=== PATIENT | female | born 1955 | race Caucasian/White ===

== ENCOUNTER → 2016-12-10 | Outpatient (CLI) | payer OTHER ==
[2016-12-10 11:31] LABS: Basophils # (A) 0.1 k/uL (0-0.2); Basophils % (A) 1 %; CH 29.2; CHCM 32.3; Eosinophils # (A) 0.3 k/uL (0-0.7); Eosinophils % (A) 4 %; HCT 39.4 % (34.0-46.0); HDW 2.39; HGB 12.4 gm/dL (11.4-16.0); Luc # (Auto) 0.22; Luc % (Auto) 3; Lymphocytes # (A) 2.5 k/uL (1.0-4.8); Lymphocytes % (A) 34 %; MCH 28.4 pg (25.0-35.0); MCHC 31.3 g/dL (31.0-37.0); MCV 90.6 fL (80.0-100.0); Mean Platelet Volume 6.9; Monocytes # (A) 0.4 k/uL (0-1.0); Monocytes % (A) 6 %; Neutrophils # (A) 3.9 k/uL (1.3-7.7); Neutrophils % (A) 53 %; RBC 4.35 m/uL (3.80-5.40); RDW 12.7 % (11.5-15.5); WBC 7.3 k/uL (3.8-10.6); WBC (Perox) 7.91
[2016-12-10 11:49] LABS: ALT 36 U/L (9-52); AST 22 U/L (14-36); Alkaline Phosphatase 74 U/L (38-126); Anion Gap 10 mmol/L; Blood Urea Nitrogen 24 mg/dL (7-17); Calcium 9.9 mg/dL (8.4-10.2); Carbon Dioxide 28 mmol/L (22-30); Chloride 104 mmol/L (98-107); Glucose 93 mg/dL (74-99); Iron 124 ug/dL (37-170); Non-African American GFR(MDRD) 50 (>60 ml/min/1.73 sqM); Potassium 3.9 mmol/L (3.5-5.1); Sodium 142 mmol/L (137-145); Total Bilirubin 0.3 mg/dL (0.2-1.3); Total Protein 6.7 g/dL (6.3-8.2); Uric Acid 4.1 mg/dL (3.7-7.4)
[2016-12-10 11:58] LABS: % Iron Saturation 42.3 % (20-50); Total Iron Binding Capacity 293 ug/dL (265-497)
== END | disposition home or self-care (01) ==
LOC: LABWHC1 10:08
PROVIDERS: ATTEND Internal Medicine
DX: I10 Essential (primary) hypertension (principal); D50.9 Iron deficiency anemia, unspecified; E55.9 Vitamin D deficiency, unspecified
CPT/HCPCS: 36415; 80053; 82306; 82728; 83540; 83550; 84443; 84550; 85025

== ENCOUNTER → 2017-04-19 | Outpatient (CLI) | payer OTHER ==
--- NOTE | 2017-04-19 09:07 | XR ---
EXAMINATION TYPE: XR cervical spine comp DATE OF EXAM: 04/19/2017 TECHNIQUE: Frontal, lateral, oblique, and open mouth view of the cervical spine are obtained. HISTORY: M47.892 spondylosis chronic neck pain per patient. COMPARISON: None FINDINGS: The cervical spine is visualized in its entirety from C1 thru the top of T1 level, it is s atisfactory in alignment without evidence of acute fracture or dislocation. The pre-vertebral soft t issue appears within normal limits. The C1-C2 articulation is within normal limits on the open mouth view. Vertebral body heights are maintained. There is mild to moderate disc space narrowing and spur ring at C5-C6 level and mild disc space narrowing at C6-C7 level. Uncovertebral facet degenerative ch anges and marginal spurring causes suspected right-sided neural foraminal narrowing at upper to mid c ervical levels seen best on oblique image. Overlying soft tissue is unremarkable. IMPRESSION: Multilevel degenerative changes as detailed above.
--- NOTE | 2017-04-19 11:44 | MM ---
Reason for exam: screening (asymptomatic). Last mammogram was performed 1 year ago. History: Patient is postmenopausal. Family history of breast cancer in 2 aunts and breast cancer in mother at age 60. Took estrogen for 10 years 9 months beginning at age 42. Physical Findings: A clinical breast exam by your physician is recommended on an annual basis and results should be correlated with mammographic findings. MG Screening Mammo w CAD Bilateral CC and MLO view(s) were taken. Prior study comparison: April 06, 2016, bilateral MG screening mammo w CAD. February 11, 2015, bilateral MG screening mammo w CAD. October 10, 2012, bilateral digital screening mammo w/CAD. There are scattered fibroglandular densities. Finding: There are typically benign round calcifications in the left breast. There is no discrete abnormality. ASSESSMENT: Benign, BI-RAD 2 RECOMMENDATION: Routine screening mammogram of both breasts in 1 year.
== END | disposition home or self-care (01) ==
LOC: RADMAMWWP 08:20
PROVIDERS: ATTEND Obstetrics & Gynecology
DX: Z12.31 Encounter for screening mammogram for malignant neoplasm of breast (principal); M47.812 Spondylosis without myelopathy or radiculopathy, cervical region; Z80.3 Family history of malignant neoplasm of breast
CPT/HCPCS: 72050; G0202

== ENCOUNTER → 2017-04-27 | Outpatient (CLI) | payer OTHER ==
[2017-04-27 11:07] LABS: ALT 41 U/L (9-52); AST 27 U/L (14-36); Alkaline Phosphatase 73 U/L (38-126); Anion Gap 7 mmol/L; Blood Urea Nitrogen 13 mg/dL (7-17); Calcium 9.6 mg/dL (8.4-10.2); Carbon Dioxide 31 mmol/L (22-30); Chloride 104 mmol/L (98-107); Cholesterol 207 mg/dL (<200); Creatine Kinase 59 U/L (30-135); Glucose 93 mg/dL (74-99); HDL Cholesterol 60 mg/dL (40-60); Iron 65 ug/dL (37-170); Non-African American GFR(MDRD) >60 (>60 ml/min/1.73 sqM); Potassium 4.1 mmol/L (3.5-5.1); Sodium 142 mmol/L (137-145); Total Bilirubin 0.1 mg/dL (0.2-1.3); Total Protein 5.8 g/dL (6.3-8.2); Triglycerides 156 mg/dL (<150)
[2017-04-27 11:17] LABS: Total Iron Binding Capacity 271 ug/dL (265-497)
[2017-04-27 11:39] LABS: Basophils # (A) 0.1 k/uL (0-0.2); Basophils % (A) 1 %; CH 30.2; Eosinophils # (A) 0.3 k/uL (0-0.7); Eosinophils % (A) 4 %; HCT 39.4 % (34.0-46.0); HDW 2.47; HGB 12.2 gm/dL (11.4-16.0); Luc # (Auto) 0.18; Luc % (Auto) 3; Lymphocytes # (A) 2.3 k/uL (1.0-4.8); Lymphocytes % (A) 32 %; MCH 29.3 pg (25.0-35.0); MCHC 30.9 g/dL (31.0-37.0); MCV 94.8 fL (80.0-100.0); Mean Platelet Volume 6.5; Monocytes # (A) 0.4 k/uL (0-1.0); Monocytes % (A) 5 %; Neutrophils # (A) 4.1 k/uL (1.3-7.7); Neutrophils % (A) 55 %; RBC 4.16 m/uL (3.80-5.40); RDW 13.3 % (11.5-15.5); WBC 7.4 k/uL (3.8-10.6); WBC (Perox) 7.09
[2017-04-27 11:49] LABS: Appearance,Urine Clear (Clear); Bilirubin,Urine Negative (Negative); Glucose,Urine (UA) Negative (Negative); Ketones,Urine Negative (Negative); Leukocyte Esterase,Urine Negative (Negative); Nitrite,Urine Negative (Negative); PH, Urine 6.5 (5.0-8.0); Protein,Urine Trace (Negative); Specific Gravity,Urine 1.017 (1.001-1.035); UA Billing (MACRO vs. MICRO) CHEM; Urobilinogen,Urine <2.0 mg/dL (<2.0)
[2017-04-27 13:04] LABS: Hemoglobin A1C 6.2 % (4.2-6.1)
== END | disposition home or self-care (01) ==
LOC: LABWHC1 09:51
PROVIDERS: ATTEND Internal Medicine
DX: Z00.00 Encounter for general adult medical examination without abnormal findings (principal); I10 Essential (primary) hypertension; E55.9 Vitamin D deficiency, unspecified; D50.9 Iron deficiency anemia, unspecified; G43.909 Migraine, unspecified, not intractable, without status migrainosus; E16.2 Hypoglycemia, unspecified; R00.1 Bradycardia, unspecified
CPT/HCPCS: 36415; 80053; 80061; 81003; 82306; 82550; 82728; 82941; 83036; 83540; 83550; 84439; 84443; 84550; 84681; 85025

== ENCOUNTER → 2017-05-16 | Outpatient (CLI) | payer OTHER ==
--- NOTE | 2017-05-16 15:17 | CT ---
EXAMINATION TYPE: CT brain wo con DATE OF EXAM: 05/16/2017 HISTORY: POWELL and dizziness after fall with head injury x3 days ago. CT DLP: 1070 mGycm. Automated Exposure Control for Dose Reduction was Utilized. TECHNIQUE: CT scan of the head is performed without contrast. COMPARISON: None. FINDINGS: There is no acute intracranial hemorrhage or midline shift identified. Ventricles and sul ci are within normal limits in size. Rodrigues-white matter differentiation is maintained. The globes are intact and the visualized sinuses are clear. The calvarium is intact. IMPRESSION: No acute intracranial hemorrhage or midline shift. Results communicated to ordering physician office as requested at time of dictation.
== END | disposition home or self-care (01) ==
LOC: RADCTMAIN 14:54
PROVIDERS: ATTEND Internal Medicine Geriatric Medicine
DX: S06.0X0A Concussion without loss of consciousness, initial encounter (principal)
CPT/HCPCS: 70450

== ENCOUNTER → 2017-07-03 | Outpatient (CLI) | payer OTHER ==
--- NOTE | 2017-07-03 11:03 | US ---
"EXAMINATION TYPE: US abdomen complete DATE OF EXAM: 07/03/2017 COMPARISON: NONE CLINICAL HISTORY: K83.9 disease os biliary tract. EXAM MEASUREMENTS: Liver Length: 15.6 cm Gallbladder Wall: 0.3 cm CBD: 0.6 cm Spleen: 9.3 cm Right Kidney: 9.1 x 3.6 x 4.7 cm Left Kidney: 8.7 x 3.8 x 4.1 cm Extensive midline bowel gas. Pancreas: Obscured by bowel gas Liver: left lobe obscured by bowel gas, in right lobe is an echogenic somewhat irregular shaped non- vascular area measuring 1.7 x 1.3 x 2.0cm Gallbladder: probable dependant sludge, better visualized in LLD Evidence for sonographic Reagan's sign: no CBD: wnl Spleen: wnl Right Kidney: lower pole obscured by overlying bowel gas Left Kidney: not well visualized due to overlying bowel Upper IVC: wnl Abd Aorta: wnl IMPRESSION: 1. Hyperechoic 2.0 cm irregular mass within the partially visualized liver due to overlying bowel gas . This could represent hemangioma, however is incompletely characterized and further evaluation with dynamic contrast-enhanced CT or MR abdomen are recommended. 2. Only partial visualization of the right kidney and nonvisualization of the left kidney due to over lying bowel gas. 3. Small amount of biliary sludge with no sonographic evidence of acute cholecystitis. A Yellow message has been communicated to Valeriano Khan MD via the [employer] | Critical Result sy stem on 07/03/2017 11:00 AM, Message ID [id number]."
--- NOTE | 2017-07-03 11:49 | P.STRESS ---
- Stress Test Note Stress Test Results/Findings: Exam Performed: stress echo exercise Exam Date: 07/03/17 Reason for Exam: SEPTAL [place] Height: 5 ft 2 in Weight: 61.235 kg Protocol: [place] Stage: 2 Duration of Exercise: 5:00 Resting Heart Rate: 83 Resting Blood Pressure: 134/65 Maximum Achieved Heart Rate: 146 Maximum Achieved Blood Pressure: 189/79 85% PMHR: 133 100% PMHR: 157 METS: 7.1 Technologist Comment: Stress Test Results/Findings: This is a 62-year-old female with history of hypertension and family history of ischemic heart disease being evaluated for cardiac status, because of abnormal EKG and this is a stress echocardiogram. Baseline EKG showed sinus rhythm with normal AR interval and QRS duration and mild nonspecific ST-T abnormalities. Patient walked on the [place] protocol for about 5 minutes, achieving a max moderate of 146 with a blood pressure 189/79. EKGs taken during and after exercise showed [address] depression in inferolateral leads. Patient did not experience any chest pain. Echo data: Baseline echo images showed normal wall motion and thickening except the basal septum and inferior wall appear to be hypokinetic. Exercise echo images showed lack of augmentation in the inferobasal and septal area and ischemia in those segments cannot be excluded. Final impression: #1. Positive stress test. Based on EKG changes #2. Ischemia cannot be excluded in the inferobasal and septal area. Rest of the segments showed augmentation and thickening
--- NOTE | 2017-07-04 11:34 | EST ---
Stress Test Results/Findings: Exam Performed: stress echo exercise Exam Date: 07/03/17 Reason for Exam: SEPTAL [place] Height: 5 ft 2 in Weight: 61.235 kg Protocol: [place] Stage: 2 Duration of Exercise: 5:00 Resting Heart Rate: 83 Resting Blood Pressure: 134/65 Maximum Achieved Heart Rate: 146 Maximum Achieved Blood Pressure: 189/79 85% PMHR: 133 100% PMHR: 157 METS: 7.1 Technologist Comment: Stress Test Results/Findings: This is a 62-year-old female with history of hypertension and family history of ischemic heart disease being evaluated for cardiac status, because of abnormal EKG and this is a stress echocardiogram. Baseline EKG showed sinus rhythm with normal AR interval and QRS duration and mild nonspecific ST-T abnormalities. Patient walked on the [place] protocol for about 5 minutes, achieving a max moderate of 146 with a blood pressure 189/79. EKGs taken during and after exercise showed [address] depression in inferolateral leads. Patient did not experience any chest pain. Echo data: Baseline echo images showed normal wall motion and thickening except the basal septum and inferior wall appear to be hypokinetic. Exercise echo images showed lack of augmentation in the inferobasal and septal area and ischemia in those segments cannot be excluded. Final impression: #1. Positive stress test, based on EKG changes #2. Ischemia cannot be excluded in the inferobasal and septal area. Rest of the segments showed augmentation and thickening MTDD
== END | disposition home or self-care (01) ==
LOC: RADUSMAIN 09:00
PROVIDERS: ATTEND Internal Medicine
DX: R16.0 Hepatomegaly, not elsewhere classified (principal); K83.9 Disease of biliary tract, unspecified; R94.39 Abnormal result of other cardiovascular function study; I21.29 ST elevation (STEMI) myocardial infarction involving other sites
CPT/HCPCS: 76700; 93017; 93350

== ENCOUNTER → 2017-07-17 | Outpatient (CLI) | payer OTHER ==
[2017-07-17 14:04] LABS: Non-African American GFR(MDRD) >60 (>60 ml/min/1.73 sqM)
--- NOTE | 2017-07-17 23:13 | MR ---
EXAMINATION TYPE: MR abdomen wo/w con DATE OF EXAM: 07/17/2017 COMPARISON: NONE HISTORY: Abn US, intermittent abd pain/nausea when eating CONTRAST: Standard multiplanar, multisequence MRI departmental protocol utilizing 6.5 mL intravenous Gadavist g adolinium contrast. FINDINGS: There is a lobulated 3 cm area of progressive enhancement near the gilmar hepatis in the rig ht lobe of the liver. There is nodular peripheral enhancement on the early images and later more unif orm contrast enhancement. Bile ducts are not dilated. The remainder of the liver shows no abnormality. There is no evidence of pancreatic mass. Pancreatic duct appears normal. Spleen appears normal. There are bilateral multiple small renal cortical cysts that measure less than 1 cm. There is no hydr onephrosis. There is no retroperitoneal adenopathy. There is no ascites. IMPRESSION: There is a 3 cm mass in the right lobe of the liver without change in size compared to ultrasound exa m of 07/03/2017. There is enhancement pattern diagnostic of hemangioma. Multiple small renal cortical cysts.
== END | disposition home or self-care (01) ==
LOC: RADMRIMAIN 13:10
PROVIDERS: ATTEND Internal Medicine
DX: D18.09 Hemangioma of other sites (principal); R16.0 Hepatomegaly, not elsewhere classified; Z01.812 Encounter for preprocedural laboratory examination
CPT/HCPCS: 82565; 74183; 36415; A9581

== ENCOUNTER → 2017-07-20 | Outpatient (CLI) | payer OTHER ==
[2017-07-20 14:27] LABS: CH 30.3; CHCM 33.2; HCT 37.8 % (34.0-46.0); HGB 12.3 gm/dL (11.4-16.0); MCH 29.8 pg (25.0-35.0); MCHC 32.4 g/dL (31.0-37.0); MCV 91.9 fL (80.0-100.0); Mean Platelet Volume 7.1; RBC 4.11 m/uL (3.80-5.40); RDW 13.4 % (11.5-15.5); WBC 7.3 k/uL (3.8-10.6)
[2017-07-20 14:32] LABS: Potassium 3.9 mmol/L (3.5-5.1)
== END | disposition home or self-care (01) ==
LOC: LABPAT 13:25
PROVIDERS: ATTEND Internal Medicine Cardiovascular Disease
DX: Z01.812 Encounter for preprocedural laboratory examination (principal); R07.9 Chest pain, unspecified
CPT/HCPCS: 80051; 84520; 85027

== ENCOUNTER 2017-07-27 06:17 | Day surgery (SDC) | payer OTHER ==
[2017-07-24 14:10] VITALS: BMI 23.0
[2017-07-27] MEDS ORDERED: SODIUM CHLORIDE 0.9% 1,000 ML in EMPTY BAG 1 BAG IV ONE (06:35)
[2017-07-27] MEDS ORDERED: ATORVASTATIN 80 MG TAB PO STA (06:35)
[2017-07-27] MEDS ORDERED: NITROGLYCERIN SL TABS 0.4 MG TAB SUBLINGUAL PRN ×2 (06:35→08:55)
[2017-07-27] MEDS ORDERED: ASPIRIN 325 MG TAB PO STA (06:35)
[2017-07-27] MEDS ORDERED: ALPRAZolam 0.5 MG TAB PO PRN (06:35)
[2017-07-27] MEDS ORDERED: ALPRAZolam 0.25 MG TAB PO PRN (06:35)
[2017-07-27] MEDS ORDERED: MIDAZOLAM 2 MG/2 ML VIAL ONE (07:28)
[2017-07-27] MEDS ORDERED: diphenhydrAMINE 50 MG/ML 1 ML VIAL ONE (07:28)
[2017-07-27] MEDS ORDERED: diphenhydrAMINE 50 MG/ML 1 ML VIAL IVP ONE (07:35)
[2017-07-27] MEDS: MIDAZOLAM 2 MG/2 ML VIAL IV ONE ×2 (07:37→08:05)
[2017-07-27] MEDS ORDERED: LIDOCAINE 2% INJ 20 MG/ML SQ ONE (07:41)
[2017-07-27] MEDS ORDERED: CLOPIDOGREL 75 MG TAB ONE (08:13)
[2017-07-27] MEDS ORDERED: CLOPIDOGREL 75 MG TAB PO ONE (08:19)
[2017-07-27] MEDS ORDERED: BIVALIRUDIN BOLUS 250 MG/50 ML IV ONE (08:21)
[2017-07-27] MEDS ORDERED: BIVALIRUDIN 250 MG in SODIUM CHLORIDE 0.9% 40 ML IV ONE (08:24)
[2017-07-27] MEDS ORDERED: fentaNYL (PF) 50 MCG/ML 2 ML AMP ONE (08:25)
[2017-07-27] MEDS ORDERED: fentaNYL (PF) 50 MCG/ML 2 ML AMP IV ONE (08:27)
[2017-07-27] MEDS: NITROGLYCERIN 1000MCG/10ML SYRINGE INTRACORON ONE ×2 (08:32→08:41)
[2017-07-27] MEDS ORDERED: IOHEXOL 350 MG/ML 125ML BOTTLE INJ ONE (08:43)
[2017-07-27] MEDS ORDERED: MAG HYDROX/AL HYDROX/SIMETH 30 ML CUP PO PRN (08:55)
[2017-07-27] MEDS ORDERED: ATROPINE SULFATE 0.1 MG/ML 10ML SYRINGE IV PRN (08:55)
[2017-07-27] MEDS ORDERED: RX INFO: IV CONTRAST WAS GIVEN 1 EACH MISC MISCELLANE PRN (08:55)
[2017-07-27] MEDS ORDERED: ZOLPIDEM 5 MG TAB PO PRN (08:55)
[2017-07-27] MEDS ORDERED: SODIUM CHLORIDE 0.9% 1,000 ML IV SCH (09:00)
[2017-07-27] MEDS ORDERED: BUTALB/APAP/CAFF 50-325-40MG TAB PO STA (09:39)
[2017-07-27] MEDS ORDERED: CAFF PO SCH (09:45)
[2017-07-27] MEDS ORDERED: BUTALB PO SCH (09:45)
[2017-07-27] MEDS ORDERED: ASPRIN PO SCH (09:45)
--- NOTE | 2017-07-27 09:51 | CC ---
CARDIAC CATHETERIZATION REPORT INDICATION: Abnormal stress echo in a patient with multiple coronary risk factors and an abnormal stress echo. Patient has new onset symptoms in the form of exertional angina. PROCEDURE NOTE: After obtaining informed consent, left heart catheterization and coronary angiogram are performed via the right femoral artery using standard Aida catheters. The patient tolerated the procedure well without any obvious immediate complications. The patient received moderate conscious sedation. Total sedation time was 12 minutes. FINDINGS: 1. HEMODYNAMICS: Left ventricular end-diastolic pressure is 8 to 12 mm. There is no significant gradient across the aortic valve. 2. LEFT VENTRICULOGRAM: Left ventriculogram is not performed. 3. ANGIOGRAPHIC DATA:. Left Main Coronary Artery, left main coronary artery is a normal-sized vessel and is free of stenosis. Divides into left anterior descending coronary artery and circumflex coronary artery. Circumflex coronary artery is a codominant vessel that shows a focal area of 80% stenosis. LAD appears calcified. There is a 30% to 40% stenosis in its mid portion. Right coronary artery is a large dominant vessel and shows mild atherosclerotic plaque. CONCLUSIONS: An 80% stenosis involving [place] circumflex coronary artery. PLAN: Patient will undergo angioplasty of the same. MMODL / IJN: [id number] /
--- NOTE | 2017-07-27 09:57 | LTR ---
Date: July 27, 2017 Valeriano Khan MD Re: Cat Marroquin. Dear Valeriano: I performed cardiac catheterization on Cat Marroquin. The detailed catheterization note is enclosed for your records. This pleasant 62-year-old lady with multiple coronary risk factors presented to us with symptoms of exertional chest pain and shortness of breath and had an abnormal stress echo showing ischemia in the inferior wall. Due to this she underwent cardiac catheterization that revealed a hemodynamically significant lesion in the [place] circumflex coronary artery. The patient will undergo angioplasty of the same and I anticipate her being discharged home tomorrow. Thank you for giving us the privilege to participate in the care of this pleasant lady. Sincerely, MD RICHMOND Bryant / BRIDGET: [id number] /
--- NOTE | 2017-07-27 10:06 | PTCA ---
PERCUTANEOUSTRANS CORORONARY ANGIOGRAPHY Mrs. Marroquin is a 62-year-old female who has a well known history of hypertension, hyperlipidemia, who had some chest discomfort, underwent a stress echocardiogram that revealed evidence of inferior and inferoseptal wall inducible ischemia. In view of that, the patient underwent cardiac catheterization, was found to have critical stenosis involving the proximal left circumflex and recommendation made regarding angioplasty and stenting. The procedures, risks and complication were discussed with the patient who is in full understanding and agreement. PROCEDURE: Using a 6-Japanese FR4 guiding catheter, the left main was cannulated, subsequently 0.14 advanced medium weight J-wire was advanced across the lesion and positioned distally. Then a 2.5 x 12 mm Xience Alpine stent was advanced, deployed and post dilated to 16 atmospheres. After the last inflation, after appropriate wait, the balloon and the guidewire were withdrawn back in the guiding catheter. Images were obtained and repeated. Those images reveal stable successful stenting. At that point, the guiding catheter, the balloon and the guidewire were removed. The sheath was sutured in place. The patient was returned to her room in stable condition. Of note, the patient had chest discomfort and EKG changes with the inflations. She received Angiomax per protocol as was oral loading dose of clopidogrel. RESULTS: Successful stenting of the proximal left circumflex with reduction of stenosis from 80% to 0%. RECOMMENDATION: Patient will be continued on aspirin, Plavix, angiotensin receptor velia, and statin. The importance of dual antiplatelet treatment was discussed with the patient and her family who are in full understanding and agreement. Duration of procedure is 20 minutes. RICHMOND / TRICIAN: [id number] /
--- NOTE | 2017-07-27 10:27 | LTR ---
Date: DATE OF SERVICE: 07/27/2017 RE: Cat Marroquin Dear Dr. Khan; I had the pleasure to perform coronary angioplasty and stenting on Mrs. Marroquin at [facility] on July 27, 2017. A full copy of the procedure note will be forwarded to you. In brief, she underwent successful stenting of her proximal left circumflex using a drug-eluting stent. I am hopeful that this procedure will stabilize her status and thank you again for allowing me to participate in this patient's care. Please feel free to call for any questions. Sincerely yours, MD DA GonzalesL / TRICIAN: [id number] /
[2017-07-27] MEDS: CHOLECALCIFEROL 1,000 UNIT TAB PO SCH (19:41)
[2017-07-27] MEDS: PANTOPRAZOLE 40 MG TABLET PO SCH (19:42)
[2017-07-27] MEDS: VERAPAMIL SR 240 MG TABLET.ER PO SCH ×2 (19:42→20:46)
[2017-07-27] MEDS: FERROUS SULFATE 325 MG TAB PO SCH (19:42)
[2017-07-27] MEDS ORDERED: cloNIDine HCL 0.1 MG TAB PO SCH (21:00)
[2017-07-27] MEDS ORDERED: ACETAMINOPHEN TAB 325 MG TAB PO PRN (21:57)
[2017-07-28 06:40] LABS: Anion Gap 4 mmol/L; Blood Urea Nitrogen 12 mg/dL (7-17); Calcium 9.1 mg/dL (8.4-10.2); Carbon Dioxide 30 mmol/L (22-30); Chloride 102 mmol/L (98-107); Glucose 89 mg/dL (74-99); Non-African American GFR(MDRD) >60 (>60 ml/min/1.73 sqM); Potassium 3.5 mmol/L (3.5-5.1); Sodium 136 mmol/L (137-145)
[2017-07-28] MEDS: PANTOPRAZOLE 40 MG TABLET PO SCH (06:55)
--- NOTE | 2017-07-28 07:58 | PN ---
PROGRESS NOTE Mrs. Marroquin is a 62-year-old female who has a history of hypertension, presented with abnormal stress echocardiogram and symptoms of chest pain, underwent cardiac catheterization by Dr. Hernandez, was found to have significant obstructive disease involving the proximal left circumflex, underwent stenting of that vessel using a drug- eluting stent. She is doing well this morning. She is denying any chest pain. Her breathing has been stable. No dizziness. No palpitation. Continued to be aspirin once a day, Plavix 75 mg daily, Lipitor 40 mg daily, clonidine 0.1 mg daily, hydrochlorothiazide 12.5 mg daily, losartan 100 mg daily, Protonix 40 mg daily, verapamil SR 240 mg twice a day. PHYSICAL EXAMINATION: Blood pressure 118/60 with a heart rate 70. LUNGS: Clear. HEART: Regular rate and rhythm. S1, S2. No S3. No rub. ABDOMEN: Soft, nontender. Right groin hematoma. EKG revealed no acute changes. LAB DATA: Lab data revealed BUN and creatinine 12 and 0.7. IMPRESSION: 1. Status post stenting of the left circumflex. 2. Hypertension. 3. Hyperlipidemia. RECOMMENDATION: Patient will be discharged home today and followed as an outpatient by Dr. Hernandez. MMLAUREANOL / TRICIAN: [id number] /
[2017-07-28] MEDS: VERAPAMIL SR 240 MG TABLET.ER PO SCH (08:04)
[2017-07-28] MEDS: FERROUS SULFATE 325 MG TAB PO SCH (08:04)
[2017-07-28] MEDS: CHOLECALCIFEROL 1,000 UNIT TAB PO SCH (08:06)
[2017-07-28] MEDS ORDERED: LOSARTAN 50 MG TAB PO SCH (09:00)
[2017-07-28] MEDS ORDERED: ASPIRIN 81 MG PO SCH (09:00)
[2017-07-28] MEDS ORDERED: HYDROCHLOROTHIAZIDE 12.5 MG CAP PO SCH (09:00)
[2017-07-28] MEDS ORDERED: CLOPIDOGREL 75 MG TAB PO SCH (09:00)
[2017-07-28] MEDS ORDERED: ATORVASTATIN 40 MG TAB PO SCH (09:00)
[2017-07-28 09:20] VITALS: BP 99/53; PULSE 71; RESP 18; TEMP 97.9
== END 2017-07-28 09:44 | disposition home or self-care (01) ==
LOC: CATHCVL 06:17 → 6SEL 12:27 → CATHCVL 07-28 09:44
PROVIDERS: ATTEND Internal Medicine Cardiovascular Disease
DX: I25.118 Atherosclerotic heart disease of native coronary artery with other forms of angina pectoris (principal); I10 Essential (primary) hypertension; E78.5 Hyperlipidemia, unspecified; Z82.49 Family history of ischemic heart disease and other diseases of the circulatory system; Z79.82 Long term (current) use of aspirin; Z79.899 Other long term (current) drug therapy; Z88.5 Allergy status to narcotic agent
CPT/HCPCS: 94760; 93458; 80048; C9600; C1769 ×2; C1887; C1894; C1874; J2001; J2250; J1200; J3010; J0583; Q9967

== ENCOUNTER → 2018-01-29 | Outpatient (CLI) | payer OTHER ==
--- NOTE | 2018-01-29 13:37 | US ---
EXAMINATION TYPE: US abdomen complete DATE OF EXAM: 01/29/2018 COMPARISON: US July 03, 2017. MRI abdomen July 17, 2017. CLINICAL HISTORY: Hemangioma D18.00; prior bowel resection EXAM MEASUREMENTS: Liver Length: 13.5 cm Gallbladder Wall: 0.2 cm CBD: 0.5 cm Spleen: 8.8 cm Right Kidney: 8.4 x 4.4 x 3.3 cm Left Kidney: 8.1 x 4.8 x 4.2 cm Pancreas: hyperechoic; tail obscured by overlying bowel gas Liver: follow up to prior area of hemangioma: complex hyperechoic oval area is noted at gilmar hepati s = 1.8 x 2.7 x 2.8cm Gallbladder: wnl Evidence for sonographic Reagan's sign: No CBD: wnl Spleen: wnl Right Kidney: No hydronephrosis or masses seen Left Kidney: No hydronephrosis or masses seen Upper IVC: wnl Abd Aorta: size is wnl, mild intimal thickening is noted mid and distal aorta Visualized pancreas is not well seen on images saved due to shadowing from overlying bowel gas. Pancr eatic duct is visualized but not suspiciously dilated. Visualized portion of liver redemonstrates sophie e vague hyperechoic area centrally right hepatic lobe likely reflecting hemangioma, this is better se en on prior ultrasound images saved. No new lesions are seen on images saved. IMPRESSION: There is redemonstration of central right hepatic lobe liver lesion consistent with heman gioma on dynamic postcontrast MRI, lesion measures closer to 3.0 cm long axis on MRI which correlates with this ultrasound.
== END | disposition home or self-care (01) ==
LOC: RADUSWWP 12:07
PROVIDERS: ATTEND Internal Medicine
DX: K76.9 Liver disease, unspecified (principal)
CPT/HCPCS: 76700

== ENCOUNTER → 2018-02-06 | Outpatient (CLI) | payer OTHER ==
[2018-02-06 15:50] LABS: Calcium 9.2 mg/dL (8.4-10.2); Magnesium 1.9 mg/dL (1.6-2.3); Potassium 3.3 mmol/L (3.5-5.1)
== END | disposition home or self-care (01) ==
LOC: LABWHC1 14:54
PROVIDERS: ATTEND Internal Medicine
DX: E87.6 Hypokalemia (principal)
CPT/HCPCS: 36415; 80048; 83735

== ENCOUNTER → 2018-04-25 | Outpatient (CLI) | payer OTHER ==
--- NOTE | 2018-04-27 08:32 | MM ---
Reason for exam: screening (asymptomatic). Last mammogram was performed 1 year ago. History: Patient is postmenopausal. Family history of breast cancer in 2 aunts and breast cancer in mother at age 60. Took estrogen for 10 years 9 months beginning at age 42. Physical Findings: A clinical breast exam by your physician is recommended on an annual basis and results should be correlated with mammographic findings. MG Screening Mammo w CAD Bilateral CC and MLO view(s) were taken. Prior study comparison: April 19, 2017, bilateral MG screening mammo w CAD. April 06, 2016, bilateral MG screening mammo w CAD. There are scattered fibroglandular densities. No suspicious abnormality. ASSESSMENT: Negative, BI-RAD 1 RECOMMENDATION: Routine screening mammogram of both breasts in 1 year.
== END | disposition home or self-care (01) ==
LOC: RADMAMWWP 08:33
PROVIDERS: ATTEND Obstetrics & Gynecology
DX: Z12.31 Encounter for screening mammogram for malignant neoplasm of breast (principal); Z80.3 Family history of malignant neoplasm of breast
CPT/HCPCS: 77067

== ENCOUNTER 2018-08-08 00:07 | Inpatient (IN) | payer OTHER ==
[2018-08-08] MEDS ORDERED: SODIUM CHLORIDE 0.9% 1,000 ML IV STA (00:52)
[2018-08-08] MEDS ORDERED: ONDANSETRON 4 MG/2 ML VIAL IVP STA ×2 (00:52→02:14)
[2018-08-08] MEDS ORDERED: HYDROmorphone 1 MG/ML 1 ML SYRINGE IVP STA (00:52)
[2018-08-08 01:23] LABS: Basophils # (A) 0.1 k/uL (0-0.2); Basophils % (A) 1 %; Eosinophils # (A) 0.4 k/uL (0-0.7); Eosinophils % (A) 4 %; HCT 40.8 % (34.0-46.0); HGB 12.3 gm/dL (11.4-16.0); Lymphocytes % (A) 27 %; MCH 28.4 pg (25.0-35.0); MCHC 30.2 g/dL (31.0-37.0); MCV 93.8 fL (80.0-100.0); Mean Platelet Volume 6.2; Monocytes # (A) 0.5 k/uL (0-1.0); Monocytes % (A) 5 %; Neutrophils # (A) 6.7 k/uL (1.3-7.7); Neutrophils % (A) 61 %; Platelet Count 290 k/uL (150-450); RBC 4.35 m/uL (3.80-5.40); WBC 10.9 k/uL (3.8-10.6)
[2018-08-08 01:26] LABS: Albumin 3.9 g/dL (3.5-5.0); Calcium 9.7 mg/dL (8.4-10.2); Potassium 3.4 mmol/L (3.5-5.1); Total Bilirubin 0.2 mg/dL (0.2-1.3); Total Protein 6.7 g/dL (6.3-8.2)
[2018-08-08 01:42] LABS: Creatine Kinase 99 U/L (30-135)
[2018-08-08 01:55] LABS: Creatine Kinase MB 2.3 ng/mL (0.0-2.4); Troponin I <0.012 ng/mL (0.000-0.034)
[2018-08-08] MEDS ORDERED: DILTIAZEM DRIP BOLUS FROM BAG 1 MG SOLN IV ONE ×3 (02:09→05:52)
--- NOTE | 2018-08-08 02:11 | CT ---
EXAMINATION TYPE: CT abdomen pelvis w con DATE OF EXAM: 08/08/2018 COMPARISON: None HISTORY: No prior, right sided abd pain with nausea and vomiting for 1 day, history of bowel resectio n and hysterectomy CT DLP: 435.10 mGycm Automated exposure control for dose reduction was used. TECHNIQUE: Helical acquisition of images was performed from the lung bases through the pelvis. CONTRAST: Performed without Oral Contrast and with IV Contrast, patient injected with 100 mL of Isovue 300. FINDINGS: Lung bases are clear of consolidation. There is no pleural effusion. There is mild subsegmental atele ctasis at the right lung base. There is no pericardial effusion. Liver shows no focal defect. Gallbladder is dilated and measures 5.3 cm in diameter. Spleen appears n ormal. There is a hiatal hernia. There is surgery at the stomach. There is gastrojejunostomy noted. T here is no evidence of pancreatic mass. Common bile duct and intrahepatic bile ducts are mildly ectat ic. The common bile duct measures 12 mm. I see no mass at the distal common bile duct. There is no adrenal mass. Kidneys show satisfactory contrast opacification. There is no hydronephrosi s. There is no retroperitoneal adenopathy. There is no mesenteric adenopathy or edema. There are scat tered sigmoid diverticula. There is no sign of diverticulitis. I see no evidence of a bowel obstructi on. Bladder distends smoothly. There is no free fluid in the abdomen. Hysterectomy is noted. Lumbar s pine appears intact. I see no bony destructive process. There is no inguinal hernia or adenopathy. Th e abdominal soft tissues are unremarkable. IMPRESSION: THERE IS DILATED GALLBLADDER AND ALSO DILATED BILIARY TREE. I DO NOT SEE A PANCREATIC MASS. THIS COUL D RELATE TO STRICTURE OR OBSTRUCTING STONE IN THE DISTAL COMMON BILE DUCT. MRCP EXAM WOULD BE HELPFUL FOR FURTHER EVALUATION IF CLINICALLY INDICATED. ULTRASOUND MIGHT BE ABLE TO EVALUATE THE DISTAL COMM ON BILE DUCT FOR STONE.
--- NOTE | 2018-08-08 02:20 | ED ---
Abdominal Pain HPI <BrivladislavDillan - Last Filed: 08/08/18 06:00> - General Source: patient Mode of arrival: ambulatory Limitations: no limitations <Elisabeth Reyes - Last Filed: 08/10/18 02:50> - General Chief Complaint: Abdominal Pain Stated Complaint: Abdominal Pain Time Seen by Provider: 08/08/18 00:27 - History of Present Illness Initial Comments: 63-year-old female patient with past medical history significant for myocardial infarction with stenting in 2017 and bowel obstruction status post gastrojejunostomy presents to the emergency department today for complaints of midepigastric and right upper quadrant abdominal pain. Patient states the pain does radiate through to her back. States she has been nauseated throughout the day and has vomited. Patient denies any constipation or diarrhea. She denies hematochezia or melena. She did have a normal bowel movement this morning. Denies any fevers or chills. She denies any chest pain, shortness of breath, dizziness, or weakness. She denies any hematuria, dysuria, urinary frequency, urinary urgency. Denies any history of similar symptoms. Patient denies any recent rash, back pain, numbness, tingling, dizziness, weakness, headache, visual changes, or any other complaints. (Elisabeth Reyes) - Related Data Home Medications Medication Instructions Recorded Confirmed Butalb/Asprin/Caff 50-325-40Mg 1 tab PO DAILY PRN 04/26/16 08/08/18 [Fiorinal 50-325-40 MG] Losartan/Hydrochlorothiazide 1 tab PO HS 04/26/16 08/08/18 [Losartan-Hctz 100-12.5 mg Tab] Omeprazole 40 mg PO BID 04/26/16 08/08/18 Verapamil HCl [Verapamil ER] 240 mg PO DAILY 04/26/16 08/08/18 Ascorbic Acid [Vitamin C] 500 mg PO DAILY 07/24/17 08/08/18 Cholecalciferol [Vitamin D3] 1,000 unit PO DAILY 07/24/17 08/08/18 Ferrous Sulfate [Iron (65 MG 325 mg PO DAILY 07/24/17 08/08/18 Elemental)] Feverfew 1 tab PO DAILY 07/24/17 08/08/18 LPrabhakaracidoph,Parackarimei, B.lactis 1 cap PO DAILY 07/24/17 08/08/18 [Probiotic] Multivitamins, Thera [Multivitamin 1 tab PO DAILY 07/24/17 08/08/18 (formulary)] Aspirin EC [Ecotrin Low Dose] 81 mg PO HS 08/08/18 08/08/18 Aspirin/Acetaminophen/Caffeine 1 tab PO BID PRN 08/08/18 08/08/18 [Excedrin Migraine Caplet] Britni Back & Body 1,000 mg PO Q6H PRN 08/08/18 08/08/18 Cyanocobalamin (Vitamin B-12) 2,500 mcg PO DAILY 08/08/18 08/08/18 [Vitamin B12] Ibuprofen [Motrin Ib] 200 mg PO Q4H PRN 08/08/18 08/08/18 Imitrex (Unknown Dose) 1 dose IM DAILY PRN 08/08/18 08/08/18 Potassium Chloride [Klor-Con 20] 20 meq PO HS 08/08/18 08/08/18 Previous Rx's Medication Instructions Recorded Atorvastatin [Lipitor] 40 mg PO DAILY #90 tab 07/28/17 Nitroglycerin Sl Tabs [Nitrostat] 0.4 mg SUBLINGUAL Q5M PRN #25 tab 07/28/17 Allergies Allergy/AdvReac Type Severity Reaction Status Date / Time morphine Allergy hives Verified 08/08/18 09:20 Review of Systems ROS Other: All systems not noted in ROS Statement are negative. <Dillan Pisano - Last Filed: 08/08/18 06:00> ROS Other: All systems not noted in ROS Statement are negative. <Elisabeth Reyes - Last Filed: 08/10/18 02:50> ROS Statement: Those systems with pertinent positive or pertinent negative responses have been documented in the HPI. Past Medical History Past Medical History: Cancer, Hypertension Additional Past Medical History / Comment(s): gastric ulcers History of Any Multi-Drug Resistant Organisms: None Reported Past Surgical History: Bowel Resection, Heart Catheterization, Hysterectomy Additional Past Surgical History / Comment(s): mole removed from neck Past Psychological History: No Psychological Hx Reported Smoking Status: Never smoker Past Alcohol Use History: None Reported Past Drug Use History: None Reported - Past Family History Mother Family Medical History: Cancer (Lung cancer at the age of 70) Additional Family Medical History / Comment(s): Mother had lung cancer. Father Family Medical History: Coronary Artery Disease (CAD), Diabetes Mellitus Additional Family Medical History / Comment(s): Father at 75 yrs post CABG sepsis. Daughter(s) Family Medical History: Cancer Additional Family Medical History / Comment(s): Daughter had melanoma stage III Brother(s) Family Medical History: Coronary Artery Disease (CAD) ( of myocardial infarction at age 59 has 5 living siblings with no medical problems, has 3 kids with one son has lupus) <Elisabeth Reyes - Last Filed: 08/10/18 02:50> General Exam Limitations: no limitations General appearance: alert, in no apparent distress, other (This is a well- developed, well-nourished adult female patient in no acute distress. Vital signs upon presentation are temperature 98.5F, pulse 80, respirations 19, blood pressure 182/76, pulse ox 98% on room air.) Eye exam: Present: normal appearance, PERRL, EOMI. Absent: scleral icterus, conjunctival injection, periorbital swelling ENT exam: Present: normal exam, normal oropharynx, mucous membranes moist Respiratory exam: Present: normal lung sounds bilaterally. Absent: respiratory distress, wheezes, rales, rhonchi, stridor Cardiovascular Exam: Present: regular rate, normal rhythm, normal heart sounds. Absent: systolic murmur, diastolic murmur, rubs, gallop, clicks GI/Abdominal exam: Present: soft, tenderness (Midepigastric tenderness), normal bowel sounds. Absent: distended, guarding, rebound, rigid Back exam: Present: normal inspection. Absent: CVA tenderness (R), CVA tenderness (L) Neurological exam: Present: alert, oriented X3, CN II-XII intact Psychiatric exam: Present: normal affect, normal mood Skin exam: Present: warm, dry, intact, normal color. Absent: rash <Elisabeth Reyes - Last Filed: 08/10/18 02:50> Course <Dillan Pisano - Last Filed: 08/08/18 06:00> <Elisabeth Reyes - Last Filed: 08/10/18 02:50> Vital Signs 08/08/18 08/08/18 08/08/18 00:17 02:31 03:19 Temperature 98.5 F Pulse Rate 80 140 H 137 H Respiratory 19 16 16 Rate Blood Pressure 182/76 160/113 182/75 O2 Sat by Pulse 98 96 95 Oximetry 08/08/18 08/08/18 08/08/18 04:27 05:16 06:25 Temperature Pulse Rate 157 H 131 H 90 Respiratory 16 18 16 Rate Blood Pressure 178/79 133/67 145/67 O2 Sat by Pulse 97 97 97 Oximetry - Reevaluation(s) Reevaluation #1: 08/08/18 02:21 On the heart monitor patient had elevated heart rate in the 140s and 150s. Monitor strip appeared to be atrial fibrillation with rapid ventricular response. We did obtain a repeat EKG which did show A. fib with RVR. Patient has no history of atrial fibrillation. Has had history of [place] with stenting in 2017. We will start Cardizem. Patient currently reporting increased nausea and pounding heart. We will give additional nausea medication. (Elisabeth Reyes) Medical Decision Making - Lab Data Result diagrams: 08/08/18 00:48 08/08/18 00:48 <Dillan Pisano - Last Filed: 08/08/18 06:00> - Lab Data Result diagrams: 08/09/18 07:48 08/09/18 07:48 - EKG Data -: EKG Interpreted by Me - Radiology Data Radiology results: report reviewed, image reviewed <Elisabeth Reyes - Last Filed: 08/10/18 02:50> - Medical Decision Making I saw this patient in conjunction with the physician dental assistant. I performed independent history and physical exam. Agree with case management. (Dillan Pisano) - Lab Data Lab Results 08/08/18 08/08/18 08/08/18 Range/Units 00:48 00:48 00:48 WBC 10.9 H (3.8-10.6) k/uL RBC 4.35 (3.80-5.40) m/uL Hgb 12.3 (11.4-16.0) gm/dL Hct 40.8 (34.0-46.0) % MCV 93.8 (80.0-100.0) fL MCH 28.4 (25.0-35.0) pg MCHC 30.2 L (31.0-37.0) g/dL RDW 13.0 (11.5-15.5) % Plt Count 290 (150-450) k/uL Neutrophils % 61 % Lymphocytes % 27 % Monocytes % 5 % Eosinophils % 4 % Basophils % 1 % Neutrophils # 6.7 (1.3-7.7) k/uL Lymphocytes # 3.0 (1.0-4.8) k/uL Monocytes # 0.5 (0-1.0) k/uL Eosinophils # 0.4 (0-0.7) k/uL Basophils # 0.1 (0-0.2) k/uL Sodium 141 (137-145) mmol/L Potassium 3.4 L (3.5-5.1) mmol/L Chloride 106 (98-107) mmol/L Carbon Dioxide 25 (22-30) mmol/L Anion Gap 10 mmol/L BUN 16 (7-17) mg/dL Creatinine 0.88 (0.52-1.04) mg/dL Est GFR (CKD-EPI)AfAm 81 (>60 ml/min/1.73 sqM) Est GFR (CKD-EPI)NonAf 70 (>60 ml/min/1.73 sqM) Glucose 98 (74-99) mg/dL Plasma Lactic Acid Dariel (0.7-2.0) mmol/L Calcium 9.7 (8.4-10.2) mg/dL Magnesium (1.6-2.3) mg/dL Total Bilirubin 0.2 (0.2-1.3) mg/dL AST 25 (14-36) U/L ALT 29 (9-52) U/L Alkaline Phosphatase 100 (38-126) U/L Total Creatine Kinase 99 (30-135) U/L CK-MB (CK-2) 2.3 (0.0-2.4) ng/mL CK-MB (CK-2) Rel Index 2.3 Troponin I <0.012 (0.000-0.034) ng/mL Total Protein 6.7 (6.3-8.2) g/dL Albumin 3.9 (3.5-5.0) g/dL Amylase 83 (30-110) U/L Lipase 121 (23-300) U/L TSH (0.465-4.680) mIU/L Urine Color Urine Appearance (Clear) Urine pH (5.0-8.0) Ur Specific [place] (1.001-1.035) Urine Protein (Negative) Urine Glucose (UA) (Negative) Urine Ketones (Negative) Urine Blood (Negative) Urine Nitrite (Negative) Urine Bilirubin (Negative) Urine Urobilinogen (<2.0) mg/dL Ur Leukocyte Esterase (Negative) Urine RBC (0-5) /hpf Urine WBC (0-5) /hpf Ur Squamous Epith Cells (0-4) /hpf Urine Bacteria (None) /hpf Hyaline Casts (0-2) /lpf Urine Mucus (None) /hpf 08/08/18 08/08/18 08/08/18 Range/Units 00:48 00:48 02:58 WBC (3.8-10.6) k/uL RBC (3.80-5.40) m/uL Hgb (11.4-16.0) gm/dL Hct (34.0-46.0) % MCV (80.0-100.0) fL MCH (25.0-35.0) pg MCHC (31.0-37.0) g/dL RDW (11.5-15.5) % Plt Count (150-450) k/uL Neutrophils % % Lymphocytes % % Monocytes % % Eosinophils % % Basophils % % Neutrophils # (1.3-7.7) k/uL Lymphocytes # (1.0-4.8) k/uL Monocytes # (0-1.0) k/uL Eosinophils # (0-0.7) k/uL Basophils # (0-0.2) k/uL Sodium (137-145) mmol/L Potassium (3.5-5.1) mmol/L Chloride (98-107) mmol/L Carbon Dioxide (22-30) mmol/L Anion Gap mmol/L BUN (7-17) mg/dL Creatinine (0.52-1.04) mg/dL Est GFR (CKD-EPI)AfAm (>60 ml/min/1.73 sqM) Est GFR (CKD-EPI)NonAf (>60 ml/min/1.73 sqM) Glucose (74-99) mg/dL Plasma Lactic Acid Dariel 0.8 (0.7-2.0) mmol/L Calcium (8.4-10.2) mg/dL Magnesium 2.1 (1.6-2.3) mg/dL Total Bilirubin (0.2-1.3) mg/dL AST (14-36) U/L ALT (9-52) U/L Alkaline Phosphatase (38-126) U/L Total Creatine Kinase (30-135) U/L CK-MB (CK-2) (0.0-2.4) ng/mL CK-MB (CK-2) Rel Index Troponin I (0.000-0.034) ng/mL Total Protein (6.3-8.2) g/dL Albumin (3.5-5.0) g/dL Amylase (30-110) U/L Lipase (23-300) U/L TSH 1.570 (0.465-4.680) mIU/L Urine Color Colorless Urine Appearance Clear (Clear) Urine pH 6.5 (5.0-8.0) Ur Specific [place] 1.018 (1.001-1.035) Urine Protein Negative (Negative) Urine Glucose (UA) Negative (Negative) Urine Ketones 1+ H (Negative) Urine Blood Negative (Negative) Urine Nitrite Negative (Negative) Urine Bilirubin Negative (Negative) Urine Urobilinogen <2.0 (<2.0) mg/dL Ur Leukocyte Esterase Moderate H (Negative) Urine RBC 1 (0-5) /hpf Urine WBC 6 H (0-5) /hpf Ur Squamous Epith Cells <1 (0-4) /hpf Urine Bacteria Rare H (None) /hpf Hyaline Casts 1 (0-2) /lpf Urine Mucus Rare H (None) /hpf - EKG Data EKG Comments: EKG obtained at 0056 shows normal sinus rhythm with a ventricular rate of 87, VA interval 188, QRS duration 82, QT 02/06/1947, QTc 416. No evidence of ST elevation or depression. EKG obtained at 0201 shows atrial fibrillation with rapid ventricular response with premature ventricular aberrantly conducted complexes. Ventricular rate is 142, QRS duration 80, QT 282, QTc 433. (Elisabeth Reyes) - Radiology Data CT abdomen and pelvis is obtained. Report was reviewed in its entirety. There is dilated gallbladder and also dilated biliary tree. He did not see a pancreatic mass. Skin related to structural obstructing stone in the distal common bile duct. MRCP exam would be helpful for further evaluation if clinically indicated. Ultrasound might able to evaluate the distal common bile duct for stone. (Elisabeth Reyes) Disposition <Dillan Pisano - Last Filed: 08/08/18 06:00> <Elisabeth Reyes - Last Filed: 08/10/18 02:50> Clinical Impression: Abdominal pain, Atrial fibrillation with RVR Disposition: ADMITTED IP TO THIS HOSP Condition: Fair
[2018-08-08 02:25] LABS: Magnesium 2.1 mg/dL (1.6-2.3)
[2018-08-08] MEDS: DILTIAZEM 50 MG in SODIUM CHLORIDE 0.9% 40 ML IV SCH ×2 (02:27→06:14)
[2018-08-08] MEDS ORDERED: METOCLOPRAMIDE 5 MG/ML 2 ML VIAL IVP STA (02:54)
[2018-08-08] MEDS ORDERED: diphenhydrAMINE 50 MG/ML 1 ML VIAL IVP STA (02:55)
[2018-08-08 03:35] LABS: Appearance,Urine Clear (Clear); Bacteria,Urine Rare /hpf; Bilirubin,Urine Negative (Negative); Blood,Urine Negative (Negative); Color,Urine Colorless; Glucose,Urine (UA) Negative (Negative); Hyaline Casts,Urine 1 /lpf (0-2); Ketones,Urine 1+ (Negative); Leukocyte Esterase,Urine Moderate (Negative); Mucus,Urine Rare /hpf; Nitrite,Urine Negative (Negative); PH, Urine 6.5 (5.0-8.0); Protein,Urine Negative (Negative); RBC,Urine 1 /hpf (0-5); Specific Gravity,Urine 1.018 (1.001-1.035); Squamous Epithelial Cell,Urine <1 /hpf (0-4); Urobilinogen,Urine <2.0 mg/dL (<2.0); WBC,Urine 6 /hpf (0-5)
[2018-08-08] MEDS ORDERED: NITROGLYCERIN SL TABS 0.4 MG TAB SUBLINGUAL PRN ×2 (05:53→05:56)
[2018-08-08] MEDS: SODIUM CHLORIDE 0.9% 1,000 ML IV SCH ×2 (06:15→14:21)
[2018-08-08 08:14] LABS: Creatine Kinase MB 2.2 ng/mL (0.0-2.4); Troponin I 0.03 ng/mL (0.000-0.034)
[2018-08-08] MEDS ORDERED: LOSARTAN 50 MG TAB PO SCH (09:00)
[2018-08-08] MEDS ORDERED: LIPASE 5,000/PROTEASE 17,000/AMYLASE 24,000 PO SCH (09:00)
[2018-08-08] MEDS ORDERED: CLOPIDOGREL 75 MG TAB PO SCH (09:00)
--- NOTE | 2018-08-08 10:09 | CONS ---
CONSULTATION CHIEF COMPLAINT: Atrial fibrillation with rapid ventricular rate. Cat Marroquin is a 63-year-old lady with history of coronary artery disease, status post prior angioplasty, hypertension, and dyslipidemia who presented to hospital complaining of epigastric pain, nausea, vomiting since yesterday. Her symptomatology was consistent with possible gallstone and just as she was getting ready to be discharged from the ER, went into atrial fibrillation for which she is admitted to hospital. She was treated with intravenous Cardizem following which she converted to sinus rhythm and has remained in sinus rhythm. At the time of my evaluation, she does not have any cardiac symptoms. She is in normal sinus rhythm. Does not have any chest pain or difficulty in breathing. There is no history of palpitations or focal neurological deficits. She continues to have nausea, vomiting and vague abdominal discomfort. She has known coronary artery disease and had angioplasty of circumflex coronary artery in July of 2017. PAST MEDICAL HISTORY: Past medical history is significant for coronary artery disease, status post angioplasty, hypertension and dyslipidemia. CURRENT MEDICATIONS: Current medications include aspirin, Lipitor, losartan, K-Dur, and verapamil ER. ALLERGIES: She is allergic to MORPHINE. FAMILY HISTORY: Family history is negative for premature coronary artery disease. SOCIAL HISTORY: Negative for current smoking, EtOH abuse, or drug abuse. REVIEW OF SYSTEMS: HEENT is unremarkable. CARDIAC: As described above. RESPIRATORY: Negative. GI: As described above. GENITOURINARY: Negative. ALLERGY/IMMUNOLOGICAL: Negative. SKIN: Negative. MUSCULOSKELETAL: Significant for arthritis. PSYCHOSOCIAL: Negative. ENDOCRINE: Negative. HEMATOLOGICAL: Negative. DERM: Negative. CONSTITUTIONAL: Negative. ONCOLOGICAL: Negative. Rest of the systems review is not relevant. PHYSICAL EXAMINATION: On exam, heart rate is 90 beats per minute. Blood pressure 145/67, respiratory rate is 18, O2 sat is 97% on room air. There is no jugular venous distention. Carotid upstroke is normal. There is no bruit. Chest exam reveals good air entry bilaterally. Heart exam reveals first and second heart sounds. No gallop. No murmur. Abdomen is soft. Examination of the extremities did not reveal any edema. Peripheral pulses are felt. Admission EKG shows atrial fibrillation. Subsequent EKG showed sinus rhythm. She has had 2 sets of cardiac enzymes that are negative. TSH is normal at 1.5. Creatinine is normal at 0.8. White cell count is slightly elevated at 10.9. ASSESSMENT: 1. Paroxysmal atrial fibrillation. 2. Coronary artery disease, status post angioplasty. 3. Hypertension. 4. Nausea, vomiting, abdominal pain, possible gallstones. PLAN: From cardiac standpoint, she will continue with the oral beta blockers and calcium channel blockers that she had been on. Given the transient episode of atrial fibrillation, I am not going to start her on anticoagulant at this time. However, if she has further episodes of atrial fibrillation, she will be a candidate for long-term oral anticoagulation. I will obtain a 2D echo on her to evaluate LV function. MMODL / IJN: [id number] /
[2018-08-08] MEDS: METOCLOPRAMIDE 5 MG/ML 2 ML VIAL IVP SCH ×2 (10:48→16:21)
[2018-08-08] MEDS ORDERED: KETOROLAC 30 MG/ML 1 ML VIAL IVP STA (11:53)
[2018-08-08] MEDS ORDERED: ACETAMINOPHEN TAB 325 MG TAB PO PRN (11:54)
[2018-08-08 12:19] LABS: Troponin I 0.031 ng/mL (0.000-0.034)
--- NOTE | 2018-08-08 13:26 | P.GSCN ---
History of Present Illness Consult date: 08/08/18 Reason for Consult: Abdominal pain History of present illness: Patient presents to the ER yesterday with complaints of upper abdominal pain and pain in the right upper quadrant. This is associated with episodes of nausea and vomiting. Pain radiating to the mid back. Patient is a history of previous pyloric stenosis requiring gastrojejunostomy in the past. CAT scan was obtained which shows a distended gallbladder and also what appears to represent a distended bile duct. No definite stones are seen. Patient's liver enzymes are actually normal. She is sleeping at this time. Family present at the bedside. Patient was tachycardic and seen by cardiology. History of recent stent 1 year ago. Review of Systems The patient denies any acute changes in vision or hearing, no dysphagia or odynophagia, no chest pain or shortness of breath, no dysuria or hematuria, no headache, no runny nose, no rectal bleeding or melena, no unexplained weight loss Past Medical History Past Medical History: Cancer, GERD/Reflux, GI Bleed, Hypertension Additional Past Medical History / Comment(s): PUD, upper GI bleed, anemia, pyloric strictures with surgeries, melanoma stage I-mole on L neck with removal , hemorrhoids, 2017 had stress echo which suggestive of prior [place]-had PCI with stent, chronic migraines, small cyst on liver, occasional bilateral tinnitis, recent L thigh muscle bruise-started on baclofen. History of Any Multi-Drug Resistant Organisms: None Reported Past Surgical History: Bowel Resection, Heart Catheterization With Stent, Hysterectomy, Tonsillectomy Additional Past Surgical History / Comment(s): Pyloric stricture with gastrojejunostomy/truncal vagotomy, Cynthia-en-y/gastrojejunostomy with lysis of adhesions d/t gastric outlet obstruction, EGDs, colonoscopies, melanoma removed from skin L neck. Past Anesthesia/Blood Transfusion Reactions: Postoperative Nausea & Vomiting ( PONV) Additional Past Anesthesia/Blood Transfusion Reaction / Comm: Pt has received blood in past twice without reaction. Date of Last Stent Placement:: 07/27/17 Smoking Status: Never smoker - Past Family History Mother Family Medical History: Cancer Additional Family Medical History / Comment(s): Mother had lung cancer. Father Family Medical History: Coronary Artery Disease (CAD), Diabetes Mellitus Additional Family Medical History / Comment(s): Father at 75 yrs post CABG sepsis. Daughter(s) Family Medical History: Cancer Additional Family Medical History / Comment(s): Daughter had melanoma stage III Medications and Allergies Home Medications Medication Instructions Recorded Confirmed Type Butalb/Asprin/Caff 50-325-40Mg 1 tab PO DAILY PRN 04/26/16 08/08/18 History [Fiorinal 50-325-40 MG] Losartan/Hydrochlorothiazide 1 tab PO HS 04/26/16 08/08/18 History [Losartan-Hctz 100-12.5 mg Tab] Omeprazole 40 mg PO BID 04/26/16 08/08/18 History Verapamil HCl [Verapamil ER] 240 mg PO DAILY 04/26/16 08/08/18 History Ascorbic Acid [Vitamin C] 500 mg PO DAILY 07/24/17 08/08/18 History Cholecalciferol [Vitamin D3] 1,000 unit PO DAILY 07/24/17 08/08/18 History Ferrous Sulfate [Iron (65 MG 325 mg PO DAILY 07/24/17 08/08/18 History Elemental)] Feverfew 1 tab PO DAILY 07/24/17 08/08/18 History L.acidoph,Paracasei, B.lactis 1 cap PO DAILY 07/24/17 08/08/18 History [Probiotic] Multivitamins, Thera [Multivitamin 1 tab PO DAILY 07/24/17 08/08/18 History (formulary)] Atorvastatin [Lipitor] 40 mg PO DAILY #90 tab 07/28/17 08/08/18 Rx Nitroglycerin Sl Tabs [Nitrostat] 0.4 mg SUBLINGUAL Q5M PRN #25 tab 07/28/1701/21 Rx Aspirin EC [Ecotrin Low Dose] 81 mg PO HS 08/08/18 08/08/18 History Aspirin/Acetaminophen/Caffeine 1 tab PO BID PRN 08/08/18 08/08/18 History [Excedrin Migraine Caplet] Britni Back & Body 1,000 mg PO Q6H PRN 08/08/18 08/08/18 History Cyanocobalamin (Vitamin B-12) 2,500 mcg PO DAILY 08/08/18 08/08/18 History [Vitamin B12] Ibuprofen [Motrin Ib] 200 mg PO Q4H PRN 08/08/18 08/08/18 History Imitrex (Unknown Dose) 1 dose IM DAILY PRN 08/08/18 08/08/18 History Potassium Chloride [Klor-Con 20] 20 meq PO HS 08/08/18 08/08/18 History Allergies Allergy/AdvReac Type Severity Reaction Status Date / Time morphine Allergy hives Verified 08/08/18 09:20 Surgical - Exam Vital Signs Temp Pulse Resp BP Pulse Ox 98.5 F 80 19 182/76 98 08/08/18 00:17 08/08/18 00:17 08/08/18 00:17 08/08/18 00:17 08/08/18 00:17 Physical exam: General: Well-developed, well-nourished HEENT: Normocephalic, sclerae nonicteric Abdomen: Nontender, nondistended Extremities: No edema Neuro: Alert and oriented Results - Labs 08/08/18 00:48 08/08/18 00:48 Abnormal Lab Results - Last 24 Hours (Table) 08/08/18 08/08/18 08/08/18 Range/Units 00:48 00:48 02:58 WBC 10.9 H (3.8-10.6) k/uL MCHC 30.2 L (31.0-37.0) g/dL Potassium 3.4 L (3.5-5.1) mmol/L Urine Ketones 1+ H (Negative) Ur Leukocyte Esterase Moderate H (Negative) Urine WBC 6 H (0-5) /hpf Urine Bacteria Rare H (None) /hpf Urine Mucus Rare H (None) /hpf Diabetes panel 08/08/18 Range/Units 00:48 Sodium 141 (137-145) mmol/L Potassium 3.4 L (3.5-5.1) mmol/L Chloride 106 (98-107) mmol/L Carbon Dioxide 25 (22-30) mmol/L BUN 16 (7-17) mg/dL Creatinine 0.88 (0.52-1.04) mg/dL Glucose 98 (74-99) mg/dL Calcium 9.7 (8.4-10.2) mg/dL AST 25 (14-36) U/L ALT 29 (9-52) U/L Alkaline Phosphatase 100 (38-126) U/L Total Protein 6.7 (6.3-8.2) g/dL Albumin 3.9 (3.5-5.0) g/dL Thyroid panel 08/08/18 Range/Units 00:48 TSH 1.570 (0.465-4.680) mIU/L Calcium panel 08/08/18 Range/Units 00:48 Calcium 9.7 (8.4-10.2) mg/dL Albumin 3.9 (3.5-5.0) g/dL Pituitary panel 08/08/18 08/08/18 Range/Units 00:48 00:48 Sodium 141 (137-145) mmol/L Potassium 3.4 L (3.5-5.1) mmol/L Chloride 106 (98-107) mmol/L Carbon Dioxide 25 (22-30) mmol/L BUN 16 (7-17) mg/dL Creatinine 0.88 (0.52-1.04) mg/dL Glucose 98 (74-99) mg/dL Calcium 9.7 (8.4-10.2) mg/dL TSH 1.570 (0.465-4.680) mIU/L Adrenal panel 08/08/18 Range/Units 00:48 Sodium 141 (137-145) mmol/L Potassium 3.4 L (3.5-5.1) mmol/L Chloride 106 (98-107) mmol/L Carbon Dioxide 25 (22-30) mmol/L BUN 16 (7-17) mg/dL Creatinine 0.88 (0.52-1.04) mg/dL Glucose 98 (74-99) mg/dL Calcium 9.7 (8.4-10.2) mg/dL Total Bilirubin 0.2 (0.2-1.3) mg/dL AST 25 (14-36) U/L ALT 29 (9-52) U/L Alkaline Phosphatase 100 (38-126) U/L Total Protein 6.7 (6.3-8.2) g/dL Albumin 3.9 (3.5-5.0) g/dL Assessment and Plan (1) Abdominal pain Narrative/Plan: Presentation may be related to acute cholecystitis. Will check abdominal ultrasound. Further recommendations will follow. Current Visit: Yes Status: Acute Code(s): R10.9 - UNSPECIFIED ABDOMINAL PAIN SNOMED Code(s): 61313939 (2) Abdominal pain Current Visit: Yes Status: Acute Code(s): R10.9 - UNSPECIFIED ABDOMINAL PAIN SNOMED Code(s): 16480036
[2018-08-08] MEDS: ONDANSETRON 4 MG/2 ML VIAL IVP PRN ×2 (14:20→22:33)
[2018-08-08] MEDS: MULTIVITAMINS, THERA 1 EACH TAB PO SCH (15:00)
--- NOTE | 2018-08-08 15:17 | P.HPIM ---
History of Present Illness H&P Date: 08/08/18 63 years old female patient of Dr. Khan with past medical history of coronary artery disease status post stenting in 2016, melanoma resected in January 2018, hypertension, history of gastric ulcers and previous pyloric stenosis that was fixed with gastrojejunostomy by Dr. Sánchez in 2009 presents with acute abdominal pain that started yesterday while patient was lying pain was associated with nausea. Patient was brought to the ER via she had multiple episodes of vomiting. Patient denies any history of diarrhea, constipation, blood in her stool, melena. She denies any history of gallstones. Patient does have history of 8 pound weight loss in the past year. Also endorses decreased appetite for the past year. Evaluation in the ED listed temp of 98.5 , heart rate went up to 140 with the resident being Lee blanchard with RVR patient was placed briefly on Cardizem drip which was discontinued this morning as patient converted back to sinus rhythm. Saturating well on room air. Labs obtained suggested leukocytosis of 10.9, potassium 3.4 normal LFTs. Troponin 3 negative with UA being negative for any kind of infection. CT abdomen was done that showed a dilated gallbladder, gastro-jejunostomy noted, no pancreatic mass common bile duct and intrahepatic bile ducts dilated Bile duct measured 12 mm Cardiology was consulted for A. fib with RVR. Gastroenterology consulted for possible MRCP Review of Systems Constitutional: Denies chills, Denies fever, Denies lethargy, Denies malaise, endorses poor appetite, Denies weakness, Denies weight loss Eyes: denies decreased vision, denies diplopia, denies discharge, denies pain Ears: deny: decreased hearing Ears, nose, mouth and throat: Denies dental pain, Denies headache, Denies nasal discharge, Denies nose pain Cardiovascular: Denies chest pain, Denies decreased exercise tolerance, Denies edema, Denies high blood pressure, Denies irregular heart beat, Denies palpitations, Denies paroxysmal nocturnal dyspnea, Denies rapid heart beat, Denies shortness of breath Respiratory: Denies congestion, Denies cough, Denies cough with sputum, Denies dyspnea, Denies home oxygen, Denies wheezing Gastrointestinal: Endorses abdominal pain, Denies change in bowel habits, Denies coffee ground emesis, endorses early satiety, Denies excessive gas, endorses heartburn, Denies hematemesis, Denies hematochezia, endorses loss of appetite, endorses nausea, endorses vomiting Genitourinary: Denies dysuria, Denies flank pain, Denies kidney stones, Denies menorrhagia, Denies urgency, Denies urinary frequency Musculoskeletal: Denies gait dysfunction, Denies limitation of motion, Denies morning stiffness, Denies muscle cramps Integumentary: Denies rash, Denies wounds, Denies brittle nails, Denies change in hair/nails, Denies darkening of skin Neurological: Denies balance difficulties, Denies change in speech, Denies double vision, Denies gait dysfunction, Denies loss of vision, Denies motor disturbance, Denies numbness, Denies paralysis, Denies paresthesias, Denies seizures Psychiatric: Denies anxiety, Denies depression Endocrine: Denies excessive sweating, Denies excessive thirst, Denies high blood sugars, Denies palpitations Hematologic/Lymphatic: Denies easy bruising, Denies lymphadenopathy Past Medical History Past Medical History: Cancer, GERD/Reflux, GI Bleed, Hypertension Additional Past Medical History / Comment(s): PUD, upper GI bleed, anemia, pyloric strictures with surgeries, melanoma stage I-mole on L neck with removal , hemorrhoids, 2017 had stress echo which suggestive of prior PR-had PCI with stent, chronic migraines, small cyst on liver, occasional bilateral tinnitis, recent L thigh muscle bruise-started on baclofen. History of Any Multi-Drug Resistant Organisms: None Reported Past Surgical History: Bowel Resection, Heart Catheterization With Stent, Hysterectomy, Tonsillectomy Additional Past Surgical History / Comment(s): Pyloric stricture with gastrojejunostomy/truncal vagotomy, Cynthia-en-y/gastrojejunostomy with lysis of adhesions d/t gastric outlet obstruction, EGDs, colonoscopies, melanoma removed from skin L neck. Past Anesthesia/Blood Transfusion Reactions: Postoperative Nausea & Vomiting ( PONV) Additional Past Anesthesia/Blood Transfusion Reaction / Comment(s): Pt has received blood in past twice without reaction. Date of Last Stent Placement:: 07/27/17 Smoking Status: Never smoker - Past Family History Mother Family Medical History: Cancer (Lung cancer at the age of 70) Additional Family Medical History / Comment(s): Mother had lung cancer. Father Family Medical History: Coronary Artery Disease (CAD), Diabetes Mellitus Additional Family Medical History / Comment(s): Father at 75 yrs post CABG sepsis. Daughter(s) Family Medical History: Cancer Additional Family Medical History / Comment(s): Daughter had melanoma stage III Brother(s) Family Medical History: Coronary Artery Disease (CAD) ( of myocardial infarction at age 59 has 5 living siblings with no medical problems, has 3 kids with one son has lupus) Medications and Allergies Home Medications Medication Instructions Recorded Confirmed Type Butalb/Asprin/Caff 50-325-40Mg 1 tab PO DAILY PRN 04/26/16 08/08/18 History [Fiorinal 50-325-40 MG] Losartan/Hydrochlorothiazide 1 tab PO HS 04/26/16 08/08/18 History [Losartan-Hctz 100-12.5 mg Tab] Omeprazole 40 mg PO BID 04/26/16 08/08/18 History Verapamil HCl [Verapamil ER] 240 mg PO DAILY 04/26/16 08/08/18 History Ascorbic Acid [Vitamin C] 500 mg PO DAILY 07/24/17 08/08/18 History Cholecalciferol [Vitamin D3] 1,000 unit PO DAILY 07/24/17 08/08/18 History Ferrous Sulfate [Iron (65 MG 325 mg PO DAILY 07/24/17 08/08/18 History Elemental)] Feverfew 1 tab PO DAILY 07/24/17 08/08/18 History L.acidoph,Paracasei, B.lactis 1 cap PO DAILY 07/24/17 08/08/18 History [Probiotic] Multivitamins, Thera [Multivitamin 1 tab PO DAILY 07/24/17 08/08/18 History (formulary)] Atorvastatin [Lipitor] 40 mg PO DAILY #90 tab 07/28/17 08/08/18 Rx Nitroglycerin Sl Tabs [Nitrostat] 0.4 mg SUBLINGUAL Q5M PRN #25 tab 07/28/1701/21 Rx Aspirin EC [Ecotrin Low Dose] 81 mg PO HS 08/08/18 08/08/18 History Aspirin/Acetaminophen/Caffeine 1 tab PO BID PRN 08/08/18 08/08/18 History [Excedrin Migraine Caplet] Britni Back & Body 1,000 mg PO Q6H PRN 08/08/18 08/08/18 History Cyanocobalamin (Vitamin B-12) 2,500 mcg PO DAILY 08/08/18 08/08/18 History [Vitamin B12] Ibuprofen [Motrin Ib] 200 mg PO Q4H PRN 08/08/18 08/08/18 History Imitrex (Unknown Dose) 1 dose IM DAILY PRN 08/08/18 08/08/18 History Potassium Chloride [Klor-Con 20] 20 meq PO HS 08/08/18 08/08/18 History Allergies Allergy/AdvReac Type Severity Reaction Status Date / Time morphine Allergy hives Verified 08/08/18 09:20 Physical Exam Vitals: Vital Signs Temp Pulse Pulse Resp BP BP Pulse Ox 08/08/18 11:55 98 F 86 18 146/78 97 08/08/18 09:48 97 F L 86 20 150/77 97 08/08/18 06:25 90 16 145/67 97 08/08/18 05:16 131 H 18 133/67 97 08/08/18 04:27 157 H 16 178/79 97 08/08/18 03:19 137 H 16 182/75 95 08/08/18 02:31 140 H 16 160/113 96 08/08/18 00:17 98.5 F 80 19 182/76 98 Intake and Output 08/07/18 08/08/18 08/08/18 22:59 06:59 14:59 Intake Total 18.917 800 Balance 18.917 800 Intake: Intake, IV Titration 18.917 800 Amount Diltiazem 50 mg In Sodium 18.917 Chloride 0.9% 40 ml @ 5 MG/HR 5 mls/hr IV .Q10H ASH Rx#:[id number] Sodium Chloride 0.9% 1, 800 000 ml @ 100 mls/hr IV . Q10H ASH Rx#:[id number] Other: # Voids 1 Weight 58.06 kg - Constitutional General appearance: cooperative, no acute distress, thin-appearing - EENT Eyes: anicteric sclerae, PERRLA, normal appearance ENT: hearing grossly normal - Neck Neck: no lymphadenopathy, normal ROM, no other, no rigidity, no stridor, no thyromegaly - Respiratory Respiratory: bilateral: CTA, negative: diminished, dullness, rales, rhonchi - Cardiovascular Rhythm: regular Heart sounds: normal: S1, S2 Abnormal Heart Sounds: no systolic murmur, no diastolic murmur, no rub, no S3 Gallop, no S4 Gallop - Gastrointestinal General gastrointestinal: normal bowel sounds, soft, nontender on examination - Integumentary Integumentary: no rash - Neurologic Neurologic: CNII-XII intact - Musculoskeletal Musculoskeletal: gait normal, strength equal bilaterally - Psychiatric Psychiatric: A&O x's 3, appropriate affect Results CBC & Chem 7: 08/08/18 00:48 08/08/18 00:48 Labs: Abnormal Lab Results - Last 24 Hours (Table) 08/08/18 08/08/18 08/08/18 Range/Units 00:48 00:48 02:58 WBC 10.9 H (3.8-10.6) k/uL MCHC 30.2 L (31.0-37.0) g/dL Potassium 3.4 L (3.5-5.1) mmol/L Urine Ketones 1+ H (Negative) Ur Leukocyte Esterase Moderate H (Negative) Urine WBC 6 H (0-5) /hpf Urine Bacteria Rare H (None) /hpf Urine Mucus Rare H (None) /hpf Thrombosis Risk Factor Assmnt - DVT/VTE Prophylaxis DVT/VTE Prophylaxis: Pharmacologic Prophylaxis ordered - Choose All That Apply Any of the Below Risk Factors Present?: Yes Other Risk Factors: Yes Each Risk Factor Represents 2 Points: Age 61-74 years, Malignancy Other congenital or acquired thrombophilia - If yes, enter type in comment: No Thrombosis Risk Factor Assessment Total Risk Factor Score: 4 Thrombosis Risk Factor Assessment Level: Moderate Risk Assessment and Plan Plan: #1 acute abdominal pain likely secondary to cholecystitis, other differential include choledocholithiasis, biliary tree constriction or stenosis as dilated bile ducts and gallbladder seen on computed tomography scan. Patient did have some weight loss that could be secondary to a pancreatic mass or biliary tree tumor. Abdominal ultrasound pending to evaluate the biliary tree. Patient may benefit from MRCP. Gastroenterology consult placed. We will empirically treat the patient with the use Zosyn. Dr. Sawyer following the patient is concerned about cholecystitis. #2. Paroxysmal atrial fibrillation with RVR. Resolved hold Cardizem drip continue patient's home verapamil 240 twice a day daily. Patient is not on any beta velia if goes back in atrial fibrillation with initiate patient on Coreg #3 hyperlipidemia continue Lipitor 40 mg by mouth daily #4 hypertension continue patient on clonidine 0.1 mg daily at bedtime, verapamil , Hyzaar. #5 previous pyloric stenosis status post gastrojejunostomy stable. #6 GERD continue omeprazole 40 mg twice a day #7 History of migraines keep the Imitrex when necessary ibuprofen 200 mg every 4 when necessary #8 GI prophylaxis with heparin every 12 CODE STATUS full code
[2018-08-08] MEDS: BUTALB/APAP/CAFF 50-325-40MG TAB PO SCH (15:47)
[2018-08-08] MEDS: ASPIRIN 81 MG PO SCH (15:47)
[2018-08-08] MEDS: ATORVASTATIN 40 MG TAB PO SCH (15:47)
[2018-08-08] MEDS: CHOLECALCIFEROL 1,000 UNIT TAB PO SCH (15:48)
[2018-08-08] MEDS: FERROUS SULFATE 325 MG TAB PO SCH (15:48)
[2018-08-08] MEDS: LOSARTAN-HCTZ 50-12.5 MG 1 EACH TAB PO SCH (15:48)
[2018-08-08] MEDS: PANTOPRAZOLE 40 MG TABLET PO SCH (15:48)
[2018-08-08] MEDS: VERAPAMIL SR 240 MG TABLET.ER PO SCH ×2 (15:48→22:19)
[2018-08-08] MEDS: PIPERACILLIN-TAZOBACTAM 3.375 GM in DEXTROSE/WATER 1 50ML.BAG IVPB SCH (16:21)
--- NOTE | 2018-08-08 16:21 | US ---
EXAMINATION TYPE: US abdomen limited DATE OF EXAM: 08/08/2018 COMPARISON: Ct 08/08/2018 and ultrasound 01/29/2018 CLINICAL HISTORY: 63-year-old female Evaluate gallbladder. NPO since yesterday; nausea, vomiting, mid line to right abd pain radiating downward TECHNIQUE: Multiple sonographic images of the right upper quadrant are obtained. FINDINGS: EXAM MEASUREMENTS: Liver Length: 11.6 cm Gallbladder Wall: 0.1 cm CBD: 0.4 cm Right Kidney: 9.1 x 3.9 x 4.0 cm Pancreas: Tail obscured by overlying bowel gas Liver: wnl as scanned intercostally. Intercostal window does cause limitation in assessment. Known r ight hepatic lobe hemangioma is not visualized currently. Gallbladder: Borderline hydropic but without any abnormal wall thickening, pericholecystic fluid, or shadowing calculi. Evidence for sonographic Reagan's sign: tender here CBD: wnl Right Kidney: wnl IMPRESSION: Borderline hydropic gallbladder but without ancillary findings of acute cholecystitis. Patient is als o noted to be tender in this area during scanning. If concern for early acute cholecystitis, follow-u p ultrasound or HIDA scan.
[2018-08-08 16:25] LABS: Cancer Antigen 19-9 23.1 U/mL (0.0-34.9)
--- NOTE | 2018-08-08 16:46 | ECHOF ---
Referral Reason:afib MEASUREMENTS -------- HEIGHT: 157.5 cm WEIGHT: 58.1 kg BP: IVSd: 1.4 cm (0.6 - 1.1) LVIDd: 3.0 cm (3.9 - 5.3) LVPWd: 1.4 cm (0.6 - 1.1) IVSs: 1.5 cm LVIDs: 1.4 cm LVPWs: 1.9 cm LAESV Index (A-L): 15.47 ml/m Ao Diam: 3.0 cm (2.0 - 3.7) AV Cusp: 2.2 cm (1.5 - 2.6) LA Diam: 2.7 cm (2.7 - 3.8) MV EXCURSION: 11.540 mm (> 18.000) MV EF SLOPE: 66 mm/s (70 - 150) EPSS: 0.5 cm MV E Jamie: 0.91 m/s MV DecT: 257 ms MV A Jamie: 1.22 m/s MV E/A Ratio: 0.74 RAP: 5.00 mmHg RVSP: 8.66 mmHg FINDINGS -------- Sinus rhythm. This was a technically good study. The left ventricular size is normal. There is moderate concentric left ventricular hypertrophy. O verall left ventricular systolic function is normal with, an EF between 55 - 60 %. The right ventricle is normal in size and function. The left atrium is normal in size. The right atrium is normal in size. There is mild aortic valve sclerosis. Mild mitral annular calcification present. Mild mitral regurgitation is present. Trace tricuspid regurgitation present. There is no evidence of pulmonary hypertension. The right ventricular systolic pressure, as measured by Doppler, is 8.66mmHg. There is no pulmonic regurgitation present. The aortic root size is normal. Normal inferior vena cava with normal inspiratory collapse consistent with estimated right atrial pre ssure of 5 mmHg. There is no pericardial effusion. CONCLUSIONS -------- 1. Sinus rhythm. 2. This was a technically good study. 3. The left ventricular size is normal. 4. There is moderate concentric left ventricular hypertrophy. 5. Overall left ventricular systolic function is normal with, an EF between 55 - 60 %. 6. The left atrium is normal in size. 7. There is mild aortic valve sclerosis. 8. Mild mitral regurgitation is present. 9. Trace tricuspid regurgitation present. 10. There is no evidence of pulmonary hypertension. 11. There is no pulmonic regurgitation present. 12. The aortic root size is normal. 13. Normal inferior vena cava with normal inspiratory collapse consistent with estimated right atrial pressure of 5 mmHg. 14. There is no pericardial effusion. PRODUCTION COST ESTIMATOR: Silvana Carreno RDCS
[2018-08-08] MEDS: cloNIDine HCL 0.1 MG TAB PO SCH (22:19)
[2018-08-09] MEDS: METOCLOPRAMIDE 5 MG/ML 2 ML VIAL IVP SCH ×5 (00:15→23:36)
[2018-08-09] MEDS: PIPERACILLIN-TAZOBACTAM 3.375 GM in DEXTROSE/WATER 1 50ML.BAG IVPB SCH ×4 (00:16→23:35)
[2018-08-09] MEDS: ONDANSETRON 4 MG/2 ML VIAL IVP PRN ×4 (03:33→22:11)
[2018-08-09] MEDS: SODIUM CHLORIDE 0.9% 1,000 ML IV SCH ×2 (05:28→11:12)
[2018-08-09 08:14] LABS: Albumin 3.4 g/dL (3.5-5.0); Anion Gap 9 mmol/L; Blood Urea Nitrogen 14 mg/dL (7-17); Carbon Dioxide 25 mmol/L (22-30); Chloride 106 mmol/L (98-107); Cholesterol 162 mg/dL (<200); Glucose 90 mg/dL (74-99); HDL Cholesterol 73 mg/dL (40-60); LDL Cholesterol,Calculated 69 mg/dL (0-99); Sodium 140 mmol/L (137-145); Total Bilirubin 0.6 mg/dL (0.2-1.3); Triglycerides 98 mg/dL (<150)
[2018-08-09 08:15] LABS: ALT 17 U/L (9-52); AST 30 U/L (14-36); Alkaline Phosphatase 71 U/L (38-126); Potassium 3.3 mmol/L (3.5-5.1)
[2018-08-09] MEDS: BUTALB/APAP/CAFF 50-325-40MG TAB PO SCH (08:16)
[2018-08-09] MEDS: FERROUS SULFATE 325 MG TAB PO SCH (08:16)
[2018-08-09] MEDS: ATORVASTATIN 40 MG TAB PO SCH (08:16)
[2018-08-09] MEDS: ASPIRIN 81 MG PO SCH (08:16)
[2018-08-09] MEDS: CHOLECALCIFEROL 1,000 UNIT TAB PO SCH (08:16)
[2018-08-09] MEDS: PANTOPRAZOLE 40 MG TABLET PO SCH (08:17)
[2018-08-09] MEDS: VERAPAMIL SR 240 MG TABLET.ER PO SCH ×2 (08:17→21:07)
[2018-08-09] MEDS: LOSARTAN-HCTZ 50-12.5 MG 1 EACH TAB PO SCH (08:17)
[2018-08-09 08:34] LABS: Basophils # (A) 0.1 k/uL (0-0.2); Basophils % (A) 1 %; Eosinophils # (A) 0.1 k/uL (0-0.7); Eosinophils % (A) 1 %; HCT 37.7 % (34.0-46.0); HGB 12.1 gm/dL (11.4-16.0); Lymphocytes # (A) 1.1 k/uL (1.0-4.8); Lymphocytes % (A) 12 %; MCH 29.9 pg (25.0-35.0); MCV 93.4 fL (80.0-100.0); Mean Platelet Volume 6.2; Monocytes # (A) 0.5 k/uL (0-1.0); Monocytes % (A) 6 %; Neutrophils # (A) 7.5 k/uL (1.3-7.7); Neutrophils % (A) 80 %; Platelet Count 240 k/uL (150-450); RBC 4.04 m/uL (3.80-5.40); RDW 13.1 % (11.5-15.5); WBC 9.4 k/uL (3.8-10.6)
[2018-08-09] MEDS: KETOROLAC 30 MG/ML 1 ML VIAL IVP PRN ×3 (08:36→22:10)
[2018-08-09] MEDS: MULTIVITAMINS, THERA 1 EACH TAB PO SCH (11:12)
--- NOTE | 2018-08-09 11:41 | P.CONS ---
History of Present Illness - Reason for Consult Consult date: 08/09/18 choledocholithiasis evaluation Requesting physician: Adelfo Bee - Chief Complaint abdominal pain - History of Present Illness 63 y/o female PMH gastrojejunostomy 2009 secondary to symptomatic pyloric stenosis, CAD recent PCI/stent July 2018 maintained on plavix/ASA, migraines. Presents with 1 month history of intermittent nausea right upper quadrant abdominal pain and decreased appetite without hematemesis hematochezia melena fever or chills. She had an episode of paroxysmal atrial fibrillation upon admission since resolved. Consult requested for choledocholithiasis evaluation. CT A/P: no bowel obstruction. Dilated biliary tree and gallbladder. No pancreatic mass. Possible CBD stricture possible CBD stone. US abdomen borderline hydropic gallbladder no stones CBD 0.4cm. HIDA completed results pending. MRI abdomen July 2017; 3 cm right lobe hemangiomas near gilmar hepatitis. Previous US abdomen reported no abnormal biliary tree dilation. WBC 9.4-10.9. HGB 12.1-12.3. LFTs WNL. BUN 16. Creatinine 0.8. CA 19-9 23. EGD/colonoscopy 2016 evaluation of EMANUEL: patent GJ. A/E loops normal. No PUD. Internal hemorrhoids no evidence of colorectal neoplasia. Home medications over the last month include the addition of ASA/Plavix as well as 1-2 tabs of Excedrin daily, Motrin 800 mg daily for left leg discomfort x 1 week and PPI BID. Review of Systems Constitutional: Denies fever, chills, sweats, weight gain, or loss. HEENT: History of chronic migraines, denies blurred vision or loss, earaches, drainage, tinnitus, oral mucosal lesions, dysphagia, or odynophagia. CARDIAC: Negative for chest pain, admitted with episode of PAF. RESPIRATORY: Negative for shortness of breath, hemoptysis, cough, or sputum production. GI: See HPI for pertinent findings. : Negative for hematuria, urgency, frequency, polyuria, or dysuria. GYNc: Negative vaginal discharge. MUSCULOSKELETAL: Negative for muscle aches, swelling, arthritis, and arthralgias. NEUROLOGIC: Negative for stroke or TIA. ENDOCRINE: Negative for thyroid problems. SKIN: Negative for rash or itching. PSYCHIATRIC: Negative history for depression and anxiety Past Medical History Past Medical History: Cancer, GERD/Reflux, GI Bleed, Hypertension Additional Past Medical History / Comment(s): PUD, upper GI bleed, anemia, pyloric strictures with surgeries, melanoma stage I-mole on L neck with removal , hemorrhoids, 2017 had stress echo which suggestive of prior VT-had PCI with stent, chronic migraines, small cyst on liver, occasional bilateral tinnitis, recent L thigh muscle bruise-started on baclofen. History of Any Multi-Drug Resistant Organisms: None Reported Past Surgical History: Bowel Resection, Heart Catheterization With Stent, Hysterectomy, Tonsillectomy Additional Past Surgical History / Comment(s): Pyloric stricture with gastrojejunostomy/truncal vagotomy, Cynthia-en-y/gastrojejunostomy with lysis of adhesions d/t gastric outlet obstruction, EGDs, colonoscopies, melanoma removed from skin L neck. Past Anesthesia/Blood Transfusion Reactions: Postoperative Nausea & Vomiting ( PONV) Additional Past Anesthesia/Blood Transfusion Reaction / Comm: Pt has received blood in past twice without reaction. Date of Last Stent Placement:: 07/27/17 Smoking Status: Never smoker - Past Family History Mother Family Medical History: Cancer (Lung cancer at the age of 70) Additional Family Medical History / Comment(s): Mother had lung cancer. Father Family Medical History: Coronary Artery Disease (CAD), Diabetes Mellitus Additional Family Medical History / Comment(s): Father at 75 yrs post CABG sepsis. Daughter(s) Family Medical History: Cancer Additional Family Medical History / Comment(s): Daughter had melanoma stage III Brother(s) Family Medical History: Coronary Artery Disease (CAD) ( of myocardial infarction at age 59 has 5 living siblings with no medical problems, has 3 kids with one son has lupus) Medications and Allergies Home Medications Medication Instructions Recorded Confirmed Type Butalb/Asprin/Caff 50-325-40Mg 1 tab PO DAILY PRN 04/26/16 08/08/18 History [Fiorinal 50-325-40 MG] Losartan/Hydrochlorothiazide 1 tab PO HS 04/26/16 08/08/18 History [Losartan-Hctz 100-12.5 mg Tab] Omeprazole 40 mg PO BID 04/26/16 08/08/18 History Verapamil HCl [Verapamil ER] 240 mg PO DAILY 04/26/16 08/08/18 History Ascorbic Acid [Vitamin C] 500 mg PO DAILY 07/24/17 08/08/18 History Cholecalciferol [Vitamin D3] 1,000 unit PO DAILY 07/24/17 08/08/18 History Ferrous Sulfate [Iron (65 MG 325 mg PO DAILY 07/24/17 08/08/18 History Elemental)] Feverfew 1 tab PO DAILY 07/24/17 08/08/18 History L.acidoph,Paracasei, B.lactis 1 cap PO DAILY 07/24/17 08/08/18 History [Probiotic] Multivitamins, Thera [Multivitamin 1 tab PO DAILY 07/24/17 08/08/18 History (formulary)] Atorvastatin [Lipitor] 40 mg PO DAILY #90 tab 07/28/17 08/08/18 Rx Nitroglycerin Sl Tabs [Nitrostat] 0.4 mg SUBLINGUAL Q5M PRN #25 tab 07/28/1701/21 Rx Aspirin EC [Ecotrin Low Dose] 81 mg PO HS 08/08/18 08/08/18 History Aspirin/Acetaminophen/Caffeine 1 tab PO BID PRN 08/08/18 08/08/18 History [Excedrin Migraine Caplet] Britni Back & Body 1,000 mg PO Q6H PRN 08/08/18 08/08/18 History Cyanocobalamin (Vitamin B-12) 2,500 mcg PO DAILY 08/08/18 08/08/18 History [Vitamin B12] Ibuprofen [Motrin Ib] 200 mg PO Q4H PRN 08/08/18 08/08/18 History Imitrex (Unknown Dose) 1 dose IM DAILY PRN 08/08/18 08/08/18 History Potassium Chloride [Klor-Con 20] 20 meq PO HS 08/08/18 08/08/18 History Allergies Allergy/AdvReac Type Severity Reaction Status Date / Time morphine Allergy hives Verified 08/08/18 09:20 Physical Exam Vitals: Vital Signs Temp Pulse Pulse Resp BP Pulse Ox 08/09/18 08:00 16 08/09/18 05:00 98.6 F 90 16 142/63 95 08/09/18 00:00 86 98 16 08/08/18 21:00 97.4 F L 98 16 157/84 97 08/08/18 11:55 98 F 86 18 146/78 97 Intake and Output 08/08/18 08/09/18 08/09/18 22:59 06:59 14:59 Intake Total 50 50 Balance 50 50 Intake: Intake, IV Titration 50 50 Amount Piperacillin-Tazobactam 3 50 50 .375 gm In Dextrose/Water 1 50ml.bag @ 12.5 mls/hr IVPB Q8HR ASH Rx#: [id number] Oral 0 Other: Voiding Method Toilet Toilet # Voids 1 1 2 Weight 58.06 kg - Constitutional General appearance: no acute distress - EENT Eyes: normal appearance ENT: normal oropharynx Ears: bilateral: normal - Neck Neck: normal ROM - Respiratory Respiratory: bilateral: CTA - Cardiovascular Rhythm: regular Heart sounds: normal: S1, S2 - Gastrointestinal General gastrointestinal: soft Localized gastrointestinal: tender: RUQ (no R/G) - Integumentary Integumentary: normal turgor - Neurologic Neurologic: CNII-XII intact - Musculoskeletal Musculoskeletal: gait normal - Psychiatric Psychiatric: A&O x's 3 Results CBC & Chem 7: 08/09/18 07:48 08/09/18 07:48 Labs: Abnormal Lab Results - Last 24 Hours (Table) 08/09/18 Range/Units 07:48 Potassium 3.3 L (3.5-5.1) mmol/L Total Protein 6.0 L (6.3-8.2) g/dL Albumin 3.4 L (3.5-5.0) g/dL HDL Cholesterol 73 H (40-60) mg/dL CT scan - abdomen: report reviewed (Dr. Plata) US - abdomen: report reviewed (Dr. Plata) Assessment and Plan (1) Abnormal CT of the abdomen Narrative/Plan: 63 y/o admitted with acute RUQ abdominal pain nausea and decreased appetite x 1 month with normal liver enzymes and history of gastrojejunostomy for symptomatic pyloric stenosis CT abdominal imaging reported dilated gallbladder and biliary tree possible CBD stricture possible CBD stone. US abdomen reported CBD 0.4.cm without stones. Current Visit: Yes Status: Acute Code(s): R93.5 - ABN FINDINGS ON DX IMAGING OF ABD REGIONS, INC RETROPERITON SNOMED Code(s): 04439325480096649 (2) Abdominal pain Current Visit: Yes Status: Acute Code(s): R10.9 - UNSPECIFIED ABDOMINAL PAIN SNOMED Code(s): 63778783 (3) H/O bypass gastrojejunostomy Current Visit: Yes Status: Acute Code(s): Z98.0 - INTESTINAL BYPASS AND ANASTOMOSIS STATUS SNOMED Code(s): 428512201 (4) Atrial fibrillation with RVR Current Visit: Yes Status: Acute Code(s): I48.91 - UNSPECIFIED ATRIAL FIBRILLATION SNOMED Code(s): 952426172798840 Plan: 1. GS following HIDA completed results pending. Consideration for EGJ if HIDA scan is negative. 2. Recommend MRCP for further evaluation of CT findings this can be performed as an outpatient. 3. Diet per GS. 4. PPI BID. 5. Will follow with you. Thank you for this kind referral and the opportunity to participate in the care of your patient. This consultation was discussed with Dr. Plata. The impression and plan of care have been directed as dictated.
--- NOTE | 2018-08-09 11:44 | NM ---
EXAMINATION TYPE: NM hepatobiliary w CCK DATE OF EXAM: 08/09/2018 COMPARISON: NONE INDICATION: Epigastric pain TECHNIQUE: After the intravenous administration of 5.27 mCi Tc 99m Mebrofenin hepatobiliary scintigra phy is performed. Images were obtained immediately post injection. FINDINGS: There is prompt uptake and excretion of radiotracer by the liver. Extrahepatic ducts are identified at 12 minutes. The gallbladder is visualized within 20 minutes. Small bowel activity is noted within 60 minutes. At one hour CCK was administered, patient was injected with 1.2 mcg of Kinevac, and gallbladder eject ion fraction is calculated at 79 %, which is in the normal range.. (Normal >35% and <80%.). IMPRESSION: 1. Normal hepatobiliary scan.
[2018-08-09 11:54] VITALS: BMI 23.3
--- NOTE | 2018-08-09 13:20 | P.PN ---
Subjective Progress Note Date: 08/09/18 63-year-old female seen at bedside. Family at bedside. Patient reports continues to have persistent right upper quadrant abdominal pain tenderness with waves of nausea with dry heaves. Patient states the pain is intermittent the HIDA scan report reviewed normal hepatobiliary scan ultrasound abdomen report reviewed in summary borderline hydropic gallbladder without any ancillary findings of acute cholecystitis Liver enzymes are not elevated potassium 3.3 hemoglobin 12 white count 9.4 Objective - Vital Signs Vital signs: Vital Signs Temp 97.4 F L 08/09/18 11:57 Pulse 82 08/09/18 11:57 Resp 16 08/09/18 11:57 BP 159/84 08/09/18 11:57 Pulse Ox 94 L 08/09/18 11:57 Intake & Output 08/08/18 08/09/18 08/09/18 18:59 06:59 18:59 Intake Total 800 50 50 Balance 800 50 50 Weight 58.06 kg 58.06 kg Intake: Intake, IV Titration 800 50 50 Amount Piperacillin-Tazobactam 3 50 50 .375 gm In Dextrose/Water 1 50ml.bag @ 12.5 mls/hr IVPB Q8HR ASH Rx#: [id number] Sodium Chloride 0.9% 1, 800 000 ml @ 100 mls/hr IV . Q10H ASH Rx#:[id number] Oral 0 Other: Voiding Method Toilet Toilet # Voids 1 1 2 - Exam Physical exam 63-year-old female sitting up in bed appears in no acute distress family at the bedside Lungs adequate air movement bilaterally on room air Heart S1-S2 audible regular Abdomen nondistended mild tenderness right upper quadrant patient reports was of nausea with dry heaves no stool no difficulty in urinating active bowel tones noted Extremity no edema noted - Labs CBC & Chem 7: 08/09/18 07:48 08/09/18 07:48 Labs: Abnormal Lab Results - Last 24 Hours (Table) 08/09/18 Range/Units 07:48 Potassium 3.3 L (3.5-5.1) mmol/L Total Protein 6.0 L (6.3-8.2) g/dL Albumin 3.4 L (3.5-5.0) g/dL HDL Cholesterol 73 H (40-60) mg/dL Assessment and Plan Assessment: Impression Present on admission persistent right upper quadrant abdominal pain with waves of nausea and vomiting may represent acute cholecystitis Abdominal pain suspect secondary to cholecystitis Electrolyte imbalance hypokalemia History of gastric ulcers and previous pyloric stenosis with gastrojejunostomy by Dr. santiago 2009 CT abdomen was done that showed a dilated gallbladder, gastro-jejunostomy noted , no pancreatic mass common bile duct and intrahepatic bile ducts dilated Bile duct measured 12 mm Paroxysmal atrial fibrillation with RVR Esophageal reflux disease Plan Await cardiology input Await GI eval pending DVT and GI prophylaxis further surgical recommendations pending Potassium to be corrected and replaced repeat labs in the morning Will follow with you Dr. Santiago will update patient and family on treatment plan The above impression and plan of care have been discussed and directed by signing physician. Phyllis Miller nurse practitioner acting as scribe for signing physician.
--- NOTE | 2018-08-09 13:49 | P.PN ---
Subjective Mrs. Marroquin is seen and examined sitting up in bed with family at the bedside. Past medical history significant for coronary artery disease status post stenting July 2017, hypertension and dyslipidemia. She had a brief episode of atrial fibrillation yesterday that has spontaneously resolved. She is maintaining sinus mechanism on telemetry. She denies symptoms of chest pain, shortness of breath, dizziness or palpitations. She continues to feel discomfort in her abdomen and mildly nauseated. No vomiting. HIDA scan is normal. Blood pressure 159/84 heart rate 82. Laboratory data reviewed, hemoglobin 12.1, platelet is 240, sodium 140, potassium 3.3, creatinine 0.73, TSH 1.57, LDL 69 and HDL 73.. Objective - Vital Signs Vital signs: Vital Signs Temp 97.4 F L 08/09/18 11:57 Pulse 82 08/09/18 11:57 Resp 16 08/09/18 11:57 BP 159/84 08/09/18 11:57 Pulse Ox 94 L 08/09/18 11:57 Intake & Output 08/08/18 08/09/18 08/09/18 18:59 06:59 18:59 Intake Total 800 50 50 Balance 800 50 50 Weight 58.06 kg 58.06 kg Intake: Intake, IV Titration 800 50 50 Amount Piperacillin-Tazobactam 3 50 50 .375 gm In Dextrose/Water 1 50ml.bag @ 12.5 mls/hr IVPB Q8HR ASH Rx#: [id number] Sodium Chloride 0.9% 1, 800 000 ml @ 100 mls/hr IV . Q10H ASH Rx#:[id number] Oral 0 Other: Voiding Method Toilet Toilet # Voids 1 1 2 - Exam GENERAL: Well-appearing, well-nourished and in no acute distress. NECK: Supple without JVD or thyromegaly. LUNGS: Breath sounds clear to auscultation bilaterally. Respiration equal and unlabored. No wheezes, rales or rhonchi. HEART: Regular rate and rhythm without murmurs, rubs or gallops. S1 and S2 heard. EXTREMITIES: Normal range of motion, no edema. No clubbing or cyanosis. Peripheral pulses intact. - Labs CBC & Chem 7: 08/09/18 07:48 08/09/18 07:48 Labs: Abnormal Lab Results - Last 24 Hours (Table) 08/09/18 Range/Units 07:48 Potassium 3.3 L (3.5-5.1) mmol/L Total Protein 6.0 L (6.3-8.2) g/dL Albumin 3.4 L (3.5-5.0) g/dL HDL Cholesterol 73 H (40-60) mg/dL Assessment and Plan Assessment: ASSESSMENT Paroxysmal atrial fibrillation, currently maintaining sinus mechanism. History of coronary artery disease status post stenting July 2017 Hypertension Nausea, vomiting and abdominal pain. Awaiting surgical recommendation. PLAN Stable from a cardiac perspective. Continue current medical regimen. Follow-up with Dr. Hernandez in 2-3 weeks. We will continue to follow as needed, please feel free to call with questions or concerns. Nurse Practitioner note has been reviewed, I agree with a documented findings and plan of care. Patient was seen and examined.
--- NOTE | 2018-08-09 14:11 | P.PN ---
Subjective Progress Note Date: 08/09/18 63 years old female patient of Dr. Khan with past medical history of coronary artery disease status post stenting in 2017, melanoma resected in January 2018, hypertension, history of gastric ulcers and previous pyloric stenosis that was fixed with gastrojejunostomy by Dr. Sánchez in 2009 presents with acute abdominal pain that started yesterday while patient was lying pain was associated with nausea. Patient was brought to the ER via she had multiple episodes of vomiting. Patient denies any history of diarrhea, constipation, blood in her stool, melena. She denies any history of gallstones. Patient does have history of 8 pound weight loss in the past year. Also endorses decreased appetite for the past year. Evaluation in the ED listed temp of 98.5 , heart rate went up to 140 with the resident being Lee blanchard with RVR patient was placed briefly on Cardizem drip which was discontinued this morning as patient converted back to sinus rhythm. Saturating well on room air. Labs obtained suggested leukocytosis of 10.9, potassium 3.4 normal LFTs. Troponin 3 negative with UA being negative for any kind of infection. CT abdomen was done that showed a dilated gallbladder, gastro-jejunostomy noted, no pancreatic mass common bile duct and intrahepatic bile ducts dilated Bile duct measured 12 mm Cardiology was consulted for A. fib with RVR. Gastroenterology consulted for possible MRCP 08/09: Patient continues to have nausea along with pain but now the pain is dull at the right upper quadrant. She apparently was up most of the night. She is continued on Reglan and Zofran which the combination seems to help. She has been transferred to the [facility] floor. No repeat episodes of atrial fibrillation and telemetry will be discontinued. Abdominal ultrasound shows borderline hypertropic gallbladder but without ancillary findings of acute cholecystitis. Recommend HIDA scan. HIDA scan was done today which came back normal. Patient is followed by multiple consultants including cardiology with plan for follow-up with Dr. Burns in 2-3 weeks. GI and general surgery, Dr. Sawyer. Objective - Vital Signs Vital signs: Vital Signs Temp 98.6 F 08/09/18 05:00 Pulse 90 08/09/18 05:00 Resp 16 08/09/18 08:00 BP 142/63 08/09/18 05:00 Pulse Ox 95 08/09/18 05:00 Intake & Output 08/08/18 08/09/18 08/09/18 18:59 06:59 18:59 Intake Total 800 50 Balance 800 50 Weight 58.06 kg Intake: Intake, IV Titration 800 50 Amount Piperacillin-Tazobactam 3 50 .375 gm In Dextrose/Water 1 50ml.bag @ 12.5 mls/hr IVPB Q8HR ASH Rx#: [id number] Sodium Chloride 0.9% 1, 800 000 ml @ 100 mls/hr IV . Q10H ASH Rx#:[id number] Other: Voiding Method Toilet Toilet # Voids 1 1 2 - Exam General appearance: cooperative, no acute distress, thin-appearing - EENT Eyes: anicteric sclerae, PERRLA, normal appearance ENT: hearing grossly normal - Neck Neck: no lymphadenopathy, normal ROM, no other, no rigidity, no stridor, no thyromegaly - Respiratory Respiratory: bilateral: CTA, negative: diminished, dullness, rales, rhonchi - Cardiovascular Rhythm: regular Heart sounds: normal: S1, S2 Abnormal Heart Sounds: no systolic murmur, no diastolic murmur, no rub, no S3 Gallop, no S4 Gallop - Gastrointestinal General gastrointestinal: normal bowel sounds, soft, tender RUQ on examination - Integumentary Integumentary: no rash - Neurologic Neurologic: CNII-XII intact - Musculoskeletal Musculoskeletal: gait normal, strength equal bilaterally - Psychiatric Psychiatric: A&O x's 3, appropriate affect - Labs CBC & Chem 7: 08/09/18 07:48 08/09/18 07:48 Labs: Abnormal Lab Results - Last 24 Hours (Table) 08/09/18 Range/Units 07:48 Potassium 3.3 L (3.5-5.1) mmol/L Total Protein 6.0 L (6.3-8.2) g/dL Albumin 3.4 L (3.5-5.0) g/dL HDL Cholesterol 73 H (40-60) mg/dL Assessment and Plan Plan: #1 acute abdominal pain likely secondary to cholecystitis, other differential include choledocholithiasis, biliary tree constriction or stenosis as dilated bile ducts and gallbladder seen on computed tomography scan. Patient did have some weight loss that could be secondary to a pancreatic mass or biliary tree tumor. Abdominal ultrasound and HIDA scan as above. GI does not have planned for ERCP. Gastroenterology consult appreciated. We will empirically treat the patient with the use Zosyn. Dr. Sawyer following the patient is concerned about cholecystitis. #2. Paroxysmal atrial fibrillation with RVR. Resolved hold Cardizem drip continue patient's home verapamil 240 twice a day daily. Patient is not on any beta velia if goes back in atrial fibrillation with initiate patient on Coreg. Cardiology consult is appreciated. #3 hyperlipidemia continue Lipitor 40 mg by mouth daily #4 hypertension continue patient on clonidine 0.1 mg daily at bedtime, verapamil , Hyzaar. #5 previous pyloric stenosis status post gastrojejunostomy stable. #6 GERD continue omeprazole 40 mg twice a day #7 History of migraines keep the Imitrex when necessary ibuprofen 200 mg every 4 when necessary #8 GI prophylaxis with heparin every 12 CODE STATUS full code Discharge plan: Return home Impression and plan of care have been directed as dictated by the signing physician. Kari Arroyo nurse practitioner acting as scribe for signing physician.
--- NOTE | 2018-08-09 15:29 | P.PN ---
Subjective Progress Note Date: 08/09/18 Principal diagnosis: Abdominal pain Patient seen again today. Pain is improved. No vomiting overnight. Nausea absent currently. Patient's ultrasound showed no definite gallstones or gallbladder inflammation. HIDA scan done today shows a normal ejection fraction. Patient's appetite does seem improved. She does describe an episode similar to this back in 2004. Objective - Vital Signs Vital signs: Vital Signs Temp 97.4 F L 08/09/18 11:57 Pulse 82 08/09/18 11:57 Resp 16 08/09/18 11:57 BP 159/84 08/09/18 11:57 Pulse Ox 94 L 08/09/18 11:57 Intake & Output 08/08/18 08/09/18 08/09/18 18:59 06:59 18:59 Intake Total 800 50 50 Balance 800 50 50 Weight 58.06 kg 58.06 kg Intake: Intake, IV Titration 800 50 50 Amount Piperacillin-Tazobactam 3 50 50 .375 gm In Dextrose/Water 1 50ml.bag @ 12.5 mls/hr IVPB Q8HR ASH Rx#: [id number] Sodium Chloride 0.9% 1, 800 000 ml @ 100 mls/hr IV . Q10H ASH Rx#:[id number] Oral 0 Other: Voiding Method Toilet Toilet # Voids 1 1 2 - Exam Abdomen: Soft, nontender, nondistended - Labs CBC & Chem 7: 08/09/18 07:48 08/09/18 07:48 Labs: Abnormal Lab Results - Last 24 Hours (Table) 08/09/18 Range/Units 07:48 Potassium 3.3 L (3.5-5.1) mmol/L Total Protein 6.0 L (6.3-8.2) g/dL Albumin 3.4 L (3.5-5.0) g/dL HDL Cholesterol 73 H (40-60) mg/dL Assessment and Plan (1) Abdominal pain Narrative/Plan: Beginning liquid diet. We'll plan upper endoscopy tomorrow. If symptoms persist would consider MRCP Current Visit: Yes Status: Acute Code(s): R10.9 - UNSPECIFIED ABDOMINAL PAIN SNOMED Code(s): 38938047 (2) Abdominal pain Current Visit: Yes Status: Acute Code(s): R10.9 - UNSPECIFIED ABDOMINAL PAIN SNOMED Code(s): 71741223
[2018-08-09] MEDS: POTASSIUM CHLORIDE 20 MEQ in WATER FOR INJECTION 1 100ML.BAG IVPB SCH ×2 (16:34→23:10)
[2018-08-09] MEDS ORDERED: PANTOPRAZOLE 40 MG TABLET PO SCH (19:30)
[2018-08-09] MEDS: cloNIDine HCL 0.1 MG TAB PO SCH (21:07)
[2018-08-09] MEDS ORDERED: POTASSIUM CHLORIDE 20 MEQ in WATER FOR INJECTION 1 100ML.BAG IVPB SCH (23:00)
[2018-08-10] MEDS: SODIUM CHLORIDE 0.9% 1,000 ML IV SCH ×2 (01:45→04:35)
[2018-08-10] MEDS: METOCLOPRAMIDE 5 MG/ML 2 ML VIAL IVP SCH (04:35)
[2018-08-10] MEDS: KETOROLAC 30 MG/ML 1 ML VIAL IVP PRN (04:35)
[2018-08-10 05:07] VITALS: BP 167/76; PULSE 75; RESP 15; TEMP 98
[2018-08-10 07:45] LABS: Basophils # (A) 0.1 k/uL (0-0.2); Basophils % (A) 1 %; Eosinophils # (A) 0.4 k/uL (0-0.7); Eosinophils % (A) 6 %; HCT 34.9 % (34.0-46.0); Lymphocytes # (A) 1.7 k/uL (1.0-4.8); Lymphocytes % (A) 25 %; MCH 29.6 pg (25.0-35.0); MCHC 31.5 g/dL (31.0-37.0); MCV 93.9 fL (80.0-100.0); Mean Platelet Volume 6.2; Monocytes # (A) 0.4 k/uL (0-1.0); Monocytes % (A) 6 %; Neutrophils # (A) 3.9 k/uL (1.3-7.7); Neutrophils % (A) 59 %; Platelet Count 216 k/uL (150-450); RBC 3.72 m/uL (3.80-5.40); RDW 12.8 % (11.5-15.5); WBC 6.6 k/uL (3.8-10.6)
--- NOTE | 2018-08-10 07:48 | P.PN ---
Subjective Progress Note Date: 08/10/18 Principal diagnosis: abdominal pain Feeling better. Abdominal pain improved. Tolerating clears yesterday evening. NPO for EGJ today with Dr. Sawyer. Afebrile. Objective - Vital Signs Vital signs: Vital Signs Temp 98.0 F 08/10/18 05:00 Pulse 75 08/10/18 05:00 Resp 15 08/10/18 05:00 BP 167/76 08/10/18 05:00 Pulse Ox 96 08/10/18 05:00 Intake & Output 08/09/18 08/10/18 08/10/18 18:59 06:59 18:59 Intake Total 50 2049 Balance 50 2049 Weight 58.06 kg 58.06 kg Intake: Intake, IV Titration 50 1050 Amount Piperacillin-Tazobactam 3 50 50 .375 gm In Dextrose/Water 1 50ml.bag @ 12.5 mls/hr IVPB Q8HR ASH Rx#: [id number] Potassium Chloride 20 meq 100 In Water For Injection 1 100ml.bag @ 50 mls/hr IVPB Q2HR ASH Rx#: [id number] Potassium Chloride 20 meq 100 In Water For Injection 1 100ml.bag @ 50 mls/hr IVPB Q2HR ASH Rx#: [id number] Sodium Chloride 0.9% 1, 800 000 ml @ 100 mls/hr IV . Q10H ASH Rx#:[id number] Oral 0 1000 Other: Voiding Method Toilet Toilet # Voids 2 2 - Exam General appearance: The patient is alert, oriented, in no acute distress. HET: Head is normocephalic and atraumatic. Pupils are equal and reactive. Oropharynx is clear without lesions. Neck: Supple without lymphadenopathy. Trachea midline. Heart: S1 S2. Regular rate and rhythm. Lungs: No crackles or wheezes are heard. Abdomen: Soft, mild tenderness right upper quadrant epigastrium, nondistended with bowel sounds. No peritoneal signs. No palpable organomegaly or masses. Extremities: Normal skin color and turgor. No cyanosis, rash, ulceration, clubbing, or edema. Radial and pedal pulses are 2/4 bilaterally. Neurological: No focal deficits. Strength and sensation are grossly intact. - Labs CBC & Chem 7: 08/09/18 07:48 08/09/18 07:48 Labs: Abnormal Lab Results - Last 24 Hours (Table) 08/09/18 Range/Units 07:48 Potassium 3.3 L (3.5-5.1) mmol/L Total Protein 6.0 L (6.3-8.2) g/dL Albumin 3.4 L (3.5-5.0) g/dL HDL Cholesterol 73 H (40-60) mg/dL Assessment and Plan (1) Abnormal CT of the abdomen Narrative/Plan: 63 y/o admitted with acute RUQ abdominal pain nausea and decreased appetite x 1 month with normal liver enzymes and history of gastrojejunostomy for symptomatic pyloric stenosis CT abdominal imaging reported dilated gallbladder and biliary tree possible CBD stricture possible CBD stone. US abdomen reported CBD 0.4.cm without stones. Current Visit: Yes Status: Acute Code(s): R93.5 - ABN FINDINGS ON DX IMAGING OF ABD REGIONS, INC RETROPERITON SNOMED Code(s): 58756524905519891 (2) Abdominal pain Current Visit: Yes Status: Acute Code(s): R10.9 - UNSPECIFIED ABDOMINAL PAIN SNOMED Code(s): 85183922 (3) H/O bypass gastrojejunostomy Current Visit: Yes Status: Acute Code(s): Z98.0 - INTESTINAL BYPASS AND ANASTOMOSIS STATUS SNOMED Code(s): 819754670 (4) Atrial fibrillation with RVR Current Visit: Yes Status: Acute Code(s): I48.91 - UNSPECIFIED ATRIAL FIBRILLATION SNOMED Code(s): 495591251730789 Plan: 1. GS following EGJ scheduled today. 2. Recommend MRCP for further evaluation of CT findings this can be performed as an outpatient. 3. PPI BID. 4. Will follow with you. Assessment and plan a care discussed with Dr. Plata
[2018-08-10 07:53] LABS: Calcium 8.7 mg/dL (8.4-10.2); Potassium 3.7 mmol/L (3.5-5.1); Total Bilirubin 0.4 mg/dL (0.2-1.3); Total Protein 5.3 g/dL (6.3-8.2)
[2018-08-10] MEDS: VERAPAMIL SR 240 MG TABLET.ER PO SCH (07:58)
[2018-08-10] MEDS: LOSARTAN-HCTZ 50-12.5 MG 1 EACH TAB PO SCH (07:58)
[2018-08-10] MEDS: PIPERACILLIN-TAZOBACTAM 3.375 GM in DEXTROSE/WATER 1 50ML.BAG IVPB SCH (07:58)
[2018-08-10] MEDS ORDERED: PROPOFOL 10 MG/ML 20 ML VIAL IV ONE (08:26)
[2018-08-10] MEDS ORDERED: LIDOCAINE 1% INJ 10MG/ML (20 ML MDV) ONE (08:26)
[2018-08-10] MEDS ORDERED: IV FLUID CONTINUATION 900 ML IV ONE (08:44)
--- NOTE | 2018-08-10 09:24 | P.PCN ---
Date of Procedure: 08/10/18 Procedure(s) Performed: Preoperative Dx: Abdominal pain, vomiting Postoperative Dx: Gastritis Procedure: EGD with Bx Anesthesia: Sedation Endoscopist: Dr. Sawyer Specimens: Antrum Endoscopic Procedure: The patient was on the endoscopy table in the left decubitus position. The Olympus gastroscope was inserted into the oropharynx and passed under direct visualization to the region of the distal stomach. The gastrojejunostomy was identified and widely patent. There was no evidence of marginal ulceration. The jejunum appeared normal. The distal stomach was inspected. There did appear to be scarring and some inflammatory changes. Biopsies were taken. No neoplastic changes were seen. I was able to view the proximal duodenum through the pylorus although the scope could not be advanced through the pylorus. Retroflexion revealed a small hiatal hernia. The esophagus was otherwise normal. The patient was then taken to the recovery room in stable condition per anesthesia guidelines. Recommendations: Continue antiacid therapy. Resume full liquid diet. Anticipate discharge today. Follow-up as outpatient.
--- NOTE | 2018-08-14 14:47 | P.DS ---
Providers Date of admission: 08/08/18 05:53 Expected date of discharge: 08/10/18 Attending physician: Adelfo Bee MD Consults: 08/08/18 05:53 Consult Physician Routine Consulting Provider: Elian Reveles Consult Reason/Comments: New-onset atrial fibrillation Do you want consulting provider notified?: Yes 08/08/18 09:09 Consult Physician Routine Consulting Provider: Naomie Hernandez Consult Reason/Comments: r/o choledocho Do you want consulting provider notified?: Yes 08/08/18 09:49 Consult Physician Routine Consulting Provider: Asael Sawyer Consult Reason/Comments: biliary obstruction Do you want consulting provider notified?: Yes Primary care physician: Valeriano Khan Hospital Course: 63 years old female patient of Dr. Khan with past medical history of coronary artery disease status post stenting in 2016, melanoma resected in January 2018, hypertension, history of gastric ulcers and previous pyloric stenosis that was fixed with gastrojejunostomy by Dr. Sánchez in 2009 presents with acute abdominal pain that started yesterday while patient was lying pain was associated with nausea. Patient was brought to the ER via she had multiple episodes of vomiting. Patient denies any history of diarrhea, constipation, blood in her stool, melena. She denies any history of gallstones. Patient does have history of 8 pound weight loss in the past year. Also endorses decreased appetite for the past year. Evaluation in the ED listed temp of 98.5 , heart rate went up to 140 with the resident being A. fib with RVR patient was placed briefly on Cardizem drip which was discontinued this morning as patient converted back to sinus rhythm. Saturating well on room air. Labs obtained suggested leukocytosis of 10.9, potassium 3.4 normal LFTs. Troponin 3 negative with UA being negative for any kind of infection. CT abdomen was done that showed a dilated gallbladder, gastro-jejunostomy noted, no pancreatic mass common bile duct and intrahepatic bile ducts dilated Bile duct measured 12 mm Cardiology was consulted for A. fib with RVR. Gastroenterology consulted for possible MRCP 08/09: Patient continues to have nausea along with pain but now the pain is dull at the right upper quadrant. She apparently was up most of the night. She is continued on Reglan and Zofran which the combination seems to help. She has been transferred to the [facility] floor. No repeat episodes of atrial fibrillation and telemetry will be discontinued. Abdominal ultrasound shows borderline hypertropic gallbladder but without ancillary findings of acute cholecystitis. Recommend HIDA scan. HIDA scan was done today which came back normal. Patient is followed by multiple consultants including cardiology with plan for follow-up with Dr. Burns in 2-3 weeks. GI and general surgery, Dr. Sawyer. 08/10: Patient underwent EGD with biopsy with Dr. Sawyer finding gastritis. Patient is to continue antiacid therapy, resume full liquid diet and was cleared for discharge home. Patient will be discharged on Protonix 40 mg twice daily for 2 months. Patient denies having abdominal pain and no tenderness. She denies any nausea. Patient also instructed to avoid caffeine and chocolate. GI has recommended MRCP as an outpatient. Patient will be discharged home today in stable condition. Discharge diagnoses: #1 acute abdominal pain likely secondary to cholecystitis, other differential include choledocholithiasis, biliary tree constriction or stenosis as dilated bile ducts and gallbladder seen on computed tomography scan. #2. Paroxysmal atrial fibrillation with RVR. #3 hyperlipidemia #4 hypertension #5 previous pyloric stenosis status post gastrojejunostomy stable. #6 GERD #7 History of migraines Discharge plan: Return home Impression and plan of care have been directed as dictated by the signing physician. Kari Arroyo nurse practitioner acting as scribe for signing physician. Patient Condition at Discharge: Good Plan - Discharge Summary Discharge Rx Participant: No New Discharge Prescriptions: New Pantoprazole [Protonix] 40 mg PO AC-BID #60 tablet. Continue Verapamil HCl [Verapamil ER] 240 mg PO DAILY Losartan/Hydrochlorothiazide [Losartan-Hctz 100-12.5 mg Tab] 1 tab PO HS Butalb/Asprin/Caff 50-325-40Mg [Fiorinal 50-325-40 MG] 1 tab PO DAILY PRN PRN Reason: Headache Cholecalciferol [Vitamin D3] 1,000 unit PO DAILY Ascorbic Acid [Vitamin C] 500 mg PO DAILY Multivitamins, Thera [Multivitamin (formulary)] 1 tab PO DAILY Ferrous Sulfate [Iron (65 MG Elemental)] 325 mg PO DAILY L.acidoph,Paracasei, B.lactis [Probiotic] 1 cap PO DAILY Feverfew 1 tab PO DAILY Atorvastatin [Lipitor] 40 mg PO DAILY #90 tab Nitroglycerin Sl Tabs [Nitrostat] 0.4 mg SUBLINGUAL Q5M PRN #25 tab PRN Reason: Chest Pain Ibuprofen [Motrin Ib] 200 mg PO Q4H PRN PRN Reason: Pain Britni Back & Body 1,000 mg PO Q6H PRN PRN Reason: Pain Aspirin/Acetaminophen/Caffeine [Excedrin Migraine Caplet] 1 tab PO BID PRN PRN Reason: Migraine Headache Cyanocobalamin (Vitamin B-12) [Vitamin B12] 2,500 mcg PO DAILY Potassium Chloride [Klor-Con 20] 20 meq PO HS Aspirin EC [Ecotrin Low Dose] 81 mg PO HS Imitrex (Unknown Dose) 1 dose IM DAILY PRN PRN Reason: Migraine Headache Discontinued Omeprazole 40 mg PO BID Discharge Medication List Butalb/Asprin/Caff 50-325-40Mg [Fiorinal 50-325-40 MG] 1 tab PO DAILY PRN [History] Losartan/Hydrochlorothiazide [Losartan-Hctz 100-12.5 mg Tab] 1 tab PO HS [History] Verapamil HCl [Verapamil ER] 240 mg PO DAILY 04/26/16 [History] Ascorbic Acid [Vitamin C] 500 mg PO DAILY 07/24/17 [History] Cholecalciferol [Vitamin D3] 1,000 unit PO DAILY 07/24/17 [History] Ferrous Sulfate [Iron (65 MG Elemental)] 325 mg PO DAILY 07/24/17 [History] Feverfew 1 tab PO DAILY 07/24/17 [History] L.acidoph,Paracasei, B.lactis [Probiotic] 1 cap PO DAILY 07/24/17 [History] Multivitamins, Thera [Multivitamin (formulary)] 1 tab PO DAILY 07/24/17 [History ] Atorvastatin [Lipitor] 40 mg PO DAILY #90 tab 07/28/17 [Rx] Nitroglycerin Sl Tabs [Nitrostat] 0.4 mg SUBLINGUAL Q5M PRN #25 tab 07/28/17 [Rx ] Aspirin EC [Ecotrin Low Dose] 81 mg PO HS 08/08/18 [History] Aspirin/Acetaminophen/Caffeine [Excedrin Migraine Caplet] 1 tab PO BID PRN 08/08 [History] Britni Back & Body 1,000 mg PO Q6H PRN 10/03/18 [History] Cyanocobalamin (Vitamin B-12) [Vitamin B12] 2,500 mcg PO DAILY 08/08/18 [History ] Ibuprofen [Motrin Ib] 200 mg PO Q4H PRN 08/08/18 [History] Imitrex (Unknown Dose) 1 dose IM DAILY PRN 08/08/18 [History] Potassium Chloride [Klor-Con 20] 20 meq PO HS 08/08/18 [History] Pantoprazole [Protonix] 40 mg PO AC-BID #60 tablet. 08/10/18 [Rx] Follow up Appointment(s)/Referral(s): Asael Sawyer MD [Medical Doctor] - 08/29/18 1:30 pm Valeriano Khan MD [Primary Care Provider] - 08/15/18 4:00 pm (Monday ) Ag Hernandez MD [STAFF PHYSICIAN] - 08/28/18 2:15 pm Zeke Plata MD [STAFF PHYSICIAN] - 09/07/18 3:00 pm Patient Instructions/Handouts: Pantoprazole (By mouth), A-fib (Atrial Fibrillation) (DC), Acute Abdominal Pain (DC) Discharge Disposition: HOME SELF-CARE
== END 2018-08-10 11:45 | disposition home or self-care (01) | DRG 392 ==
LOC: EC 00:07 → 6SEL 05:53 → 5MS5E 12:28
PROVIDERS: ADMIT Internal Medicine; ATTEND Internal Medicine
PROC: 0DB78ZX Excision of Stomach, Pylorus, Via Natural or Artificial Opening Endoscopic, Diagnostic (ICD-10-PCS; principal; 2018-08-10 08:25)
DX: K29.70 Gastritis, unspecified, without bleeding (principal); K82.1 Hydrops of gallbladder; E78.5 Hyperlipidemia, unspecified; E87.6 Hypokalemia; I10 Essential (primary) hypertension; I25.10 Atherosclerotic heart disease of native coronary artery without angina pectoris; I25.2 Old myocardial infarction; I48.0 Paroxysmal atrial fibrillation; K21.9 Gastro-esophageal reflux disease without esophagitis; K64.8 Other hemorrhoids; Z80.1 Family history of malignant neoplasm of trachea, bronchus and lung; Z82.49 Family history of ischemic heart disease and other diseases of the circulatory system; Z83.3 Family history of diabetes mellitus; Z85.820 Personal history of malignant melanoma of skin; Z87.11 Personal history of peptic ulcer disease; Z90.710 Acquired absence of both cervix and uterus; Z95.5 Presence of coronary angioplasty implant and graft; Z79.82 Long term (current) use of aspirin; Z79.899 Other long term (current) drug therapy; Z88.5 Allergy status to narcotic agent; G43.909 Migraine, unspecified, not intractable, without status migrainosus
CPT/HCPCS: 36415; 43239; 74177; 76705; 78227; 80053; 80061; 81001; 82150; 82378; 82550; 82553; 83605; 83690; 83735; 84443; 84484; 85025; 86301; 88305; 93005; 93306; 94760; 96361; 96374; 96375; 96376; 99285

== ENCOUNTER → 2018-08-28 | Outpatient (CLI) | payer OTHER ==
--- NOTE | 2018-08-28 11:29 | XR ---
EXAMINATION TYPE: XR knee complete LT DATE OF EXAM: 08/28/2018 CLINICAL HISTORY: Left knee numbness and pain. TECHNIQUE: Three views of the left knee are obtained. COMPARISON: None. FINDINGS: There is no acute fracture/dislocation evident in left knee. The tri-compartment joint sp aces demonstrate joint space narrowing with small marginal osteophytes. Very small fabellae are incid entally seen. No suspicious osseous lesion. The overlying soft tissue appears unremarkable. IMPRESSION: There is no acute fracture or dislocation in the left knee. Moderate tricompartmental ar thropathy.
--- NOTE | 2018-08-28 11:58 | XR ---
EXAMINATION TYPE: XR femur LT DATE OF EXAM: 08/28/2018 CLINICAL HISTORY: Left leg pain and numbness. TECHNIQUE: Two views of the left femur are obtained. COMPARISON: None FINDINGS: There is no acute fracture or dislocation seen in the left femur. The left hip and knee j oints demonstrate marginal osteophytes and joint space narrowing. The overlying soft tissue appears unremarkable. IMPRESSION: There is no acute fracture or dislocation in the left femur. Tricompartmental arthropath y within the left knee is moderate. There is also moderate left femoral acetabular arthropathy. No ramirez spicious osseous lesion.
== END | disposition home or self-care (01) ==
LOC: RADXRMAIN 09:44
PROVIDERS: ATTEND Internal Medicine
DX: M17.12 Unilateral primary osteoarthritis, left knee (principal); M16.12 Unilateral primary osteoarthritis, left hip

== ENCOUNTER → 2019-05-28 | Outpatient (CLI) | payer OTHER ==
--- NOTE | 2019-05-29 09:24 | MM ---
Reason for exam: screening (asymptomatic). Last mammogram was performed 1 year and 1 month ago. History: Patient is postmenopausal. Family history of breast cancer in 2 aunts and breast cancer in mother at age 60. Took estrogen for 10 years 9 months beginning at age 42. Physical Findings: A clinical breast exam by your physician is recommended on an annual basis and results should be correlated with mammographic findings. MG Screening Mammo w CAD Bilateral CC and MLO view(s) were taken. Prior study comparison: April 25, 2018, bilateral MG screening mammo w CAD. April 19, 2017, bilateral MG screening mammo w CAD. There are scattered fibroglandular densities. No significant changes when compared with prior studies. ASSESSMENT: Negative, BI-RAD 1 RECOMMENDATION: Routine screening mammogram of both breasts in 1 year.
== END | disposition home or self-care (01) ==
LOC: RADMAMWWP 07:20
PROVIDERS: ATTEND Obstetrics & Gynecology
DX: Z12.31 Encounter for screening mammogram for malignant neoplasm of breast (principal); Z80.3 Family history of malignant neoplasm of breast
CPT/HCPCS: 77067

== ENCOUNTER → 2019-06-03 | Outpatient (CLI) | payer OTHER ==
--- NOTE | 2019-06-03 14:04 | BD ---
EXAMINATION TYPE: Axial Bone Density DATE OF EXAM: 06/03/2019 COMPARISON: NONE here CLINICAL HISTORY: Disorder of bone density and structure, M 85.9 Height: 61.75 Weight: 128 FRAX RISK QUESTIONS: Alcohol (3 or more units per day): no Family History (Parent hip fracture): no Glucocorticoids (More than 3mos): no (Ex: prednisone, prednisolone, methylprednisolone, dexamethasone, and hydrocortisone). History of Fracture in Adulthood: no Secondary Osteoporosis: 1. Type 1 Diabetes: no 2. Hyperthyroidism: no 3. Menopause before 45: yes 4. Malnutrition: no 5. Chronic liver disease: no Rheumatoid Arthritis: no Current Tobacco Use: no RISK FACTORS HISTORY OF: Family History of Osteoporosis: no Active: yes Diet low in dairy products/other sources of calcium: no Postmenopausal woman: yes Take estrogen and/or progesterone medications: not now How lon-53 Lost more than 2 inches in height since high school: no Frequent falls: no Poor Health: no Hyperparathyroidism: no Adrenal Insufficiency: no MEDICATIONS: Prednisone or other steroids: no Thyroid Medications: no Osteoporosis Medications: no Additional Medications: cholesterol med, blood pressure meds, Vitamin D & multivitamin Additional History: none to note EXAM MEASUREMENTS: Bone mineral densitometry was performed using the [employer] System. Bone mineral density as measured about the Lumbar spine is: ----- L1-L4(G/cm2): 0.976 T Score Values are as follows: ----- L2: -1.7 ----- L3: -1.5 ----- L4: -2.0 ----- L1-L4: -1.7 Bone mineral density not previously done at this facility; done elsewhere Bone mineral density about the R hip (g/cm2): 0.771 Bone mineral density about the L hip (g/cm2): 0.765 T Score values are as follows: -----R Neck: -1.9 -----L Neck: -2.0 -----R Total: -2.3 -----L Total: -2.1 Bone mineral density not previously done at this facility; done elsewhere IMPRESSION: Osteopenia (T Score between -2.5 and -1). There is slightly increased risk of fracture and the patient may be considered for treatment. Re-Screen 2-5 years. NOTE: T-SCORE=SD OF THE YOUNG ADULT MEAN.
== END | disposition home or self-care (01) ==
LOC: RADBDWWP 07:53
PROVIDERS: ATTEND Internal Medicine
DX: M85.80 Other specified disorders of bone density and structure, unspecified site (principal)
CPT/HCPCS: 77080

== ENCOUNTER → 2019-09-24 | Outpatient (CLI) | payer OTHER ==
[2019-09-24 11:04] LABS: Basophils # (A) 0.2 k/uL (0-0.2); Basophils % (A) 3 %; Eosinophils # (A) 0.4 k/uL (0-0.7); Eosinophils % (A) 7 %; HCT 39.1 % (34.0-46.0); HGB 12.5 gm/dL (11.4-16.0); Lymphocytes # (A) 1.9 k/uL (1.0-4.8); Lymphocytes % (A) 29 %; MCH 29.5 pg (25.0-35.0); MCHC 32.1 g/dL (31.0-37.0); Mean Platelet Volume 6.3; Monocytes # (A) 0.3 k/uL (0-1.0); Monocytes % (A) 5 %; Neutrophils # (A) 3.5 k/uL (1.3-7.7); Neutrophils % (A) 55 %; Platelet Count 277 k/uL (150-450); RBC 4.25 m/uL (3.80-5.40); RDW 12.5 % (11.5-15.5); WBC 6.5 k/uL (3.8-10.6)
[2019-09-24 16:28] LABS: African American GFR (CKD) 77.8 (60.0-200.0); Albumin 4.2 g/dL (3.80-4.90); Albumin/Globulin Ratio 2.21 (1.60-3.17); Anion Gap 9.7 mmol/L (4.00-12.00); BUN/Creat Ratio 16.67 Ratio (12.00-20.00); Calcium 9.7 mg/dL (8.7-10.3); Carbon Dioxide 27.3 mmol/L (21.6-31.8); Chol/HDL Ratio 2.23; Globulin 1.9 g/dL (1.6-3.3); LDL Cholesterol,Calculated 87.2 mg/dL (0.0-131.0); Magnesium 2.3 mg/dL (1.5-2.4); Total Bilirubin 0.3 mg/dL (0.3-1.2); Total Protein 6.1 g/dL (6.2-8.2); VLDL Calculation 13.8 mg/dL (5.00-40.00)
== END | disposition home or self-care (01) ==
LOC: LABWHC1 09:45
PROVIDERS: ATTEND Internal Medicine
DX: I10 Essential (primary) hypertension (principal); E78.2 Mixed hyperlipidemia
CPT/HCPCS: 36415; 80053; 80061; 82550; 83735; 84443; 85025

== ENCOUNTER → 2020-06-17 | Outpatient (CLI) | payer OTHER ==
--- NOTE | 2020-06-18 12:16 | MM ---
Reason for exam: screening (asymptomatic). Last mammogram was performed 1 year and 1 month ago. History: Patient is postmenopausal and history of other cancer. Family history of breast cancer in 2 aunts and breast cancer in mother at age 60. Took estrogen for 10 years 9 months beginning at age 42. Physical Findings: A clinical breast exam by your physician is recommended on an annual basis and results should be correlated with mammographic findings. MG Screening Mammo w CAD Bilateral CC and MLO view(s) were taken. Prior study comparison: May 28, 2019, bilateral MG screening mammo w CAD. April 25, 2018, bilateral MG screening mammo w CAD. There are scattered fibroglandular densities. Benign appearing bilateral calcifications. There is chronic nodularity in the left breast, stable. No significant changes when compared with prior studies. ASSESSMENT: Benign, BI-RAD 2 RECOMMENDATION: Routine screening mammogram of both breasts in 1 year.
== END | disposition home or self-care (01) ==
LOC: RADMAMWWP 09:18
PROVIDERS: ATTEND Internal Medicine
DX: Z12.31 Encounter for screening mammogram for malignant neoplasm of breast (principal)
CPT/HCPCS: 77067

== ENCOUNTER 2020-07-21 11:44 | Emergency (ER) | payer OTHER ==
[2020-07-21 11:50] VITALS: TEMP 98.1
[2020-07-21] MEDS ORDERED: SODIUM CHLORIDE 0.9% 500 ML 500 ML IV STA (12:40)
[2020-07-21 13:02] LABS: Basophils % (A) 0 %; Eosinophils # (A) 0.3 k/uL (0-0.7); Eosinophils % (A) 3 %; HCT 37.2 % (34.0-46.0); Lymphocytes % (A) 18 %; MCH 29.3 pg (25.0-35.0); MCHC 32.1 g/dL (31.0-37.0); MCV 91.2 fL (80.0-100.0); Mean Platelet Volume 6.7; Monocytes # (A) 0.6 k/uL (0-1.0); Monocytes % (A) 5 %; Neutrophils % (A) 72 %; Platelet Count 403 k/uL (150-450); RBC 4.08 m/uL (3.80-5.40); RDW 12.4 % (11.5-15.5)
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
[2020-07-21 13:13] LABS: INR 0.9 (<1.2); Partial Thromboplastin Time 23.1 sec (22.0-30.0); Prothrombin Time 9.6 sec (9.0-12.0)
[2020-07-21 13:19] LABS: ALT 17 U/L (4-34); AST 25 U/L (14-36); African American GFR (CKD) >90 (>60 ml/min/1.73 sqM); Albumin 3.9 g/dL (3.5-5.0); Alkaline Phosphatase 125 U/L (38-126); Anion Gap 7 mmol/L; Blood Urea Nitrogen 12 mg/dL (7-17); Calcium 9.7 mg/dL (8.4-10.2); Carbon Dioxide 28 mmol/L (22-30); Chloride 106 mmol/L (98-107); Glucose 103 mg/dL (74-99); Non-African American GFR(CKD) 88 (>60 ml/min/1.73 sqM); Potassium 3.4 mmol/L (3.5-5.1); Sodium 141 mmol/L (137-145); Total Bilirubin 0.4 mg/dL (0.2-1.3); Total Protein 6.7 g/dL (6.3-8.2)
[2020-07-21] MEDS ORDERED: HYDROmorphone 0.5 MG/0.5 ML SYRINGE IVP STA (13:38)
[2020-07-21] MEDS ORDERED: ONDANSETRON 4 MG/2 ML VIAL IVP STA (13:38)
--- NOTE | 2020-07-21 14:20 | XR ---
EXAMINATION TYPE: XR chest 2V DATE OF EXAM: 07/21/2020 COMPARISON: 04/11/2016 HISTORY: 65-year-old female confusion, altered mental status, headache TECHNIQUE: AP and lateral views FINDINGS: The cardiomediastinal silhouette, aorta, and pulmonary vasculature are within normal limits. Lungs an d pleural spaces are clear. IMPRESSION: No acute cardiopulmonary process.
[2020-07-21] MEDS ORDERED: DEXAMETHASONE SOD PHOSPHATE 10 MG/ML 1 ML VIAL IV STA (14:38)
--- NOTE | 2020-07-21 14:38 | CT ---
EXAMINATION TYPE: CT brain wo/w con DATE OF EXAM: 07/21/2020 COMPARISON: 05/16/2017 CT brain HISTORY: Migraine POWELL CT DLP: 2107.8 mGycm Automated exposure control for dose reduction was used. CONTRAST: CT scan of the head is performed without and with IV Contrast, patient injected with 100 mL of Isovue 370. FINDINGS: Within the right frontoparietal lobe there is an intra-axial 4.1 x 2.9 x 3.5 cm (AP, transverse, and craniocaudal) hypodense mass with internal enhancing foci and well-defined enhancing rim (301:39, 303 :25). There is mass effect on the adjacent brain and right lateral ventricle, and up to 3 mm of leftw tomy midline shift. There is significant associated vasogenic edema around the mass involving the righ t frontal, parietal, and occipital lobes. No acute intraparenchymal hemorrhage. The globes are grossly symmetric. Mastoid air cells and visualized paranasal sinuses are clear. No ev idence of depressed calvarial fracture or aggressive osseous destructive lesion. IMPRESSION: Right frontoparietal intra-axial 4.1 x 2.9 x 3.5 cm rim-enhancing mass. There is significant vasogeni c edema. There is also mass effect on the sulci and right lateral ventricle, and up to [address] rd midline shift. Primary differential considerations include metastasis or glioblastoma, however MRI brain with contrast is recommended for further characterization. Dr. Yadira Nava discussed findings with Dr. Milton Ferro via the phone on today at 2:31 PM, and results were acknowledged. A Red level critical message alert has been initiated for Milton Ferro MD via the [employer] Critical Results System on 07/21/2020 2:29 PM. This message alert has been sent to Milton Ferro MD v ia the preferences provided by the clinician for the receipt of Radiology Critical Findings. Message ID [id number].
[2020-07-21 15:34] VITALS: PULSE 92
[2020-07-21 15:41] VITALS: BP 145/91; RESP 18
== END 2020-07-21 16:08 | disposition other institution (70) ==
LOC: EC 11:44
DX: D49.6 Neoplasm of unspecified behavior of brain (principal); G43.919 Migraine, unspecified, intractable, without status migrainosus; I10 Essential (primary) hypertension; K21.9 Gastro-esophageal reflux disease without esophagitis; D64.9 Anemia, unspecified; Z79.82 Long term (current) use of aspirin; Z79.899 Other long term (current) drug therapy; Z88.5 Allergy status to narcotic agent; Z85.820 Personal history of malignant melanoma of skin; Z87.11 Personal history of peptic ulcer disease
CPT/HCPCS: 36415; 93005; 80053; 84484; 85025; 85610; 85730; 71046; 70470; 99285; 96374; 96375 ×2; 96361; J1100; J2405; J1170; Q9967

== ENCOUNTER → 2020-11-16 | Outpatient (CLI) | payer OTHER, MEDICARE ==
[2020-11-16 15:36] LABS: African American GFR (CKD) 104.6 (60.0-200.0); Albumin 3.9 g/dL (3.80-4.90); Albumin/Globulin Ratio 2.6 (1.60-3.17); Anion Gap 7.4 mmol/L (4.00-12.00); Calcium 9.3 mg/dL (8.7-10.3); Carbon Dioxide 27.6 mmol/L (21.6-31.8); Globulin 1.5 g/dL (1.6-3.3); Non-African American GFR(CKD) 90.3 (60.0-200.0); Potassium 3.7 mmol/L (3.5-5.5); Total Bilirubin 0.2 mg/dL (0.3-1.2); Total Protein 5.4 g/dL (6.2-8.2)
== END | disposition home or self-care (01) ==
LOC: LABWHC1 09:56
DX: G93.89 Other specified disorders of brain (principal); R11.0 Nausea; C71.9 Malignant neoplasm of brain, unspecified
CPT/HCPCS: 36415; 80053

== ENCOUNTER → 2020-12-16 | Outpatient (CLI) | payer OTHER, MEDICARE ==
[2020-12-16 19:56] LABS: Basophils # (A) 0.03 X 10*3/uL (0.00-0.10); Basophils % (A) 0.4 %; Eosinophils % (A) 5.1 %; HGB 12.3 g/dL (12.0-15.0); Lymphocytes # (A) 1.25 X 10*3/uL (0.90-5.00); Lymphocytes % (A) 15.8 %; MCH 30.2 pg (27.0-32.0); MCHC 32.4 g/dL (32.0-37.0); MCV 93.4 fL (80.0-97.0); Mean Platelet Volume 10.8 fL (9.5-12.2); Monocytes # (A) 0.61 X 10*3/uL (0.20-1.00); Monocytes % (A) 7.7 %; Neutrophils # (A) 5.61 X 10*3/uL (1.80-7.70); Neutrophils % (A) 70.7 %; Platelet Count 100 X 10*3/uL (140-440); RBC 4.07 X 10*6/uL (4.10-5.20); RDW 12.7 % (11.5-14.5); WBC 7.92 X 10*3/uL (4.50-10.00)
[2020-12-16 20:02] LABS: Anion Gap 7.2 mmol/L (4.00-12.00); BUN/Creat Ratio 21.25 Ratio (12.00-20.00); Calcium 9.6 mg/dL (8.7-10.3); Carbon Dioxide 22.8 mmol/L (21.6-31.8); Non-African American GFR(CKD) 76.8 (60.0-200.0); Potassium 3.8 mmol/L (3.5-5.5)
[2020-12-16 20:03] LABS: Albumin 4.1 g/dL (3.80-4.90); Albumin/Globulin Ratio 2.73 (1.60-3.17); Globulin 1.5 g/dL (1.6-3.3); Total Bilirubin 0.2 mg/dL (0.2-1.2); Total Protein 5.6 g/dL (6.2-8.2)
== END | disposition home or self-care (01) ==
LOC: LABWHC1 11:45
DX: G93.89 Other specified disorders of brain (principal); C71.9 Malignant neoplasm of brain, unspecified
CPT/HCPCS: 36415; 80053; 85025

== ENCOUNTER → 2021-03-08 | Outpatient (CLI) | payer OTHER, MEDICARE ==
--- NOTE | 2021-03-08 12:10 | XR ---
EXAM TYPE: LUMBAR SPINE X RAY SERIES COMPARISON: 01/27/2012 HISTORY: Pain TECHNIQUE: 3 views are submitted. FINDINGS: Alignment is anatomic. The pedicles are intact. The transverse processes are intact. There is diff use osteopenia with multilevel degenerative disc disease. Severe changes L5-S1 with multilevel facet arthropathy. There is a minimal anterolisthesis of L5 relative to S1. Suspect foraminal encroachment L5-S1. Minimal loss of vertebral body height involving the lower thoracic spine appears chronic and s imilar to the prior exam. IMPRESSION: 1. Multilevel degenerative disc disease with severe changes at L5-S1 which is mildly progressed from prior exam. Vacuum disc now noted. 2. Multilevel facet arthropathy with foraminal encroachment suspected at L4-5 and L5-S1.
== END | disposition home or self-care (01) ==
LOC: RADXRMAIN 10:35
PROVIDERS: ATTEND Internal Medicine
DX: M51.37 Other intervertebral disc degeneration, lumbosacral region (principal); M47.817 Spondylosis without myelopathy or radiculopathy, lumbosacral region
CPT/HCPCS: 72100

== ENCOUNTER → 2021-08-27 | Outpatient (CLI) | payer MEDICARE ==
--- NOTE | 2021-08-30 12:01 | MM ---
Reason for exam: screening (asymptomatic). Last mammogram was performed 1 year and 2 months ago. History: Patient is postmenopausal and history of other cancer. Family history of breast cancer in 2 aunts and breast cancer in mother at age 60. Took hormonal contraceptives for 10 years. Took estrogen for 10 years 9 months beginning at age 42. Physical Findings: A clinical breast exam by your physician is recommended on an annual basis and results should be correlated with mammographic findings. MG 3D Screening Mammo W/Cad Bilateral CC and MLO view(s) were taken. Prior study comparison: June 17, 2020, bilateral MG screening mammo w CAD. May 28, 2019, bilateral MG screening mammo w CAD. There are scattered fibroglandular densities. There is no discrete abnormality. No significant changes when compared with prior studies. ASSESSMENT: Negative, BI-RAD 1 RECOMMENDATION: Routine screening mammogram of both breasts in 1 year.
== END | disposition home or self-care (01) ==
LOC: RADMAMWWP 11:22
PROVIDERS: ATTEND Internal Medicine
DX: Z12.31 Encounter for screening mammogram for malignant neoplasm of breast (principal)
CPT/HCPCS: 77063; 77067

== ENCOUNTER → 2021-10-26 | Outpatient (CLI) | payer MEDICARE ==
--- NOTE | 2021-10-26 10:56 | BD ---
EXAMINATION TYPE: Axial Bone Density DATE OF EXAM: 10/26/2021 COMPARISON: NONE CLINICAL HISTORY: M[age] AGE RELATED OSTEOPOROSIS Height: 5 FT 2 IN Weight: FRAX RISK QUESTIONS: Alcohol (3 or more units per day): NO Family History (Parent hip fracture): NO Glucocorticoids (More than 3mos): NO (Ex: prednisone, prednisolone, methylprednisolone, dexamethasone, and hydrocortisone). History of Fracture in Adulthood: YES Secondary Osteoporosis: 1. Type 1 Diabetes: NO 2. Hyperthyroidism: NO 3. Menopause before 45: YES 4. Malnutrition: NO 5. Chronic liver disease: NO Rheumatoid Arthritis: NO Current Tobacco Use: NO RISK FACTORS HISTORY OF: History of Wrist Fracture: LEFT When: 2020 Surgery to Spine/Hip(right/left)/Wrist (right/left): NO Family History of Osteoporosis: YES Active: SOMEWHAT Diet low in dairy products/other sources of calcium: NO Postmenopausal woman: YES Take estrogen and/or progesterone medications: TOOK THE PATCH NO LONGER Lost more than 2 inches in height since high school: NO Frequent falls: UNSTEADY Poor Health: YES Hyperparathyroidism: NO Adrenal Insufficiency: NO MEDICATIONS: Additional Medications: TESHA ELSA, LIPITOR, VERAPAMIL, MULTI Additional History: BRAIN CANCER 2019 CURRENT CHEMO AND RADIATION EXAM MEASUREMENTS: Bone mineral densitometry was performed using the [employer] System. Bone mineral density as measured about the Lumbar spine is: ----- L1-L4(G/cm2): 0.842 T Score Values are as follows: ----- L2: -2.9 ----- L3: -2.7 ----- L4: -3.1 ----- L1-L4: -2.8 Bone mineral density has: DECREASED -14.0 % since study of: 2018 Bone mineral density about the R hip (g/cm2): 0.621 Bone mineral density about the L hip (g/cm2): 0.626 T Score values are as follows: -----R Neck: -3.0 -----L Neck: -3.0 -----R Total: -3.3 -----L Total: -3.0 Bone mineral density has: DECREASED -16.1 % since study of: 2018 IMPRESSION: Osteoporosis (T Score less than -2.5). There is increased fracture risk and therapy is usually indicated based on age. Re-Screen 1-2 years. NOTE: T-SCORE=SD OF THE YOUNG ADULT MEAN.
== END | disposition home or self-care (01) ==
LOC: RADBDWWP 08:34
PROVIDERS: ATTEND Internal Medicine
DX: M81.0 Age-related osteoporosis without current pathological fracture (principal)
CPT/HCPCS: 77080

== ENCOUNTER 2022-02-19 20:48 | Inpatient (IN) | payer MEDICARE ==
[2022-02-19] MEDS ORDERED: SODIUM CHLORIDE 0.9% 1,000 ML IV STA (22:26)
[2022-02-19] MEDS ORDERED: ONDANSETRON 4 MG/2 ML VIAL IVP STA (22:26)
[2022-02-19] MEDS ORDERED: HYDROmorphone 0.5 MG/0.5 ML SYRINGE IVP STA (22:26)
--- NOTE | 2022-02-19 22:39 | ED ---
General Adult HPI - General Chief complaint: Abdominal Pain Stated complaint: Vomiting, Abdominal Pain Time Seen by Provider: 02/19/22 22:19 Source: patient, RN notes reviewed, old records reviewed Mode of arrival: ambulatory - History of Present Illness Initial comments: 67-year-old female presenting with vomiting which began this afternoon. She's had multiple episodes of vomiting since the onset. Approximately 8 hours of total vomiting. She does have some abdominal pain associated with the vomiting. No fever. She has not had a bowel movement in 10 days. She is currently being treated for GBM. She began chemotherapy yesterday. - Related Data Home Medications Medication Instructions Recorded Confirmed Butalb/Asprin/Caff 50-325-40Mg 1 tab PO DAILY PRN 04/26/16 07/21/20 [Fiorinal 50-325-40 MG] Losartan/Hydrochlorothiazide 1 tab PO HS 04/26/16 07/21/20 [Losartan-Hctz 100-12.5 mg Tab] Verapamil HCl [Verapamil ER] 240 mg PO DAILY 04/26/16 07/21/20 Ascorbic Acid [Vitamin C] 500 mg PO W/SUPPER 07/24/17 07/21/20 Cholecalciferol [Vitamin D3 (25 1,000 unit PO DAILY 07/24/17 07/21/20 Mcg = 1000 Iu)] Ferrous Sulfate [Iron (65 MG 325 mg PO W/SUPPER 07/24/17 07/21/20 Elemental)] Feverfew 1 tab PO W/SUPPER 07/24/17 07/21/20 L.acidoph,Paracasei, B.lactis 1 cap PO W/SUPPER 07/24/17 07/21/20 [Probiotic] Aspirin EC [Ecotrin Low Dose] 81 mg PO HS 08/08/18 07/21/20 Britni Back & Body 1,000 mg PO Q6H PRN 08/08/18 07/21/20 Ibuprofen [Motrin Ib] 800 mg PO Q4H PRN 08/08/18 07/21/20 Imitrex (Unknown Dose) 1 dose IM DAILY PRN 08/08/18 07/21/20 Potassium Chloride [Klor-Con 20] 20 meq PO HS 08/08/18 07/21/20 Cyanocobalamin (Vitamin B-12) 1,000 mcg PO W/SUPPER 07/21/20 07/21/20 [Vitamin B-12] Magnesium Oxide [Mag-Ox] 400 mg PO DAILY 07/21/20 07/21/20 Omeprazole [PriLOSEC] 40 mg PO BID 07/21/20 07/21/20 Previous Rx's Medication Instructions Recorded Atorvastatin [Lipitor] 40 mg PO DAILY #90 tab 07/28/17 Nitroglycerin Sl Tabs [Nitrostat] 0.4 mg SUBLINGUAL Q5M PRN #25 tab 07/28/17 Allergies Allergy/AdvReac Type Severity Reaction Status Date / Time morphine Allergy hives Verified 02/19/22 21:30 Review of Systems ROS Statement: Those systems with pertinent positive or pertinent negative responses have been documented in the HPI. ROS Other: All systems not noted in ROS Statement are negative. Past Medical History Past Medical History: Cancer, GERD/Reflux, GI Bleed, Hypertension Additional Past Medical History / Comment(s): PUD, upper GI bleed, anemia, pyloric strictures with surgeries, melanoma stage I-mole on L neck with removal, hemorrhoids, 2017 had stress echo which suggestive of prior MS-had PCI with stent, chronic migraines, small cyst on liver, occasional bilateral tinnitis, recent L thigh muscle bruise-started on baclofen. History of Any Multi-Drug Resistant Organisms: None Reported Past Surgical History: Bowel Resection, Heart Catheterization With Stent, Hysterectomy, Tonsillectomy Additional Past Surgical History / Comment(s): Pyloric stricture with gastrojejunostomy/truncal vagotomy, Cynthia-en-y/gastrojejunostomy with lysis of adhesions d/t gastric outlet obstruction, EGDs, colonoscopies, melanoma removed from skin L neck. Past Anesthesia/Blood Transfusion Reactions: Postoperative Nausea & Vomiting (PONV) Additional Past Anesthesia/Blood Transfusion Reaction / Comment(s): Pt has received blood in past twice without reaction. Date of Last Stent Placement:: 07/27/17 Past Psychological History: No Psychological Hx Reported Smoking Status: Never smoker Past Alcohol Use History: None Reported Past Drug Use History: None Reported - Past Family History Mother Family Medical History: Cancer Additional Family Medical History / Comment(s): lung Daughter(s) Family Medical History: Cancer Additional Family Medical History / Comment(s): melanoma Father Family Medical History: Coronary Artery Disease (CAD), Diabetes Mellitus Additional Family Medical History / Comment(s): Father at 75 yrs post CABG sepsis. Brother(s) Family Medical History: Coronary Artery Disease (CAD) ( of myocardial infarction at age 59 has 5 living siblings with no medical problems, has 3 kids with one son has lupus) General Exam General appearance: alert, in no apparent distress Head exam: Present: atraumatic, normocephalic Eye exam: Present: normal appearance, PERRL ENT exam: Present: mucous membranes dry Neck exam: Present: normal inspection. Absent: meningismus Respiratory exam: Present: normal lung sounds bilaterally. Absent: respiratory distress Cardiovascular Exam: Present: regular rate, normal rhythm GI/Abdominal exam: Present: soft, tenderness. Absent: distended, guarding, rebound Extremities exam: Present: normal inspection, normal capillary refill. Absent: pedal edema Neurological exam: Present: alert, oriented X3, CN II-XII intact. Absent: motor sensory deficit Psychiatric exam: Present: normal affect, normal mood Skin exam: Present: warm, dry, intact. Absent: cyanosis, diaphoretic Course Vital Signs 02/19/22 02/19/22 02/20/22 21:23 23:35 01:04 Temperature 97.9 F Pulse Rate 92 96 86 Respiratory 18 18 18 Rate Blood Pressure 168/94 202/105 O2 Sat by Pulse 98 99 95 Oximetry - Reevaluation(s) Reevaluation #1: 02/20/22 01:16 Patient is hypertensive and did not take her oral medications today. Given a dose of IV hydralazine. Medical Decision Making - Medical Decision Making 59-year-old female with significant vomiting prior to arrival. She does have generalized abdominal pain as well. She has not had a bowel movement in about 10 days. Patient received workup including CBC, CMP, x-ray and CT of the abdomen. X-ray is negative for obstruction or intraperitoneal free air. She has a normal CBC, CMP shows a mild hypokalemia 3.2. CT of the abdomen shows constipation without any acute findings. She remains symptomatic while in the emergency department. She will be admitted for symptom control and IV hydration. - Lab Data Result diagrams: 02/19/22 23:27 02/19/22 23:27 Lab Results 02/19/22 02/19/22 02/19/22 Range/Units 22:05 23:27 23:27 WBC 6.4 (3.8-10.6) k/uL RBC 4.33 (3.80-5.40) m/uL Hgb 13.9 (11.4-16.0) gm/dL Hct 42.8 (34.0-46.0) % MCV 99.0 (80.0-100.0) fL MCH 32.1 (25.0-35.0) pg MCHC 32.5 (31.0-37.0) g/dL RDW 12.8 (11.5-15.5) % Plt Count 139 L (150-450) k/uL MPV 7.4 Neutrophils % 88 % Lymphocytes % 8 % Monocytes % 3 % Eosinophils % 0 % Basophils % 0 % Neutrophils # 5.7 (1.3-7.7) k/uL Lymphocytes # 0.5 L (1.0-4.8) k/uL Monocytes # 0.2 (0-1.0) k/uL Eosinophils # 0.0 (0-0.7) k/uL Basophils # 0.0 (0-0.2) k/uL PT 10.3 (9.0-12.0) sec INR 0.9 (<1.2) APTT 22.4 (22.0-30.0) sec Sodium (137-145) mmol/L Potassium (3.5-5.1) mmol/L Chloride (98-107) mmol/L Carbon Dioxide (22-30) mmol/L Anion Gap mmol/L BUN (7-17) mg/dL Creatinine (0.52-1.04) mg/dL Est GFR (CKD-EPI)AfAm (>60 ml/min/1.73 sqM) Est GFR (CKD-EPI)NonAf (>60 ml/min/1.73 sqM) Glucose (74-99) mg/dL Plasma Lactic Acid Dariel (0.7-2.0) mmol/L Calcium (8.4-10.2) mg/dL Total Bilirubin (0.2-1.3) mg/dL AST (14-36) U/L ALT (4-34) U/L Alkaline Phosphatase (38-126) U/L Total Protein (6.3-8.2) g/dL Albumin (3.5-5.0) g/dL Amylase (30-110) U/L Lipase (23-300) U/L Urine Color Light Yellow Urine Appearance Clear (Clear) Urine pH 6.5 (5.0-8.0) Ur Specific [place] 1.014 (1.001-1.035) Urine Protein 1+ H (Negative) Urine Glucose (UA) Negative (Negative) Urine Ketones 2+ H (Negative) Urine Blood Trace H (Negative) Urine Nitrite Negative (Negative) Urine Bilirubin Negative (Negative) Urine Urobilinogen <2.0 (<2.0) mg/dL Ur Leukocyte Esterase Negative (Negative) Urine RBC 6 H (0-5) /hpf Urine WBC <1 (0-5) /hpf Urine Mucus Rare H (None) /hpf 02/19/22 02/19/22 Range/Units 23:27 23:27 WBC (3.8-10.6) k/uL RBC (3.80-5.40) m/uL Hgb (11.4-16.0) gm/dL Hct (34.0-46.0) % MCV (80.0-100.0) fL MCH (25.0-35.0) pg MCHC (31.0-37.0) g/dL RDW (11.5-15.5) % Plt Count (150-450) k/uL MPV Neutrophils % % Lymphocytes % % Monocytes % % Eosinophils % % Basophils % % Neutrophils # (1.3-7.7) k/uL Lymphocytes # (1.0-4.8) k/uL Monocytes # (0-1.0) k/uL Eosinophils # (0-0.7) k/uL Basophils # (0-0.2) k/uL PT (9.0-12.0) sec INR (<1.2) APTT (22.0-30.0) sec Sodium 138 (137-145) mmol/L Potassium 3.2 L (3.5-5.1) mmol/L Chloride 103 (98-107) mmol/L Carbon Dioxide 24 (22-30) mmol/L Anion Gap 11 mmol/L BUN 14 (7-17) mg/dL Creatinine 0.57 (0.52-1.04) mg/dL Est GFR (CKD-EPI)AfAm >90 (>60 ml/min/1.73 sqM) Est GFR (CKD-EPI)NonAf >90 (>60 ml/min/1.73 sqM) Glucose 127 H (74-99) mg/dL Plasma Lactic Acid Dariel 0.8 (0.7-2.0) mmol/L Calcium 9.2 (8.4-10.2) mg/dL Total Bilirubin 0.4 (0.2-1.3) mg/dL AST 27 (14-36) U/L ALT 16 (4-34) U/L Alkaline Phosphatase 130 H (38-126) U/L Total Protein 6.7 (6.3-8.2) g/dL Albumin 3.9 (3.5-5.0) g/dL Amylase 94 (30-110) U/L Lipase 81 (23-300) U/L Urine Color Urine Appearance (Clear) Urine pH (5.0-8.0) Ur Specific [place] (1.001-1.035) Urine Protein (Negative) Urine Glucose (UA) (Negative) Urine Ketones (Negative) Urine Blood (Negative) Urine Nitrite (Negative) Urine Bilirubin (Negative) Urine Urobilinogen (<2.0) mg/dL Ur Leukocyte Esterase (Negative) Urine RBC (0-5) /hpf Urine WBC (0-5) /hpf Urine Mucus (None) /hpf Disposition Clinical Impression: Abdominal pain, Intractable nausea and vomiting Disposition: ADMITTED IP TO THIS HOSP Condition: Stable Is patient prescribed a controlled substance at d/c from ED?: No Referrals: Valeriano Khan MD [Primary Care Provider] - 1-2 days Time of Disposition: 01:17
[2022-02-19 22:49] LABS: Appearance,Urine Clear (Clear); Bilirubin,Urine Negative (Negative); Blood,Urine Trace (Negative); Color,Urine Light Yellow; Glucose,Urine (UA) Negative (Negative); Ketones,Urine 2+ (Negative); Leukocyte Esterase,Urine Negative (Negative); Mucus,Urine Rare /hpf; Nitrite,Urine Negative (Negative); PH, Urine 6.5 (5.0-8.0); Protein,Urine 1+ (Negative); RBC,Urine 6 /hpf (0-5); Specific Gravity,Urine 1.014 (1.001-1.035); Urobilinogen,Urine <2.0 mg/dL (<2.0); WBC,Urine <1 /hpf (0-5)
--- NOTE | 2022-02-19 23:28 | XR ---
EXAMINATION TYPE: XR KUB DATE OF EXAM: 02/19/2022 COMPARISON: NONE HISTORY: Vomiting TECHNIQUE: Single view FINDINGS: There is no sign of intestinal obstruction or pneumoperitoneum. Fecal pattern is normal. Hilary ng bases are clear. There are no pathologic calcifications. IMPRESSION: Nonacute abdomen
[2022-02-19 23:42] LABS: Basophils % (A) 0 %; Eosinophils % (A) 0 %; HCT 42.8 % (34.0-46.0); HGB 13.9 gm/dL (11.4-16.0); Lymphocytes # (A) 0.5 k/uL (1.0-4.8); Lymphocytes % (A) 8 %; MCH 32.1 pg (25.0-35.0); MCHC 32.5 g/dL (31.0-37.0); Mean Platelet Volume 7.4; Monocytes # (A) 0.2 k/uL (0-1.0); Monocytes % (A) 3 %; Neutrophils # (A) 5.7 k/uL (1.3-7.7); Neutrophils % (A) 88 %; Platelet Count 139 k/uL (150-450); RBC 4.33 m/uL (3.80-5.40); RDW 12.8 % (11.5-15.5); WBC 6.4 k/uL (3.8-10.6)
[2022-02-19 23:52] LABS: INR 0.9 (<1.2); Partial Thromboplastin Time 22.4 sec (22.0-30.0); Prothrombin Time 10.3 sec (9.0-12.0)
[2022-02-19 23:53] LABS: ALT 16 U/L (4-34); AST 27 U/L (14-36); African American GFR (CKD) >90 (>60 ml/min/1.73 sqM); Albumin 3.9 g/dL (3.5-5.0); Alkaline Phosphatase 130 U/L (38-126); Amylase 94 U/L (30-110); Anion Gap 11 mmol/L; Blood Urea Nitrogen 14 mg/dL (7-17); Calcium 9.2 mg/dL (8.4-10.2); Carbon Dioxide 24 mmol/L (22-30); Chloride 103 mmol/L (98-107); Glucose 127 mg/dL (74-99); Lipase 81 U/L (23-300); Non-African American GFR(CKD) >90 (>60 ml/min/1.73 sqM); Potassium 3.2 mmol/L (3.5-5.1); Sodium 138 mmol/L (137-145); Total Bilirubin 0.4 mg/dL (0.2-1.3); Total Protein 6.7 g/dL (6.3-8.2)
--- NOTE | 2022-02-20 00:14 | CT ---
EXAMINATION TYPE: CT abdomen pelvis wo con DATE OF EXAM: 02/19/2022 COMPARISON: 08/08/2018 HISTORY: Vomiting CT DLP: 361.6 mGycm Automated exposure control for dose reduction was used. Images obtained from the diaphragm to the floor the pelvis without contrast. Lung bases are clear. There is no pleural effusion. Heart size is normal. There is no pericardial eff usion. There are multiple surgical clips at the stomach. There is small hiatal hernia. Liver and sple en are intact. Gallbladder is intact. There is no pancreatic mass. There is no adrenal mass. Kidneys show normal size and contour. There is no hydronephrosis. Bladder d istends smoothly. There is no inguinal hernia. There is no free fluid in the pelvis. There are multip le sigmoid diverticula. No diverticulitis. There are surgical clips in the region of the proximal jej unum. There are clips at the mid jejunum. Appendix not seen. No sign of thickened appendix. There is no mesenteric edema. There is no ascites or free air. No bowel obstruction. The lumbar vertebrae have normal alignment. Po sterior elements are intact. Bony pelvis is intact. Hip joints are intact. There is some retained fec al material in the large bowel. No evidence of bowel obstruction. IMPRESSION: There is evidence of some colonic diverticulosis without diverticulitis. Previous small bowel surgery . Constipation. Gallbladder is less dilated than old exam.
[2022-02-20] MEDS ORDERED: METOCLOPRAMIDE 5 MG/ML 2 ML VIAL IVP STA (00:22)
[2022-02-20] MEDS: HYDROmorphone 0.5 MG/0.5 ML SYRINGE IVP STA ×2 (00:57→04:00)
[2022-02-20] MEDS: SODIUM CHLORIDE 0.9% 1,000 ML IV SCH ×2 (00:59→14:59)
[2022-02-20] MEDS ORDERED: hydrALAZINE HCL 20 MG/ML 1 ML VIAL IVP STA (01:14)
[2022-02-20] MEDS ORDERED: NALOXONE 0.4 MG/ML 1 ML VIAL IV PRN (01:15)
[2022-02-20] MEDS ORDERED: METOCLOPRAMIDE 5 MG/ML 2 ML VIAL IVP SCH (09:00)
[2022-02-20] MEDS: ONDANSETRON 4 MG/2 ML VIAL IVP PRN ×2 (11:27→19:55)
[2022-02-20] MEDS: HYDROmorphone 0.5 MG/0.5 ML SYRINGE IVP PRN ×3 (11:28→23:19)
[2022-02-20] MEDS: METOCLOPRAMIDE 5 MG/ML 2 ML VIAL IVP PRN ×2 (16:48→23:20)
[2022-02-20] MEDS ORDERED: VERAPAMIL SR 240 MG TABLET.ER PO STA (19:21)
[2022-02-20] MEDS ORDERED: LOSARTAN 50 MG TAB PO STA (19:22)
[2022-02-20] MEDS: LACTULOSE 20 GM/30 ML CUP PO SCH (19:53)
[2022-02-20] MEDS: DOCUSATE 100 MG CAP PO SCH (19:55)
[2022-02-20] MEDS: PANTOPRAZOLE 40 MG TABLET PO SCH (19:55)
--- NOTE | 2022-02-20 23:09 | P.HPIM ---
History of Present Illness H&P Date: 02/20/22 Chief Complaint: Nausea and vomiting Patient is a 67-year-old female with a known history of coronary arteries with history of stent placement, pyloric stricture with gastrojejunostomy, history of gastric outlet obstruction, melanoma, peptic ulcer disease and recently being treated for GBM on chemotherapy yesterday presents to ER with complaints of intractable nausea and vomiting started yesterday afternoon. Patient rehab multiple episodes of bilious vomiting. Does have some abdominal discomfort. No fever no chills. No cough or sputum production. No complaints of chest pain. Patient had CT head done in 2019 showed right frontoparietal intra-axial rim- enhancing mass. KUB x-ray showed nonacute abdomen. Had CT of the abdomen pelvis showed there is evidence of colonic diverticulosis without diverticulitis. Previous small bowel surgery. Constipation. Gallbladd er is less dilated than wall exam. Laboratory data showed WBC 6.4 hemoglobin 13.9 and platelets 139 Sodium 138 potassium 3.2 chloride 103 bicarb is 24 BUN 14 and creatinine 0.57 and blood sugar is 127 liver enzymes are not elevated Urinalysis showed 1+ protein 2+ ketones and trace to RBC. Review of Systems Constitutional: Patient denies any fever or chills . No generalized weakness or weight loss. Abdomen: Patient has been vomiting. Abdominal discomfort. Cardiovascular: Patient denies any chest pain or short of breath no palpitations. Respiratory: patient denied any cough or sputum production. No shortness of breath Neurologic: Patient denied any numbness or tingling headache. Musculoskeletal: Patient denies any complaints of joint swelling or deformity. Skin: Negative Psychiatric: Negative Endocrine: No heat or cold intolerance. No recent weight gain. Genitourinary: No dysuria or hematuria. All other 14 point ROS negative except the above Past Medical History Past Medical History: Cancer, GERD/Reflux, GI Bleed, Hypertension Additional Past Medical History / Comment(s): PUD, upper GI bleed, anemia, pyloric strictures with surgeries, melanoma stage I-mole on L neck with removal, hemorrhoids, 2017 had stress echo which suggestive of prior VT-had PCI with stent, chronic migraines, small cyst on liver, occasional bilateral tinnitis, recent L thigh muscle bruise-started on baclofen. History of Any Multi-Drug Resistant Organisms: None Reported Past Surgical History: Bowel Resection, Heart Catheterization With Stent, Hysterectomy, Tonsillectomy Additional Past Surgical History / Comment(s): Pyloric stricture with gastrojejunostomy/truncal vagotomy, Cynthia-en-y/gastrojejunostomy with lysis of adhesions d/t gastric outlet obstruction, EGDs, colonoscopies, melanoma removed from skin L neck. Past Anesthesia/Blood Transfusion Reactions: Postoperative Nausea & Vomiting (PONV) Additional Past Anesthesia/Blood Transfusion Reaction / Comment(s): Pt has recei mervat blood in past twice without reaction. Date of Last Stent Placement:: 07/27/17 Past Psychological History: No Psychological Hx Reported Additional Psychological History / Comment(s): Pt resides with her spouse. She works at [employer]. She is independent. Smoking Status: Never smoker Past Alcohol Use History: None Reported Past Drug Use History: None Reported - Past Family History Mother Family Medical History: Cancer Additional Family Medical History / Comment(s): lung Daughter(s) Family Medical History: Cancer Additional Family Medical History / Comment(s): melanoma Father Family Medical History: Coronary Artery Disease (CAD), Diabetes Mellitus Additional Family Medical History / Comment(s): Father at 75 yrs post CABG sepsis. Brother(s) Family Medical History: Coronary Artery Disease (CAD) Medications and Allergies Home Medications Medication Instructions Recorded Confirmed Type Butalb/Asprin/Caff 50-325-40Mg 1 tab PO DAILY PRN 04/26/16 02/20/22 History [Fiorinal 50-325-40 MG] Verapamil HCl [Verapamil ER] 240 mg PO DAILY 04/26/16 02/20/22 History Ascorbic Acid [Vitamin C] 500 mg PO W/SUPPER 07/24/17 02/20/22 History Cholecalciferol [Vitamin D3 (25 1,000 unit PO DAILY 07/24/17 02/20/22 History Mcg = 1000 Iu)] Ferrous Sulfate [Iron (65 MG 325 mg PO W/SUPPER 07/24/17 02/20/22 History Elemental)] L.acidoph,Paracasei, B.lactis 1 cap PO W/SUPPER 07/24/17 02/20/22 History [Probiotic] Atorvastatin [Lipitor] 40 mg PO DAILY #90 tab 07/28/17 02/20/22 Rx Nitroglycerin Sl Tabs [Nitrostat] 0.4 mg SUBLINGUAL Q5M PRN #25 tab 07/28/17 02/20/22 Rx Aspirin EC [Ecotrin Low Dose] 81 mg PO HS 08/08/18 02/20/22 History Britni Back & Body 1,000 mg PO Q6H PRN 08/08/18 02/20/22 History Cyanocobalamin (Vitamin B-12) 1,000 mcg PO W/SUPPER 07/21/20 02/20/22 History [Vitamin B-12] Magnesium Oxide [Mag-Ox] 400 mg PO DAILY 07/21/20 02/20/22 History Omeprazole [PriLOSEC] 40 mg PO BID 07/21/20 02/20/22 History Baclofen [Lioresal] 10 mg PO BID 02/20/22 02/20/22 History Cyclobenzaprine [Flexeril] 5 mg PO DAILY 02/20/22 02/20/22 History Docusate [Colace] 100 mg PO BID 02/20/22 02/20/22 History Losartan [Cozaar] 50 mg PO DAILY 02/20/22 02/20/22 History Metoclopramide [Reglan] 10 mg PO TID 02/20/22 02/20/22 History Multivitamins, Thera [Multivitamin 1 tab PO DAILY 02/20/22 02/20/22 History (formulary)] Mupirocin 2% Oint [Bactroban 2% 1 applic TOPICAL DAILY 02/20/22 02/20/22 History Oint] Potassium Chloride ER [K-Dur 10] 10 meq PO BID 02/20/22 02/20/22 History Zinc 50 mg PO DAILY 02/20/22 02/20/22 History levETIRAcetam [Keppra] 750 mg PO Q12HR 02/20/22 02/20/22 History ondansetron HCL [Zofran] 8 mg PO Q8H PRN 02/20/22 02/20/22 History Allergies Allergy/AdvReac Type Severity Reaction Status Date / Time morphine Allergy hives Verified 02/20/22 11:25 Physical Exam Vitals: Vital Signs Temp Pulse Pulse Resp BP BP Pulse Ox 02/20/22 03:03 100 18 179/95 97 02/20/22 02:00 97.4 F L 106 H 16 197/96 97 02/20/22 01:04 86 18 202/105 95 02/19/22 23:35 96 18 99 02/19/22 21:23 97.9 F 92 18 168/94 98 Intake and Output 02/19/22 02/20/22 02/20/22 22:59 06:59 14:59 Other: # Voids 0 # Bowel Movements 0 Weight 53.524 kg 53.524 kg PHYSICAL EXAMINATION: Patient is lying in the bed comfortably, no acute distress, awake alert and oriented.. HEENT: Normocephalic. Neck is supple. Pupils reactive. Nostrils clear. Oral cavity is moist. Neck reveals no JVD, carotid bruits, or thyromegaly. CHEST EXAMINATION: Trachea is central. Symmetrical expansion. Lung parmar clear to auscultation and percussion. CARDIAC: Normal S1, S2 with no gallops. No murmurs ABDOMEN: Soft. Bowel sounds normal. No organomegaly. No abdominal bruits. Extremities: reveal no edema. No clubbing or cyanosis Neurologically awake, alert, oriented x3 with well-coordinated movements. No focal deficits noted Skin: No rash or skin lesions. Psychiatric: Cooperative. Nonsuicidal Musculoskeletal: No joint swelling or deformity. Normal range of motion. Results CBC & Chem 7: 02/19/22 23:27 02/19/22 23:27 Labs: Abnormal Lab Results - Last 24 Hours (Table) 02/19/22 02/19/22 02/19/22 Range/Units 22:05 23:27 23:27 Plt Count 139 L (150-450) k/uL Lymphocytes # 0.5 L (1.0-4.8) k/uL Potassium 3.2 L (3.5-5.1) mmol/L Glucose 127 H (74-99) mg/dL Alkaline Phosphatase 130 H (38-126) U/L Urine Protein 1+ H (Negative) Urine Ketones 2+ H (Negative) Urine Blood Trace H (Negative) Urine RBC 6 H (0-5) /hpf Urine Mucus Rare H (None) /hpf Thrombosis Risk Factor Assmnt - DVT/VTE Prophylaxis DVT/VTE Prophylaxis: Pharmacologic Prophylaxis ordered - Choose All That Apply Any of the Below Risk Factors Present?: No Other Risk Factors: Yes Each Risk Factor Represents 2 Points: Age 61-74 years, Malignancy Each Risk Factor Represents 3 Points: History of DVT/PE Other congenital or acquired thrombophilia - If yes, enter type in comment: No Thrombosis Risk Factor Assessment Total Risk Factor Score: 7 Thrombosis Risk Factor Assessment Level: High Risk Assessment and Plan Assessment: Intractable nausea vomiting and abdominal discomfort. Glioblastoma multiforme and currently on chemotherapy. Last dose on 02/18/2022 Uncontrolled hypertension likely due to nausea GERD History of GI bleed and peptic ulcer disease History of pyloric strictures with surgeries Coronary arteries history of stent placement DVT prophylaxis with heparin subcu Plan: Patient will be current IV hydration replace electrolytes. Continue symptomatic management with Zofran and Reglan pain management with Dilaudid. Patient will be current blood pressure medication including verapamil and losartan and titrate doses.. Oncology will be consulted. Prognosis is guarded. Time with Patient: Greater than 30
[2022-02-21] MEDS: SODIUM CHLORIDE 0.9% 1,000 ML IV SCH ×2 (04:33→14:44)
[2022-02-21] MEDS: HYDROmorphone 0.5 MG/0.5 ML SYRINGE IVP PRN ×4 (04:33→20:55)
[2022-02-21] MEDS: ONDANSETRON 4 MG/2 ML VIAL IVP PRN ×2 (04:33→12:37)
[2022-02-21 05:56] LABS: Basophils % (A) 0 %; Eosinophils % (A) 0 %; HCT 40.1 % (34.0-46.0); HGB 13.6 gm/dL (11.4-16.0); Lymphocytes # (A) 0.9 k/uL (1.0-4.8); Lymphocytes % (A) 13 %; MCH 33.4 pg (25.0-35.0); MCHC 33.9 g/dL (31.0-37.0); MCV 98.5 fL (80.0-100.0); Mean Platelet Volume 6.9; Monocytes # (A) 0.5 k/uL (0-1.0); Monocytes % (A) 7 %; Neutrophils # (A) 5.3 k/uL (1.3-7.7); Neutrophils % (A) 77 %; Platelet Count 143 k/uL (150-450); RBC 4.07 m/uL (3.80-5.40); RDW 13.4 % (11.5-15.5); WBC 6.9 k/uL (3.8-10.6)
[2022-02-21 06:10] LABS: ALT 16 U/L (4-34); AST 28 U/L (14-36); African American GFR (CKD) >90 (>60 ml/min/1.73 sqM); Albumin 3.5 g/dL (3.5-5.0); Albumin/Globulin Ratio 1.3; Alkaline Phosphatase 106 U/L (38-126); Anion Gap 9 mmol/L; Blood Urea Nitrogen 13 mg/dL (7-17); Calcium 8.9 mg/dL (8.4-10.2); Carbon Dioxide 24 mmol/L (22-30); Chloride 100 mmol/L (98-107); Globulin 2.6 g/dL; Glucose 113 mg/dL (74-99); Non-African American GFR(CKD) >90 (>60 ml/min/1.73 sqM); Sodium 133 mmol/L (137-145); Total Bilirubin 0.6 mg/dL (0.2-1.3); Total Protein 6.1 g/dL (6.3-8.2)
[2022-02-21 06:15] LABS: Potassium 2.6 mmol/L (3.5-5.1)
[2022-02-21] MEDS ORDERED: Potassium Replacement Protocol 1 EACH MISC MISCELLANE PRN (06:49)
[2022-02-21] MEDS: METOCLOPRAMIDE 5 MG/ML 2 ML VIAL IVP PRN ×2 (07:50→14:43)
[2022-02-21] MEDS: PANTOPRAZOLE 40 MG TABLET PO SCH ×2 (08:25→20:06)
[2022-02-21] MEDS: HEPARIN SODIUM,PORCINE/PF 5,000 UNIT/0.5 ML SYRINGE SQ SCH ×2 (08:25→20:06)
[2022-02-21] MEDS: POTASSIUM CHLORIDE ER 20 MEQ TAB.ER PO SCH ×4 (08:25→17:23)
[2022-02-21] MEDS: DOCUSATE 100 MG CAP PO SCH (08:25)
[2022-02-21] MEDS: LACTULOSE 20 GM/30 ML CUP PO SCH ×2 (08:25→20:06)
[2022-02-21] MEDS: VERAPAMIL SR 240 MG TABLET.ER PO SCH (08:26)
[2022-02-21] MEDS ORDERED: LOSARTAN 25 MG TAB PO SCH (09:00)
[2022-02-21] MEDS ORDERED: LOSARTAN 50 MG TAB PO SCH (09:00)
[2022-02-21] MEDS ORDERED: LOSARTAN 25 MG TAB PO STA (12:37)
[2022-02-21] MEDS ORDERED: SCOPOLAMINE 1 MG/72 HR PATCH TRANSDERM SCH (13:00)
[2022-02-21] MEDS: polyethylene glycoL 3350 17 GM POWD.PACK PO SCH (13:08)
--- NOTE | 2022-02-21 13:31 | P.PN ---
Subjective Progress Note Date: 02/21/22 HISTORY OF PRESENT ILLNESS Patient is a 67-year-old female with a known history of coronary arteries with history of stent placement, pyloric stricture with gastrojejunostomy, history of gastric outlet obstruction, melanoma, peptic ulcer disease and recently being treated for GBM on chemotherapy yesterday presents to ER with complaints of intractable nausea and vomiting started yesterday afternoon. Patient rehab multiple episodes of bilious vomiting. Does have some abdominal discomfort. No fever no chills. No cough or sputum production. No complaints of chest pain. Patient had CT head done in 2019 showed right frontoparietal intra-axial rim- enhancing mass. KUB x-ray showed nonacute abdomen. Had CT of the abdomen pelvis showed there is evidence of colonic diverticulosis without diverticulitis. Previous small bowel surgery. Constipation. Gallbladder is less dilated than wall exam. Laboratory data showed WBC 6.4 hemoglobin 13.9 and platelets 139 Sodium 138 potassium 3.2 chloride 103 bicarb is 24 BUN 14 and creatinine 0.57 and blood sugar is 127 liver enzymes are not elevated Urinalysis showed 1+ protein 2+ ketones and trace to RBC. 02/21: Repeat potassium this morning was 2.6 and patient is being replaced with repeat potassium at 3 PM. Blood pressure has been high through the night and losartan increased. Patient has been resumed on losartan and verapamil. She required additional dose of IV hydralazine last evening in the emergency center. Patient continues to have nausea and dry heaves despite use of Zofran and Reglan. Will add and scopolamine patch. She is also complaining of headache in the frontal area. She's recently had 3 precancerous spots removed one from her right forehead at hairline and 2 from her right forearm. Patient is complaining of ongoing problems with constipation. She is on Colace, lactulose both scheduled and MiraLAX will be added. REVIEW OF SYSTEMS Constitutional: No fever, no chills, no night sweats. No weight change. No weakness, fatigue or lethargy. No daytime sleepiness. EENT: No headache. No blurred vision or double vision, no loss of vision. No loss of Hearing, no ringing in the ears, no dizziness. No nasal drainage or congestion. No epistaxis. No sore throat. Lungs: No shortness of breath, cough, no sputum production. No wheezing. Cardiovascular: No chest pain, no lower extremity edema. No palpitations. No paroxysmal nocturnal dyspnea. No orthopnea. No lightheadedness or dizziness. No syncopal episodes. Abdominal: Reports right-sided abdominal pain. Reports nausea, reports vomiting. No diarrhea. Reports constipation. No bloody or tarry stools. No loss of appetite. Genitourinary: No dysuria, increased frequency, urgency. No urinary retention. Musculoskeletal: No myalgias. No muscle weakness, no gait dysfunction, no frequent falls. No back pain. No neck pain. Integumentary: No wounds, no lesions. No rash or pruritus. No unusual bruising . No change in hair or nails. Neurologic: No aphasia. No facial droop. No change in mentation. No head injury. No headache. No paralysis. No paresthesia. Psychiatric: No depression. No anxiety. No mood swings. Endocrine: No abnormal blood sugars. No weight change. No excessive sweating or thirst. No cold intolerance. PHYSICAL EXAMINATION Gen: This is a 67-year-old female. Patient is resting in bed appears to be in somewhat distress due to dry heaving. Family member at bedside. HEENT: Head is atraumatic, normocephalic. Pupils equal, round. Sclerae is anicteric. NECK: Supple. No JVD. No lymphadenopathy. No thyromegaly. LUNGS: Clear to auscultation. No wheezes or rhonchi. No intercostal retractions. HEART: Regular rate and rhythm. No murmur. ABDOMEN: Soft. Bowel sounds are present. No masses. No tenderness. EXTREMITIES: No pedal edema. No calf tenderness. NEUROLOGICAL: Patient is awake, alert and oriented x3. Cranial nerves 2 through 12 are grossly intact. ASSESSMENT AND PLAN 1. Intractable nausea and vomiting and abdominal pain. Continue Zofran as needed, Reglan 10 mg IV push every 6 hours as needed, Dilaudid 0.5 mg IV push every 3 hours for pain. Scopolamine patch will be added 2. Hypertensive emergency. Increase losartan to 100 mg daily, continue verapamil 240 mg daily. 3. Severe hypokalemia. Patient is undergoing replacement, recheck potassium at 3 PM. 4. Glioblastoma multiforme and currently on chemotherapy. Last dose on 02/18/2022 5. GERD. Continue Protonix 40 mg twice daily 6. History of GI bleed and peptic ulcer disease. Continue Protonix 7. History of pyloric strictures with surgeries. 8. Coronary arteries history of stent placement. 9. Constipation. Continue Colace 100 mg twice daily scheduled, lactulose 30 g twice daily scheduled, add MiraLAX 17 g daily scheduled. 10. DVT prophylaxis with heparin subcu DISCHARGE PLAN Home without home care. Impression and plan of care have been directed as dictated by the signing physician. Kari Arroyo nurse practitioner acting as scribe for signing physician. Objective - Vital Signs Vital signs: Vital Signs Temp 98.3 F 02/21/22 04:10 Pulse 99 02/21/22 04:10 Resp 20 02/21/22 04:10 BP 166/77 02/21/22 04:58 Pulse Ox 92 L 02/21/22 04:10 Intake & Output 02/20/22 02/21/22 02/21/22 18:59 06:59 18:59 Intake Total 300 250 Output Total 1200 Balance -900 250 Intake: Oral 300 250 Output: Urine 1200 Other: Voiding Method Bedside Commode # Voids 0 2 # Bowel Movements 0 - Labs CBC & Chem 7: 02/21/22 04:55 02/21/22 04:55 Labs: Abnormal Lab Results - Last 24 Hours (Table) 02/21/22 02/21/22 Range/Units 04:55 04:55 Plt Count 143 L (150-450) k/uL Lymphocytes # 0.9 L (1.0-4.8) k/uL Sodium 133 L (137-145) mmol/L Potassium 2.6 L* (3.5-5.1) mmol/L Creatinine 0.49 L (0.52-1.04) mg/dL Glucose 113 H (74-99) mg/dL Total Protein 6.1 L (6.3-8.2) g/dL
--- NOTE | 2022-02-21 17:26 | P.CONS ---
History of Present Illness - Reason for Consult Consult date: 02/21/22 In treatment for Glioblastoma at outside practice? - Chief Complaint Nausea and vomiting - History of Present Illness In 2018 Mrs. Marroquin was seen by Dr. Wills in our office This is a very nice lady who was diagnosed with melanoma of left neck in ,she initially had excisional biopsy which revealed superficial spreading melanoma,Bres thickness of 0.5mm,Angel's level of III,no ulceration,1 mitosis/mm2,she had complete re excision which was negative for residual disease. In regard to her melanoma,she had an early stage disease,no need for additional therapy,she will continue complete skin exam with Dr Rojas on a regular basis. In regard to her personal and family history of multiple malignancies,we discussed genetic testing,the implication of positive or negative results on her and her family,she was interested in pursuing it. The results showed three variants of unknown significance. But no actionable mutation. She has now been admitted for persistent Nausea and vomiting, per medical record, no BM in over a week. Abdominal imaging without obstruction, confirmation if constipation and stool in colon with out acute findings. She is on day 3 of [address] Flores is primary oncologist. She states she had increased headaches recently, states she "pulled her back out" and has been going to physical therapy as her leg has been weak from pulling back oput. WHen ased if any imaging was performed or if she has informed Dr. Flores of this she stated not yet. She also seen neurology last week which gave her 70mg of amovid for migraine? Concern when all these newish and worsening symptoms are added to gether is increased intracrainal pressure versus progression. Case was discussed with primary team Review of Systems All systems: negative Constitutional: Reports as per HPI Past Medical History Past Medical History: Cancer, GERD/Reflux, GI Bleed, Hypertension Additional Past Medical History / Comment(s): PUD, upper GI bleed, anemia, pyloric strictures with surgeries, melanoma stage I-mole on L neck with removal, hemorrhoids, 2017 had stress echo which suggestive of prior MS-had PCI with stent, chronic migraines, small cyst on liver, occasional bilateral tinnitis, recent L thigh muscle bruise-started on baclofen. History of Any Multi-Drug Resistant Organisms: None Reported Past Surgical History: Bowel Resection, Heart Catheterization With Stent, Hysterectomy, Tonsillectomy Additional Past Surgical History / Comment(s): Pyloric stricture with gastrojejunostomy/truncal vagotomy, Cynthia-en-y/gastrojejunostomy with lysis of adhesions d/t gastric outlet obstruction, EGDs, colonoscopies, melanoma removed from skin L neck. Past Anesthesia/Blood Transfusion Reactions: Postoperative Nausea & Vomiting (PONV) Additional Past Anesthesia/Blood Transfusion Reaction / Comm: Pt has received blood in past twice without reaction. Date of Last Stent Placement:: 07/27/17 Past Psychological History: No Psychological Hx Reported Additional Psychological History / Comment(s): Pt resides with her spouse. 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 She is independent. Smoking Status: Never smoker Past Alcohol Use History: None Reported Past Drug Use History: None Reported - Past Family History Mother Family Medical History: Cancer Additional Family Medical History / Comment(s): lung Daughter(s) Family Medical History: Cancer Additional Family Medical History / Comment(s): melanoma Father Family Medical History: Coronary Artery Disease (CAD), Diabetes Mellitus Additional Family Medical History / Comment(s): Father at 75 yrs post CABG sepsis. Brother(s) Family Medical History: Coronary Artery Disease (CAD) Medications and Allergies Home Medications Medication Instructions Recorded Confirmed Type Butalb/Asprin/Caff 50-325-40Mg 1 tab PO DAILY PRN 04/26/16 02/20/22 History [Fiorinal 50-325-40 MG] Verapamil HCl [Verapamil ER] 240 mg PO DAILY 04/26/16 02/20/22 History Ascorbic Acid [Vitamin C] 500 mg PO W/SUPPER 07/24/17 02/20/22 History Cholecalciferol [Vitamin D3 (25 1,000 unit PO DAILY 07/24/17 02/20/22 History Mcg = 1000 Iu)] Ferrous Sulfate [Iron (65 MG 325 mg PO W/SUPPER 07/24/17 02/20/22 History Elemental)] L.acidoph,Paracasei, B.lactis 1 cap PO W/SUPPER 07/24/17 02/20/22 History [Probiotic] Atorvastatin [Lipitor] 40 mg PO DAILY #90 tab 07/28/17 02/20/22 Rx Nitroglycerin Sl Tabs [Nitrostat] 0.4 mg SUBLINGUAL Q5M PRN #25 tab 07/28/17 02/20/22 Rx Aspirin EC [Ecotrin Low Dose] 81 mg PO HS 08/08/18 02/20/22 History Britni Back & Body 1,000 mg PO Q6H PRN 08/08/18 02/20/22 History Cyanocobalamin (Vitamin B-12) 1,000 mcg PO W/SUPPER 07/21/20 02/20/22 History [Vitamin B-12] Magnesium Oxide [Mag-Ox] 400 mg PO DAILY 07/21/20 02/20/22 History Omeprazole [PriLOSEC] 40 mg PO BID 07/21/20 02/20/22 History Baclofen [Lioresal] 10 mg PO BID 02/20/22 02/20/22 History Cyclobenzaprine [Flexeril] 5 mg PO DAILY 02/20/22 02/20/22 History Docusate [Colace] 100 mg PO BID 02/20/22 02/20/22 History Losartan [Cozaar] 50 mg PO DAILY 02/20/22 02/20/22 History Metoclopramide [Reglan] 10 mg PO TID 02/20/22 02/20/22 History Multivitamins, Thera [Multivitamin 1 tab PO DAILY 02/20/22 02/20/22 History (formulary)] Mupirocin 2% Oint [Bactroban 2% 1 applic TOPICAL DAILY 02/20/22 02/20/22 History Oint] Potassium Chloride ER [K-Dur 10] 10 meq PO BID 02/20/22 02/20/22 History Zinc 50 mg PO DAILY 02/20/22 02/20/22 History levETIRAcetam [Keppra] 750 mg PO Q12HR 02/20/22 02/20/22 History ondansetron HCL [Zofran] 8 mg PO Q8H PRN 02/20/22 02/20/22 History Allergies Allergy/AdvReac Type Severity Reaction Status Date / Time morphine Allergy hives Verified 02/20/22 11:25 Physical Exam Vitals: Vital Signs Temp Pulse Resp BP BP Pulse Ox 02/21/22 04:58 166/77 02/21/22 04:10 98.3 F 99 20 190/83 178/82 92 L 02/20/22 23:24 154/72 02/20/22 23:19 183/89 02/20/22 22:05 177/94 02/20/22 20:00 98.3 F 101 H 20 212/101 95 02/20/22 16:49 80 152/74 02/20/22 13:39 98.0 F 92 18 170/83 96 Intake and Output 02/20/22 02/21/22 02/21/22 22:59 06:59 14:59 Intake Total 60 250 Output Total 400 Balance -340 250 Intake: Oral 60 250 Output: Urine 400 Other: Voiding Method Bedside Commode # Voids 2 Results CBC & Chem 7: 02/21/22 04:55 02/21/22 15:05 Labs: Abnormal Lab Results - Last 24 Hours (Table) 02/21/22 02/21/22 Range/Units 04:55 04:55 Plt Count 143 L (150-450) k/uL Lymphocytes # 0.9 L (1.0-4.8) k/uL Sodium 133 L (137-145) mmol/L Potassium 2.6 L* (3.5-5.1) mmol/L Creatinine 0.49 L (0.52-1.04) mg/dL Glucose 113 H (74-99) mg/dL Total Protein 6.1 L (6.3-8.2) g/dL CT scan - abdomen: report reviewed Assessment and Plan (1) Glioblastoma Narrative/Plan: Temodar on hold, she is on day 3 of 5 of her 28 day maintenance cycle - Repeat MRI of brain given increased headaches, neurological symptoms, nausea and vomiting (had BM today with out improvement was actively dry heaving while at bedside) - Advised family to obtain disc of MRI and bring to [facility] to compare to prior MRI after discharge - I have left message with her primary oncologist Current Visit: Yes Status: Acute Code(s): C71.9 - MALIGNANT NEOPLASM OF BRAIN, UNSPECIFIED SNOMED Code(s): 457501286 (2) Headache Narrative/Plan: Recent seen neurologist who has given amovig 140mg on the 08 of February Current Visit: Yes Status: Acute Code(s): R51.9 - HEADACHE, UNSPECIFIED SNOMED Code(s): 01007905 (3) Weakness Narrative/Plan: She states recntly worse because she "pulled her back out" however with her known diagnosis nad given the increased unilateral weakness surfer evaluation warranted. Current Visit: Yes Status: Acute Code(s): R53.1 - WEAKNESS SNOMED Code(s): 35016009 (4) Intractable nausea and vomiting Narrative/Plan: Increased zofran q4prn Add low dose PO lorazepam (compazine not compatable with reglan) Discussed with primary, they have added scope patch watch for anticholinergic effects Repeat MRI No relief in nausea after BM today Increase bowel regumen to Senna S 2 tabs BID Current Visit: Yes Status: Acute Code(s): R11.2 - NAUSEA WITH VOMITING, UNSPECIFIED SNOMED Code(s): 620740463 Plan: Start dexamethsone 4 q8 until MRI is resulted Physician Attest: I have completed the full history and physical and developed the above impression and plan, agree with dictation, dictated as a scribe. Time with Patient: Greater than 30
[2022-02-21] MEDS ORDERED: LORazepam 0.5 MG TAB PO PRN (17:28)
[2022-02-21] MEDS ORDERED: ONDANSETRON 4 MG/2 ML VIAL IVP PRN (17:28)
[2022-02-21] MEDS: SENNOSIDES-DOCUSATE SODIUM 1 EACH TAB PO SCH (20:06)
[2022-02-21] MEDS ORDERED: predniSONE 20 MG TAB PO SCH (20:15)
[2022-02-21] MEDS: hydrALAZINE HCL 25 MG TAB PO SCH (23:25)
[2022-02-21] MEDS: DEXAMETHASONE SOD PHOSPHATE 4 MG/ML 1 ML VIAL IVP SCH (23:25)
[2022-02-21] MEDS: ACETAMINOPHEN TAB 325 MG TAB PO PRN (23:25)
[2022-02-22] MEDS: SODIUM CHLORIDE 0.9% 1,000 ML IV SCH (04:08)
[2022-02-22] MEDS ORDERED: Potassium Replacement Protocol 1 EACH MISC MISCELLANE PRN (09:58)
[2022-02-22] MEDS: DEXAMETHASONE SOD PHOSPHATE 4 MG/ML 1 ML VIAL IVP SCH ×2 (10:39→16:50)
[2022-02-22] MEDS: HEPARIN SODIUM,PORCINE/PF 5,000 UNIT/0.5 ML SYRINGE SQ SCH (10:40)
[2022-02-22] MEDS: LOSARTAN 50 MG TAB PO SCH (10:40)
[2022-02-22] MEDS: hydrALAZINE HCL 25 MG TAB PO SCH ×2 (10:41→16:50)
[2022-02-22] MEDS: LACTULOSE 20 GM/30 ML CUP PO SCH (10:41)
[2022-02-22] MEDS: PANTOPRAZOLE 40 MG TABLET PO SCH (10:41)
[2022-02-22] MEDS: VERAPAMIL SR 240 MG TABLET.ER PO SCH (10:41)
[2022-02-22] MEDS: SENNOSIDES-DOCUSATE SODIUM 1 EACH TAB PO SCH (10:42)
[2022-02-22] MEDS: POTASSIUM CHLORIDE ER 20 MEQ TAB.ER PO SCH ×2 (10:52→12:26)
[2022-02-22] MEDS: polyethylene glycoL 3350 17 GM POWD.PACK PO SCH (10:57)
--- NOTE | 2022-02-22 11:51 | P.PN ---
Subjective Progress Note Date: 02/22/22 Principal diagnosis: Glioblastoma, on temodar. Admit with intractable N,V In f/u today pt is confused at moments but then is clearly lucid. She c/o persistent POWELL today, no V. Pt tolerating steroids so far Objective - Vital Signs Vital signs: Vital Signs Temp 99.3 F 02/22/22 11:23 Pulse 102 H 02/22/22 11:23 Resp 18 02/22/22 11:23 BP 177/103 02/22/22 11:23 Pulse Ox 96 02/22/22 11:23 Intake & Output 02/21/22 02/22/22 02/22/22 18:59 06:59 18:59 Intake Total 100 Balance 100 Intake: Oral 100 Other: Voiding Method Bedside Commode Bedside Commode # Voids 1 5 1 # Bowel Movements 1 1 - Constitutional General appearance: Present: cooperative, no acute distress, thin - EENT Eyes: Present: anicteric sclerae ENT: Present: hearing grossly normal - Respiratory Details: resp even and unlabored at rest - Integumentary Integumentary: Present: normal - Musculoskeletal Musculoskeletal: Present: generalized weakness, strength equal bilaterally - Psychiatric Psychiatric: Present: A&O x's 3, appropriate affect, intact judgment & insight - Labs CBC & Chem 7: 02/21/22 04:55 02/22/22 06:19 Labs: Abnormal Lab Results - Last 24 Hours (Table) 02/21/22 02/22/22 Range/Units 15:05 06:19 Potassium 3.2 L 3.0 L (3.5-5.1) mmol/L Assessment and Plan (1) Intractable nausea and vomiting Current Visit: Yes Status: Acute Priority: High Code(s): R11.2 - NAUSEA WITH VOMITING, UNSPECIFIED SNOMED Code(s): 285026209 (2) Headache Current Visit: Yes Status: Acute Priority: High Code(s): R51.9 - HEADACHE, UNSPECIFIED SNOMED Code(s): 53159628 (3) Glioblastoma Current Visit: Yes Status: Chronic Priority: Medium Code(s): C71.9 - MALIGNANT NEOPLASM OF BRAIN, UNSPECIFIED SNOMED Code(s): 390888003 Plan: Concerns for progression of disease since pt having new symptoms. N, V better after start of steroids, POWELL persists. Increase frequency of steroid to Q 6 because of persistent symptoms. Will see if POWELL improves by tomorrow. MRI was cancelled because of unknown type of cardiac stent. Pt had the stents placed here with Cardiology. Have requested review of those records so can hopefully proceed with MRI. Cont supportive meds and hydration for now Pt will f/u with her Primary Onc on [place] for plan of care. If MRI gets done, recommend disc be provided to pt to take with her. Gracia montanez. Doctor attests: I performed a history and physical examination of this patient, developed impression and plan of care, discussed with dictator. I agree with dictators note, documented as a scribe.
[2022-02-22] MEDS ORDERED: POTASSIUM CHLORIDE ER 20 MEQ TAB.ER PO STA (12:43)
--- NOTE | 2022-02-22 13:08 | P.PN ---
Subjective Progress Note Date: 02/22/22 HISTORY OF PRESENT ILLNESS Patient is a 67-year-old female with a known history of coronary arteries with history of stent placement, pyloric stricture with gastrojejunostomy, history of gastric outlet obstruction, melanoma, peptic ulcer disease and recently being treated for GBM on chemotherapy yesterday presents to ER with complaints of intractable nausea and vomiting started yesterday afternoon. Patient rehab multiple episodes of bilious vomiting. Does have some abdominal discomfort. No fever no chills. No cough or sputum production. No complaints of chest pain. Patient had CT head done in 2019 showed right frontoparietal intra-axial rim- enhancing mass. K[facility] x-ray showed nonacute abdomen. Had CT of the abdomen pelvis showed there is evidence of colonic diverticulosis without diverticulitis. Previous small bowel surgery. Constipation. Gallbladder is less dilated than wall exam. Laboratory data showed WBC 6.4 hemoglobin 13.9 and platelets 139 Sodium 138 potassium 3.2 chloride 103 bicarb is 24 BUN 14 and creatinine 0.57 and blood sugar is 127 liver enzymes are not elevated Urinalysis showed 1+ protein 2+ ketones and trace to RBC. 02/21: Repeat potassium this morning was 2.6 and patient is being replaced with repeat potassium at 3 PM. Blood pressure has been high through the night and losartan increased. Patient has been resumed on losartan and verapamil. She required additional dose of IV hydralazine last evening in the emergency center. Patient continues to have nausea and dry heaves despite use of Zofran and Reglan. Will add and scopolamine patch. She is also complaining of headache in the frontal area. She's recently had 3 precancerous spots removed one from her right forehead at hairline and 2 from her right forearm. Patient is complaining of ongoing problems with constipation. She is on Colace, lactulose both scheduled and MiraLAX will be added. 02/22: Patient is doing significantly better after scopolamine patch was started yesterday. She states she is able to eat, currently clear liquids. Her abdomen remains a little tender. Blood pressure remains elevated and verapamil will be increased to frequency of twice daily. Patient has been started on IV steroids possibly contributing to her hypertension. Potassium again is low at 3.0 and she has been replaced with 40 mEq of potassium, we'll add in another 40 mEq and change IV fluids to 0.9 with 20 of KCl. Oncology has ordered MRI of the brain with and without contrast for today. Repeat blood work ordered for tomorrow. REVIEW OF SYSTEMS Constitutional: No fever, no chills, no night sweats. No weight change. No weakness, fatigue or lethargy. No daytime sleepiness. EENT: No headache. No blurred vision or double vision, no loss of vision. No loss of Hearing, no ringing in the ears, no dizziness. No nasal drainage or congestion. No epistaxis. No sore throat. Lungs: No shortness of breath, cough, no sputum production. No wheezing. Cardiovascular: No chest pain, no lower extremity edema. No palpitations. No paroxysmal nocturnal dyspnea. No orthopnea. No lightheadedness or dizziness. No syncopal episodes. Abdominal: Reports right-sided abdominal pain. Denies nausea, denies vomiting. No diarrhea. Reports constipation. No bloody or tarry stools. Reports loss of appetite. Genitourinary: No dysuria, increased frequency, urgency. No urinary retention. Musculoskeletal: No myalgias. No muscle weakness, no gait dysfunction, no frequent falls. No back pain. No neck pain. Integumentary: No wounds, no lesions. No rash or pruritus. No unusual bruising. No change in hair or nails. Neurologic: No aphasia. No facial droop. No change in mentation. No head injury. No headache. No paralysis. No paresthesia. Psychiatric: No depression. No anxiety. No mood swings. Endocrine: No abnormal blood sugars. No weight change. No excessive sweating or thirst. No cold intolerance. PHYSICAL EXAMINATION Gen: This is a 67-year-old female. Patient is resting in bed appears to be in somewhat distress due to dry heaving. Family member at bedside. HEENT: Head is atraumatic, normocephalic. Pupils equal, round. Sclerae is anicteric. NECK: Supple. No JVD. No lymphadenopathy. No thyromegaly. LUNGS: Clear to auscultation. No wheezes or rhonchi. No intercostal retractions. HEART: Regular rate and rhythm. No murmur. ABDOMEN: Soft. Bowel sounds are present. No masses. No tenderness. EXTREMITIES: No pedal edema. No calf tenderness. NEUROLOGICAL: Patient is awake, alert and oriented x3. Cranial nerves 2 through 12 are grossly intact. ASSESSMENT AND PLAN 1. Intractable nausea and vomiting and abdominal pain. Continue Zofran as needed, Reglan 10 mg IV push every 6 hours as needed, Dilaudid 0.5 mg IV push every 3 hours for pain. Scopolamine patch will be added 2. Hypertensive emergency. Increase losartan to 100 mg daily, continue verapam il 240 mg increased frequency to twice daily, hydralazine 25 mg 3 times daily. 3. Severe hypokalemia. Patient is undergoing replacement, recheck potassium tomorrow. Change IV fluids to 0.9 normal saline with 20 mEq of KCl. 4. Glioblastoma multiforme and currently on chemotherapy. Last dose on 02/18/2022. MRI of the brain ordered by oncology, dexamethasone 4 mg IV push every 6 hours 5. GERD. Continue Protonix 40 mg twice daily 6. History of GI bleed and peptic ulcer disease. Continue Protonix 7. History of pyloric strictures with surgeries. 8. Coronary arteries history of stent placement. 9. Constipation. Continue Colace 100 mg twice daily scheduled, lactulose 30 g twice daily scheduled, add MiraLAX 17 g daily scheduled. 10. DVT prophylaxis with heparin subcu DISCHARGE PLAN Home without home care. Impression and plan of care have been directed as dictated by the signing physician. Kair Arroyo nurse practitioner acting as scribe for signing physician. Objective - Vital Signs Vital signs: Vital Signs Temp 99.3 F 02/22/22 11:23 Pulse 102 H 02/22/22 11:23 Resp 18 02/22/22 11:23 BP 177/103 02/22/22 11:23 Pulse Ox 96 02/22/22 11:23 Intake & Output 02/21/22 02/22/22 02/22/22 18:59 06:59 18:59 Intake Total 100 Balance 100 Intake: Oral 100 Other: Voiding Method Bedside Commode Bedside Commode # Voids 1 5 1 # Bowel Movements 1 1 - Labs CBC & Chem 7: 02/21/22 04:55 02/22/22 06:19 Labs: Abnormal Lab Results - Last 24 Hours (Table) 02/21/22 02/22/22 Range/Units 15:05 06:19 Potassium 3.2 L 3.0 L (3.5-5.1) mmol/L
[2022-02-22] MEDS: ACETAMINOPHEN TAB 325 MG TAB PO PRN (15:17)
[2022-02-22] MEDS: 0.9% NACL WITH KCL 20 MEQ/L 1,000 ML IV SCH (16:48)
[2022-02-23] MEDS: HEPARIN SODIUM,PORCINE/PF 5,000 UNIT/0.5 ML SYRINGE SQ SCH ×3 (03:46→21:28)
[2022-02-23] MEDS: LACTULOSE 20 GM/30 ML CUP PO SCH ×3 (03:46→21:28)
[2022-02-23] MEDS: SENNOSIDES-DOCUSATE SODIUM 1 EACH TAB PO SCH ×3 (03:47→21:28)
[2022-02-23] MEDS: DEXAMETHASONE SOD PHOSPHATE 4 MG/ML 1 ML VIAL IVP SCH ×3 (03:47→11:24)
[2022-02-23] MEDS: VERAPAMIL SR 240 MG TABLET.ER PO SCH ×3 (03:47→21:28)
[2022-02-23] MEDS: PANTOPRAZOLE 40 MG TABLET PO SCH ×3 (03:47→21:28)
[2022-02-23] MEDS: hydrALAZINE HCL 25 MG TAB PO SCH ×4 (03:47→21:28)
[2022-02-23] MEDS: 0.9% NACL WITH KCL 20 MEQ/L 1,000 ML IV SCH (04:35)
[2022-02-23] MEDS: LOSARTAN 50 MG TAB PO SCH (04:46)
[2022-02-23] MEDS: polyethylene glycoL 3350 17 GM POWD.PACK PO SCH (09:01)
[2022-02-23 10:06] LABS: African American GFR (CKD) 108.5 (60.0-200.0); Anion Gap 10.5 mmol/L (10.00-18.00); BUN/Creat Ratio 14.33 Ratio (12.00-20.00); Blood Urea Nitrogen 8.6 mg/dL (9.0-27.0); Calcium 9.3 mg/dL (8.7-10.3); Carbon Dioxide 22.5 mmol/L (20.0-27.5); Non-African American GFR(CKD) 93.7 (60.0-200.0); Potassium 3.8 mmol/L (3.5-5.5)
[2022-02-23 11:03] LABS: Basophils % (A) 0 %; Eosinophils % (A) 0 %; HCT 40.8 % (34.0-46.0); HGB 13.2 gm/dL (11.4-16.0); Lymphocytes # (A) 1.2 k/uL (1.0-4.8); Lymphocytes % (A) 16 %; MCH 32.5 pg (25.0-35.0); MCHC 32.5 g/dL (31.0-37.0); Mean Platelet Volume 8.1; Monocytes # (A) 0.8 k/uL (0-1.0); Monocytes % (A) 10 %; Neutrophils # (A) 5.3 k/uL (1.3-7.7); Neutrophils % (A) 69 %; Platelet Count 131 k/uL (150-450); RBC 4.08 m/uL (3.80-5.40); RDW 12.7 % (11.5-15.5); WBC 7.7 k/uL (3.8-10.6)
[2022-02-23] MEDS: ACETAMINOPHEN TAB 325 MG TAB PO PRN (11:26)
--- NOTE | 2022-02-23 12:22 | P.PN ---
Subjective Progress Note Date: 02/23/22 Principal diagnosis: Worsening weakness and mental status She is alert and oriented although questions and answers are not always appropriately, unknown baseline cognition post craniotomy. We are waiting on MRI once stent type is identified. Objective - Vital Signs Vital signs: Vital Signs Temp 97.9 F 02/23/22 07:33 Pulse 86 02/23/22 07:33 Resp 16 02/23/22 07:33 BP 166/87 02/23/22 07:33 Pulse Ox 95 02/23/22 07:33 Intake & Output 02/22/22 02/23/22 02/23/22 18:59 06:59 18:59 Intake Total 900 900 Balance 900 900 Intake: Intake, IV Titration 900 900 Amount 0.9% NaCl with KCl 20 Meq 900 /l 1,000 ml @ 75 mls/hr IV .[id number] [facility] Rx#: [id number] Sodium Chloride 0.9% 1, 900 000 ml @ 75 mls/hr IV . [id number] [facility] Rx#:[id number] Other: Voiding Method Bedside Commode # Voids 1 4 # Bowel Movements 1 - Exam - Constitutional General appearance: Present: cooperative, no acute distress, thin - EENT Eyes: Present: anicteric sclerae ENT: Present: hearing grossly normal - Respiratory Details: resp even and unlabored at rest - Integumentary Integumentary: Present: normal - Musculoskeletal Musculoskeletal: Present: generalized weakness, strength equal bilaterally - Psychiatric - Labs CBC & Chem 7: 02/23/22 11:00 02/23/22 05:52 Assessment and Plan (1) Glioblastoma Narrative/Plan: Temodar on hold, she is on day 3 of 5 of her 28 day maintenance cycle - Repeat MRI of brain given increased headaches, neurological symptoms, nausea and vomiting (had BM today with out improvement was actively dry heaving while at bedside) - Advised family to obtain disc of MRI and bring to [facility] to compare to prior MRI after discharge - I have left message with her primary oncologist Current Visit: Yes Status: Chronic Priority: Medium Code(s): C71.9 - MALIGNANT NEOPLASM OF BRAIN, UNSPECIFIED SNOMED Code(s): 087637646 (2) Headache Narrative/Plan: Recent seen neurologist who has given amovig 140mg on the 08 of February Current Visit: Yes Status: Acute Priority: High Code(s): R51.9 - HEADACHE, UNSPECIFIED SNOMED Code(s): 94678209 (3) Weakness Narrative/Plan: She states recntly worse because she "pulled her back out" however with her known diagnosis nad given the increased unilateral weakness surfer evaluation warranted. Current Visit: Yes Status: Acute Code(s): R53.1 - WEAKNESS SNOMED Code(s): 33878524 (4) Intractable nausea and vomiting Narrative/Plan: zofran q4prn Add low dose PO lorazepam (compazine not compatable with reglan)Discussed with primary, they have added scope patch watch for anticholinergic effects Repeat MRI No relief in nausea after BM Increase bowel regimen to Senna S 2 tabs BID Improved after steroids Current Visit: Yes Status: Acute Priority: High Code(s): R11.2 - NAUSEA WITH VOMITING, UNSPECIFIED SNOMED Code(s): 962159866 Plan: Start dexamethsone 4 q8 until MRI is resulted Physician Attest: I have completed the full history and physical and developed the above impression and plan, agree with dictation, dictated as a scribe.
[2022-02-23 12:34] VITALS: RESP 18
--- NOTE | 2022-02-23 13:50 | MR ---
EXAMINATION TYPE: MR brain wo/w con DATE OF EXAM: 02/23/2022 COMPARISON: CT 07/21/2020 HISTORY: Hx glioblastoma, intractable N,V, headache TECHNIQUE: Multiplanar, multisequence images of the brain and brainstem is performed without and with IV contras t, utilizing 6 mL intravenous Gadavist . FINDINGS: Diffusion weighted images demonstrate no evidence of a recent infarct or other diffusion ab normality. There is no extra-axial fluid collection. Subcortical, pericallosal and periventricular hyperintensity and inversion recovery T2-weighted sequences noted greater on the right, there is like ly scoliosis, patient is post craniotomy. The ventricular system and cisternal spaces are normal in s ize and appearance. The brain volume is age appropriate. The calvarium shows some signal changes whi ch may be related to surgery, the right frontal region, sagittal image #19 precontrast, sagittal imag e 100 and postcontrast shows some heterogeneity in the right frontal region which is indeterminate Midline structures demonstrate normal morphology. The craniocervical junction appears within normal limits. Post contrast images show enhancement along the dura, there is a focus of enhancement on axi al image 21 in the right parietal region, coronal image #29 difficult to exclude residual or recurren t tumor. Bandlike area of enhancement extends the level of the cortical surface seen on coronal image #29. The dural venous sinuses appear patent. The visualized sinuses are clear and the globes are int act. IMPRESSION: Findings may represent recurrence or residual tumor. Comparison with prior brain MRI may be of benefit. Abnormal calvarial signal.
--- NOTE | 2022-02-23 14:29 | P.PN ---
Subjective Progress Note Date: 02/23/22 HISTORY OF PRESENT ILLNESS Patient is a 67-year-old female with a known history of coronary arteries with history of stent placement, pyloric stricture with gastrojejunostomy, history of gastric outlet obstruction, melanoma, peptic ulcer disease and recently being treated for GBM on chemotherapy yesterday presents to ER with complaints of intractable nausea and vomiting started yesterday afternoon. Patient rehab multiple episodes of bilious vomiting. Does have some abdominal discomfort. No fever no chills. No cough or sputum production. No complaints of chest pain. Patient had CT head done in 2019 showed right frontoparietal intra-axial rim- enhancing mass. KUB x-ray showed nonacute abdomen. Had CT of the abdomen pelvis showed there is evidence of colonic diverticulosis without diverticulitis. Previous small bowel surgery. Constipation. Gallbladder is less dilated than wall exam. Laboratory data showed WBC 6.4 hemoglobin 13.9 and platelets 139 Sodium 138 potassium 3.2 chloride 103 bicarb is 24 BUN 14 and creatinine 0.57 and blood sugar is 127 liver enzymes are not elevated Urinalysis showed 1+ protein 2+ ketones and trace to RBC. 02/21: Repeat potassium this morning was 2.6 and patient is being replaced with repeat potassium at 3 PM. Blood pressure has been high through the night and losartan increased. Patient has been resumed on losartan and verapamil. She required additional dose of IV hydralazine last evening in the emergency center. Patient continues to have nausea and dry heaves despite use of Zofran and Reglan. Will add and scopolamine patch. She is also complaining of headache in the frontal area. She's recently had 3 precancerous spots removed one from her right forehead at hairline and 2 from her right forearm. Patient is complaining of ongoing problems with constipation. She is on Colace, lactulose both scheduled and MiraLAX will be added. 02/22: Patient is doing significantly better after scopolamine patch was started yesterday. She states she is able to eat, currently clear liquids. Her abdomen remains a little tender. Blood pressure remains elevated and verapamil will be increased to frequency of twice daily. Patient has been started on IV steroids possibly contributing to her hypertension. Potassium again is low at 3.0 and she has been replaced with 40 mEq of potassium, we'll add in another 40 mEq and change IV fluids to 0.9 with 20 of KCl. Oncology has ordered MRI of the brain with and without contrast for today. Repeat blood work ordered for tomorrow. 02/23: Patient has had no more nausea or vomiting, she is tolerating a clear liquid diet and will be advanced to full liquids. Patient developed confusion yesterday afternoon which is continued today. Yesterday, she called the office stating that she was at home and wanted to change her MRI appointment to [place]. She denies having any headache. She has had a bowel movement and feels that her appetite is better today. Patient received a dose of Ativan this morning and Ativan will be discontinued. She states she walked with physical therapy and denies any lightheadedness but felt like her balance was a little off. She reports sore throat but no thrush noted. Blood pressure is improved today as well. IV fluids discontinued. Repeat potassium 3.8. MRI of the brain reveals findings may represent recurrence or residual tumor. C omparison with prior brain MRI may be beneficial. Dexamethasone decreased frequency to 4 mg every 12 hours. Plan to monitor patient overnight and most likely discharge home tomorrow. REVIEW OF SYSTEMS Constitutional: No fever, no chills, no night sweats. No weight change. No weakness, fatigue or lethargy. No daytime sleepiness. EENT: No headache. No blurred vision or double vision, no loss of vision. No loss of Hearing, no ringing in the ears, no dizziness. No nasal drainage or congestion. No epistaxis. No sore throat. Lungs: No shortness of breath, cough, no sputum production. No wheezing. Cardiovascular: No chest pain, no lower extremity edema. No palpitations. No paroxysmal nocturnal dyspnea. No orthopnea. No lightheadedness or dizziness. No syncopal episodes. Abdominal: Reports right-sided abdominal pain. Denies nausea, denies vomiting. No diarrhea. Reports constipation. No bloody or tarry stools. Reports loss of appetite. Genitourinary: No dysuria, increased frequency, urgency. No urinary retention. Musculoskeletal: No myalgias. No muscle weakness, no gait dysfunction, no frequent falls. No back pain. No neck pain. Integumentary: No wounds, no lesions. No rash or pruritus. No unusual bruising. No change in hair or nails. Neurologic: No aphasia. No facial droop. Noted change in mentation. No head injury. No headache. No paralysis. No paresthesia. Psychiatric: No depression. No anxiety. No mood swings. Endocrine: No abnormal blood sugars. No weight change. No excessive sweating or thirst. No cold intolerance. PHYSICAL EXAMINATION Gen: This is a 67-year-old female. Patient is resting in bed appears to be comfortable. Family members at bedside. HEENT: Head is atraumatic, normocephalic. Pupils equal, round. Sclerae is anicteric. NECK: Supple. No JVD. No lymphadenopathy. No thyromegaly. LUNGS: Clear to auscultation. No wheezes or rhonchi. No intercostal retraction s. HEART: Regular rate and rhythm. No murmur. ABDOMEN: Soft. Bowel sounds are present. No masses. No tenderness. EXTREMITIES: No pedal edema. No calf tenderness. NEUROLOGICAL: Patient is awake, alert and oriented to person and intermittently oriented to place. Cranial nerves 2 through 12 are grossly intact. ASSESSMENT AND PLAN 1. Intractable nausea and vomiting and abdominal pain. Continue Zofran as needed, Reglan 10 mg IV push every 6 hours as needed. Scopolamine patch continued 2. Hypertensive emergency. Continue losartan at increased dose of 100 mg daily, continue verapamil at increased frequency of 240 mg twice daily, continue hydralazine 25 mg 3 times daily. 3. Severe hypokalemia. Patient is undergoing replacement, recheck potassium tomorrow. 4. Glioblastoma multiforme and currently on chemotherapy. Last dose on 02/18/2022. MRI of the brain as above, dexamethasone 4 mg IV push decreased frequency to every 12 hours 5. GERD. Continue Protonix 40 mg twice daily 6. History of GI bleed and peptic ulcer disease. Continue Protonix 7. History of pyloric strictures with surgeries. 8. Coronary arteries history of stent placement. 9. Constipation, resolved. Continue Colace 100 mg twice daily scheduled, lactulose 30 g twice daily scheduled, add MiraLAX 17 g daily scheduled. 10. Metabolic encephalopathy most likely secondary to medications. Dilaudid and prednisone discontinued, lorazepam discontinued. Dexamethasone decreased frequency. Continue to monitor closely. 11. DVT prophylaxis with heparin subcu DISCHARGE PLAN Home without home care on . Impression and plan of care have been directed as dictated by the signing physician. Kari Convery nurse practitioner acting as scribe for signing physician. Objective - Vital Signs Vital signs: Vital Signs Temp 98.1 F 02/23/22 12:20 Pulse 82 02/23/22 12:20 Resp 18 02/23/22 12:20 BP 145/84 02/23/22 12:20 Pulse Ox 97 02/23/22 12:20 Intake & Output 02/22/22 02/23/22 02/23/22 18:59 06:59 18:59 Intake Total 900 900 Balance 900 900 Intake: Intake, IV Titration 900 900 Amount 0.9% NaCl with KCl 20 Meq 900 /l 1,000 ml @ 75 mls/hr IV .[id number] [facility] Rx#: [id number] Sodium Chloride 0.9% 1, 900 000 ml @ 75 mls/hr IV . [id number] [facility] Rx#:[id number] Other: Voiding Method Bedside Commode # Voids 1 4 1 # Bowel Movements 1 - Labs CBC & Chem 7: 02/23/22 11:00 02/23/22 05:52 Labs: Abnormal Lab Results - Last 24 Hours (Table) 02/23/22 02/23/22 Range/Units 05:52 11:00 Plt Count 131 L (150-450) k/uL BUN 8.6 L (9.0-27.0) mg/dL
[2022-02-23 18:07] LABS: Albumin/Globulin Ratio 2.11 (1.60-3.17); Globulin 1.9 g/dL (1.6-3.3); Magnesium 2.1 mg/dL (1.5-2.4); Total Bilirubin 0.4 mg/dL (0.30-1.20); Total Protein 5.9 g/dL (6.2-8.2)
[2022-02-23] MEDS ORDERED: DEXAMETHASONE SOD PHOSPHATE 4 MG/ML 1 ML VIAL IVP SCH (21:00)
[2022-02-24] MEDS: ACETAMINOPHEN TAB 325 MG TAB PO PRN (03:40)
[2022-02-24 03:42] VITALS: PULSE 99; TEMP 97.7
[2022-02-24] MEDS: LOSARTAN 50 MG TAB PO SCH (04:29)
[2022-02-24 05:15] VITALS: BP 155/91
[2022-02-24 09:42] LABS: Basophils # (A) 0.01 X 10*3/uL (0.00-0.10); Basophils % (A) 0.1 %; Eosinophils # (A) 0 X 10*3/uL (0.04-0.35); Eosinophils % (A) 0 %; HCT 38.5 % (37.2-46.3); HGB 12.8 g/dL (12.0-15.0); Immature Grans, Automated 0.6 %; Lymphocytes # (A) 0.73 X 10*3/uL (0.90-5.00); Lymphocytes % (A) 10.9 %; MCH 31.8 pg (27.0-32.0); MCHC 33.2 g/dL (32.0-37.0); MCV 95.5 fL (80.0-97.0); Mean Platelet Volume 9.5 fL (9.5-12.2); Monocytes # (A) 0.38 X 10*3/uL (0.20-1.00); Monocytes % (A) 5.7 %; NRBC Per 100 WBC 0 /100 WBCS (0.0-0.0); Neutrophils # (A) 5.56 X 10*3/uL (1.80-7.70); Neutrophils % (A) 82.7 %; Platelet Count 130 X 10*3/uL (140-440); RBC 4.03 X 10*6/uL (4.10-5.20); RDW 12.6 % (11.5-14.5); WBC 6.72 X 10*3/uL (4.50-10.00)
[2022-02-24 09:53] LABS: African American GFR (CKD) 108.5 (60.0-200.0); Albumin/Globulin Ratio 2.35 (1.60-3.17); BUN/Creat Ratio 21.83 Ratio (12.00-20.00); Blood Urea Nitrogen 13.1 mg/dL (9.0-27.0); Calcium 9.3 mg/dL (8.7-10.3); Globulin 1.7 g/dL (1.6-3.3); Magnesium 2.4 mg/dL (1.5-2.4); Non-African American GFR(CKD) 93.7 (60.0-200.0); Potassium 3.6 mmol/L (3.5-5.5); Total Bilirubin 0.4 mg/dL (0.30-1.20); Total Protein 5.7 g/dL (6.2-8.2)
[2022-02-24] MEDS: PANTOPRAZOLE 40 MG TABLET PO SCH (10:11)
--- NOTE | 2022-02-24 17:38 | P.DS ---
Providers Date of admission: 02/22/22 09:28 Expected date of discharge: 02/24/22 Attending physician: Valeriano Khan Consults: 02/20/22 23:09 Consult Physician Routine Consulting Provider: Morgan Smith Consult Reason/Comments: Nausea vomiting. Being treated for GBM Do you want consulting provider notified?: Yes, Notify in am Primary care physician: Valeriano Khan Hospital Course: HISTORY OF PRESENT ILLNESS Patient is a 67-year-old female with a known history of coronary arteries with history of stent placement, pyloric stricture with gastrojejunostomy, history of gastric outlet obstruction, melanoma, peptic ulcer disease and recently being treated for GBM on chemotherapy yesterday presents to ER with complaints of intractable nausea and vomiting started yesterday afternoon. Patient rehab multiple episodes of bilious vomiting. Does have some abdominal discomfort. No fever no chills. No cough or sputum production. No complaints of chest pain. Patient had CT head done in 2019 showed right frontoparietal intra-axial rim- enhancing mass. KUB x-ray showed nonacute abdomen. Had CT of the abdomen pelvis showed there is evidence of colonic diverticulosis without diverticulitis. Previous small bowel surgery. Constipation. Gallbladder is less dilated than wall exam. Laboratory data showed WBC 6.4 hemoglobin 13.9 and platelets 139 Sodium 138 potassium 3.2 chloride 103 bicarb is 24 BUN 14 and creatinine 0.57 and blood sugar is 127 liver enzymes are not elevated Urinalysis showed 1+ protein 2+ ketones and trace to RBC. 02/21: Repeat potassium this morning was 2.6 and patient is being replaced with repeat potassium at 3 PM. Blood pressure has been high through the night and losartan increased. Patient has been resumed on losartan and verapamil. She required additional dose of IV hydralazine last evening in the emergency center. Patient continues to have nausea and dry heaves despite use of Zofran and Reglan. Will add and scopolamine patch. She is also complaining of headache in the frontal area. She's recently had 3 precancerous spots removed one from her right forehead at hairline and 2 from her right forearm. Patient is complaining of ongoing problems with constipation. She is on Colace, lactulose both scheduled and MiraLAX will be added. 02/22: Patient is doing significantly better after scopolamine patch was started yesterday. She states she is able to eat, currently clear liquids. Her abdomen remains a little tender. Blood pressure remains elevated and verapamil will be increased to frequency of twice daily. Patient has been started on IV steroids possibly contributing to her hypertension. Potassium again is low at 3.0 and she has been replaced with 40 mEq of potassium, we'll add in another 40 mEq and change IV fluids to 0.9 with 20 of KCl. Oncology has ordered MRI of the brain with and without contrast for today. Repeat blood work ordered for tomorrow. 02/23: Patient is laying down in bed she is feeling a bit better she continues to be somewhat confused, she is currently on Decadron 4 mg IV push every 12 hours, she will be taken off scopolamine patch, because the patient confusion, patient will be taken off IV fluid, advance her diet to full liquid diet, likely will discharge the patient home in the next 24 hours, MRI of the brain was reviewed with the patient and her daughter at the bedside, and she need to follow-up with her oncologist down at [facility] Dr. El . DISCHARGE DIAGNOSES 1. Intractable nausea and vomiting and abdominal pain. 2. Hypertensive emergency. 3. Severe hypokalemia. 4. Glioblastoma multiforme and currently on chemotherapy. 5. GERD. 6. History of GI bleed and peptic ulcer disease. 7. History of pyloric strictures with surgeries. 8. Coronary arteries history of stent placement. 9. Constipation, resolved. DISCHARGE PLAN Home without home care. Greater than 35 minutes was utilized and coordinating patient's discharge. Impression and plan of care have been directed as dictated by the signing physician. Kari Arroyo nurse practitioner acting as scribe for signing faby caban. Patient Condition at Discharge: Good Plan - Discharge Summary New Discharge Prescriptions: New Sennosides-Docusate Sodium [Senokot-S] 2 each PO BID tab hydrALAZINE HCL [Apresoline] 25 mg PO TID #90 tab Lactulose [Cephulac] 30 gm PO BID #1800 ml Losartan [Cozaar] 100 mg PO DAILY #30 tab Verapamil Sr [Isoptin Sr] 240 mg PO BID tablet Dexamethasone [Decadron] 4 mg PO BID #15 tablet Continue Butalb/Asprin/Caff 50-325-40Mg [Fiorinal 50-325-40 MG] 1 tab PO DAILY PRN PRN Reason: Headache Cholecalciferol [Vitamin D3 (25 Mcg = 1000 Iu)] 1,000 unit PO DAILY Ascorbic Acid [Vitamin C] 500 mg PO W/SUPPER Ferrous Sulfate [Iron (65 MG Elemental)] 325 mg PO W/SUPPER L.acidoph,Paracasei, B.lactis [Probiotic] 1 cap PO W/SUPPER Atorvastatin [Lipitor] 40 mg PO DAILY #90 tab Nitroglycerin Sl Tabs [Nitrostat] 0.4 mg SUBLINGUAL Q5M PRN #25 tab PRN Reason: Chest Pain Britni Back & Body 1,000 mg PO Q6H PRN PRN Reason: Pain Aspirin EC [Ecotrin Low Dose] 81 mg PO HS Cyanocobalamin (Vitamin B-12) [Vitamin B-12] 1,000 mcg PO W/SUPPER Magnesium Oxide [Mag-Ox] 400 mg PO DAILY Omeprazole [PriLOSEC] 40 mg PO BID Cyclobenzaprine [Flexeril] 5 mg PO DAILY Docusate [Colace] 100 mg PO BID Multivitamins, Thera [Multivitamin (formulary)] 1 tab PO DAILY Mupirocin 2% Oint [Bactroban 2% Oint] 1 applic TOPICAL DAILY ondansetron HCL [Zofran] 8 mg PO Q8H PRN PRN Reason: Nausea Zinc 50 mg PO DAILY Baclofen [Lioresal] 10 mg PO BID Metoclopramide [Reglan] 10 mg PO TID Potassium Chloride ER [K-Dur 10] 10 meq PO BID Discontinued Verapamil HCl [Verapamil ER] 240 mg PO DAILY levETIRAcetam [Keppra] 750 mg PO Q12HR Losartan [Cozaar] 50 mg PO DAILY Discharge Medication List Butalb/Asprin/Caff 50-325-40Mg [Fiorinal 50-325-40 MG] 1 tab PO DAILY PRN 04/26/16 [History] Ascorbic Acid [Vitamin C] 500 mg PO W/SUPPER 07/24/17 [History] Cholecalciferol [Vitamin D3 (25 Mcg = 1000 Iu)] 1,000 unit PO DAILY 07/24/17 [History] Ferrous Sulfate [Iron (65 MG Elemental)] 325 mg PO W/SUPPER 07/24/17 [History] L.acidoph,Paracasei, B.lactis [Probiotic] 1 cap PO W/SUPPER 07/24/17 [History] Atorvastatin [Lipitor] 40 mg PO DAILY #90 tab 07/28/17 [Rx] Nitroglycerin Sl Tabs [Nitrostat] 0.4 mg SUBLINGUAL Q5M PRN #25 tab 07/28/17 [Rx] Aspirin EC [Ecotrin Low Dose] 81 mg PO HS 08/08/18 [History] Britni Back & Body 1,000 mg PO Q6H PRN 08/08/18 [History] Cyanocobalamin (Vitamin B-12) [Vitamin B-12] 1,000 mcg PO W/SUPPER 07/21/20 [History] Magnesium Oxide [Mag-Ox] 400 mg PO DAILY 07/21/20 [History] Omeprazole [PriLOSEC] 40 mg PO BID 07/21/20 [History] Baclofen [Lioresal] 10 mg PO BID 02/20/22 [History] Cyclobenzaprine [Flexeril] 5 mg PO DAILY 02/20/22 [History] Docusate [Colace] 100 mg PO BID 02/20/22 [History] Metoclopramide [Reglan] 10 mg PO TID 02/20/22 [History] Multivitamins, Thera [Multivitamin (formulary)] 1 tab PO DAILY 02/20/22 [History] Mupirocin 2% Oint [Bactroban 2% Oint] 1 applic TOPICAL DAILY 02/20/22 [History] Potassium Chloride ER [K-Dur 10] 10 meq PO BID 02/20/22 [History] Zinc 50 mg PO DAILY 02/20/22 [History] ondansetron HCL [Zofran] 8 mg PO Q8H PRN 02/20/22 [History] Dexamethasone [Decadron] 4 mg PO BID #15 tablet 02/24/22 [Rx] Lactulose [Cephulac] 30 gm PO BID #1800 ml 02/24/22 [Rx] Losartan [Cozaar] 100 mg PO DAILY #30 tab 02/24/22 [Rx] Sennosides-Docusate Sodium [Senokot-S] 2 each PO BID tab 02/24/22 [Rx] Verapamil Sr [Isoptin Sr] 240 mg PO BID tablet 02/24/22 [Rx] hydrALAZINE HCL [Apresoline] 25 mg PO TID #90 tab 02/24/22 [Rx] Follow up Appointment(s)/Referral(s): Valeriano Khan MD [Primary Care Provider] - 02/28/22 2:30 pm Patient Instructions/Handouts: Abdominal Pain (ED), Brain Tumors (DC) Activity/Diet/Wound Care/Special Instructions: Follow up with oncologist in 1 week- Dr Keli Prieto Discharge Disposition: HOME WITH HOME HEALTH SERVICES
--- NOTE | 2022-02-24 18:40 | P.PN ---
Subjective Progress Note Date: 02/24/22 Principal diagnosis: Worsening weakness and mental status MRI of the brain concerning for progression however direct comparision is not available as prior imaging at [facility]. There is concern of calvarial involvement, she is being discharged today but will see Dr. Flores tomorrow per patient Objective - Vital Signs Vital signs: Vital Signs Temp 97.7 F 02/24/22 03:41 Pulse 99 02/24/22 03:41 Resp 18 02/24/22 03:41 BP 155/91 02/24/22 05:14 Pulse Ox 96 02/24/22 03:41 Intake & Output 02/23/22 02/24/22 02/24/22 18:59 06:59 18:59 Intake Total 600 540 Balance 600 540 Intake: Intake, IV Titration 600 Amount 0.9% NaCl with KCl 20 Meq 600 /l 1,000 ml @ 50 mls/hr IV .Q20H [facility] Rx#: [id number] Oral 540 Other: Voiding Method Bedside Commode # Voids 3 2 # Bowel Movements 1 1 - Exam - Constitutional General appearance: Present: cooperative, no acute distress, thin - EENT Eyes: Present: anicteric sclerae ENT: Present: hearing grossly normal - Respiratory Details: resp even and unlabored at rest - Integumentary Integumentary: Present: normal - Musculoskeletal Musculoskeletal: Present: generalized weakness, strength equal bilaterally - Psychiatric - Labs CBC & Chem 7: 02/24/22 05:08 02/24/22 05:08 Labs: Abnormal Lab Results - Last 24 Hours (Table) 02/24/22 02/24/22 Range/Units 05:08 05:08 RBC 4.03 L (4.10-5.20) X 10*6/uL Plt Count 130 L (140-440) X 10*3/uL Lymphocytes # 0.73 L (0.90-5.00) X 10*3/uL Eosinophils # 0 L (0.04-0.35) X 10*3/uL BUN/Creatinine Ratio 21.83 H (12.00-20.00) Ratio Glucose 135 H (70-110) mg/dL Total Protein 5.7 L (6.2-8.2) g/dL Assessment and Plan (1) Glioblastoma Narrative/Plan: Temodar on hold, she is on day 3 of 5 of her 28 day maintenance cycle - Repeat MRI of brain given increased headaches, neurological symptoms, nausea and vomiting (had BM today with out improvement was actively dry heaving while a t bedside) - Advised family to obtain disc of MRI and bring to [facility] to compare to prior MRI after discharge - I have left message with her primary oncologist Concern for progression, patient and RN reminded to obtain actual disc images to bring to Dr. Flores for comparision of prior MRI Calvarial involvement? unknown if new - continue dex and PPI until seeing Dr. Flores Status: Chronic Priority: Medium Code(s): C71.9 - MALIGNANT NEOPLASM OF BRAIN, UNSPECIFIED SNOMED Code(s): 751778318 (2) Headache Narrative/Plan: Recent seen neurologist who has given amovig 140mg on the 08 of February Status: Acute Priority: High Code(s): R51.9 - HEADACHE, UNSPECIFIED SNOMED Code(s): 28453291 (3) Weakness Narrative/Plan: She states recntly worse because she "pulled her back out" however with her known diagnosis nad given the increased unilateral weakness surfer evaluation warranted. Status: Acute Code(s): R53.1 - WEAKNESS SNOMED Code(s): 82776405 (4) Intractable nausea and vomiting Narrative/Plan: zofran q4prn Add low dose PO lorazepam (compazine not compatable with reglan)Discussed with primary, they have added scope patch watch for anticholinergic effects Repeat MRI No relief in nausea after BM Increase bowel regimen to Senna S 2 tabs BID Improved after steroids Status: Acute Priority: High Code(s): R11.2 - NAUSEA WITH VOMITING, UNSPECIFIED SNOMED Code(s): 101559517 Plan: Start dexamethsone 4 q8 until MRI is resulted Physician Attest: I have completed the full history and physical and developed the above impression and plan, agree with dictation, dictated as a scribe.
== END 2022-02-24 10:54 | disposition home health service (06) | DRG 391 ==
LOC: EC 20:48 → 5NMEDONC 02-20 01:15 → OBSVTOIN 02-22 09:28
PROVIDERS: ADMIT Internal Medicine; ATTEND Internal Medicine
DX: R11.2 Nausea with vomiting, unspecified (principal); G92.8 Other toxic encephalopathy; C71.9 Malignant neoplasm of brain, unspecified; I16.1 Hypertensive emergency; I10 Essential (primary) hypertension; K21.9 Gastro-esophageal reflux disease without esophagitis; K57.30 Diverticulosis of large intestine without perforation or abscess without bleeding; K59.00 Constipation, unspecified; R51.9 Headache, unspecified; E87.6 Hypokalemia; T40.2X5A Adverse effect of other opioids, initial encounter; T38.0X5A Adverse effect of glucocorticoids and synthetic analogues, initial encounter; T42.4X5A Adverse effect of benzodiazepines, initial encounter; I25.10 Atherosclerotic heart disease of native coronary artery without angina pectoris; R10.9 Unspecified abdominal pain; Z95.5 Presence of coronary angioplasty implant and graft; Z90.710 Acquired absence of both cervix and uterus; Z87.11 Personal history of peptic ulcer disease; Z85.820 Personal history of malignant melanoma of skin; Z90.89 Acquired absence of other organs; Z98.890 Other specified postprocedural states; Z86.718 Personal history of other venous thrombosis and embolism; Z90.49 Acquired absence of other specified parts of digestive tract; Z98.84 Bariatric surgery status; I25.2 Old myocardial infarction; Z87.19 Personal history of other diseases of the digestive system; Z79.899 Other long term (current) drug therapy; Z79.82 Long term (current) use of aspirin; Z88.6 Allergy status to analgesic agent; Z83.3 Family history of diabetes mellitus; Z80.1 Family history of malignant neoplasm of trachea, bronchus and lung; Z82.49 Family history of ischemic heart disease and other diseases of the circulatory system; Z80.8 Family history of malignant neoplasm of other organs or systems
CPT/HCPCS: 36415; 70553; 74018; 74176; 80053; 81001; 82150; 83605; 83690; 83735; 84132; 85025; 85610; 85730; 96361; 96374; 96375; 99285

== ENCOUNTER 2022-05-10 20:46 | Emergency (ER) | payer MEDICARE ==
[2022-05-10] MEDS ORDERED: SODIUM CHLORIDE 0.9% 500 ML 500 ML IV STA (20:52)
[2022-05-10] MEDS ORDERED: HYDROmorphone 0.5 MG/0.5 ML SYRINGE IVP STA (20:53)
[2022-05-10 21:07] LABS: Basophils % (A) 1 %; Eosinophils % (A) 0 %; HCT 36.3 % (34.0-46.0); HGB 12.2 gm/dL (11.4-16.0); Lymphocytes # (A) 0.8 k/uL (1.0-4.8); Lymphocytes % (A) 10 %; MCH 33.2 pg (25.0-35.0); MCHC 33.6 g/dL (31.0-37.0); MCV 98.9 fL (80.0-100.0); Monocytes # (A) 0.4 k/uL (0-1.0); Monocytes % (A) 6 %; Neutrophils # (A) 6.5 k/uL (1.3-7.7); Neutrophils % (A) 82 %; Platelet Count 149 k/uL (150-450); RBC 3.67 m/uL (3.80-5.40); RDW 12.7 % (11.5-15.5)
[2022-05-10 21:16] VITALS: TEMP 98.9
--- NOTE | 2022-05-10 21:17 | CT ---
EXAMINATION TYPE: CT brain wo con for TPA DATE OF EXAM: 05/10/2022 COMPARISON: 07/21/2020 HISTORY: stroke like symptoms CT DLP: 1470.3 mGycm Automated exposure control for dose reduction was used. There is some hypodensity in the right parietal lobe white matter in the area of previous craniotomy. There is no midline shift. No mass effect. No evidence of intracranial hemorrhage. The skull base is intact. IMPRESSION: Previous surgery with some white matter hypodensity right posterior parietal lobe which is consistent with postsurgical encephalomalacia. There is no evidence of intracranial hemorrhage. There is appare nt excision of the mass at the right posterior parietal convexity compared to the exam.
[2022-05-10 21:20] LABS: ALT 16 U/L (4-34); AST 25 U/L (14-36); African American GFR (CKD) >90 (>60 ml/min/1.73 sqM); Albumin 3.7 g/dL (3.5-5.0); Alkaline Phosphatase 125 U/L (38-126); Anion Gap 7 mmol/L; Blood Urea Nitrogen 12 mg/dL (7-17); Calcium 8.8 mg/dL (8.4-10.2); Carbon Dioxide 23 mmol/L (22-30); Chloride 103 mmol/L (98-107); Glucose 116 mg/dL (74-99); Non-African American GFR(CKD) >90 (>60 ml/min/1.73 sqM); Potassium 3.5 mmol/L (3.5-5.1); Sodium 133 mmol/L (137-145); Total Bilirubin 0.3 mg/dL (0.2-1.3); Total Protein 6.2 g/dL (6.3-8.2)
--- NOTE | 2022-05-10 21:23 | ED ---
General Adult HPI - General Chief complaint: Neuro Symptoms/Deficit Stated complaint: Stroke Time Seen by Provider: 05/10/22 20:52 Source: patient, RN notes reviewed, old records reviewed Mode of arrival: EMS Limitations: no limitations - History of Present Illness Initial comments: 67-year-old female history of glioblastoma multiforme a status post resection and currently on chemotherapy presents for evaluation of headache and left-sided weakness. Patient has had headache for approximately 24 hours. She developed weakness this morning when she woke she presents for evaluation at approximately 9 PM. Initial history from paramedics indicated that she had a onset of weakness of 30 minutes however on further questioning the patient states that t his morning when she woke she was unable to stand on her left leg because of weakness and had weakness in her left upper extremity as well this morning. More than 12 hours prior to arrival. She states that she has been told by her team at [facility] that she has some weakness and was going through physical therapy. She's had vomiting associated with her headache throughout the day. - Related Data Home Medications Medication Instructions Recorded Confirmed Butalb/Asprin/Caff 50-325-40Mg 1 tab PO DAILY PRN 04/26/16 02/20/22 [Fiorinal 50-325-40 MG] Ascorbic Acid [Vitamin C] 500 mg PO W/SUPPER 07/24/17 02/20/22 Cholecalciferol [Vitamin D3 (25 1,000 unit PO DAILY 07/24/17 02/20/22 Mcg = 1000 Iu)] Ferrous Sulfate [Iron (65 MG 325 mg PO W/SUPPER 07/24/17 02/20/22 Elemental)] L.acidoph,Paracasei, B.lactis 1 cap PO W/SUPPER 07/24/17 02/20/22 [Probiotic] Aspirin EC [Ecotrin Low Dose] 81 mg PO HS 08/08/18 02/20/22 Britni Back & Body 1,000 mg PO Q6H PRN 08/08/18 02/20/22 Cyanocobalamin (Vitamin B-12) 1,000 mcg PO W/SUPPER 07/21/20 02/20/22 [Vitamin B-12] Magnesium Oxide [Mag-Ox] 400 mg PO DAILY 07/21/20 02/20/22 Omeprazole [PriLOSEC] 40 mg PO BID 07/21/20 02/20/22 Baclofen [Lioresal] 10 mg PO BID 02/20/22 02/20/22 Cyclobenzaprine [Flexeril] 5 mg PO DAILY 02/20/22 02/20/22 Docusate [Colace] 100 mg PO BID 02/20/22 02/20/22 Metoclopramide [Reglan] 10 mg PO TID 02/20/22 02/20/22 Multivitamins, Thera [Multivitamin 1 tab PO DAILY 02/20/22 02/20/22 (formulary)] Mupirocin 2% Oint [Bactroban 2% 1 applic TOPICAL DAILY 02/20/22 02/20/22 Oint] Potassium Chloride ER [K-Dur 10] 10 meq PO BID 02/20/22 02/20/22 Zinc 50 mg PO DAILY 02/20/22 02/20/22 ondansetron HCL [Zofran] 8 mg PO Q8H PRN 02/20/22 02/20/22 Previous Rx's Medication Instructions Recorded Atorvastatin [Lipitor] 40 mg PO DAILY #90 tab 07/28/17 Nitroglycerin Sl Tabs [Nitrostat] 0.4 mg SUBLINGUAL Q5M PRN #25 tab 07/28/17 Lactulose [Cephulac] 30 gm PO BID #1800 ml 02/24/22 Losartan [Cozaar] 100 mg PO DAILY #30 tab 02/24/22 Sennosides-Docusate Sodium 2 each PO BID tab 02/24/22 [Senokot-S] Verapamil Sr [Isoptin Sr] 240 mg PO BID tablet 02/24/22 dexAMETHasone [Decadron] 4 mg PO BID #15 tablet 02/24/22 hydrALAZINE HCL [Apresoline] 25 mg PO TID #90 tab 02/24/22 Allergies Allergy/AdvReac Type Severity Reaction Status Date / Time morphine Allergy hives Verified 02/20/22 11:25 Review of Systems ROS Statement: Those systems with pertinent positive or pertinent negative responses have been documented in the HPI. ROS Other: All systems not noted in ROS Statement are negative. Past Medical History Past Medical History: Cancer, GERD/Reflux, GI Bleed, Hypertension Additional Past Medical History / Comment(s): PUD, upper GI bleed, anemia, pyloric strictures with surgeries, melanoma stage I-mole on L neck with removal, hemorrhoids, 2017 had stress echo which suggestive of prior MD-had PCI with stent, chronic migraines, small cyst on liver, occasional bilateral tinnitis, recent L thigh muscle bruise-started on baclofen. History of Any Multi-Drug Resistant Organisms: None Reported Past Surgical History: Bowel Resection, Heart Catheterization With Stent, Hysterectomy, Tonsillectomy Additional Past Surgical History / Comment(s): Pyloric stricture with gastrojejunostomy/truncal vagotomy, Cynthia-en-y/gastrojejunostomy with lysis of adhesions d/t gastric outlet obstruction, EGDs, colonoscopies, melanoma removed from skin L neck. Past Anesthesia/Blood Transfusion Reactions: Postoperative Nausea & Vomiting (PONV) Additional Past Anesthesia/Blood Transfusion Reaction / Comment(s): Pt has received blood in past twice without reaction. Date of Last Stent Placement:: 07/27/17 Past Psychological History: No Psychological Hx Reported Smoking Status: Never smoker Past Alcohol Use History: None Reported Past Drug Use History: None Reported - Past Family History Mother Family Medical History: Cancer Additional Family Medical History / Comment(s): lung Daughter(s) Family Medical History: Cancer Additional Family Medical History / Comment(s): melanoma Father Family Medical History: Coronary Artery Disease (CAD), Diabetes Mellitus Additional Family Medical History / Comment(s): Father at 75 yrs post CABG sepsis. Brother(s) Family Medical History: Coronary Artery Disease (CAD) General Exam Limitations: no limitations General appearance: alert, in no apparent distress Head exam: Present: atraumatic, normocephalic Eye exam: Present: normal appearance, PERRL ENT exam: Present: normal exam Neck exam: Present: normal inspection. Absent: tenderness, meningismus Respiratory exam: Present: normal lung sounds bilaterally. Absent: respiratory distress, wheezes Cardiovascular Exam: Present: regular rate, normal rhythm GI/Abdominal exam: Present: soft. Absent: distended, tenderness, guarding Extremities exam: Present: normal inspection, normal capillary refill Neurological exam: Present: alert, oriented X3, motor sensory deficit (Left facial droop, left arm drift, left leg drift, NIH 4.). Absent: CN II-XII intact Psychiatric exam: Present: normal affect, normal mood Skin exam: Present: warm, dry, intact. Absent: cyanosis, diaphoretic Course Vital Signs 05/10/22 21:10 Temperature 98.9 F Pulse Rate 102 H Respiratory 16 Rate Blood Pressure 157/71 O2 Sat by Pulse 98 Oximetry EKG Findings - EKG Comments: EKG Findings:: EKG: Sinus tachycardia, rate of 101, MS interval 160, QRS duration 78, QTC [address] segment changes. Medical Decision Making - Medical Decision Making 67 -year-old female history of GBM, currently on chemotherapy presenting with headache, vomiting, worsening left-sided weakness. A history does indicate that the weakness had abruptly worsened this morning when she woke. Patient did present to the emergency department as a code stroke. She receives CT and CT angiography in the emergency department. CT without contrast showing encephalomalacia without cranial hemorrhage. CT angiography negative for vessel occlusion or stenosis. I feel this is likely related to progression of her GBM. Laboratory studies are obtained and are stable, normal CBC, normal patrice ctrolytes. Patient receives Toradol and Reglan for headache as well as 10 mg of Decadron in the emergency department. Her care is probably through [facility]. I discussed case with Dr. Hernández who will accept patient for transfer. - Lab Data Result diagrams: 05/10/22 20:56 05/10/22 20:56 Lab Results 05/10/22 05/10/22 05/10/22 Range/Units 20:56 20:56 20:56 WBC 8.0 (3.8-10.6) k/uL RBC 3.67 L (3.80-5.40) m/uL Hgb 12.2 (11.4-16.0) gm/dL Hct 36.3 (34.0-46.0) % MCV 98.9 (80.0-100.0) fL MCH 33.2 (25.0-35.0) pg MCHC 33.6 (31.0-37.0) g/dL RDW 12.7 (11.5-15.5) % Plt Count 149 L (150-450) k/uL MPV 7.0 Neutrophils % 82 % Lymphocytes % 10 % Monocytes % 6 % Eosinophils % 0 % Basophils % 1 % Neutrophils # 6.5 (1.3-7.7) k/uL Lymphocytes # 0.8 L (1.0-4.8) k/uL Monocytes # 0.4 (0-1.0) k/uL Eosinophils # 0.0 (0-0.7) k/uL Basophils # 0.0 (0-0.2) k/uL PT 10.2 (9.0-12.0) sec INR 0.9 (<1.2) APTT 21.0 L (22.0-30.0) sec Sodium 133 L (137-145) mmol/L Potassium 3.5 (3.5-5.1) mmol/L Chloride 103 (98-107) mmol/L Carbon Dioxide 23 (22-30) mmol/L Anion Gap 7 mmol/L BUN 12 (7-17) mg/dL Creatinine 0.62 (0.52-1.04) mg/dL Est GFR (CKD-EPI)AfAm >90 (>60 ml/min/1.73 sqM) Est GFR (CKD-EPI)NonAf >90 (>60 ml/min/1.73 sqM) Glucose 116 H (74-99) mg/dL Calcium 8.8 (8.4-10.2) mg/dL Total Bilirubin 0.3 (0.2-1.3) mg/dL AST 25 (14-36) U/L ALT 16 (4-34) U/L Alkaline Phosphatase 125 (38-126) U/L Troponin I (0.000-0.034) ng/mL Total Protein 6.2 L (6.3-8.2) g/dL Albumin 3.7 (3.5-5.0) g/dL 05/10/22 Range/Units 20:56 WBC (3.8-10.6) k/uL RBC (3.80-5.40) m/uL Hgb (11.4-16.0) gm/dL Hct (34.0-46.0) % MCV (80.0-100.0) fL MCH (25.0-35.0) pg MCHC (31.0-37.0) g/dL RDW (11.5-15.5) % Plt Count (150-450) k/uL MPV Neutrophils % % Lymphocytes % % Monocytes % % Eosinophils % % Basophils % % Neutrophils # (1.3-7.7) k/uL Lymphocytes # (1.0-4.8) k/uL Monocytes # (0-1.0) k/uL Eosinophils # (0-0.7) k/uL Basophils # (0-0.2) k/uL PT (9.0-12.0) sec INR (<1.2) APTT (22.0-30.0) sec Sodium (137-145) mmol/L Potassium (3.5-5.1) mmol/L Chloride (98-107) mmol/L Carbon Dioxide (22-30) mmol/L Anion Gap mmol/L BUN (7-17) mg/dL Creatinine (0.52-1.04) mg/dL Est GFR (CKD-EPI)AfAm (>60 ml/min/1.73 sqM) Est GFR (CKD-EPI)NonAf (>60 ml/min/1.73 sqM) Glucose (74-99) mg/dL Calcium (8.4-10.2) mg/dL Total Bilirubin (0.2-1.3) mg/dL AST (14-36) U/L ALT (4-34) U/L Alkaline Phosphatase (38-126) U/L Troponin I <0.012 (0.000-0.034) ng/mL Total Protein (6.3-8.2) g/dL Albumin (3.5-5.0) g/dL Disposition Clinical Impression: Glioblastoma, Intractable nausea and vomiting, Left-sided weakness Disposition: OTHER INSTITUTION NOT DEFINED Condition: Stable Is patient prescribed a controlled substance at d/c from ED?: No Referrals: Valeriano Khan MD [Primary Care Provider] - 1-2 days Time of Disposition: 21:57 - Out of Hospital Transfer - Req. Specs Out of Hospital Transfer - Requested Specifics: Other Emergency Center ([facility])
[2022-05-10] MEDS ORDERED: KETOROLAC 15 MG/ML 1 ML VIAL IVP STA (21:25)
[2022-05-10] MEDS ORDERED: METOCLOPRAMIDE 5 MG/ML 2 ML VIAL IVP STA (21:25)
[2022-05-10 21:28] LABS: INR 0.9 (<1.2); Prothrombin Time 10.2 sec (9.0-12.0)
[2022-05-10] MEDS ORDERED: DEXAMETHASONE SOD PHOSPHATE 10 MG/ML 1 ML VIAL IV STA (21:44)
--- NOTE | 2022-05-10 21:51 | CT ---
EXAMINATION TYPE: CT angio head neck DATE OF EXAM: 05/10/2022 COMPARISON: None HISTORY: stroke like symptoms CT DLP: 1470.3 mGycm Automated exposure control for dose reduction was used. CONTRAST: Performed with IV Contrast, patient injected with 65 mL of Isovue 370. Images obtained from the aortic arch to the vertex of the brain with the IV contrast. There are Three -D postprocessed images. There is normal branching pattern of the great vessels on the aortic arch. There is arterial flow in both subclavian arteries. There is arterial flow in the common internal and external carotid arteries bilaterally. There is wide patency of the carotid artery bifurcations. There is arterial flow in bot h vertebral arteries. No evidence of carotid or vertebral artery aneurysm or dissection. No evidence of stenosis. There is arterial flow in both distal internal carotid arteries. There is arterial flow in the verteb robasilar artery system. There is arterial flow in the anterior middle and posterior cerebral arterie s bilaterally. No mass effect. No evidence of intracranial aneurysm or neovascularity. There is tommy l enhancement of the venous sinuses. No evidence of intracranial hemodynamic arterial stenosis. There is right posterior parietal craniotomy defect noted. IMPRESSION: Negative CT angiogram of the neck. Negative CT angiogram of the brain. No angiographic abnormality id entified in the area of hypodensity in the right posterior parietal lobe.
[2022-05-10 22:03] VITALS: BP 159/80; PULSE 98; RESP 8
== END 2022-05-10 22:37 | disposition other institution (70) ==
LOC: EC 20:46
DX: C71.9 Malignant neoplasm of brain, unspecified (principal); R11.2 Nausea with vomiting, unspecified; R53.1 Weakness; I10 Essential (primary) hypertension; K21.9 Gastro-esophageal reflux disease without esophagitis; Z79.82 Long term (current) use of aspirin; Z79.899 Other long term (current) drug therapy
CPT/HCPCS: 36415; 93005; 80053; 84484; 85025; 85610; 85730; 87635; 70496; 70450; 70498; 99285; 96374; 96375 ×2; J1100; J2765; J1885; Q9967

== ENCOUNTER 2022-07-26 09:23 | Inpatient (IN) | payer MEDICARE ==
[2022-07-26] MEDS ORDERED: METOCLOPRAMIDE 5 MG/ML 2 ML VIAL IVP STA (11:51)
[2022-07-26] MEDS ORDERED: KETOROLAC 15 MG/ML 1 ML VIAL IVP STA ×2 (11:51→16:31)
[2022-07-26] MEDS ORDERED: SODIUM CHLORIDE 0.9% 1,000 ML IV STA (11:51)
[2022-07-26] MEDS ORDERED: diphenhydrAMINE 50 MG/ML 1 ML VIAL IVP STA ×2 (11:51→20:50)
[2022-07-26] MEDS ORDERED: DEXAMETHASONE SOD PHOSPHATE 10 MG/ML 1 ML VIAL IVP STA (11:52)
--- NOTE | 2022-07-26 11:53 | ED ---
Abdominal Pain HPI <Omega Goldberg - Last Filed: 07/26/22 18:32> - General Source: patient Mode of arrival: ambulatory Limitations: no limitations <Joy Gamez - Last Filed: 08/01/22 21:47> - General Chief Complaint: Abdominal Pain Stated Complaint: abd pain Time Seen by Provider: 07/26/22 10:55 - History of Present Illness Initial Comments: 67-year-old female with past history of glioblastoma, pyloric stricture who presents to emergency room for abdominal pain. States she was seen at [facility] yesterday for headache and abdominal pain. She states that the visit was concentrated on her headache as she does have history of glioblastoma. She received pain medications and had a CT of her head performed. She states they did not address her abdominal pain. Patient presents today stating that she has generalized abdominal pain with nausea and dry heaving. Unable to hold down anything to eat. Denies hematemesis. No diarrhea, constipation, black or bloody stools. No issues with her urination. No fevers. Denies chest pain. No other alleviating, precipitating or modifying factors (Joy Gamez) - Related Data Home Medications Medication Instructions Recorded Confirmed Butalb/Asprin/Caff 50-325-40Mg 1 - 2 tab PO TID PRN 04/26/16 07/26/22 [Fiorinal 50-325-40 MG] Aspirin EC [Ecotrin Low Dose] 81 mg PO DAILY 08/08/18 07/26/22 Omeprazole [PriLOSEC] 40 mg PO BID 07/21/20 07/26/22 Docusate [Colace] 100 mg PO BID 02/20/22 07/26/22 Metoclopramide [Reglan] 10 mg PO TID PRN 02/20/22 07/26/22 Potassium Chloride ER [K-Dur 10] 10 meq PO DAILY 02/20/22 07/26/22 ondansetron HCL [Zofran] 8 mg PO Q8H PRN 02/20/22 07/26/22 Losartan Potassium 100 mg PO DAILY 05/10/22 07/26/22 Butalb/Acetaminophen/Caffeine 1 - 2 tab PO TID PRN 07/26/22 07/26/22 [Fioricet 50-325-40] Isosorbide Mononitrate ER [Imdur] 30 mg PO DAILY 07/26/22 07/26/22 hydrALAZINE HCL [Apresoline] 25 mg PO TID PRN 07/26/22 07/26/22 levETIRAcetam [Keppra] 750 mg PO BID 07/26/22 07/26/22 Previous Rx's Medication Instructions Recorded Atorvastatin [Lipitor] 40 mg PO DAILY #90 tab 07/28/17 Nitroglycerin Sl Tabs [Nitrostat] 0.4 mg SUBLINGUAL Q5M PRN #25 tab 07/28/17 HYDROcodone/APAP 5-325MG [[place] 1 tab PO Q6HR PRN 3 Days #12 tab 07/29/22 5-325] Levofloxacin [Levaquin] 500 mg PO DAILY 10 Days #10 tab 07/29/22 Metoprolol Succinate (ER) [Toprol 25 mg PO BID #60 tab 07/29/22 XL] Allergies Allergy/AdvReac Type Severity Reaction Status Date / Time morphine Allergy hives Verified 07/26/22 12:45 Review of Systems ROS Other: All systems not noted in ROS Statement are negative. <Omega Goldberg - Last Filed: 07/26/22 18:32> ROS Other: All systems not noted in ROS Statement are negative. <Joy Gamez - Last Filed: 08/01/22 21:47> ROS Statement: Those systems with pertinent positive or pertinent negative responses have been documented in the HPI. Past Medical History Past Medical History: Cancer, GERD/Reflux, GI Bleed, Hypertension Additional Past Medical History / Comment(s): PUD, upper GI bleed, anemia, pyloric strictures with surgeries, melanoma stage I-mole on L neck with removal, hemorrhoids, 2017 had stress echo which suggestive of prior SD-had PCI with stent, chronic migraines, small cyst on liver, occasional bilateral tinnitis, recent L thigh muscle bruise-started on baclofen. TIA 2021 History of Any Multi-Drug Resistant Organisms: None Reported Past Surgical History: Bowel Resection, Heart Catheterization With Stent, Hysterectomy, Tonsillectomy Additional Past Surgical History / Comment(s): Pyloric stricture with gastrojejunostomy/truncal vagotomy, Cynthia-en-y/gastrojejunostomy with lysis of adhesions d/t gastric outlet obstruction, EGDs, colonoscopies, melanoma removed from skin L neck. Past Anesthesia/Blood Transfusion Reactions: Postoperative Nausea & Vomiting (PONV) Additional Past Anesthesia/Blood Transfusion Reaction / Comment(s): Pt has received blood in past twice without reaction. Date of Last Stent Placement:: 07/27/17 Past Psychological History: No Psychological Hx Reported Smoking Status: Never smoker Past Alcohol Use History: None Reported Past Drug Use History: None Reported - Past Family History Mother Family Medical History: Cancer Additional Family Medical History / Comment(s): lung Daughter(s) Family Medical History: Cancer Additional Family Medical History / Comment(s): melanoma Father Family Medical History: Coronary Artery Disease (CAD), Diabetes Mellitus Additional Family Medical History / Comment(s): Father at 75 yrs post CABG sepsis. Brother(s) Family Medical History: Coronary Artery Disease (CAD) <Joy Gamez - Last Filed: 08/01/22 21:47> General Exam Limitations: no limitations General appearance: alert, in no apparent distress Head exam: Present: atraumatic, normocephalic, normal inspection Eye exam: Present: normal appearance, PERRL, EOMI. Absent: scleral icterus, conjunctival injection, periorbital swelling ENT exam: Present: normal exam, mucous membranes moist Neck exam: Present: normal inspection. Absent: tenderness, meningismus, lymphadenopathy Respiratory exam: Present: normal lung sounds bilaterally. Absent: respiratory distress, wheezes, rales, rhonchi, stridor Cardiovascular Exam: Present: regular rate, normal rhythm, normal heart sounds. Absent: systolic murmur, diastolic murmur, rubs, gallop, clicks GI/Abdominal exam: Present: soft, tenderness (Generalized), normal bowel sounds. Absent: distended, guarding, rebound, rigid Extremities exam: Present: normal inspection, full ROM, normal capillary refill. Absent: tenderness, pedal edema, joint swelling, calf tenderness Back exam: Present: normal inspection Neurological exam: Present: alert, oriented X3, CN II-XII intact Psychiatric exam: Present: normal affect, normal mood Skin exam: Present: warm, dry, intact, normal color. Absent: rash <Joy Gamez - Last Filed: 08/01/22 21:47> Course Vital Signs 07/26/22 07/26/22 07/26/22 09:35 15:25 15:51 Temperature 98.1 F Pulse Rate 82 89 Respiratory 20 18 18 Rate Blood Pressure 163/93 188/98 O2 Sat by Pulse 97 95 Oximetry 07/26/22 07/26/22 07/26/22 18:08 19:59 20:42 Temperature Pulse Rate 95 95 94 Respiratory 18 18 Rate Blood Pressure 187/90 195/93 201/96 O2 Sat by Pulse 95 Oximetry 07/26/22 07/26/22 07/26/22 21:01 21:58 22:10 Temperature Pulse Rate 103 H 101 H Respiratory 18 Rate Blood Pressure 177/98 208/102 194/96 O2 Sat by Pulse 98 Oximetry Medical Decision Making - Lab Data Result diagrams: 07/26/22 12:15 07/26/22 12:15 <Omega Goldberg - Last Filed: 07/26/22 18:32> - Lab Data Result diagrams: 07/29/22 06:38 07/29/22 06:38 <Joy Gamez - Last Filed: 08/01/22 21:47> - Medical Decision Making Patient was signed out to me pending results of right upper quadrant ultrasound. CT imaging revealed findings concerning for acute cholecystitis, with an enlarged gallbladder but no other symptoms. Laboratory studies are remarkable over concern for possible UTI. I see pain is in the right upper quadrant. Remainder of the labs including LFTs, bilirubin are within normal limits. Alk phos is mildly elevated at 142 with a history of brain cancer. Patient presents after multiple days of right upper quadrant abdominal pain with nausea and vomiting and intolerance of oral intake. Right upper quadrant ultrasound revealed findings concerning for acute cholecystitis with positive sonographic Reagan sign as well as enlarged dilated gallbladder. No stones are seen or pericholecystic fluid. Symptomatically and clinically, she is presenting is cholecystitis. I updated the patient after we received the results. She has continued pain as well as mild nausea. Will be administered IV analgesia as well as antiemetics. I spoke with our on-call surgeon, Dr. Simpson who accepted the patient under h is service. Patient was made nothing by mouth at his request, started on IV fluids, and started on IV Zosyn. He recommended that I consult her PCP for medication and medical management. I spoke with Dr. Painter. was also in agreement with plan. Patient was therefore admitted in stable condition. (Omega Goldberg) Upon arrival patient is placed into room 17. Thorough history and physical exam is performed. IV access is established and laboratory studies are conducted. Patient was given antinausea medications, pain medications. Urinalysis does demonstrate moderate bacteria. CT is performed which demonstrates possible cholecystitis. Recommended ultrasound. Ultrasound is pending at this time. Patient will be signed out to Dr. Goldberg for disposition (Joy Gamez) - Lab Data Lab Results 07/26/22 07/26/22 07/26/22 Range/Units 12:15 12:15 12:15 WBC 7.1 (3.8-10.6) k/uL RBC 4.52 (3.80-5.40) m/uL Hgb 14.1 (11.4-16.0) gm/dL Hct 44.4 (34.0-46.0) % MCV 98.1 (80.0-100.0) fL MCH 31.1 (25.0-35.0) pg MCHC 31.7 (31.0-37.0) g/dL RDW 13.3 (11.5-15.5) % Plt Count 176 (150-450) k/uL MPV 7.0 Immature Gran % (Auto) % Absolute Nucleated RBC (0.00-0.00) X 10*3/uL Neutrophils % 78 % Lymphocytes % 12 % Monocytes % 6 % Eosinophils % 1 % Basophils % 1 % Immature Gran # (0.00-0.04) X 10*3/uL Neutrophils # 5.5 (1.3-7.7) k/uL Lymphocytes # 0.9 L (1.0-4.8) k/uL Monocytes # 0.4 (0-1.0) k/uL Eosinophils # 0.1 (0-0.7) k/uL Basophils # 0.0 (0-0.2) k/uL NRBC/100 WBC Diff (0.0-0.0) /100 WBCS Sodium 136 L (137-145) mmol/L Potassium 3.8 (3.5-5.1) mmol/L Chloride 101 (98-107) mmol/L Carbon Dioxide 26 (22-30) mmol/L Anion Gap 9 mmol/L BUN 9 (7-17) mg/dL Creatinine 0.50 L (0.52-1.04) mg/dL Est GFR (CKD-EPI)AfAm >90 (>60 ml/min/1.73 sqM) Est GFR (CKD-EPI)NonAf >90 (>60 ml/min/1.73 sqM) BUN/Creatinine Ratio (12.00-20.00) Ratio Glucose 117 H (74-99) mg/dL Plasma Lactic Acid Dariel (0.7-2.0) mmol/L Calcium 9.2 (8.4-10.2) mg/dL Total Bilirubin 0.6 (0.2-1.3) mg/dL AST 38 H (14-36) U/L ALT 22 (4-34) U/L Alkaline Phosphatase 142 H (38-126) U/L Troponin I (0.000-0.034) ng/mL Total Protein 6.7 (6.3-8.2) g/dL Albumin 4.2 (3.5-5.0) g/dL Lipase 86 (23-300) U/L Urine Color Yellow Urine Appearance Cloudy H (Clear) Urine pH 7.5 (5.0-8.0) Ur Specific Herod 1.012 (1.001-1.035) Urine Protein Trace H (Negative) Urine Glucose (UA) Negative (Negative) Urine Ketones 1+ H (Negative) Urine Blood Negative (Negative) Urine Nitrite Negative (Negative) Urine Bilirubin Negative (Negative) Urine Urobilinogen <2.0 (<2.0) mg/dL Ur Leukocyte Esterase Negative (Negative) Urine RBC 5 (0-5) /hpf Urine WBC 1 (0-5) /hpf Ur Squamous Epith Cells <1 (0-4) /hpf Urine Bacteria Moderate H (None) /hpf Urine Mucus Rare H (None) /hpf 07/26/22 07/26/22 07/27/22 Range/Units 12:15 12:15 05:24 WBC 8.70 (3.8-10.6) k/uL RBC 4.14 (3.80-5.40) m/uL Hgb 12.9 (11.4-16.0) gm/dL Hct 38.8 (34.0-46.0) % MCV 93.7 (80.0-100.0) fL MCH 31.2 (25.0-35.0) pg MCHC 33.2 (31.0-37.0) g/dL RDW 13.3 (11.5-15.5) % Plt Count 169 (150-450) k/uL MPV 9.0 L Immature Gran % (Auto) 0.7 % Absolute Nucleated RBC 0 (0.00-0.00) X 10*3/uL Neutrophils % 82.9 % Lymphocytes % 7.5 % Monocytes % 8.6 % Eosinophils % 0 % Basophils % 0.3 % Immature Gran # 0.06 H (0.00-0.04) X 10*3/uL Neutrophils # 7.21 (1.3-7.7) k/uL Lymphocytes # 0.65 L (1.0-4.8) k/uL Monocytes # 0.75 (0-1.0) k/uL Eosinophils # 0 L (0-0.7) k/uL Basophils # 0.03 (0-0.2) k/uL NRBC/100 WBC Diff 0 (0.0-0.0) /100 WBCS Sodium (137-145) mmol/L Potassium (3.5-5.1) mmol/L Chloride (98-107) mmol/L Carbon Dioxide (22-30) mmol/L Anion Gap mmol/L BUN (7-17) mg/dL Creatinine (0.52-1.04) mg/dL Est GFR (CKD-EPI)AfAm (>60 ml/min/1.73 sqM) Est GFR (CKD-EPI)NonAf (>60 ml/min/1.73 sqM) BUN/Creatinine Ratio (12.00-20.00) Ratio Glucose (74-99) mg/dL Plasma Lactic Acid Dariel 1.0 (0.7-2.0) mmol/L Calcium (8.4-10.2) mg/dL Total Bilirubin (0.2-1.3) mg/dL AST (14-36) U/L ALT (4-34) U/L Alkaline Phosphatase (38-126) U/L Troponin I <0.012 (0.000-0.034) ng/mL Total Protein (6.3-8.2) g/dL Albumin (3.5-5.0) g/dL Lipase (23-300) U/L Urine Color Urine Appearance (Clear) Urine pH (5.0-8.0) Ur Specific Herod (1.001-1.035) Urine Protein (Negative) Urine Glucose (UA) (Negative) Urine Ketones (Negative) Urine Blood (Negative) Urine Nitrite (Negative) Urine Bilirubin (Negative) Urine Urobilinogen (<2.0) mg/dL Ur Leukocyte Esterase (Negative) Urine RBC (0-5) /hpf Urine WBC (0-5) /hpf Ur Squamous Epith Cells (0-4) /hpf Urine Bacteria (None) /hpf Urine Mucus (None) /hpf 07/27/22 Range/Units 05:24 WBC (3.8-10.6) k/uL RBC (3.80-5.40) m/uL Hgb (11.4-16.0) gm/dL Hct (34.0-46.0) % MCV (80.0-100.0) fL MCH (25.0-35.0) pg MCHC (31.0-37.0) g/dL RDW (11.5-15.5) % Plt Count (150-450) k/uL MPV Immature Gran % (Auto) % Absolute Nucleated RBC (0.00-0.00) X 10*3/uL Neutrophils % % Lymphocytes % % Monocytes % % Eosinophils % % Basophils % % Immature Gran # (0.00-0.04) X 10*3/uL Neutrophils # (1.3-7.7) k/uL Lymphocytes # (1.0-4.8) k/uL Monocytes # (0-1.0) k/uL Eosinophils # (0-0.7) k/uL Basophils # (0-0.2) k/uL NRBC/100 WBC Diff (0.0-0.0) /100 WBCS Sodium 134 L (137-145) mmol/L Potassium 3.2 L (3.5-5.1) mmol/L Chloride 97 (98-107) mmol/L Carbon Dioxide 23.6 (22-30) mmol/L Anion Gap 13.40 mmol/L BUN 10.3 (7-17) mg/dL Creatinine 0.6 (0.52-1.04) mg/dL Est GFR (CKD-EPI)AfAm 108.5 (>60 ml/min/1.73 sqM) Est GFR (CKD-EPI)NonAf 93.7 (>60 ml/min/1.73 sqM) BUN/Creatinine Ratio 17.17 (12.00-20.00) Ratio Glucose 125 H (74-99) mg/dL Plasma Lactic Acid Dariel (0.7-2.0) mmol/L Calcium 8.9 (8.4-10.2) mg/dL Total Bilirubin (0.2-1.3) mg/dL AST (14-36) U/L ALT (4-34) U/L Alkaline Phosphatase (38-126) U/L Troponin I (0.000-0.034) ng/mL Total Protein (6.3-8.2) g/dL Albumin (3.5-5.0) g/dL Lipase (23-300) U/L Urine Color Urine Appearance (Clear) Urine pH (5.0-8.0) Ur Specific Herod (1.001-1.035) Urine Protein (Negative) Urine Glucose (UA) (Negative) Urine Ketones (Negative) Urine Blood (Negative) Urine Nitrite (Negative) Urine Bilirubin (Negative) Urine Urobilinogen (<2.0) mg/dL Ur Leukocyte Esterase (Negative) Urine RBC (0-5) /hpf Urine WBC (0-5) /hpf Ur Squamous Epith Cells (0-4) /hpf Urine Bacteria (None) /hpf Urine Mucus (None) /hpf - EKG Data EKG Comments: EKG demonstrates sinus rhythm with a rate of 95. MI interval of 156. QRS 73. QTC 34. No acute ST segment elevations. Minimal ST depression in 2, 3, aVF (Joy Gamez) Disposition Time of Disposition: 16:20 <Omega Goldberg - Last Filed: 07/26/22 18:32> <Joy Gamez - Last Filed: 08/01/22 21:47> Clinical Impression: Abdominal pain Narrative: concern for cholecystitis (Omega Goldberg) Disposition: ADMITTED IP TO THIS [facility] Condition: Stable
[2022-07-26 12:31] LABS: Basophils % (A) 1 %; Eosinophils # (A) 0.1 k/uL (0-0.7); Eosinophils % (A) 1 %; HCT 44.4 % (34.0-46.0); HGB 14.1 gm/dL (11.4-16.0); Lymphocytes # (A) 0.9 k/uL (1.0-4.8); Lymphocytes % (A) 12 %; MCH 31.1 pg (25.0-35.0); MCHC 31.7 g/dL (31.0-37.0); MCV 98.1 fL (80.0-100.0); Monocytes # (A) 0.4 k/uL (0-1.0); Monocytes % (A) 6 %; Neutrophils # (A) 5.5 k/uL (1.3-7.7); Neutrophils % (A) 78 %; Platelet Count 176 k/uL (150-450); RBC 4.52 m/uL (3.80-5.40); RDW 13.3 % (11.5-15.5); WBC 7.1 k/uL (3.8-10.6)
[2022-07-26 12:37] LABS: Appearance,Urine Cloudy (Clear); Bacteria,Urine Moderate /hpf; Bilirubin,Urine Negative (Negative); Blood,Urine Negative (Negative); Color,Urine Yellow; Glucose,Urine (UA) Negative (Negative); Ketones,Urine 1+ (Negative); Leukocyte Esterase,Urine Negative (Negative); Mucus,Urine Rare /hpf; Nitrite,Urine Negative (Negative); PH, Urine 7.5 (5.0-8.0); Protein,Urine Trace (Negative); RBC,Urine 5 /hpf (0-5); Specific Gravity,Urine 1.012 (1.001-1.035); Squamous Epithelial Cell,Urine <1 /hpf (0-4); Urobilinogen,Urine <2.0 mg/dL (<2.0); WBC,Urine 1 /hpf (0-5)
[2022-07-26 12:45] LABS: ALT 22 U/L (4-34); African American GFR (CKD) >90 (>60 ml/min/1.73 sqM); Albumin 4.2 g/dL (3.5-5.0); Anion Gap 9 mmol/L; Blood Urea Nitrogen 9 mg/dL (7-17); Calcium 9.2 mg/dL (8.4-10.2); Carbon Dioxide 26 mmol/L (22-30); Chloride 101 mmol/L (98-107); Glucose 117 mg/dL (74-99); Lipase 86 U/L (23-300); Non-African American GFR(CKD) >90 (>60 ml/min/1.73 sqM); Sodium 136 mmol/L (137-145); Total Bilirubin 0.6 mg/dL (0.2-1.3); Total Protein 6.7 g/dL (6.3-8.2)
[2022-07-26 12:54] LABS: AST 38 U/L (14-36); Potassium 3.8 mmol/L (3.5-5.1)
[2022-07-26 12:55] LABS: Alkaline Phosphatase 142 U/L (38-126)
--- NOTE | 2022-07-26 14:05 | CT ---
EXAMINATION TYPE: CT abdomen pelvis w con CT DLP: 633.5 mGycm, Automated exposure control for dose reduction was used. DATE OF EXAM: 07/26/2022 1:53 PM COMPARISON: CT abdomen pelvis most recent from 02/19/2022 . CLINICAL INDICATION:Female, 67 years old with history of abdominal pain; Headache, nausea, vomiting. Abd pain TECHNIQUE: Standard CT of the abdomen and pelvis following the administration of 100 cc of Isovue 3 00 IV contrast material. Coronal and sagittal reformats were performed. FINDINGS: LOWER CHEST: Posterior dependent subsegmental atelectasis is noted. Coronary artery calcifications. M itral annulus calcifications. ABDOMEN LIVER: Unremarkable GALLBLADDER AND BILE DUCTS: Distended gallbladder without evidence of wall thickening or pericholecys tic fluid. No stranding inflammatory changes. Stable mildly dilated common bile duct measuring up to 9 mm. PANCREAS: Unremarkable. SPLEEN: Unremarkable. ADRENAL GLANDS: Unremarkable. KIDNEYS AND URETERS: No evidence of hydronephrosis or renal calculus. No ureteral calculi. Stable lef t renal cyst. The kidneys enhance symmetrically. No perinephric fluid collections or fat stranding. PELVIS BLADDER: Unremarkable REPRODUCTIVE: The uterus is surgically absent. ABDOMEN & PELVIS STOMACH AND BOWEL: Postsurgical changes of the stomach. Scattered colonic diverticula without evidenc e for acute diverticulitis. Anastomosis is demonstrated within the left upper quadrant. The appendix is within normal limits. No evidence of bowel obstruction. Multiple surgical clips at the GE junction . PERITONEUM: No evidence of pneumoperitoneum or free fluid. VASCULATURE: Mild atherosclerotic calcifications are present throughout the abdominal aorta and its b ranches. No evidence of aortic aneurysm. Pelvic phleboliths. MUSCULOSKELETAL: No acute osseous abnormalities. Degenerative changes visualized spine. LYMPH NODES: No gross evidence for lymphadenopathy. SOFT TISSUE/ABDOMINAL WALL: Unremarkable IMPRESSION: 1. Distended gallbladder without surrounding inflammatory changes. Clinical correlation for acute ch olecystitis is recommended with consideration for ultrasound. 2. Colonic diverticulosis without evidence for acute diverticulitis.
[2022-07-26] MEDS ORDERED: cefTRIAXone IN SWFI 1,000 MG/10 ML SYRINGE IVP STA (15:12)
--- NOTE | 2022-07-26 16:06 | US ---
EXAMINATION TYPE: US gallbladder DATE OF EXAM: 07/26/2022 COMPARISON: CT abdomen and pelvis 07/26/2022 CLINICAL HISTORY: cholecystitis. Right upper quadrant pain, nausea TECHNIQUE: Multiple sonographic images of the right upper quadrant are obtained. FINDINGS: EXAM MEASUREMENTS: Liver Length: 11.9 cm Gallbladder Wall: 0.17 cm CBD: 0.54 cm Right Kidney: 9.1 x 3.7 x 4.4 cm RN ORTHOPAEDICS NOTES: Limited by overlying bowel gas Pancreas: Tail obscured by overlying bowel gas Liver: wnl Gallbladder: Prominent at 8.0 cm length, but still within normal size range. No shadowing gallstones , wall thickening, or pericholecystic fluid. Evidence for sonographic Reagan's sign: Patient is very tender focally over the gallbladder CBD: wnl Right Kidney: wnl . No shadowing stones, hydronephrosis, contour deforming solid mass. IMPRESSION: Mildly distended gallbladder without shadowing gallstones, wall thickening, or pericholecystic fluid to suggest acute cholecystitis. However patient is focally tender over the gallbladder. If there is c ontinued clinical concern, consider nuclear medicine HIDA scan for further evaluation.
[2022-07-26] MEDS ORDERED: ONDANSETRON 4 MG/2 ML VIAL IVP STA (16:34)
[2022-07-26] MEDS ORDERED: NALOXONE 0.4 MG/ML 1 ML VIAL IV PRN (16:36)
[2022-07-26] MEDS ORDERED: hydrALAZINE HCL 25 MG TAB PO PRN (16:40)
[2022-07-26] MEDS: PIPERACILLIN-TAZOBACTAM 3.375 GM in SODIUM CHLORIDE 0.9% 100 ML IVPB SCH ×2 (16:44→23:21)
[2022-07-26] MEDS ORDERED: HYDROmorphone 0.5 MG/0.5 ML SYRINGE IVP PRN (18:05)
[2022-07-26] MEDS: fentaNYL (PF) 50 MCG/ML 2 ML AMP IVP PRN ×2 (18:13→19:41)
[2022-07-26] MEDS: PANTOPRAZOLE 40 MG TABLET PO SCH (18:17)
[2022-07-26] MEDS: SODIUM CHLORIDE 0.9% 1,000 ML IV SCH ×2 (18:17→23:22)
[2022-07-26] MEDS: DOCUSATE 100 MG CAP PO SCH (20:42)
[2022-07-26] MEDS ORDERED: HYDROmorphone 0.5 MG/0.5 ML SYRINGE IVP STA (20:49)
[2022-07-26] MEDS: ONDANSETRON 4 MG/2 ML VIAL IVP PRN (20:55)
[2022-07-26] MEDS: KETOROLAC 15 MG/ML 1 ML VIAL IVP PRN (21:58)
[2022-07-26] MEDS ORDERED: hydrALAZINE HCL 20 MG/ML 1 ML VIAL IVP STA (22:01)
[2022-07-26] MEDS: METOCLOPRAMIDE 10 MG TAB PO PRN (22:05)
[2022-07-26] MEDS: HYDROmorphone 1 MG/ML 1 ML SYRINGE IVP PRN (23:21)
[2022-07-27] MEDS: HYDROmorphone 1 MG/ML 1 ML SYRINGE IVP PRN ×5 (03:01→19:33)
[2022-07-27] MEDS ORDERED: METOPROLOL SUCCINATE (ER) 25 MG TAB.ER.24H PO SCH (03:30)
[2022-07-27] MEDS: ISOSORBIDE MONONITRATE ER 30 MG TAB.ER.24H PO SCH (04:06)
[2022-07-27] MEDS: LOSARTAN 50 MG TAB PO SCH (04:06)
[2022-07-27] MEDS: ONDANSETRON 4 MG/2 ML VIAL IVP PRN ×2 (05:40→19:32)
[2022-07-27] MEDS: hydrALAZINE HCL 20 MG/ML 1 ML VIAL IVP PRN (09:09)
[2022-07-27] MEDS: PANTOPRAZOLE 40 MG TABLET PO SCH ×2 (09:09→18:18)
[2022-07-27 09:16] LABS: African American GFR (CKD) 108.5 (60.0-200.0); Anion Gap 13.4 mmol/L (10.00-18.00); BUN/Creat Ratio 17.17 Ratio (12.00-20.00); Blood Urea Nitrogen 10.3 mg/dL (9.0-27.0); Calcium 8.9 mg/dL (8.7-10.3); Carbon Dioxide 23.6 mmol/L (20.0-27.5); Non-African American GFR(CKD) 93.7 (60.0-200.0); Potassium 3.2 mmol/L (3.5-5.5)
[2022-07-27 09:17] LABS: Basophils # (A) 0.03 X 10*3/uL (0.00-0.10); Basophils % (A) 0.3 %; Eosinophils # (A) 0 X 10*3/uL (0.04-0.35); Eosinophils % (A) 0 %; HCT 38.8 % (37.2-46.3); HGB 12.9 g/dL (12.0-15.0); Immature Grans, Automated 0.7 %; Lymphocytes # (A) 0.65 X 10*3/uL (0.90-5.00); Lymphocytes % (A) 7.5 %; MCH 31.2 pg (27.0-32.0); MCHC 33.2 g/dL (32.0-37.0); MCV 93.7 fL (80.0-97.0); Monocytes # (A) 0.75 X 10*3/uL (0.20-1.00); Monocytes % (A) 8.6 %; NRBC Per 100 WBC 0 /100 WBCS (0.0-0.0); Neutrophils # (A) 7.21 X 10*3/uL (1.80-7.70); Neutrophils % (A) 82.9 %; Platelet Count 169 X 10*3/uL (140-440); RBC 4.14 X 10*6/uL (4.10-5.20); RDW 13.3 % (11.5-14.5)
[2022-07-27] MEDS: DOCUSATE 100 MG CAP PO SCH ×2 (09:21→21:24)
[2022-07-27] MEDS: ASPIRIN 81 MG PO SCH (09:21)
[2022-07-27] MEDS: POTASSIUM CHLORIDE ER 10 MEQ TAB.ER.PRT PO SCH (09:21)
[2022-07-27] MEDS: ATORVASTATIN 40 MG TAB PO SCH (09:21)
[2022-07-27] MEDS ORDERED: SCOPOLAMINE 1 MG/72 HR PATCH TRANSDERM SCH (10:30)
[2022-07-27] MEDS: PIPERACILLIN-TAZOBACTAM 3.375 GM in SODIUM CHLORIDE 0.9% 100 ML IVPB SCH ×3 (10:33→23:07)
[2022-07-27] MEDS: SODIUM CHLORIDE 0.9% 1,000 ML IV SCH ×3 (11:07→23:07)
[2022-07-27] MEDS ORDERED: POTASSIUM CHLORIDE ER 20 MEQ TAB.ER PO STA (12:00)
--- NOTE | 2022-07-27 12:02 | P.GSHP ---
History of Present Illness H&P Date: 07/27/22 CHIEF COMPLAINT: Abdominal pain HISTORY OF PRESENT ILLNESS: This is a 67-year-old female presented to the hospital with complaints of right upper quadrant abdominal pain that radiated to her back and epigastric area over the last 4 days. She's been having nausea and dry heaves. She had a computed tomography scan abdomen and pelvis showing a distended gallbladder without surrounding inflammatory changes. Clinical correlation for acute cholecystitis is recommended. And gallbladder ultrasound showed mildly distended gallbladder without gallstones wall thickening or cholecystic fluid to suggest acute cholecystitis. However, patient is tender in that right upper quadrant on exam. Patient does have a history of glioblastoma she's had surgery and radiation treatment. Radiation treatment was discontinued in October 2020 and she had been on chemotherapy as well chemotherapy was just discontinued this past Monday. Patient's abdominal surgical history includes pyloric stricture with gastrojejunostomy and truncal vagotomy. Also history of Cynthia-en-Y/gastrojejunostomy with lysis of adhesion for gastric outlet obstruction. Patient does have known coronary artery disease with prior cardiac stent. Patient's blood pressure has been elevated with mild tachycardia. She has been receiving IV hydralazine. PAST MEDICAL HISTORY: See list. PAST SURGICAL HISTORY: See list. MEDICATIONS: See list. ALLERGIES: See list. SOCIAL HISTORY: No illicit drug use. REVIEW OF SYSTEMS: CONSTITUTIONAL: Denies fever or chills. HEENT: Denies blurred vision, vision changes, or eye pain. Denies hemoptysis CARDIOVASCULAR: Denies chest pain or pressure. RESPIRATORY: No shortness of breath. GASTROINTESTINAL: See HPI for pertinent findings HEMATOLOGIC: Denies bleeding disorders. GENITOURINARY: Denies any blood in urine or increased urinary frequency. SKIN: Denies pruitis. Denies rash. PHYSICAL EXAM: VITAL SIGNS: Reviewed GENERAL: Well-developed in no acute distress. HEENT: No sclera icterus. Extraocular movements grossly intact. Moist buccal mucosa. Head is atraumatic, normocephalic. No nasal drainage. ABDOMEN: Soft. Nondistended. Tenderness to palpation in the right upper quadrant NEUROLOGIC: Alert and oriented. Cranial nerves II through XII grossly intact. LABORATORY DATA: WBC is 8.70 Hgb 12.9 platelets 169 Sodium 134 potassium is 3.2 creatinine 0.6 Total bili 0.6 AST 38 ALT 22 alk phos 142 lipase 86 Lactic acid 1.0 Troponin negative IMAGING: Computed tomography scan abdomen and pelvis distended gallbladder without surrounding inflammatory changes. Clinical correlation for acute cholecystitis is recommended with consideration for ultrasound. Colonic diverticulosis without evidence for acute diverticulitis Abdominal ultrasound mildly distended gallbladder without shadowing gallstones, wall thickening, orthopedic or cholecystic fluid to suggest acute cholecystitis. Patient is focally tender over the gallbladder. If there is continued clinical concern consider nuclear HIDA scan for further evaluation. ASSESSMENT: 1. Acute cholecystitis 2. Hypokalemia 3. Elevated blood pressure PLAN: -Patient scheduled for laparoscopic cholecystectomy today with Dr. pierce -Keep patient nothing by mouth -Continue IV antibiotics -Continue IV fluids -Blood pressure management per medical service -Replace potassium Physician Personnel Recruiter note has been reviewed by physician. Signing provider agrees with the documented findings, assessment, and plan of care. Past Medical History Past Medical History: Cancer, GERD/Reflux, GI Bleed, Hypertension Additional Past Medical History / Comment(s): PUD, upper GI bleed, anemia, pyloric strictures with surgeries, melanoma stage I-mole on L neck with removal, hemorrhoids, 2017 had stress echo which suggestive of prior PR-had PCI with s tent, chronic migraines, small cyst on liver, occasional bilateral tinnitis, recent L thigh muscle bruise-started on baclofen. TIA 2021 History of Any Multi-Drug Resistant Organisms: None Reported Past Surgical History: Bowel Resection, Heart Catheterization With Stent, Hysterectomy, Tonsillectomy Additional Past Surgical History / Comment(s): Pyloric stricture with gastrojejunostomy/truncal vagotomy, Cynthia-en-y/gastrojejunostomy with lysis of adhesions d/t gastric outlet obstruction, EGDs, colonoscopies, melanoma removed from skin L neck. Past Anesthesia/Blood Transfusion Reactions: Postoperative Nausea & Vomiting (PONV) Additional Past Anesthesia/Blood Transfusion Reaction / Comment(s): Pt has received blood in past twice without reaction. Date of Last Stent Placement:: 07/27/17 Past Psychological History: No Psychological Hx Reported Additional Psychological History / Comment(s): Pt resides with her spouse. She works at [employer] twisting [employer] end [employer]. She is independent. Smoking Status: Never smoker Past Alcohol Use History: None Reported Past Drug Use History: None Reported - Past Family History Mother Family Medical History: Cancer Additional Family Medical History / Comment(s): lung Daughter(s) Family Medical History: Cancer Additional Family Medical History / Comment(s): melanoma Father Family Medical History: Coronary Artery Disease (CAD), Diabetes Mellitus Additional Family Medical History / Comment(s): Father at 75 yrs post CABG sepsis. Brother(s) Family Medical History: Coronary Artery Disease (CAD) Medications and Allergies Home Medications Medication Instructions Recorded Confirmed Type Butalb/Asprin/Caff 50-325-40Mg 1 - 2 tab PO TID PRN 04/26/16 07/26/22 History [Fiorinal 50-325-40 MG] Atorvastatin [Lipitor] 40 mg PO DAILY #90 tab 07/28/17 07/26/22 Rx Nitroglycerin Sl Tabs [Nitrostat] 0.4 mg SUBLINGUAL Q5M PRN #25 tab 07/28/17 07/26/22 Rx Aspirin EC [Ecotrin Low Dose] 81 mg PO DAILY 08/08/18 07/26/22 History Omeprazole [PriLOSEC] 40 mg PO BID 07/21/20 07/26/22 History Docusate [Colace] 100 mg PO BID 02/20/22 07/26/22 History Metoclopramide [Reglan] 10 mg PO TID PRN 02/20/22 07/26/22 History Potassium Chloride ER [K-Dur 10] 10 meq PO DAILY 02/20/22 07/26/22 History ondansetron HCL [Zofran] 8 mg PO Q8H PRN 02/20/22 07/26/22 History Losartan Potassium 100 mg PO DAILY 05/10/22 07/26/22 History Butalb/Acetaminophen/Caffeine 1 - 2 tab PO TID PRN 07/26/22 07/26/22 History [Fioricet 50-325-40] Isosorbide Mononitrate ER [Imdur] 30 mg PO DAILY 07/26/22 07/26/22 History Metoprolol Succinate [Metoprolol 25 mg PO DAILY 07/26/22 07/26/22 History Succinate ER] hydrALAZINE HCL [Apresoline] 25 mg PO TID PRN 07/26/22 07/26/22 History levETIRAcetam [Keppra] 750 mg PO BID 07/26/22 07/26/22 History Allergies Allergy/AdvReac Type Severity Reaction Status Date / Time morphine Allergy hives Verified 07/26/22 12:45 Surgical - Exam Vital Signs Temp Pulse Resp BP Pulse Ox 98.1 F 82 20 163/93 97 07/26/22 09:35 07/26/22 09:35 07/26/22 09:35 07/26/22 09:35 07/26/22 09:35 Results - Labs 07/27/22 05:24 07/27/22 05:24 Abnormal Lab Results - Last 24 Hours (Table) 07/26/22 07/26/22 07/26/22 Range/Units 12:15 12:15 12:15 MPV (9.5-12.2) fL Immature Gran # (0.00-0.04) X 10*3/uL Lymphocytes # 0.9 L (1.0-4.8) k/uL Eosinophils # (0.04-0.35) X 10*3/uL Sodium 136 L (137-145) mmol/L Potassium (3.5-5.5) mmol/L Creatinine 0.50 L (0.52-1.04) mg/dL Glucose 117 H (74-99) mg/dL AST 38 H (14-36) U/L Alkaline Phosphatase 142 H (38-126) U/L Urine Appearance Cloudy H (Clear) Urine Protein Trace H (Negative) Urine Ketones 1+ H (Negative) Urine Bacteria Moderate H (None) /hpf Urine Mucus Rare H (None) /hpf 07/27/22 07/27/22 Range/Units 05:24 05:24 MPV 9.0 L (9.5-12.2) fL Immature Gran # 0.06 H (0.00-0.04) X 10*3/uL Lymphocytes # 0.65 L (1.0-4.8) k/uL Eosinophils # 0 L (0.04-0.35) X 10*3/uL Sodium 134 L (137-145) mmol/L Potassium 3.2 L (3.5-5.5) mmol/L Creatinine (0.52-1.04) mg/dL Glucose 125 H (74-99) mg/dL AST (14-36) U/L Alkaline Phosphatase (38-126) U/L Urine Appearance (Clear) Urine Protein (Negative) Urine Ketones (Negative) Urine Bacteria (None) /hpf Urine Mucus (None) /hpf Diabetes panel 07/26/22 07/27/22 Range/Units 12:15 05:24 Sodium 136 L 134 L (137-145) mmol/L Potassium 3.8 3.2 L (3.5-5.1) mmol/L Chloride 101 97 (98-107) mmol/L Carbon Dioxide 26 23.6 (22-30) mmol/L BUN 9 10.3 (7-17) mg/dL Creatinine 0.50 L 0.6 (0.52-1.04) mg/dL Glucose 117 H 125 H (74-99) mg/dL Calcium 9.2 8.9 (8.4-10.2) mg/dL AST 38 H (14-36) U/L ALT 22 (4-34) U/L Alkaline Phosphatase 142 H (38-126) U/L Total Protein 6.7 (6.3-8.2) g/dL Albumin 4.2 (3.5-5.0) g/dL Calcium panel 07/26/22 07/27/22 Range/Units 12:15 05:24 Calcium 9.2 8.9 (8.4-10.2) mg/dL Albumin 4.2 (3.5-5.0) g/dL Pituitary panel 07/26/22 07/27/22 Range/Units 12:15 05:24 Sodium 136 L 134 L (137-145) mmol/L Potassium 3.8 3.2 L (3.5-5.1) mmol/L Chloride 101 97 (98-107) mmol/L Carbon Dioxide 26 23.6 (22-30) mmol/L BUN 9 10.3 (7-17) mg/dL Creatinine 0.50 L 0.6 (0.52-1.04) mg/dL Glucose 117 H 125 H (74-99) mg/dL Calcium 9.2 8.9 (8.4-10.2) mg/dL Adrenal panel 07/26/22 07/27/22 Range/Units 12:15 05:24 Sodium 136 L 134 L (137-145) mmol/L Potassium 3.8 3.2 L (3.5-5.1) mmol/L Chloride 101 97 (98-107) mmol/L Carbon Dioxide 26 23.6 (22-30) mmol/L BUN 9 10.3 (7-17) mg/dL Creatinine 0.50 L 0.6 (0.52-1.04) mg/dL Glucose 117 H 125 H (74-99) mg/dL Calcium 9.2 8.9 (8.4-10.2) mg/dL Total Bilirubin 0.6 (0.2-1.3) mg/dL AST 38 H (14-36) U/L ALT 22 (4-34) U/L Alkaline Phosphatase 142 H (38-126) U/L Total Protein 6.7 (6.3-8.2) g/dL Albumin 4.2 (3.5-5.0) g/dL
[2022-07-27] MEDS: METOCLOPRAMIDE 10 MG TAB PO PRN (12:26)
--- NOTE | 2022-07-27 12:43 | P.CONS ---
History of Present Illness - Reason for Consult Consult date: 07/26/22 Medical management - History of Present Illness HISTORY OF PRESENT ILLNESS: This is a 67-year-old female patient with past medical history of coronary artery disease, hypertension, hyperlipidemia, gastroesophageal reflux disease, glioblastoma multiform status post surgery and radiation, currently on chemother apy discontinued on Monday, slow transit constipation. Patient presented to [facility] emergency center due to right upper quadrant abdominal pain radiating to her back and epigastric area. The past 3 days. Patient also complained of nausea and dry heaves. She underwent a CAT scan of the abdomen and pelvis which revealed a distended gallbladder without surrounding inflammatory changes. Gallbladder ultrasound showed mildly distended gallbladder without gallstones, wall thickening or cholecystic fluid to suggest acute cholecystitis. Patient was admitted under the care of general surgery and scheduled for laparoscopic cholecystectomy today. REVIEW OF SYSTEMS: Constitutional: No documented fever, no chills, no night sweats. No weight change. No weakness, fatigue or lethargy. No daytime sleepiness. EENT: No headache. No blurred vision or double vision, no loss of vision. No loss of Hearing, no ringing in the ears, no dizziness. No nasal drainage or congestion. No epistaxis. No sore throat. Lungs: No shortness of breath, no cough, no sputum production. No wheezing. Reports dyspnea with activity. Cardiovascular: No chest pain, no lower extremity edema. No palpitations. No paroxysmal nocturnal dyspnea. No orthopnea. No lightheadedness or dizziness. No syncopal episodes. Abdominal: Reports abdominal pain. No nausea, vomiting. No diarrhea. No co nstipation. No bloody or tarry stools reports loss of appetite. Genitourinary: No dysuria, increased frequency, urgency. No urinary retention. Musculoskeletal: No myalgias. No muscle weakness, no gait dysfunction, no frequent falls. No back pain. No neck pain. Integumentary: No wounds, no lesions. No rash or pruritus. No unusual bruising. No change in hair or nails. Neurologic: No aphasia. No facial droop. No change in mentation. No head injury. No headache. No paralysis. No paresthesia. Psychiatric: No depression. No anxiety. No mood swings. Endocrine: No abnormal blood sugars. No weight change. PAST MEDICAL HISTORY: Coronary artery disease Hypertension Hyperlipidemia Gastroesophageal reflux disease Glioblastoma multiform Flow transit constipation Chronic migraines Melanoma stage I mole on the left neck Migraine headaches PAST SURGICAL HISTORY: Cardiac catheterization, PCI and stent Pyloric stricture with gastrojejunostomy/truncal vagotomy Cynthia-en-Y Lysis of adhesions due to gastric outlet obstruction EGDs Colonoscopies Melanoma resection left neck Brain surgery 07/2020 SOCIAL HISTORY: Patient is a lifelong nonsmoker, no alcohol use, marijuana or illicit drug use. Patient works at [employer] and was at home with her . FAMILY HISTORY: Vital at age 70 from MS and CABG diagnosed with a heart attack. Mother at age 70 from lung cancer. Patient has 4 brothers one has lung cancer, one at age 61 from myocardial infarction, one has a permanent pacemaker in the fourth one has no major medical problems. Patient has one son with lupus. Patient has one daughter with melanoma of the adrenal gland. PHYSICAL EXAMINATION: General: This is a 67-year-old thin female. Patient is resting in bed and appears to be comfortable and in no acute distress. HEENT: Head is atraumatic, normocephalic, pupils were equal round reactive to l ight and recommendation, extraocular muscle movement were intact, sclera nonicteric, conjunctivae were pale, mucous membranes of the mouth are somewhat dry. Neck: Supple, no JVP, normal carotid upstroke bilaterally, no lymphadenopathy. Chest: Decreased breath sounds at the bases, few rhonchi, no extremity wheezes, no chest wall tenderness, no intercostal retractions. Heart: First heart sound is normal, second heart sounds normal, 2/6 systolic ejection murmur at the left sternal border, no S3, no S4. Abdomen: Soft, nondistended, positive bowel sounds. Right upper quadrant tenderness. Extremities: There is no edema no calf tenderness DP +2 bilaterally. Neurologic examination: Patient is awake alert and oriented x3, cranial nerves II-12 appear grossly intact, muscle power were 5 out of 5 in upper extremities and 5 out of 5 in bilateral lower extremities, deep tendon reflexes normal bilaterally. ASSESSMENT AND PLAN: 1. Acute cholecystitis. Patient admitted to general surgery with plan for laparoscopic cholecystectomy today. Continue patient on IV fluid 0.9 normal saline and 130s cc per hour, continue IV antibiotics the form of Zosyn 3.375 g IV piggyback every 8 hours, Toradol 15 mg IV push every 6 hours as needed for pain, Dilaudid 1 mg IV push every 3 hours as needed continue Zofran 4 mg IV push every 8 hours as needed for nausea and vomiting. Patient is cleared medically f or surgical intervention. 2. History of coronary artery disease. Patient will be continued on aspirin 81 mg daily, atorvastatin 40 mg daily, Imdur 30 mg daily, Toprol-XL 25 mg daily. 3. Hypertension. Continue patient on hydralazine 20 mg IV push every 4 hours as needed for systolic blood pressure greater than 160, losartan 100 mg daily, Toprol-XL 25 mg daily. 4. Hyperlipidemia. Continue patient on atorvastatin 40 mg daily. 5. History of glioblastoma status post surgery, radiation and chemotherapy. Continue Keppra secondary 50 mg twice daily as seizure prophylaxis. 6. History of pyloric stricture, stable. 7. 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 8. Gastroesophageal reflux disease and GI prophylaxis. Continue Protonix 40 mg twice daily. 9. DVT prophylaxis. Past Medical History Past Medical History: Cancer, GERD/Reflux, GI Bleed, Hypertension Additional Past Medical History / Comment(s): PUD, upper GI bleed, anemia, pyloric strictures with surgeries, melanoma stage I-mole on L neck with removal, hemorrhoids, 2017 had stress echo which suggestive of prior MS-had PCI with stent, chronic migraines, small cyst on liver, occasional bilateral tinnitis, recent L thigh muscle bruise-started on baclofen. TIA 2021 History of Any Multi-Drug Resistant Organisms: None Reported Past Surgical History: Bowel Resection, Heart Catheterization With Stent, Hysterectomy, Tonsillectomy Additional Past Surgical History / Comment(s): Pyloric stricture with gastrojejunostomy/truncal vagotomy, Cynthia-en-y/gastrojejunostomy with lysis of adhesions d/t gastric outlet obstruction, EGDs, colonoscopies, melanoma removed from skin L neck. Past Anesthesia/Blood Transfusion Reactions: Postoperative Nausea & Vomiting (PONV) Additional Past Anesthesia/Blood Transfusion Reaction / Comm: Pt has received blood in past twice without reaction. Date of Last Stent Placement:: 07/27/17 Past Psychological History: No Psychological Hx Reported Additional Psychological History / Comment(s): Pt resides with her spouse. 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 She is independent. Smoking Status: Never smoker Past Alcohol Use History: None Reported Past Drug Use History: None Reported - Past Family History Mother Family Medical History: Cancer Additional Family Medical History / Comment(s): lung Daughter(s) Family Medical History: Cancer Additional Family Medical History / Comment(s): melanoma Father Family Medical History: Coronary Artery Disease (CAD), Diabetes Mellitus Additional Family Medical History / Comment(s): Father at 75 yrs post CABG sepsis. Brother(s) Family Medical History: Coronary Artery Disease (CAD) Medications and Allergies Home Medications Medication Instructions Recorded Confirmed Type Butalb/Asprin/Caff 50-325-40Mg 1 - 2 tab PO TID PRN 04/26/16 07/26/22 History [Fiorinal 50-325-40 MG] Atorvastatin [Lipitor] 40 mg PO DAILY #90 tab 07/28/17 07/26/22 Rx Nitroglycerin Sl Tabs [Nitrostat] 0.4 mg SUBLINGUAL Q5M PRN #25 tab 07/28/17 07/26/22 Rx Aspirin EC [Ecotrin Low Dose] 81 mg PO DAILY 08/08/18 07/26/22 History Omeprazole [PriLOSEC] 40 mg PO BID 07/21/20 07/26/22 History Docusate [Colace] 100 mg PO BID 02/20/22 07/26/22 History Metoclopramide [Reglan] 10 mg PO TID PRN 02/20/22 07/26/22 History Potassium Chloride ER [K-Dur 10] 10 meq PO DAILY 02/20/22 07/26/22 History ondansetron HCL [Zofran] 8 mg PO Q8H PRN 02/20/22 07/26/22 History Losartan Potassium 100 mg PO DAILY 05/10/22 07/26/22 History Butalb/Acetaminophen/Caffeine 1 - 2 tab PO TID PRN 07/26/22 07/26/22 History [Fioricet 50-325-40] Isosorbide Mononitrate ER [Imdur] 30 mg PO DAILY 07/26/22 07/26/22 History Metoprolol Succinate [Metoprolol 25 mg PO DAILY 07/26/22 07/26/22 History Succinate ER] hydrALAZINE HCL [Apresoline] 25 mg PO TID PRN 07/26/22 07/26/22 History levETIRAcetam [Keppra] 750 mg PO BID 07/26/22 07/26/22 History Allergies Allergy/AdvReac Type Severity Reaction Status Date / Time morphine Allergy hives Verified 07/26/22 12:45 Physical Exam Vitals: Vital Signs Temp Pulse Pulse Resp BP BP BP 07/27/22 12:18 98.1 F 106 H 17 171/74 07/27/22 08:06 98.0 F 100 17 174/100 07/27/22 07:00 98.2 F 99 17 188/93 07/27/22 05:40 99 18 187/84 07/27/22 02:21 98.3 F 114 H 17 206/118 07/27/22 01:18 99 15 07/26/22 22:41 98.5 F 105 H 15 186/92 07/26/22 22:10 194/96 07/26/22 21:58 101 H 18 208/102 07/26/22 21:01 103 H 177/98 07/26/22 20:42 94 201/96 07/26/22 19:59 95 18 195/93 07/26/22 18:08 95 18 187/90 07/26/22 15:51 89 18 188/98 07/26/22 15:25 18 Pulse Ox 07/27/22 12:18 97 07/27/22 08:06 95 07/27/22 07:00 95 07/27/22 05:40 07/27/22 02:21 94 L 07/27/22 01:18 07/26/22 22:41 98 07/26/22 22:10 07/26/22 21:58 98 07/26/22 21:01 07/26/22 20:42 07/26/22 19:59 07/26/22 18:08 95 07/26/22 15:51 95 07/26/22 15:25 Intake and Output 07/26/22 07/27/22 07/27/22 22:59 06:59 14:59 Intake Total 1200 Balance 1200 Intake: Intake, IV Titration 1200 Amount Piperacillin-Tazobactam 3 200 .375 gm In Sodium Chloride 0.9% 100 ml @ 25 mls/hr IVPB Q8HR [facility] Rx# :[id number] Sodium Chloride 0.9% 1, 1000 000 ml @ 130 mls/hr IV . Q7H42M [facility] Rx#:[id number] Other: Voiding Method Toilet Toilet Weight 51.256 kg Results CBC & Chem 7: 07/27/22 05:24 07/27/22 05:24 Labs: Abnormal Lab Results - Last 24 Hours (Table) 07/26/22 07/26/22 07/27/22 Range/Units 12:15 12:15 05:24 MPV 9.0 L (9.5-12.2) fL Immature Gran # 0.06 H (0.00-0.04) X 10*3/uL Lymphocytes # 0.65 L (0.90-5.00) X 10*3/uL Eosinophils # 0 L (0.04-0.35) X 10*3/uL Sodium 136 L (137-145) mmol/L Potassium (3.5-5.5) mmol/L Creatinine 0.50 L (0.52-1.04) mg/dL Glucose 117 H (74-99) mg/dL AST 38 H (14-36) U/L Alkaline Phosphatase 142 H (38-126) U/L Urine Appearance Cloudy H (Clear) Urine Protein Trace H (Negative) Urine Ketones 1+ H (Negative) Urine Bacteria Moderate H (None) /hpf Urine Mucus Rare H (None) /hpf 07/27/22 Range/Units 05:24 MPV (9.5-12.2) fL Immature Gran # (0.00-0.04) X 10*3/uL Lymphocytes # (0.90-5.00) X 10*3/uL Eosinophils # (0.04-0.35) X 10*3/uL Sodium 134 L (137-145) mmol/L Potassium 3.2 L (3.5-5.5) mmol/L Creatinine (0.52-1.04) mg/dL Glucose 125 H (74-99) mg/dL AST (14-36) U/L Alkaline Phosphatase (38-126) U/L Urine Appearance (Clear) Urine Protein (Negative) Urine Ketones (Negative) Urine Bacteria (None) /hpf Urine Mucus (None) /hpf
[2022-07-27] MEDS ORDERED: IV FLUID CONTINUATION 1,000 ML IV ONE (14:21)
[2022-07-27] MEDS ORDERED: HEPARIN SODIUM,PORCINE/PF 5,000 UNIT/0.5 ML SYRINGE SQ ONE (14:39)
[2022-07-27] MEDS ORDERED: DEXAMETHASONE SOD PHOSPHATE 4 MG/ML 1 ML VIAL IVP ONE (14:45)
[2022-07-27] MEDS ORDERED: ONDANSETRON 4 MG/2 ML VIAL IVP ONE (14:45)
[2022-07-27] MEDS ORDERED: HEPARIN SODIUM,PORCINE 5,000 UNIT/ML 1 ML VIAL SQ ONE (15:33)
[2022-07-27] MEDS ORDERED: PROPOFOL 10 MG/ML 20 ML VIAL IV ONE (16:11)
[2022-07-27] MEDS ORDERED: fentaNYL (PF) 50 MCG/ML 2 ML AMP ONE (16:11)
[2022-07-27] MEDS ORDERED: NEOSTIGMINE 1 MG/ML 10 ML VIAL ONE (16:11)
[2022-07-27] MEDS ORDERED: KETOROLAC 15 MG/ML 1 ML VIAL ONE (16:11)
[2022-07-27] MEDS ORDERED: PHENYLEPHRINE-0.9% NACL SYG 1,000 MCG/10 ML SYRINGE ONE (16:11)
[2022-07-27] MEDS ORDERED: SUCCINYLCHOLINE CHLORIDE 200 MG/10 ML VIAL IV ONE (16:11)
[2022-07-27] MEDS ORDERED: ROCURONIUM 10 MG/ML (5 ML VIAL) IV ONE (16:11)
[2022-07-27] MEDS ORDERED: LIDOCAINE 2% INJ 20 MG/ML (2 ML VIAL) ONE (16:11)
[2022-07-27] MEDS ORDERED: MIDAZOLAM 2 MG/2 ML VIAL ONE (16:11)
[2022-07-27] MEDS ORDERED: GLYCOPYRROLATE 0.2 MG/ML 2 ML VIAL ONE (16:11)
[2022-07-27] MEDS ORDERED: BUPIVACAIN-EPI 0.25%-1:200,000 30 ML VIAL SQ ONE (16:30)
[2022-07-27] MEDS ORDERED: HYDROmorphone 1 MG/ML 1 ML SYRINGE IVP PRN (16:50)
--- NOTE | 2022-07-27 16:50 | P.OP ---
Date of Procedure: 07/27/22 Preoperative Diagnosis: Cholecystitis Postoperative Diagnosis: Cholecystitis Procedure(s) Performed: Laparoscopic cholecystectomy Anesthesia: KORIN Surgeon: Michael Lloyd Estimated Blood Loss (ml): 10 Pathology: other (Gallbladder) Condition: stable Disposition: PACU Description of Procedure: The patient was placed on the operating table. The patient received a general endotracheal tube anesthesia. The patients abdomen was prepped and draped in the usual sterile fashion. Through an infraumbilical stab incision, the fascia of the anterior abdominal wall was grasped with a pair of Kochers and then the Veress needle was placed in the peritoneal cavity. Position of the Veress needle was confirmed with positive drop test. The abdomen was then insufflated. After adequate insufflation, the 10 mm trocar was placed in the peritoneal cavity. Following this the laparoscope was placed in the peritoneal cavity. The patient was placed in the head-up, right side up position and then a 5 mm trocar was placed in the right lateral and right subcostal position under direct visualization. A 8 mm trocar was placed in the epigastric position. The gallbladder was grasped in the fundus and infundibulum. Traction on the gallbladder was placed in the lateral and the cephalad positions. The triangle of Calot was visualized.. The cystic duct was bluntly dissected until the union of the cystic duct and common bile duct was seen. A critical view of safety was achieved. The cystic duct was then divided and sealed with the Harmonic scissors. A PDS Endoloop was then placed throughout the cystic duct stump. The cystic artery divided and sealed with the Harmonic scissors. The gallbladder was then removed from the liver bed using Harmonic scissors. The gallbladder was then extracted through the epigastric port site. Operative field was checked for any bleeding spots and Harmonic scissors was used to coagulate the liver bed. The abdomen was irrigated. The trocars were removed. The skin was closed using interrupted 3-0 Vicryl suture. Dermabond dressing were applied. The patient tolerated the procedure well.
[2022-07-27] MEDS ORDERED: HYDROmorphone 0.5 MG/0.5 ML SYRINGE IVP ONE ×2 (17:16→17:26)
[2022-07-27] MEDS ORDERED: hydrALAZINE HCL 20 MG/ML 1 ML VIAL IVP ONE (17:22)
[2022-07-27] MEDS ORDERED: SODIUM CHLORIDE 0.9% 500 ML 500 ML IV ONE (22:09)
[2022-07-28 01:11] LABS: Basophils % (A) 0 %; Eosinophils % (A) 0 %; HCT 34.9 % (34.0-46.0); HGB 11.2 gm/dL (11.4-16.0); Lymphocytes # (A) 0.4 k/uL (1.0-4.8); Lymphocytes % (A) 2 %; MCH 31.5 pg (25.0-35.0); MCV 98.5 fL (80.0-100.0); Mean Platelet Volume 7.4; Monocytes # (A) 1.1 k/uL (0-1.0); Monocytes % (A) 7 %; Neutrophils # (A) 13.4 k/uL (1.3-7.7); Neutrophils % (A) 88 %; Platelet Count 146 k/uL (150-450); RBC 3.54 m/uL (3.80-5.40); RDW 13.8 % (11.5-15.5); WBC 15.2 k/uL (3.8-10.6)
[2022-07-28] MEDS ORDERED: METOPROLOL SUCCINATE (ER) 25 MG TAB.ER.24H PO STA (03:37)
[2022-07-28] MEDS: KETOROLAC 15 MG/ML 1 ML VIAL IVP PRN ×3 (03:56→17:39)
[2022-07-28] MEDS: ONDANSETRON 4 MG/2 ML VIAL IVP PRN (07:58)
[2022-07-28] MEDS: SODIUM CHLORIDE 0.9% 1,000 ML IV SCH ×2 (08:13→14:33)
[2022-07-28] MEDS: ATORVASTATIN 40 MG TAB PO SCH (08:14)
[2022-07-28] MEDS: DOCUSATE 100 MG CAP PO SCH ×2 (08:14→20:50)
[2022-07-28] MEDS: ISOSORBIDE MONONITRATE ER 30 MG TAB.ER.24H PO SCH (08:14)
[2022-07-28] MEDS: METOPROLOL SUCCINATE (ER) 25 MG TAB.ER.24H PO SCH ×2 (08:14→20:20)
[2022-07-28] MEDS: LOSARTAN 50 MG TAB PO SCH (08:14)
[2022-07-28] MEDS: PANTOPRAZOLE 40 MG TABLET PO SCH ×2 (08:14→19:11)
[2022-07-28] MEDS: PIPERACILLIN-TAZOBACTAM 3.375 GM in SODIUM CHLORIDE 0.9% 100 ML IVPB SCH ×3 (08:14→23:47)
[2022-07-28] MEDS: POTASSIUM CHLORIDE ER 10 MEQ TAB.ER.PRT PO SCH (08:15)
--- NOTE | 2022-07-28 08:20 | P.PN ---
Subjective Progress Note Date: 07/27/22 HISTORY OF PRESENT ILLNESS: This is a 67-year-old female patient with past medical history of coronary artery disease, hypertension, hyperlipidemia, gastroesophageal reflux disease, glioblastoma multiform status post surgery and radiation, currently on chemotherapy discontinued on Monday, slow transit constipation. Patient presented to [facility] emergency center due to right upper quadrant abdominal pain radiating to her back and epigastric area. The past 3 days. Patient also complained of nausea and dry heaves. She underwent a CAT scan of the abdomen and pelvis which revealed a distended gallbladder without surrounding inflammatory changes. Gallbladder ultrasound showed mildly distended gallbladder without gallstones, wall thickening or cholecystic fluid to suggest acute cholecystitis. Patient was admitted under the care of general surgery. 07/27: Patient is waiting for laparoscopic cholecystectomy for this afternoon. Patient continued on IV fluids and 125 mL per hour. Regarding pain control. Patient states the fentanyl did not seem to help her and she is currently on Dilaudid. Blood work reveals WBC of 8.7, hemoglobin 12.9, platelet count 169. Sodium 134, potassium 3.2 and replaced, chloride 97, CO2 23, BUN 10 and creatinine 0.7. Patient has been afebrile, heart rate 100, blood pressure this morning 174/100, pulse ox 95% on room air. Is on IV hydralazine with some improvement of blood pressure. Patient's home blood pressure medications will be resumed following surgery. REVIEW OF SYSTEMS: Constitutional: No documented fever, no chills, no night sweats. No weight change. No weakness, fatigue or lethargy. No daytime sleepiness. EENT: No headache. No blurred vision or double vision, no loss of vision. No loss of Hearing, no ringing in the ears, no dizziness. No nasal drainage or congestion. No epistaxis. No sore throat. Lungs: No shortness of breath, no cough, no sputum production. No wheezing. Reports dyspnea with activity. Cardiovascular: No chest pain, no lower extremity edema. No palpitations. No paroxysmal nocturnal dyspnea. No orthopnea. No lightheadedness or dizziness. No syncopal episodes. Abdominal: Reports abdominal pain. No nausea, vomiting. No diarrhea. No constipation. No bloody or tarry stools reports loss of appetite. Genitourinary: No dysuria, increased frequency, urgency. No urinary retention. Musculoskeletal: No myalgias. No muscle weakness, no gait dysfunction, no frequent falls. No back pain. No neck pain. Integumentary: No wounds, no lesions. No rash or pruritus. No unusual bruising. No change in hair or nails. Neurologic: No aphasia. No facial droop. No change in mentation. No head injury. No headache. No paralysis. No paresthesia. Psychiatric: No depression. No anxiety. No mood swings. Endocrine: No abnormal blood sugars. No weight change. PHYSICAL EXAMINATION: General: This is a 67-year-old thin female. Patient is resting in bed and appears to be comfortable and in no acute distress. Patient's is at bedside. HEENT: Head is atraumatic, normocephalic, pupils were equal round reactive to light and recommendation, extraocular muscle movement were intact, sclera nonicteric, conjunctivae were pale, mucous membranes of the mouth are somewhat dry. Neck: Supple, no JVP, normal carotid upstroke bilaterally, no lymphadenopathy. Chest: Decreased breath sounds at the bases, few rhonchi, no extremity wheezes, no chest wall tenderness, no intercostal retractions. Heart: First heart sound is normal, second heart sounds normal, 2/6 systolic ejection murmur at the left sternal border, no S3, no S4. Abdomen: Soft, nondistended, positive bowel sounds. Right upper quadrant tenderness. Extremities: There is no edema no calf tenderness DP +2 bilaterally. Neurologic examination: Patient is awake alert and oriented x3, cranial nerves II-12 appear grossly intact, muscle power were 5 out of 5 in upper extremities and 5 out of 5 in bilateral lower extremities, deep tendon reflexes normal bilaterally. ASSESSMENT AND PLAN: 1. Acute cholecystitis. Patient admitted to general surgery with plan for laparoscopic cholecystectomy today. Continue patient on IV fluid 0.9 normal saline and 130s cc per hour, continue IV antibiotics the form of Zosyn 3.375 g IV piggyback every 8 hours, Toradol 15 mg IV push every 6 hours as needed for pain, Dilaudid 1 mg IV push every 3 hours as needed continue Zofran 4 mg IV push every 8 hours as needed for nausea and vomiting. Patient is cleared medically for surgical intervention. 2. History of coronary artery disease. Patient will be continued on aspirin 81 mg daily, atorvastatin 40 mg daily, Imdur 30 mg daily, Toprol-XL 25 mg daily. 3. Hypertension. Continue patient on hydralazine 20 mg IV push every 4 hours as needed for systolic blood pressure greater than 160, losartan 100 mg daily, Toprol-XL 25 mg daily. 4. Hyperlipidemia. Continue patient on atorvastatin 40 mg daily. 5. History of glioblastoma status post surgery, radiation and chemotherapy. Continue Keppra secondary 50 mg twice daily as seizure prophylaxis. 6. History of pyloric stricture, stable. 7. 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 8. Gastroesophageal reflux disease and GI prophylaxis. Continue Protonix 40 mg twice daily. 9. DVT prophylaxis. Impression and plan of care have been directed as dictated by the signing physician. Kari Arroyo nurse practitioner acting as scribe for signing physician. Objective - Vital Signs Vital signs: Vital Signs Temp 98.0 F 07/27/22 08:06 Pulse 100 07/27/22 08:06 Resp 17 07/27/22 08:06 BP 174/100 07/27/22 08:06 Pulse Ox 95 07/27/22 08:06 FiO2 Intake & Output 07/26/22 07/27/22 07/27/22 18:59 06:59 18:59 Intake Total 1200 Balance 1200 Weight 51.256 kg 51.256 kg Intake: Intake, IV Titration 1200 Amount Piperacillin-Tazobactam 3 200 .375 gm In Sodium Chloride 0.9% 100 ml @ 25 mls/hr IVPB Q8HR [facility] Rx# :[id number] Sodium Chloride 0.9% 1, 1000 000 ml @ 130 mls/hr IV . Q7H42M [facility] Rx#:[id number] Other: Voiding Method Toilet Toilet - Labs CBC & Chem 7: 07/28/22 00:14 07/27/22 05:24 Labs: Abnormal Lab Results - Last 24 Hours (Table) 07/26/22 07/26/22 07/26/22 Range/Units 12:15 12:15 12:15 MPV (9.5-12.2) fL Immature Gran # (0.00-0.04) X 10*3/uL Lymphocytes # 0.9 L (1.0-4.8) k/uL Eosinophils # (0.04-0.35) X 10*3/uL Sodium 136 L (137-145) mmol/L Potassium (3.5-5.5) mmol/L Creatinine 0.50 L (0.52-1.04) mg/dL Glucose 117 H (74-99) mg/dL AST 38 H (14-36) U/L Alkaline Phosphatase 142 H (38-126) U/L Urine Appearance Cloudy H (Clear) Urine Protein Trace H (Negative) Urine Ketones 1+ H (Negative) Urine Bacteria Moderate H (None) /hpf Urine Mucus Rare H (None) /hpf 07/27/22 07/27/22 Range/Units 05:24 05:24 MPV 9.0 L (9.5-12.2) fL Immature Gran # 0.06 H (0.00-0.04) X 10*3/uL Lymphocytes # 0.65 L (1.0-4.8) k/uL Eosinophils # 0 L (0.04-0.35) X 10*3/uL Sodium 134 L (137-145) mmol/L Potassium 3.2 L (3.5-5.5) mmol/L Creatinine (0.52-1.04) mg/dL Glucose 125 H (74-99) mg/dL AST (14-36) U/L Alkaline Phosphatase (38-126) U/L Urine Appearance (Clear) Urine Protein (Negative) Urine Ketones (Negative) Urine Bacteria (None) /hpf Urine Mucus (None) /hpf
[2022-07-28] MEDS: ASPIRIN 81 MG PO SCH (09:46)
[2022-07-28] MEDS: ENOXAPARIN 40 MG/0.4 ML SYRINGE SQ SCH (09:46)
[2022-07-28] MEDS: HYDROcodone/APAP 5-325MG 1 EACH TAB PO PRN ×3 (10:03→20:20)
[2022-07-28 10:58] LABS: ALT 42 U/L (4-34); AST 64 U/L (14-36); African American GFR (CKD) >90 (>60 ml/min/1.73 sqM); Albumin/Globulin Ratio 1.5; Alkaline Phosphatase 114 U/L (38-126); Anion Gap 8 mmol/L; Blood Urea Nitrogen 16 mg/dL (7-17); Calcium 8.5 mg/dL (8.4-10.2); Carbon Dioxide 23 mmol/L (22-30); Chloride 100 mmol/L (98-107); Glucose 128 mg/dL (74-99); Non-African American GFR(CKD) >90 (>60 ml/min/1.73 sqM); Potassium 3.1 mmol/L (3.5-5.1); Sodium 131 mmol/L (137-145); Total Bilirubin 0.6 mg/dL (0.2-1.3)
[2022-07-28] MEDS ORDERED: POTASSIUM CHLORIDE ER 20 MEQ TAB.ER PO STA (13:02)
--- NOTE | 2022-07-28 13:45 | P.PN ---
Subjective Progress Note Date: 07/28/22 HISTORY OF PRESENT ILLNESS: This is a 67-year-old female patient with past medical history of coronary artery disease, hypertension, hyperlipidemia, gastroesophageal reflux disease, glioblastoma multiform status post surgery and radiation, currently on chemotherapy discontinued on Monday, slow transit constipation. Patient presented to [facility] emergency center due to right upper quadrant abdominal pain radiating to her back and epigastric area. The past 3 days. Patient also complained of nausea and dry heaves. She underwent a CAT scan of the abdomen and pelvis which revealed a distended gallbladder without surrounding inflammatory changes. Gallbladder ultrasound showed mildly distended gallbladder without gallstones, wall thickening or cholecystic fluid to suggest acute cholecystitis. Patient was admitted under the care of general surgery. 07/27: Patient is waiting for laparoscopic cholecystectomy for this afternoon. Patient continued on IV fluids and 125 mL per hour. Regarding pain control. Patient states the fentanyl did not seem to help her and she is currently on Dilaudid. Blood work reveals WBC of 8.7, hemoglobin 12.9, platelet count 169. Sodium 134, potassium 3.2 and replaced, chloride 97, CO2 23, BUN 10 and creatinine 0.7. Patient has been afebrile, heart rate 100, blood pressure this morning 174/100, pulse ox 95% on room air. Is on IV hydralazine with some improvement of blood pressure. Patient's home blood pressure medications will be resumed following surgery. 07/28: Patient is status post laparoscopic cholecystectomy. Patient had tachycardia last evening and received additional dose of Toprol-XL 25 mg at 3 AM and change to twice daily dosing with improvement of her heart rate. Patient is complaining of nausea without vomiting. She states she does not have any appetite. She has a little bit of abdominal pain, no chest pain. She states she has walked in her room and did okay. She feels tired and did not sleep last evening. She has been afebrile, heart rate currently 105, blood pressure 184/75, pulse ox 97% on room air. She is continued on IV Zosyn and IV fluids. Patient has been started on a regular diet. Repeat blood work reveals sodium 131, potassium 3.1 and was replaced, chloride 100, CO2 23, BUN 16 creatinine 0.63. Blood sugar 128. AST 64, ALT 42, alkaline phosphatase 114. Anticipate discharge home tomorrow. REVIEW OF SYSTEMS: Constitutional: No documented fever, no chills, no night sweats. No weight change. Reports mild generalized weakness, fatigue or lethargy. No daytime sleepiness. EENT: No headache. No blurred vision or double vision, no loss of vision. No loss of Hearing, no ringing in the ears, no dizziness. No nasal drainage or congestion. No epistaxis. No sore throat. Lungs: No shortness of breath, no cough, no sputum production. No wheezing. Reports dyspnea with activity. Cardiovascular: No chest pain, no lower extremity edema. No palpitations. No paroxysmal nocturnal dyspnea. No orthopnea. No lightheadedness or dizziness. No syncopal episodes. Abdominal: Reports abdominal pain mild discomfort. Reports nausea, no vomiting. No diarrhea. No constipation. No bloody or tarry stools. Reports loss of appetite. Genitourinary: No dysuria, increased frequency, urgency. No urinary retention. Musculoskeletal: No myalgias. No muscle weakness, no gait dysfunction, no frequent falls. No back pain. No neck pain. Integumentary: No wounds, no lesions. No rash or pruritus. No unusual bruising. No change in hair or nails. Neurologic: No aphasia. No facial droop. No change in mentation. No head injury. No headache. No paralysis. No paresthesia. Psychiatric: No depression. No anxiety. No mood swings. Endocrine: No abnormal blood sugars. No weight change. PHYSICAL EXAMINATION: General: This is a 67-year-old thin female. Patient is resting in bed and appears to be comfortable and in no acute distress. Patient's is at bedside. HEENT: Head is atraumatic, normocephalic, pupils were equal round reactive to light and recommendation, extraocular muscle movement were intact, sclera nonicteric, conjunctivae were pale, mucous membranes of the mouth are somewhat dry. Neck: Supple, no JVP, normal carotid upstroke bilaterally, no lymphadenopathy. Chest: Decreased breath sounds at the bases, few rhonchi, no extremity wheezes, no chest wall tenderness, no intercostal retractions. Heart: First heart sound is normal, second heart sounds normal, 2/6 systolic ejection murmur at the left sternal border, no S3, no S4. Abdomen: Soft, nondistended, positive bowel sounds. Mild Right upper quadrant tenderness. All puncture sites are glued, edges well approximated, ecchymosis noted in the right upper quadrant. Extremities: There is no edema no calf tenderness DP +2 bilaterally. Neurologic examination: Patient is awake alert and oriented x3, cranial nerves II-12 appear grossly intact, muscle power were 5 out of 5 in upper extremities and 5 out of 5 in bilateral lower extremities, deep tendon reflexes normal bilaterally. ASSESSMENT AND PLAN: 1. Acute cholecystitis status post laparoscopic cholecystectomy 07/27. Continue patient on IV fluid 0.9 normal saline decreased to 75 cc per hour, continue IV antibiotics the form of Zosyn 3.375 g IV piggyback every 8 hours, Toradol 15 mg IV push every 6 hours as needed for pain, discontinue fentanyl and Dilaudid, [place] only for pain. Continue patient on Zofran 4 mg IV push every 8 hours as needed for nausea and vomiting. 2. History of coronary artery disease. Patient will be continued on aspirin 81 mg daily, atorvastatin 40 mg daily, Imdur 30 mg daily, Toprol-XL 25 mg daily. 3. Hypertension. Continue patient on hydralazine 20 mg IV push every 4 hours as needed for systolic blood pressure greater than 160, losartan 100 mg daily, Toprol-XL 25 mg daily. 4. Hyperlipidemia. Continue patient on atorvastatin 40 mg daily. 5. History of glioblastoma status post surgery, radiation and chemotherapy. Continue Keppra secondary 50 mg twice daily as seizure prophylaxis. 6. History of pyloric stricture, stable. 7. 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 8. Gastroesophageal reflux disease and GI prophylaxis. Continue Protonix 40 mg twice daily. 9. DVT prophylaxis. DISCHARGE PLAN Home on Monday Impression and plan of care have been directed as dictated by the signing physician. Kari Arroyo nurse practitioner acting as scribe for signing physician. Objective - Vital Signs Vital signs: Vital Signs Temp 98.4 F 07/28/22 01:23 Pulse 125 H 07/28/22 01:23 Resp 16 07/28/22 01:23 BP 154/70 07/28/22 01:23 Pulse Ox 96 07/28/22 01:23 FiO2 Intake & Output 07/27/22 07/28/22 07/28/22 18:59 06:59 18:59 Intake Total 1600 1000 Output Total 10 Balance 1590 1000 Intake: IV 1600 Intake, IV Titration 1000 Amount Sodium Chloride 0.9% 500 1000 ml 500 ml @ 999 mls/hr IV .Q31M ONE Rx#:[id number] Output: Estimated Blood Loss 10 Other: Voiding Method Toilet Toilet # Voids 1 - Labs CBC & Chem 7: 07/28/22 00:14 07/28/22 09:54 Labs: Abnormal Lab Results - Last 24 Hours (Table) 07/27/22 07/27/22 07/28/22 Range/Units 05:24 05:24 00:14 WBC 15.2 H (3.8-10.6) k/uL RBC 3.54 L (3.80-5.40) m/uL Hgb 11.2 L (11.4-16.0) gm/dL Plt Count 146 L (150-450) k/uL MPV 9.0 L (9.5-12.2) fL Immature Gran # 0.06 H (0.00-0.04) X 10*3/uL Neutrophils # 13.4 H (1.3-7.7) k/uL Lymphocytes # 0.65 L 0.4 L (0.90-5.00) X 10*3/uL Monocytes # 1.1 H (0-1.0) k/uL Eosinophils # 0 L (0.04-0.35) X 10*3/uL Sodium 134 L (135-145) mmol/L Potassium 3.2 L (3.5-5.5) mmol/L Glucose 125 H (70-110) mg/dL
--- NOTE | 2022-07-28 15:09 | P.PN ---
Subjective Progress Note Date: 07/28/22 CHIEF COMPLAINT: Cholecystitis HISTORY OF PRESENT ILLNESS: Patient is postop day #1 status post laparoscopic cholecystectomy. Patient was tachycardic during the evening. Heart rate had gone all the up to 160. EKG was showing evidence of sinus tachycardia. Medicine service did give an extra dose of metoprolol and then resume patient's home metoprolol. Patient did report abdominal pain this morning but it has shown improvement. She is having flatus. She is urinating without difficulty. Her white count did jump up to 15.2 hemoglobin stable at 11.2. Heart rate has shown improvement with the addition of her metoprolol. She does have bruising along the right upper abdomen the Lovenox and aspirin were held. She is afebrile. Sodium 131 potassium 3.1 creatinine 0.63 AST 64 ALT 40 Patient seen and examined with Dr. Lloyd PHYSICAL EXAM: VITAL SIGNS: Reviewed. GENERAL: Well-developed in no acute distress. HEENT: No sclera icterus. Extraocular movements grossly intact. Moist buccal mucosa. Head is atraumatic, normocephalic. ABDOMEN: Soft. Nondistended. Nontender. Patient has ecchymosis along the right upper abdomen and flank. Area is soft no evidence of hematoma NEUROLOGIC: Alert and oriented. Cranial nerves II through XII grossly intact. ASSESSMENT: 1. Cholecystitis status post laparoscopic Cholecystectomy 2. Hypokalemia potassium being replaced 3. Sinus tachycardia improved with the resuming of the metoprolol 4. Leukocytosis PLAN: -Continue regular diet -Continue IV fluids -Continue pain management -Encouraged patient to ambulate -Encouraged patient she is incentive spirometer -Repeat labs in a.m. -Telemetry added for medication tachycardia -Consult PT OT -DVT prophylaxis SCDs. Hold Lovenox and aspirin today due to bruising along the right upper abdomen Physician Printing Services Coordinator note has been reviewed by physician. Signing provider agrees with the documented findings, assessment, and plan of care. Objective - Vital Signs Vital signs: Vital Signs Temp 98.5 F 07/28/22 07:00 Pulse 105 H 07/28/22 07:00 Resp 18 07/28/22 14:00 BP 184/75 07/28/22 07:00 Pulse Ox 97 07/28/22 07:00 FiO2 Intake & Output 07/27/22 07/28/22 07/28/22 18:59 06:59 18:59 Intake Total 1600 1000 Output Total 10 Balance 1590 1000 Intake: IV 1600 Intake, IV Titration 1000 Amount Sodium Chloride 0.9% 500 1000 ml 500 ml @ 999 mls/hr IV .Q31M ONE Rx#:[id number] Output: Estimated Blood Loss 10 Other: Voiding Method Toilet Toilet Toilet # Voids 1 1 - Labs CBC & Chem 7: 07/28/22 00:14 07/28/22 09:54 Labs: Abnormal Lab Results - Last 24 Hours (Table) 07/28/22 07/28/22 Range/Units 00:14 09:54 WBC 15.2 H (3.8-10.6) k/uL RBC 3.54 L (3.80-5.40) m/uL Hgb 11.2 L (11.4-16.0) gm/dL Plt Count 146 L (150-450) k/uL Neutrophils # 13.4 H (1.3-7.7) k/uL Lymphocytes # 0.4 L (1.0-4.8) k/uL Monocytes # 1.1 H (0-1.0) k/uL Sodium 131 L (137-145) mmol/L Potassium 3.1 L (3.5-5.1) mmol/L Glucose 128 H (74-99) mg/dL AST 64 H (14-36) U/L ALT 42 H (4-34) U/L Total Protein 5.0 L (6.3-8.2) g/dL Albumin 3.0 L (3.5-5.0) g/dL
[2022-07-28] MEDS: METOCLOPRAMIDE 10 MG TAB PO PRN (15:31)
[2022-07-28] MEDS: hydrALAZINE HCL 20 MG/ML 1 ML VIAL IVP PRN (19:28)
[2022-07-28 20:00] VITALS: RESP 16
[2022-07-29] MEDS: HYDROcodone/APAP 5-325MG 1 EACH TAB PO PRN (02:41)
[2022-07-29] MEDS: SODIUM CHLORIDE 0.9% 1,000 ML IV SCH (05:16)
[2022-07-29] MEDS: ENOXAPARIN 40 MG/0.4 ML SYRINGE SQ SCH (08:27)
[2022-07-29] MEDS: ISOSORBIDE MONONITRATE ER 30 MG TAB.ER.24H PO SCH (08:28)
[2022-07-29] MEDS: PANTOPRAZOLE 40 MG TABLET PO SCH (08:28)
[2022-07-29] MEDS: POTASSIUM CHLORIDE ER 10 MEQ TAB.ER.PRT PO SCH (08:28)
[2022-07-29] MEDS: LOSARTAN 50 MG TAB PO SCH (08:28)
[2022-07-29] MEDS: METOPROLOL SUCCINATE (ER) 25 MG TAB.ER.24H PO SCH (08:28)
[2022-07-29] MEDS: ATORVASTATIN 40 MG TAB PO SCH (08:28)
[2022-07-29] MEDS: ASPIRIN 81 MG PO SCH (08:28)
[2022-07-29] MEDS: DOCUSATE 100 MG CAP PO SCH (08:29)
[2022-07-29] MEDS: PIPERACILLIN-TAZOBACTAM 3.375 GM in SODIUM CHLORIDE 0.9% 100 ML IVPB SCH (08:29)
[2022-07-29] MEDS ORDERED: hydrALAZINE HCL 25 MG TAB PO SCH (09:00)
[2022-07-29 09:34] VITALS: BP 171/82; TEMP 99.6
[2022-07-29] MEDS: KETOROLAC 15 MG/ML 1 ML VIAL IVP PRN (09:58)
[2022-07-29 10:51] LABS: HCT 24.6 % (37.2-46.3); HGB 8.1 g/dL (12.0-15.0); MCH 30.9 pg (27.0-32.0); MCHC 32.9 g/dL (32.0-37.0); MCV 93.9 fL (80.0-97.0); Mean Platelet Volume 9.9 fL (9.5-12.2); NRBC Per 100 WBC 0 /100 WBCS (0.0-0.0); Platelet Count 91 X 10*3/uL (140-440); RBC 2.62 X 10*6/uL (4.10-5.20); RDW 13.7 % (11.5-14.5); WBC 11.31 X 10*3/uL (4.50-10.00)
--- NOTE | 2022-07-29 11:06 | P.PN ---
Subjective Progress Note Date: 07/29/22 HISTORY OF PRESENT ILLNESS: This is a 67-year-old female patient with past medical history of coronary artery disease, hypertension, hyperlipidemia, gastroesophageal reflux disease, glioblastoma multiform status post surgery and radiation, currently on chemotherapy discontinued on Monday, slow transit constipation. Patient presented to [facility] emergency center due to right upper quadrant abdominal pain radiating to her back and epigastric area. The past 3 days. Patient also complained of nausea and dry heaves. She underwent a CAT scan of the abdomen and pelvis which revealed a distended gallbladder without surrounding inflammatory changes. Gallbladder ultrasound showed mildly distended gallbladder without gallstones, wall thickening or cholecystic fluid to suggest acute cholecystitis. Patient was admitted under the care of general surgery. 07/27: Patient is waiting for laparoscopic cholecystectomy for this afternoon. Patient continued on IV fluids and 125 mL per hour. Regarding pain control. Patient states the fentanyl did not seem to help her and she is currently on Dilaudid. Blood work reveals WBC of 8.7, hemoglobin 12.9, platelet count 169. Sodium 134, potassium 3.2 and replaced, chloride 97, CO2 23, BUN 10 and creatinine 0.7. Patient has been afebrile, heart rate 100, blood pressure this morning 174/100, pulse ox 95% on room air. Is on IV hydralazine with some improvement of blood pressure. Patient's home blood pressure medications will be resumed following surgery. 07/28: Patient is status post laparoscopic cholecystectomy. Patient had tachycardia last evening and received additional dose of Toprol-XL 25 mg at 3 AM and change to twice daily dosing with improvement of her heart rate. Patient is complaining of nausea without vomiting. She states she does not have any appetite. She has a little bit of abdominal pain, no chest pain. She states she has walked in her room and did okay. She feels tired and did not sleep last evening. She has been afebrile, heart rate currently 105, blood pressure 184/75, pulse ox 97% on room air. She is continued on IV Zosyn and IV fluids. Patient has been started on a regular diet. Repeat blood work reveals sodium 131, potassium 3.1 and was replaced, chloride 100, CO2 23, BUN 16 creatinine 0.63. Blood sugar 128. AST 64, ALT 42, alkaline phosphatase 114. Anticipate discharge home tomorrow. 07/29: Patient's heart rate improved overnight this morning at 59, blood pressure 154/73, pulse ox 96% on room air. Patient's home Hydralazine 25 mg TID will be resumed. Patient has been afebrile overnight. She has been seen by general surgery and cleared for discharge. Repeat blood work reveals magnesium 1.9. WBC 11.3, hemoglobin 8.1. Platelet count 91. Patient is cleared for discharge from internal medicine with plan to follow-up in 1 week in the office. REVIEW OF SYSTEMS: Constitutional: No documented fever, no chills, no night sweats. No weight change. Reports mild generalized weakness, fatigue or lethargy. No daytime sleepiness. EENT: No headache. No blurred vision or double vision, no loss of vision. No loss of Hearing, no ringing in the ears, no dizziness. No nasal drainage or congestion. No epistaxis. No sore throat. Lungs: No shortness of breath, no cough, no sputum production. No wheezing. Reports dyspnea with activity. Cardiovascular: No chest pain, no lower extremity edema. No palpitations. No paroxysmal nocturnal dyspnea. No orthopnea. No lightheadedness or dizziness. No syncopal episodes. Abdominal: Reports abdominal pain mild discomfort. Reports nausea, no vomiting. No diarrhea. No constipation. No bloody or tarry stools. Reports loss of appetite. Genitourinary: No dysuria, increased frequency, urgency. No urinary retention. Musculoskeletal: No myalgias. No muscle weakness, no gait dysfunction, no frequent falls. No back pain. No neck pain. Integumentary: No wounds, no lesions. No rash or pruritus. No unusual br uising. No change in hair or nails. Neurologic: No aphasia. No facial droop. No change in mentation. No head injury. No headache. No paralysis. No paresthesia. Psychiatric: No depression. No anxiety. No mood swings. Endocrine: No abnormal blood sugars. No weight change. PHYSICAL EXAMINATION: General: This is a 67-year-old thin female. Patient is resting in bed and appears to be comfortable and in no acute distress. HEENT: Head is atraumatic, normocephalic, pupils were equal round reactive to light and recommendation, extraocular muscle movement were intact, sclera nonicteric, conjunctivae were pale, mucous membranes of the mouth are somewhat dry. Neck: Supple, no JVP, normal carotid upstroke bilaterally, no lymphadenopathy. Chest: Decreased breath sounds at the bases, few rhonchi, no extremity wheezes, no chest wall tenderness, no intercostal retractions. Heart: First heart sound is normal, second heart sounds normal, 2/6 systolic ejection murmur at the left sternal border, no S3, no S4. Abdomen: Soft, nondistended, positive bowel sounds. No abdominal tenderness. All puncture sites are glued, edges well approximated, ecchymosis noted in the right upper quadrant. Extremities: There is no edema no calf tenderness DP +2 bilaterally. Neurologic examination: Patient is awake alert and oriented x3, cranial nerves II-12 appear grossly intact, muscle power were 5 out of 5 in upper extremities and 5 out of 5 in bilateral lower extremities, deep tendon reflexes normal bilaterally. ASSESSMENT AND PLAN: 1. Acute cholecystitis status post laparoscopic cholecystectomy 07/27. Continue patient on [place] as needed or Tylenol. Patient is cleared for discharge from medicine with plan for follow-up in one week. 2. History of coronary artery disease. Patient will be continued on aspirin 81 mg daily, atorvastatin 40 mg daily, Imdur 30 mg daily, Toprol-XL 25 mg twice daily. 3. Hypertension. Continue patient on hydralazine 20 mg IV push every 4 hours as needed for systolic blood pressure greater than 160, resume hydralazine 25 mg 3 times daily oral, continue losartan 100 mg daily, Toprol-XL 25 mg twice daily. 4. Hyperlipidemia. Continue patient on atorvastatin 40 mg daily. 5. History of glioblastoma status post surgery, radiation and chemotherapy. Continue Keppra secondary 50 mg twice daily as seizure prophylaxis. 6. History of pyloric stricture, stable. 7. 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 8. Postoperative tachycardia secondary to missed doses due to nausea. Toprol increased frequency to twice daily. 9. Gastroesophageal reflux disease and GI prophylaxis. Continue Protonix 40 mg twice daily. 10. Chronic thrombocytopenia. 11. DVT prophylaxis. Lovenox. DISCHARGE PLAN Home Impression and plan of care have been directed as dictated by the signing physician. Kari Arroyo nurse practitioner acting as scribe for signing physician. Objective - Vital Signs Vital signs: Vital Signs Temp 98.5 F 07/29/22 02:27 Pulse 59 L 07/29/22 02:27 Resp 16 07/29/22 02:27 BP 154/73 07/29/22 02:27 Pulse Ox 96 07/29/22 02:27 FiO2 Intake & Output 07/28/22 07/29/22 07/29/22 18:59 06:59 18:59 Other: Voiding Method Toilet # Voids 1 1 - Labs CBC & Chem 7: 07/29/22 06:38 07/28/22 09:54 Labs: Abnormal Lab Results - Last 24 Hours (Table) 07/28/22 Range/Units 09:54 Sodium 131 L (137-145) mmol/L Potassium 3.1 L (3.5-5.1) mmol/L Glucose 128 H (74-99) mg/dL AST 64 H (14-36) U/L ALT 42 H (4-34) U/L Total Protein 5.0 L (6.3-8.2) g/dL Albumin 3.0 L (3.5-5.0) g/dL
[2022-07-29 11:12] LABS: African American GFR (CKD) 115.3 (60.0-200.0); Albumin/Globulin Ratio 1.67 (1.60-3.17); Anion Gap 9.4 mmol/L (10.00-18.00); BUN/Creat Ratio 20.6 Ratio (12.00-20.00); Blood Urea Nitrogen 10.3 mg/dL (9.0-27.0); Calcium 8.5 mg/dL (8.7-10.3); Carbon Dioxide 20.6 mmol/L (20.0-27.5); Globulin 1.8 g/dL (1.6-3.3); Non-African American GFR(CKD) 99.4 (60.0-200.0); Potassium 3.1 mmol/L (3.5-5.5); Total Bilirubin 0.4 mg/dL (0.30-1.20); Total Protein 4.8 g/dL (6.2-8.2)
[2022-07-29] MEDS ORDERED: POTASSIUM CHLORIDE ER 20 MEQ TAB.ER PO STA (11:13)
--- NOTE | 2022-07-29 11:35 | P.DS ---
Providers Date of admission: 07/27/22 13:52 Expected date of discharge: 07/29/22 Attending physician: Michael Lloyd Consults: 07/26/22 16:36 Consult Physician Routine Consulting Provider: Valeriano Khan Consult Reason/Comments: medical management Do you want consulting provider notified?: Yes Primary care physician: Valeriano Khan Hospital Course: Discharge diagnosis 1. Cholecystitis status post laparoscopic Cholecystectomy 2. Hypokalemia potassium being replaced 3. Sinus tachycardia improved with the resuming of the metoprolol 4. Leukocytosis 5. Anemia with ecchymosis right upper quadrant Hospital course This is a 67-year-old female presented to the hospital with complaints of right upper quadrant abdominal pain that radiated to her back and epigastric area over the last 4 days. She's been having nausea and dry heaves. She had a computed tomography scan abdomen and pelvis showing a distended gallbladder without surrounding inflammatory changes. Clinical correlation for acute cholecystitis is recommended. And gallbladder ultrasound showed mildly distended gallbladder without gallstones wall thickening or cholecystic fluid to suggest acute cholecystitis. Patient is status post laparoscopic cholecystectomy for cholecystitis. Patient tolerated surgery well. Her pain is controlled. She is tolerating diet. She's afebrile. Her heart rate has improved. Potassium is being replaced prior to discharge. Patient will be discharged home with antibiotics. Also recommended that patient hold her aspirin for 1 week due to her anemia and ecchymosis of the right upper quadrant. Patient is stable for discharge. Please refer to chart for any further details. Patient was seen and examined with Dr. Lloyd Physician Dry Plasterer note has been reviewed by physician. Signing provider agrees with the documented findings, assessment, and plan of care. Patient Condition at Discharge: Stable Plan - Discharge Summary Discharge Rx Participant: No New Discharge Prescriptions: New Metoprolol Succinate (ER) [Toprol XL] 25 mg PO BID #60 tab HYDROcodone/APAP 5-325MG [[place] 5-325] 1 tab PO Q6HR PRN 3 Days #12 tab PRN Reason: Pain Levofloxacin [Levaquin] 500 mg PO DAILY 10 Days #10 tab Continue Butalb/Asprin/Caff 50-325-40Mg [Fiorinal 50-325-40 MG] 1 - 2 tab PO TID PRN PRN Reason: Migraine Headache Atorvastatin [Lipitor] 40 mg PO DAILY #90 tab Nitroglycerin Sl Tabs [Nitrostat] 0.4 mg SUBLINGUAL Q5M PRN #25 tab PRN Reason: Chest Pain Aspirin EC [Ecotrin Low Dose] 81 mg PO DAILY Omeprazole [PriLOSEC] 40 mg PO BID Docusate [Colace] 100 mg PO BID ondansetron HCL [Zofran] 8 mg PO Q8H PRN PRN Reason: Nausea Metoclopramide [Reglan] 10 mg PO TID PRN PRN Reason: Nausea Potassium Chloride ER [K-Dur 10] 10 meq PO DAILY Losartan Potassium 100 mg PO DAILY Butalb/Acetaminophen/Caffeine [Fioricet 50-325-40] 1 - 2 tab PO TID PRN PRN Reason: Migraine Headache hydrALAZINE HCL [Apresoline] 25 mg PO TID PRN PRN Reason: HIGH BLOOD PRESSURE Isosorbide Mononitrate ER [Imdur] 30 mg PO DAILY levETIRAcetam [Keppra] 750 mg PO BID Discontinued Metoprolol Succinate [Metoprolol Succinate ER] 25 mg PO DAILY Discharge Medication List Butalb/Asprin/Caff 50-325-40Mg [Fiorinal 50-325-40 MG] 1 - 2 tab PO TID PRN 04/26/16 [History] Atorvastatin [Lipitor] 40 mg PO DAILY #90 tab 07/28/17 [Rx] Nitroglycerin Sl Tabs [Nitrostat] 0.4 mg SUBLINGUAL Q5M PRN #25 tab 07/28/17 [Rx] Aspirin EC [Ecotrin Low Dose] 81 mg PO DAILY 08/08/18 [History] Omeprazole [PriLOSEC] 40 mg PO BID 07/21/20 [History] Docusate [Colace] 100 mg PO BID 02/20/22 [History] Metoclopramide [Reglan] 10 mg PO TID PRN 02/20/22 [History] Potassium Chloride ER [K-Dur 10] 10 meq PO DAILY 02/20/22 [History] ondansetron HCL [Zofran] 8 mg PO Q8H PRN 02/20/22 [History] Losartan Potassium 100 mg PO DAILY 05/10/22 [History] Butalb/Acetaminophen/Caffeine [Fioricet 50-325-40] 1 - 2 tab PO TID PRN 07/26/22 [History] Isosorbide Mononitrate ER [Imdur] 30 mg PO DAILY 07/26/22 [History] hydrALAZINE HCL [Apresoline] 25 mg PO TID PRN 07/26/22 [History] levETIRAcetam [Keppra] 750 mg PO BID 07/26/22 [History] HYDROcodone/APAP 5-325MG [[place] 5-325] 1 tab PO Q6HR PRN 3 Days #12 tab 07/29/22 [Rx] Levofloxacin [Levaquin] 500 mg PO DAILY 10 Days #10 tab 07/29/22 [Rx] Metoprolol Succinate (ER) [Toprol XL] 25 mg PO BID #60 tab 07/29/22 [Rx] Follow up Appointment(s)/Referral(s): Valeriano Khan MD [Primary Care Provider] - 1 Week Michael Lloyd MD [STAFF PHYSICIAN] - 1 Week Activity/Diet/Wound Care/Special Instructions: No driving while taking [place] No lifting over 10 pounds Shower daily. No soaking or tub baths for 2 weeks Very light activity until you are reevaluated at your follow up appointment with your surgeon Hold Aspirin for 1 week Discharge Disposition: HOME SELF-CARE
--- NOTE | 2022-07-29 12:54 | CDI ---
Documentation Clarification Form Date: 07/29/2022 12:32:46 PM From: Binta Zhang RN, CCDS Admit Date: 07/27/2022 01:52:00 PM Patient Name: Cat Marroquin Visit Number: [id number] Discharge Date: ATTENTION: The Clinical Documentation Specialists (CDI) and [facility] Coding Staff appreciate your assistance in clarifying documentation. Please respond to the clarification below the line at the bottom and electronically sign. The CDI & [facility] Coding staff will review the response and follow-up if needed. Please note: Queries are made part of the Legal Health Record. If you have any questions, please contact the author of this message via ITS. Dr. Michael Lloyd Unspecified anemia is documented in the discharge summary on 07/29/2022 Additional specificity regarding the type, acuity and cause of anemia is requested. History/Risk Factors: Cancer, GI Bleed, Hypertension, Anemia, Glioblastoma Clinical indicators: 67-year-old female present with abdominal pain. CT abdomen ruled in for acute cholecystitis. She had a laparoscopic cholecystectomy on 07/27/202207/26 HGB 14.4, HCT 44.4 07/27 HGB 12.9, HCT 38.8 07/28 HGB 11.2, HCT 34.9 07/29 HGB 8.1, HCT 24.6 Treatment: Monitor CBC per orders Please clarify the type, acuity and cause of anemia: [ xx ] Acute blood loss anemia. Expected [ ] Acute on chronic blood loss anemia [ ] Unable to determine [ ] Other, please specify (Template Last Revised: December 2020) MTDD
[2022-07-29 15:12] VITALS: PULSE 104
== END 2022-07-29 14:05 | disposition home or self-care (01) | DRG 418 ==
LOC: EC 09:23 → 6NMEDSUR 18:42 → OBSVTOIN 07-27 13:52 → 6NMEDSUR 07-27 23:39
PROVIDERS: ADMIT Surgery; ATTEND Surgery
PROC: 0FT44ZZ Resection of Gallbladder, Percutaneous Endoscopic Approach (ICD-10-PCS; principal; 2022-07-27 16:15)
DX: K81.0 Acute cholecystitis (principal); C71.2 Malignant neoplasm of temporal lobe; D62 Acute posthemorrhagic anemia; K59.01 Slow transit constipation; K82.8 Other specified diseases of gallbladder; D69.6 Thrombocytopenia, unspecified; E78.5 Hyperlipidemia, unspecified; E87.6 Hypokalemia; I10 Essential (primary) hypertension; I25.10 Atherosclerotic heart disease of native coronary artery without angina pectoris; Z79.82 Long term (current) use of aspirin; Z79.899 Other long term (current) drug therapy; Z80.1 Family history of malignant neoplasm of trachea, bronchus and lung; Z80.8 Family history of malignant neoplasm of other organs or systems; Z82.49 Family history of ischemic heart disease and other diseases of the circulatory system; Z83.3 Family history of diabetes mellitus; Z85.820 Personal history of malignant melanoma of skin; H93.13 Tinnitus, bilateral; Z90.49 Acquired absence of other specified parts of digestive tract; Z86.73 Personal history of transient ischemic attack (TIA), and cerebral infarction without residual deficits; Z87.11 Personal history of peptic ulcer disease; Z92.3 Personal history of irradiation; Z95.5 Presence of coronary angioplasty implant and graft; Z98.84 Bariatric surgery status; Z92.21 Personal history of antineoplastic chemotherapy
CPT/HCPCS: 36415; 74177; 76705; 80048; 80053; 81001; 83605; 83690; 83735; 84484; 85025; 85027; 88304; 93005; 96361; 96365; 96366; 96375; 96376; 99285

== ENCOUNTER 2022-11-14 09:09 | Emergency (ER) | payer MEDICARE ==
[2022-11-14] MEDS ORDERED: ONDANSETRON 4 MG/2 ML VIAL IVP STA ×2 (09:51→12:05)
[2022-11-14] MEDS ORDERED: DEXAMETHASONE SOD PHOSPHATE 10 MG/ML 1 ML VIAL IV STA (09:54)
[2022-11-14] MEDS ORDERED: SODIUM CHLORIDE 0.9% 1,000 ML IV STA (09:54)
--- NOTE | 2022-11-14 09:56 | ED ---
General Adult HPI - General Chief complaint: Weakness Stated complaint: left hand & arm weakness, headache Time Seen by Provider: 11/14/22 09:21 Source: patient Mode of arrival: ambulatory Limitations: no limitations - History of Present Illness Initial comments: Dictation was produced using [employer] dictation software. please excuse any grammatical, word or spelling errors. Chief Complaint: 67-year-old female presents to the emergency room for left- sided weakness and headache History of Present Illness: Patient 67-year-old female she has history of glioblastoma multiforme. Patient began having headache and left-sided weakness starting last night at around 10 or 11 PM. Patient has history of GBM. She has not had any cancer treatment since late last year. Patient was initially diagnosed couple years ago for GBM. She did have surgical removal. According to also aides in providing is present also states that 90% of the cancerous tissue was removed during the operation. Patient has history of migraines. Since that her headache is severe. Patient reports that her symptoms are very similar to when she was initially diagnosed. She does have nausea and bilious vomiting. Denies any abdominal pain. No fever or constitutional symptoms. All of her cancer care was performed by [facility]. The ROS documented in this emergency department record has been reviewed and confirmed by me. Those systems with pertinent positive or negative responses have been documented in the HPI. All other systems are other negative and/or noncontributory. PHYSICAL EXAM: General Impression: Alert and oriented x3, nauseated HEENT: Normocephalic atraumatic, extra-ocular movements intact, pupils equal and reactive to light bilaterally, mucous membranes moist. Cardiovascular: Heart regular rate and rhythm Chest: Able to complete full sentences, no retractions, no tachypnea Abdomen: abdomen soft, non-tender, non-distended, no organomegaly Musculoskeletal: Pulses present and equal in all extremities, no peripheral edema Motor: no focal deficits noted Neurological: CN II-XII grossly intact, contracture to the left upper extremity. Reduced sensation to light touch of the left arm and left leg. Symmetrical strength to the bilateral lower legs Skin: Intact with no visualized rashes Psych: Normal affect and mood ED course: 67-year-old female presents emergency department for left-sided weakness, nausea vomiting and headache. She has history of GBM. Vital signs upon arrival are within acceptable limits. Nursing notes and chart review was performed Laboratory evaluation obtained. CBC, coag panel, metabolic panel is unremarkable. There is no AV mild hypokalemia with the level II.2. Computed t omography scan of the brain shows encephalomalacia of the right lobe. There also does appear to be some vasogenic edema. Patient reevaluated at bedside at 11:00 AM. She having persistent symptoms. His concern of recurrence of GBM. Patient will be transferred to [facility] for further care. Case discussed Dr. Parks who is willing to accept patient's care for ER to ER transfer. Was pt. sent in by a medical professional or institution (, PA, CALENDERING SUPERVISOR, urgent care, hospital, or retirement...) When possible be specific @ -No Did you speak to anyone other than the patient for history (EMS, parent, family, police, friend...)? What history was obtained from this source @ - Did you review nursing and triage notes (agree or disagree)? Why? @ -I reviewed and agree with nursing and triage notes Were old charts reviewed (outside hosp., previous admission, EMS record, old EKG, old radiological studies, urgent care reports/EKG's, retirement records)? Report findings @ -No old charts were reviewed Differential Diagnosis (chest pain, altered mental status, abdominal pain women, abdominal pain men, vaginal bleeding, weakness, fever, dyspnea, syncope, headache, dizziness, GI bleed, back pain, seizure, CVA, palpatations, mental health)? @ -Differential Headache: Migraine, tension, cluster, carbon monoxide, central venous thrombosis, pension karma temporal arteritis, acute closure glaucoma, intercranial hemorrhage, mastoiditis, sinusitis, head injury, this is not meant to be an all-inclusive list. EKG interpreted by me (3pts min.). @ -As above X-rays interpreted by me (1pt min.). @ -None done CT interpreted by me (1pt min.). @ -see above U/S interpreted by me (1pt. min.). @ -None done What testing was considered but not performed or refused? (CT, X-rays, U/S, labs)? Why? @ -CT angiography of the head and neck was considered however clinical presentation likely recurrence of intracranial mass as opposed to CVA What meds were considered but not given or refused? Why? @ -None Did you discuss the management of the patient with other professionals (professionals i.e. , PA, CALENDERING SUPERVISOR, lab, RT, psych nurse, social sciences research scientist, inside sales consultant, teacher, global safety officer, catalytic case operator)? Give summary @ -[facility] Was smoking cessation discussed for >3mins.? @ -No Was critical care preformed (if so, how long)? @ -Yes, 33 minutes Were there social determinants of health that impacted care today? How? (Homelessness, low income, unemployed, alcoholism, drug addiction, transportation, low edu. Level, literacy, decrease access to med. care, assisted, rehab)? @ -No Was there de-escalation of care discussed even if they declined (Discuss DNR or withdrawal of care, Hospice)? DNR status @ -No What co-morbidities impacted this encounter? (DM, HTN, Smoking, COPD, CAD, Cancer, CVA, ARF, Chemo, Hep., AIDS, mental health diagnosis, sleep apnea, morbid obesity)? @ -None Was patient admitted / discharged? Hospital course, mention meds given and route, prescriptions, significant lab abnormalities, going to OR and other pertinent info. @ -See above Undiagnosed new problem with uncertain prognosis? @ -No Drug Therapy requiring intensive monitoring for toxicity (Heparin, Nitro, Insulin, Cardizem)? @ -No Were any procedures done? @ -No Diagnosis/symptom? @ -Acute neurologic deficits likely recurrence of intracranial mass Acute, or Chronic, or Acute on Chronic? @ -Acute Uncomplicated (without systemic symptoms) or Complicated (systemic symptoms)? @ -Complicated Side effects of treatment? @ -No Exacerbation, Progression, or Severe Exacerbation? @ -No Poses a threat to life or bodily function? How? (Chest pain, USA, ID, pneumonia, PE, COPD, DKA, ARF, appy, cholecystitis, CVA, Diverticulitis, Homicidal, Suicidal, threat to staff... and all critical care pts) @ -yes - Related Data Home Medications Medication Instructions Recorded Confirmed Butalb/Asprin/Caff 50-325-40Mg 1 - 2 tab PO TID PRN 04/26/16 07/26/22 [Fiorinal 50-325-40 MG] Aspirin EC [Ecotrin Low Dose] 81 mg PO DAILY 08/08/18 07/26/22 Omeprazole [PriLOSEC] 40 mg PO BID 07/21/20 07/26/22 Docusate [Colace] 100 mg PO BID 02/20/22 07/26/22 Metoclopramide [Reglan] 10 mg PO TID PRN 02/20/22 07/26/22 Potassium Chloride ER [K-Dur 10] 10 meq PO DAILY 02/20/22 07/26/22 ondansetron HCL [Zofran] 8 mg PO Q8H PRN 02/20/22 07/26/22 Losartan Potassium 100 mg PO DAILY 05/10/22 07/26/22 Butalb/Acetaminophen/Caffeine 1 - 2 tab PO TID PRN 07/26/22 07/26/22 [Fioricet 50-325-40] Isosorbide Mononitrate ER [Imdur] 30 mg PO DAILY 07/26/22 07/26/22 hydrALAZINE HCL [Apresoline] 25 mg PO TID PRN 07/26/22 07/26/22 levETIRAcetam [Keppra] 750 mg PO BID 07/26/22 07/26/22 Previous Rx's Medication Instructions Recorded Atorvastatin [Lipitor] 40 mg PO DAILY #90 tab 07/28/17 Nitroglycerin Sl Tabs [Nitrostat] 0.4 mg SUBLINGUAL Q5M PRN #25 tab 07/28/17 HYDROcodone/APAP 5-325MG [[place] 1 tab PO Q6HR PRN 3 Days #12 tab 07/29/22 5-325] Levofloxacin [Levaquin] 500 mg PO DAILY 10 Days #10 tab 07/29/22 Metoprolol Succinate (ER) [Toprol 25 mg PO BID #60 tab 07/29/22 XL] Allergies Allergy/AdvReac Type Severity Reaction Status Date / Time morphine Allergy hives Verified 07/26/22 12:45 hydromorphone [From Dilaudid] AdvReac Hallucinati Verified 11/14/22 09:19 ons Review of Systems ROS Statement: Those systems with pertinent positive or pertinent negative responses have been documented in the HPI. ROS Other: All systems not noted in ROS Statement are negative. 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 TIA 2021 History of Any Multi-Drug Resistant Organisms: None Reported Past Surgical History: Bowel Resection, Cholecystectomy, Heart Catheterization With Stent, Hysterectomy, Tonsillectomy Additional Past Surgical History / Comment(s): Pyloric stricture with gastrojejunostomy/truncal vagotomy, Cynthia-en-y/gastrojejunostomy with lysis of adhesions d/t gastric outlet obstruction, EGDs, colonoscopies, melanoma removed from skin L neck. Past Anesthesia/Blood Transfusion Reactions: Postoperative Nausea & Vomiting (PONV) Additional Past Anesthesia/Blood Transfusion Reaction / Comment(s): Pt has received blood in past twice without reaction. Date of Last Stent Placement:: 07/27/17 Past Psychological History: No Psychological Hx Reported Smoking Status: Never smoker Past Alcohol Use History: None Reported Past Drug Use History: None Reported - Past Family History Mother Family Medical History: Cancer Additional Family Medical History / Comment(s): lung Daughter(s) Family Medical History: Cancer Additional Family Medical History / Comment(s): melanoma Father Family Medical History: Coronary Artery Disease (CAD), Diabetes Mellitus Additional Family Medical History / Comment(s): Father at 75 yrs post CABG sepsis. Brother(s) Family Medical History: Coronary Artery Disease (CAD) General Exam Limitations: no limitations Course Vital Signs 11/14/22 11/14/22 09:16 10:25 Temperature 98.0 F Pulse Rate 100 101 H Respiratory 22 20 Rate Blood Pressure 146/92 200/119 O2 Sat by Pulse 97 96 Oximetry Medical Decision Making - Lab Data Result diagrams: 11/14/22 09:46 11/14/22 09:46 Lab Results 11/14/22 11/14/22 11/14/22 Range/Units 09:46 09:46 09:46 WBC 7.7 (3.8-10.6) k/uL RBC 4.27 (3.80-5.40) m/uL Hgb 13.8 (11.4-16.0) gm/dL Hct 41.9 (34.0-46.0) % MCV 98.1 (80.0-100.0) fL MCH 32.4 (25.0-35.0) pg MCHC 33.0 (31.0-37.0) g/dL RDW 12.9 (11.5-15.5) % Plt Count 171 (150-450) k/uL MPV 7.6 Neutrophils % 77 % Lymphocytes % 17 % Monocytes % 4 % Eosinophils % 1 % Basophils % 0 % Neutrophils # 5.9 (1.3-7.7) k/uL Lymphocytes # 1.3 (1.0-4.8) k/uL Monocytes # 0.3 (0-1.0) k/uL Eosinophils # 0.1 (0-0.7) k/uL Basophils # 0.0 (0-0.2) k/uL PT 10.0 (9.0-12.0) sec INR 0.9 (<1.2) APTT 22.3 (22.0-30.0) sec Sodium 139 (137-145) mmol/L Potassium 3.2 L (3.5-5.1) mmol/L Chloride 103 (98-107) mmol/L Carbon Dioxide 27 (22-30) mmol/L Anion Gap 9 mmol/L BUN 13 (7-17) mg/dL Creatinine 0.61 (0.52-1.04) mg/dL Est GFR (CKD-EPI)AfAm >90 (>60 ml/min/1.73 sqM) Est GFR (CKD-EPI)NonAf >90 (>60 ml/min/1.73 sqM) Glucose 121 H (74-99) mg/dL Calcium 9.1 (8.4-10.2) mg/dL Total Bilirubin 0.3 (0.2-1.3) mg/dL AST 30 (14-36) U/L ALT 29 (4-34) U/L Alkaline Phosphatase 112 (38-126) U/L Total Protein 6.7 (6.3-8.2) g/dL Albumin 4.1 (3.5-5.0) g/dL Disposition Clinical Impression: GBM (glioblastoma multiforme) Disposition: OTHER INSTITUTION NOT DEFINED Condition: Serious Referrals: Valeriano Khan MD [Primary Care Provider] - 1-2 days Time of Disposition: 11:03 - Out of Hospital Transfer - Req. Specs Out of Hospital Transfer - Requested Specifics: Other Emergency Center ([facility])
[2022-11-14 10:05] LABS: Basophils % (A) 0 %; Eosinophils # (A) 0.1 k/uL (0-0.7); Eosinophils % (A) 1 %; HCT 41.9 % (34.0-46.0); HGB 13.8 gm/dL (11.4-16.0); Lymphocytes # (A) 1.3 k/uL (1.0-4.8); Lymphocytes % (A) 17 %; MCH 32.4 pg (25.0-35.0); MCV 98.1 fL (80.0-100.0); Mean Platelet Volume 7.6; Monocytes # (A) 0.3 k/uL (0-1.0); Monocytes % (A) 4 %; Neutrophils # (A) 5.9 k/uL (1.3-7.7); Neutrophils % (A) 77 %; Platelet Count 171 k/uL (150-450); RBC 4.27 m/uL (3.80-5.40); RDW 12.9 % (11.5-15.5); WBC 7.7 k/uL (3.8-10.6)
[2022-11-14 10:18] LABS: INR 0.9 (<1.2); Partial Thromboplastin Time 22.3 sec (22.0-30.0)
[2022-11-14 10:23] LABS: ALT 29 U/L (4-34); AST 30 U/L (14-36); African American GFR (CKD) >90 (>60 ml/min/1.73 sqM); Albumin 4.1 g/dL (3.5-5.0); Alkaline Phosphatase 112 U/L (38-126); Anion Gap 9 mmol/L; Blood Urea Nitrogen 13 mg/dL (7-17); Calcium 9.1 mg/dL (8.4-10.2); Carbon Dioxide 27 mmol/L (22-30); Chloride 103 mmol/L (98-107); Glucose 121 mg/dL (74-99); Non-African American GFR(CKD) >90 (>60 ml/min/1.73 sqM); Potassium 3.2 mmol/L (3.5-5.1); Sodium 139 mmol/L (137-145); Total Bilirubin 0.3 mg/dL (0.2-1.3); Total Protein 6.7 g/dL (6.3-8.2)
--- NOTE | 2022-11-14 10:23 | CT ---
EXAMINATION TYPE: CT brain wo con DATE OF EXAM: 11/14/2022 COMPARISON: 05/10/2022 HISTORY: headaches, left side numbness CT DLP: 1056.4 mGycm Automated exposure control for dose reduction was used. FINDINGS: There remains abnormal attenuation within the deep white matter of the right parietal lobe on. Previo us changes of craniotomy are noted. The findings are similar to the prior exam. No midline shift or m ass effect. No acute hemorrhage. Craniocervical junction maintained. Sella turcica upper limits of normal. IMPRESSION: 1. Postcraniotomy changes with area of encephalomalacia in the posterior white matter of the right pa rietal lobe. However, there is persistent stable abnormal attenuation within the white matter adjacen t to the body superior margins of the right parietal white matter which could be associated with vaso genic edema and previous history of glioblastoma. Short-term follow-up MRI recommended. No interval c hange from prior CT scan and no midline shift.
[2022-11-14] MEDS ORDERED: MORPHINE SULFATE 2 MG/ML SYRINGE IV STA (10:51)
[2022-11-14 11:17] VITALS: RESP 18
[2022-11-14 12:02] VITALS: BP 188/98; PULSE 106
[2022-11-14 12:50] VITALS: TEMP 98.5
== END 2022-11-14 12:39 | disposition other institution (70) ==
LOC: EC 09:09
DX: C71.9 Malignant neoplasm of brain, unspecified (principal); K21.9 Gastro-esophageal reflux disease without esophagitis; I10 Essential (primary) hypertension; Z88.6 Allergy status to analgesic agent; Z88.5 Allergy status to narcotic agent; Z79.82 Long term (current) use of aspirin; Z79.899 Other long term (current) drug therapy
CPT/HCPCS: 36415; 93005; 80053; 85025; 85610; 85730; 70450; 99285; 96374; 96375 ×2; 96376; 96361; J1100; J2405; J2270

== ENCOUNTER 2023-05-14 16:59 | Inpatient (IN) | payer MEDICARE ==
[2023-05-14] MEDS ORDERED: SODIUM CHLORIDE 0.9% 500 ML 500 ML IV ONE (17:41)
[2023-05-14] MEDS ORDERED: ONDANSETRON 4 MG/2 ML VIAL IVP STA (17:57)
--- NOTE | 2023-05-14 17:57 | ED ---
Altered Mental Status HPI - General Chief Complaint: Neuro Symptoms/Deficit Stated Complaint: Nausea, vomiting Time Seen by Provider: 05/14/23 17:06 Source: patient, family, EMS Mode of arrival: EMS Limitations: altered mental status, physical limitation - History of Present Illness Initial Comments: This patient is a 68-year-old woman with history of glioblastoma multiformity, who arrives to have evaluation for mental status change. The patient is not able to give much history at all. Patient's is at bedside and relates that starting around 3 in the morning she was mainly just staring off. He couldn't get her to occasionally respond to basic questions. He wanted to bring her to the hospital but she resisted. She finally relented after other family members came to the home and convinced her to come in. The patient now not answering questions. Per she had some episodes of vomiting mainly of clear fluid some appeared bilious. MD Complaint: altered mental status Onset/Timin -: hour(s) (14) Severity: moderate Consistency of Symptoms: getting worse Context: cancer Associated Symptoms: nausea/vomiting - Related Data Home Medications Medication Instructions Recorded Confirmed Butalb/Asprin/Caff 50-325-40Mg 1 - 2 tab PO TID PRN 04/26/16 05/14/23 [Fiorinal 50-325-40 MG] Aspirin EC [Ecotrin Low Dose] 81 mg PO HS 08/08/18 05/14/23 Omeprazole [PriLOSEC] 40 mg PO BID 07/21/20 05/14/23 Docusate [Colace] 100 mg PO BID 02/20/22 05/14/23 Metoclopramide [Reglan] 10 mg PO Q8H PRN 02/20/22 05/14/23 Potassium Chloride ER [K-Dur 10] 10 meq PO BID 02/20/22 05/14/23 ondansetron HCL [Zofran] 8 mg PO Q8H PRN 02/20/22 05/14/23 Losartan Potassium 100 mg PO DAILY 05/10/22 05/14/23 Isosorbide Mononitrate ER [Imdur] 30 mg PO DAILY 07/26/22 05/14/23 Avastin(Unknown Dose) 1 dose IV Q14D 05/14/23 05/14/23 Ketoconazole 2% Shampoo [Nizoral] 1 applic TOPICAL Q7D 05/14/23 05/14/23 LORazepam [Ativan] 1 mg PO Q12H PRN 05/14/23 05/14/23 Metoprolol Succinate (ER) [Toprol 25 mg PO DAILY 05/14/23 05/14/23 XL] Mirtazapine 7.5 mg PO HS PRN 05/14/23 05/14/23 Nitroglycerin Sl Tabs [Nitrostat] 0.4 mg SL Q5M PRN 05/14/23 05/14/23 Verapamil Sr [Isoptin Sr] 240 mg PO DAILY PRN 05/14/23 05/14/23 busPIRone HCL [Buspar] 7.5 mg PO BID 05/14/23 05/14/23 dexAMETHasone [Decadron] 4 mg PO Q12H 05/14/23 05/14/23 levETIRAcetam [Keppra] 1,000 mg PO BID 05/14/23 05/14/23 metFORMIN HCL [Glucophage] 500 mg PO DAILY 05/14/23 05/14/23 traMADol HCL 50 mg PO Q6H PRN 05/14/23 05/14/23 Temozolomide [Temodar] 20 mg PO DIRECTED 05/15/23 05/15/23 Temozolomide [Temodar] 250 mg PO DIRECTED 05/15/23 05/15/23 Previous Rx's Medication Instructions Recorded Atorvastatin [Lipitor] 40 mg PO DAILY #90 tab 07/28/17 Allergies Allergy/AdvReac Type Severity Reaction Status Date / Time hydromorphone [From Dilaudid] AdvReac Hallucinati Verified 05/14/23 21:35 ons Review of Systems ROS Statement: Those systems with pertinent positive or pertinent negative responses have been documented in the HPI. ROS Other: All systems not noted in ROS Statement are negative. Limitations: ROS unobtainable due to patients medical condition Constitutional: Denies: fever Respiratory: Denies: dyspnea Gastrointestinal: Reports: vomiting Neurological: Reports: weakness Past Medical History Past Medical History: Cancer, GERD/Reflux, GI Bleed, Hypertension Additional Past Medical History / Comment(s): PUD, upper GI bleed, anemia, pyloric strictures with surgeries, melanoma stage I-mole on L neck with removal, hemorrhoids, 2017 had stress echo which suggestive of prior OH-had PCI with stent, chronic migraines, small cyst on liver, occasional bilateral tinnitis, recent L thigh muscle bruise-started on baclofen. TIA 2021 History of Any Multi-Drug Resistant Organisms: None Reported Past Surgical History: Bowel Resection, Cholecystectomy, Heart Catheterization With Stent, Hysterectomy, Tonsillectomy Additional Past Surgical History / Comment(s): Pyloric stricture with gastrojejunostomy/truncal vagotomy, Cynthia-en-y/gastrojejunostomy with lysis of adhesions d/t gastric outlet obstruction, EGDs, colonoscopies, melanoma removed from skin L neck. Past Anesthesia/Blood Transfusion Reactions: Postoperative Nausea & Vomiting (PONV) Additional Past Anesthesia/Blood Transfusion Reaction / Comment(s): Pt has received blood in past twice without reaction. Date of Last Stent Placement:: 07/27/17 Past Psychological History: No Psychological Hx Reported Smoking Status: Never smoker Past Alcohol Use History: None Reported Past Drug Use History: None Reported - Past Family History Mother Family Medical History: Cancer Additional Family Medical History / Comment(s): lung Daughter(s) Family Medical History: Cancer Additional Family Medical History / Comment(s): melanoma Father Family Medical History: Coronary Artery Disease (CAD), Diabetes Mellitus Additional Family Medical History / Comment(s): Father at 75 yrs post CABG sepsis. Brother(s) Family Medical History: Coronary Artery Disease (CAD) General Exam Limitations: altered mental status, physical limitation General appearance: alert Head exam: Present: atraumatic Eye exam: Present: PERRL. Absent: EOMI, scleral icterus, conjunctival injection, nystagmus ENT exam: Present: mucous membranes dry Neck exam: Absent: tenderness Respiratory exam: Present: rhonchi. Absent: respiratory distress, wheezes, rales Cardiovascular Exam: Present: regular rate, normal rhythm, normal heart sounds. Absent: systolic murmur, diastolic murmur, rubs, gallop GI/Abdominal exam: Present: soft. Absent: distended, tenderness, guarding, rebound, rigid, mass Extremities exam: Present: normal inspection, normal capillary refill. Absent: pedal edema, calf tenderness Neurological exam: Present: alert Skin exam: Present: warm, dry, intact, normal color. Absent: rash Course Vital Signs 05/14/23 05/14/23 05/14/23 17:05 18:42 21:54 Temperature 98.2 F 98.5 F Pulse Rate 92 105 H 96 Pulse Rate [ Left] Respiratory 18 20 20 Rate Blood Pressure 187/95 207/99 189/94 Blood Pressure [Right Arm] O2 Sat by Pulse 95 95 94 L Oximetry 05/15/23 05/15/23 05/15/23 00:44 02:20 02:50 Temperature Pulse Rate 97 96 95 Pulse Rate [ Left] Respiratory 18 19 18 Rate Blood Pressure 159/96 174/96 187/94 Blood Pressure [Right Arm] O2 Sat by Pulse 93 L 92 L 92 L Oximetry 05/15/23 05/15/23 05/15/23 04:20 04:40 04:50 Temperature Pulse Rate 111 H 104 H 113 H Pulse Rate [ Left] Respiratory 22 21 21 Rate Blood Pressure 176/108 173/95 189/93 Blood Pressure [Right Arm] O2 Sat by Pulse 93 L 93 L 93 L Oximetry 05/15/23 05/15/23 05/15/23 05:00 05:50 06:40 Temperature Pulse Rate 108 H 111 H 106 H Pulse Rate [ Left] Respiratory 18 20 21 Rate Blood Pressure 189/93 168/90 161/88 Blood Pressure [Right Arm] O2 Sat by Pulse 91 L 93 L 93 L Oximetry 05/15/23 05/15/23 07:59 08:00 Temperature 98.8 F Pulse Rate 115 H Pulse Rate [ 107 H Left] Respiratory 16 18 Rate Blood Pressure 167/98 Blood Pressure 147/70 [Right Arm] O2 Sat by Pulse 94 L 91 L Oximetry Medical Decision Making - Medical Decision Making This patient is 68-year-old woman with history of GBM, presenting with worsening altered mental status. Workup includes head CT which shows possible enlargement of underlying mass. Discussed finding with patient and her and with her primary physician. They were informed that as all of her treatment is through [facility] in [place] if they would like to have further aggressive treatment she would need to be transferred there. After discussion, it appears that they are more interested in comfort/hospice care, and therefore will be admitted here with consultation to the hospice service. The patient had chest x-ray which I interpreted as being negative for acute infiltrate, pneumothorax, congestive heart Was pt. sent in by a medical professional or institution (, PA, MACHINE OPERATOR FARMWORKER, urgent care, hospital, or usp...) When possible be specific @ -[No] Did you speak to anyone other than the patient for history (EMS, parent, family, police, friend...)? What history was obtained from this source @ -[Patient's gives most of the history Did you review nursing and triage notes (agree or disagree)? Why? @ -[I reviewed and agree with nursing and triage notes] Were old charts reviewed (outside hosp., previous admission, EMS record, old EKG, old radiological studies, urgent care reports/EKG's, usp records)? Report findings @ -[No old charts were reviewed] Differential Diagnosis (chest pain, altered mental status, abdominal pain women, abdominal pain men, vaginal bleeding, weakness, fever, dyspnea, syncope, headache, dizziness, GI bleed, back pain, seizure, CVA, palpatations, mental health, musculoskeletal)? @ -[Differential Altered Mental Status: Hypoglycemia, DKA, hypercapnia, ETOH, overdose, CO poisoning, trauma, myxedema coma, HTN encephalopathy, infection, encephalitis, psychosis, intercranial hemorrhage, hepatic encephalopathy, meningitis, CVA, this is not meant to be an all-inclusive list EKG interpreted by me (3pts min.). @ -[As above] X-rays interpreted by me (1pt min.). @ -As above CT interpreted by me (1pt min.). @ -[As above U/S interpreted by me (1pt. min.). @ -[None done] What testing was considered but not performed or refused? (CT, X-rays, U/S, labs)? Why? @ -[None] What meds were considered but not given or refused? Why? @ -[None] Did you discuss the management of the patient with other professionals (professionals i.e. , PA, MACHINE OPERATOR FARMWORKER, lab, RT, psych nurse, social director, research instrumentation technician, teacher, peace officer, case finisher)? Give summary @ -Case discussed with admitting physician Was smoking cessation discussed for >3mins.? @ -[No] Was critical care preformed (if so, how long)? @ -[No] Were there social determinants of health that impacted care today? How? (Homelessness, low income, unemployed, alcoholism, drug addiction, transportation, low edu. Level, literacy, decrease access to med. care, senior living, rehab)? @ -[No] Was there de-escalation of care discussed even if they declined (Discuss DNR or withdrawal of care, Hospice)? DNR status @ -[Yes, see above What co-morbidities impacted this encounter? (DM, HTN, Smoking, COPD, CAD, Cancer, CVA, ARF, Chemo, Hep., AIDS, mental health diagnosis, sleep apnea, morbid obesity)? @ -[History of cancer Was patient admitted / discharged? Hospital course, mention meds given and route, prescriptions, significant lab abnormalities, going to OR and other pertinent info. @ -[See above Undiagnosed new problem with uncertain prognosis? @ -[No] Drug Therapy requiring intensive monitoring for toxicity (Heparin, Nitro, Insulin, Cardizem)? @ -[No] Were any procedures done? @ -[No] Diagnosis/symptom? @ -[Acute altered mental status Glioblastoma multiformity Acute, or Chronic, or Acute on Chronic? @ -[Acute on chronic Uncomplicated (without systemic symptoms) or Complicated (systemic symptoms)? @ -[Complicated by mental status change Side effects of treatment? @ -[No] Exacerbation, Progression, or Severe Exacerbation? @ -[No] Poses a threat to life or bodily function? How? (Chest pain, [place], [place], pneumonia, PE, COPD, DKA, ARF, appy, cholecystitis, CVA, Diverticulitis, Homicidal, Suicidal, threat to staff... and all critical care pts) @ -[Yes, there appears to be progression of patient's underlying tumor - Lab Data Result diagrams: 05/14/23 18:04 05/14/23 18:04 Lab Results 05/14/23 05/14/23 05/14/23 Range/Units 18:04 18:04 18:04 WBC 9.6 (3.8-10.6) k/uL RBC 4.67 (3.80-5.40) m/uL Hgb 14.3 (11.4-16.0) gm/dL Hct 45.0 (34.0-46.0) % MCV 96.3 (80.0-100.0) fL MCH 30.5 (25.0-35.0) pg MCHC 31.7 (31.0-37.0) g/dL RDW 15.2 (11.5-15.5) % Plt Count 92 L (150-450) k/uL MPV 7.0 Neutrophils % 79 % Lymphocytes % 14 % Monocytes % 5 % Eosinophils % 0 % Basophils % 0 % Neutrophils # 7.6 (1.3-7.7) k/uL Lymphocytes # 1.4 (1.0-4.8) k/uL Monocytes # 0.5 (0-1.0) k/uL Eosinophils # 0.0 (0-0.7) k/uL Basophils # 0.0 (0-0.2) k/uL Manual Slide Review Performed PT 9.3 (9.0-12.0) sec INR 0.9 (<1.2) APTT 21.9 L (22.0-30.0) sec Sodium 126 L (137-145) mmol/L Potassium 3.8 (3.5-5.1) mmol/L Chloride 93 L (98-107) mmol/L Carbon Dioxide 27 (22-30) mmol/L Anion Gap 6 mmol/L BUN 11 (7-17) mg/dL Creatinine 0.37 L (0.52-1.04) mg/dL Est GFR (CKD-EPI)AfAm >90 (>60 ml/min/1.73 sqM) Est GFR (CKD-EPI)NonAf >90 (>60 ml/min/1.73 sqM) Glucose 110 H (74-99) mg/dL POC Glucose (mg/dL) (70-110) mg/dL POC Glu Real Estate Sales Manager ID Calcium 8.8 (8.4-10.2) mg/dL Total Bilirubin 0.8 (0.2-1.3) mg/dL AST 109 H (14-36) U/L ALT 117 H (4-34) U/L Alkaline Phosphatase 169 H (38-126) U/L Troponin I (0.000-0.034) ng/mL Total Protein 6.2 L (6.3-8.2) g/dL Albumin 3.4 L (3.5-5.0) g/dL Urine Color Urine Appearance (Clear) Urine pH (5.0-8.0) Ur Specific [place] (1.001-1.035) Urine Protein (Negative) Urine Glucose (UA) (Negative) Urine Ketones (Negative) Urine Blood (Negative) Urine Nitrite (Negative) Urine Bilirubin (Negative) Urine Urobilinogen (<2.0) mg/dL Ur Leukocyte Esterase (Negative) Urine RBC (0-5) /hpf Urine WBC (0-5) /hpf Ur Squamous Epith Cells (0-4) /hpf Urine Bacteria (None) /hpf Urine Mucus (None) /hpf 05/14/23 05/14/23 05/14/23 Range/Units 18:04 18:48 21:54 WBC (3.8-10.6) k/uL RBC (3.80-5.40) m/uL Hgb (11.4-16.0) gm/dL Hct (34.0-46.0) % MCV (80.0-100.0) fL MCH (25.0-35.0) pg MCHC (31.0-37.0) g/dL RDW (11.5-15.5) % Plt Count (150-450) k/uL MPV Neutrophils % % Lymphocytes % % Monocytes % % Eosinophils % % Basophils % % Neutrophils # (1.3-7.7) k/uL Lymphocytes # (1.0-4.8) k/uL Monocytes # (0-1.0) k/uL Eosinophils # (0-0.7) k/uL Basophils # (0-0.2) k/uL Manual Slide Review PT (9.0-12.0) sec INR (<1.2) APTT (22.0-30.0) sec Sodium (137-145) mmol/L Potassium (3.5-5.1) mmol/L Chloride (98-107) mmol/L Carbon Dioxide (22-30) mmol/L Anion Gap mmol/L BUN (7-17) mg/dL Creatinine (0.52-1.04) mg/dL Est GFR (CKD-EPI)AfAm (>60 ml/min/1.73 sqM) Est GFR (CKD-EPI)NonAf (>60 ml/min/1.73 sqM) Glucose (74-99) mg/dL POC Glucose (mg/dL) 102 (70-110) mg/dL POC Glu Real Estate Sales Manager ID Megha Wallis Calcium (8.4-10.2) mg/dL Total Bilirubin (0.2-1.3) mg/dL AST (14-36) U/L ALT (4-34) U/L Alkaline Phosphatase (38-126) U/L Troponin I <0.012 (0.000-0.034) ng/mL Total Protein (6.3-8.2) g/dL Albumin (3.5-5.0) g/dL Urine Color Yellow Urine Appearance Clear (Clear) Urine pH 8.0 (5.0-8.0) Ur Specific [place] 1.013 (1.001-1.035) Urine Protein 2+ H (Negative) Urine Glucose (UA) Negative (Negative) Urine Ketones 1+ H (Negative) Urine Blood Small H (Negative) Urine Nitrite Negative (Negative) Urine Bilirubin Negative (Negative) Urine Urobilinogen 2.0 (<2.0) mg/dL Ur Leukocyte Esterase Moderate H (Negative) Urine RBC 20 H (0-5) /hpf Urine WBC 36 H (0-5) /hpf Ur Squamous Epith Cells 4 (0-4) /hpf Urine Bacteria Rare H (None) /hpf Urine Mucus Rare H (None) /hpf - EKG Data -: EKG Interpreted by [place] EKG shows normal: sinus rhythm, axis (Normal), intervals (Normal), QRS complexes (Old anterior infarct.) Rate: normal (Rate 94 bpm) Disposition Clinical Impression: Glioblastoma, Weakness, Altered mental status, Intractable nausea and vomiting Disposition: ADMITTED IP TO THIS [facility] Condition: Serious Is patient prescribed a controlled substance at d/c from ED?: No
[2023-05-14 18:21] LABS: Basophils % (A) 0 %; Eosinophils % (A) 0 %; HGB 14.3 gm/dL (11.4-16.0); Lymphocytes # (A) 1.4 k/uL (1.0-4.8); Lymphocytes % (A) 14 %; MCH 30.5 pg (25.0-35.0); MCHC 31.7 g/dL (31.0-37.0); MCV 96.3 fL (80.0-100.0); Monocytes # (A) 0.5 k/uL (0-1.0); Monocytes % (A) 5 %; Neutrophils # (A) 7.6 k/uL (1.3-7.7); Neutrophils % (A) 79 %; RBC 4.67 m/uL (3.80-5.40); RDW 15.2 % (11.5-15.5); WBC 9.6 k/uL (3.8-10.6)
[2023-05-14 18:29] LABS: ALT 117 U/L (4-34); AST 109 U/L (14-36); African American GFR (CKD) >90 (>60 ml/min/1.73 sqM); Albumin 3.4 g/dL (3.5-5.0); Alkaline Phosphatase 169 U/L (38-126); Anion Gap 6 mmol/L; Blood Urea Nitrogen 11 mg/dL (7-17); Calcium 8.8 mg/dL (8.4-10.2); Carbon Dioxide 27 mmol/L (22-30); Chloride 93 mmol/L (98-107); Glucose 110 mg/dL (74-99); Non-African American GFR(CKD) >90 (>60 ml/min/1.73 sqM); Potassium 3.8 mmol/L (3.5-5.1); Sodium 126 mmol/L (137-145); Total Bilirubin 0.8 mg/dL (0.2-1.3); Total Protein 6.2 g/dL (6.3-8.2)
[2023-05-14 18:30] LABS: INR 0.9 (<1.2); Partial Thromboplastin Time 21.9 sec (22.0-30.0); Prothrombin Time 9.3 sec (9.0-12.0)
[2023-05-14 18:35] LABS: Platelet Count 92 k/uL (150-450)
--- NOTE | 2023-05-14 18:41 | XR ---
EXAMINATION TYPE: XR chest 1V portable DATE OF EXAM: 05/14/2023 6:28 PM COMPARISON: No relevant priors TECHNIQUE: XR chest 1V portable . CLINICAL INDICATION:Female, 68 years old with history of altered mental status; FINDINGS: Lungs/Pleura: Low lung volumes are present. There is no evidence of pleural effusion, focal consolida tion, or pneumothorax. Pulmonary vascularity: Unremarkable. Heart/mediastinum: Cardiomediastinal silhouette is unremarkable. Atherosclerotic calcifications are seen in the aorta. Musculoskeletal: Multiple level degenerative disc disease changes seen throughout the spine. Degenera tive changes of the shoulder joints bilaterally. IMPRESSION: No acute cardiopulmonary disease/process.
[2023-05-14 18:50] LABS: Glucose,Whole Blood 102 mg/dL (70-110)
--- NOTE | 2023-05-14 18:59 | CT ---
EXAMINATION TYPE: CT brain wo con CT DLP: 1099.4 mGycm, Automated exposure control for dose reduction was used. DATE OF EXAM: 05/14/2023 6:28 PM COMPARISON: CT brain 11/14/2022 CT brain, 05/10/2022, CTA brain 05/10/2022. CLINICAL INDICATION:Female, 68 years old with history of Altered mental status, AMS, hx TIA and brain ca. TECHNIQUE: Brain: Axial CT images of the brain were obtained with coronal and sagittal reformats created and rev iewed. Contrast used: None. Oral contrast used: None. FINDINGS: Brain: Extra-axial spaces: No abnormal extra-axial fluid collections. Calcifications are noted along the rig ht parieto-occipital dura. Ventricular system: Interval change in appearance of the posterior horn of the right lateral ventricl e (series 2032, image [id number]) which appears to be effaced. Left lateral ventricle is stable in appeara nce. Cerebral parenchyma: No acute intraparenchymal hemorrhage. Enlarging area of hypoattenuation within t he deep white matter of the right parietal lobe. Area of concern demonstrates regions of near fluid a ttenuation, suggesting evolution of encephalomalacia from prior craniotomy. White matter hypoattenuat ion extends inferiorly along the parieto-occipital which is increased from prior. Left hemisphere is normal in appearance. Cerebellum: Unremarkable. Mass effect: No evidence for midline shift. Intracranial vasculature: unremarkable Soft tissues: Normal. Calvarium/osseous structures: Post craniotomy changes of the right calvarium. Paranasal sinuses and mastoid air cells: Clear. Mastoid air cells are Clear Visualized orbits: Orbital contents are intact. IMPRESSION: 1. Postcraniotomy changes with enlarging areas of hypoattenuation in the right parieto-occipital lobe , some of which are near fluid attenuating. Findings may represent involving encephalomalacia. Howeve r, given significant interval change from the prior exams, recommend further evaluation with contrast -enhanced brain MRI. 2. Abnormal appearance of the posterior right lateral ventricle, appearance may be secondary to #1. A ttention on MRI to exclude space-occupying lesion.
[2023-05-14] MEDS ORDERED: MORPHINE SULFATE 4 MG/ML SYRINGE IV STA (21:54)
[2023-05-14] MEDS ORDERED: SODIUM CHLORIDE 0.9% 500 ML 500 ML IV STA (21:54)
[2023-05-14 22:24] LABS: Appearance,Urine Clear (Clear); Bacteria,Urine Rare /hpf; Bilirubin,Urine Negative (Negative); Blood,Urine Small (Negative); Color,Urine Yellow; Glucose,Urine (UA) Negative (Negative); Ketones,Urine 1+ (Negative); Leukocyte Esterase,Urine Moderate (Negative); Mucus,Urine Rare /hpf; Nitrite,Urine Negative (Negative); Protein,Urine 2+ (Negative); RBC,Urine 20 /hpf (0-5); Specific Gravity,Urine 1.013 (1.001-1.035); Squamous Epithelial Cell,Urine 4 /hpf (0-4); WBC,Urine 36 /hpf (0-5)
[2023-05-14] MEDS ORDERED: NALOXONE 0.4 MG/ML 1 ML VIAL IV PRN (23:24)
[2023-05-15] MEDS ORDERED: MAG HYDROX/AL HYDROX/SIMETH 30 ML CUP PO PRN
[2023-05-15] MEDS: ONDANSETRON 4 MG/2 ML VIAL IVP PRN ×2 (00:56→09:18)
[2023-05-15] MEDS: SODIUM CHLORIDE 0.9% 1,000 ML IV SCH ×2 (00:57→15:08)
[2023-05-15] MEDS: MORPHINE SULFATE 4 MG/ML SYRINGE IV PRN ×4 (04:47→23:59)
[2023-05-15] MEDS ORDERED: FAMOTIDINE 20 MG TAB PO SCH (09:00)
[2023-05-15] MEDS ORDERED: MAGNESIUM HYDROXIDE 2,400 MG/30 ML CUP PO PRN (09:00)
[2023-05-15] MEDS ORDERED: NON FORMULARY DRUG (Butalb/Asprin/Caff 50-325-40mg 1 EACH Cap) PO PRN (09:14)
[2023-05-15] MEDS ORDERED: METOCLOPRAMIDE 10 MG TAB PO PRN (09:14)
[2023-05-15] MEDS ORDERED: MIRTAZAPINE 15 MG TAB PO PRN (09:14)
[2023-05-15] MEDS ORDERED: ONDANSETRON 4 MG TAB PO PRN (09:14)
[2023-05-15] MEDS ORDERED: LORazepam 1 MG TAB PO PRN (09:14)
[2023-05-15] MEDS ORDERED: dexAMETHasone 4 MG TAB PO SCH (10:00)
[2023-05-15] MEDS ORDERED: ACETAMINOPHEN IV (For NPO) 1,000 MG in EMPTY BAG 1 BAG IVPB ONE (14:39)
[2023-05-15] MEDS: PANTOPRAZOLE 40 MG TABLET PO SCH (17:27)
[2023-05-15] MEDS ORDERED: ENALAPRILAT 1.25 MG/ML 1 ML VIAL IVP PRN (20:23)
[2023-05-15] MEDS ORDERED: LORazepam 2 MG/ML INJ IV PRN (20:25)
[2023-05-15] MEDS ORDERED: cloNIDine 0.1 MG/24HR PATCH TRANSDERM SCH (20:30)
[2023-05-15] MEDS ORDERED: ASPIRIN 81 MG PO SCH (21:00)
[2023-05-15] MEDS ORDERED: busPIRone HCl 5 MG TAB PO SCH (21:00)
[2023-05-15] MEDS: DOCUSATE 100 MG CAP PO SCH (22:31)
[2023-05-15] MEDS: levETIRAcetam 500 MG TAB PO SCH (22:32)
[2023-05-15] MEDS: DEXAMETHASONE SOD PHOSPHATE 4 MG/ML 1 ML VIAL IVP SCH (23:59)
[2023-05-16] MEDS: SODIUM CHLORIDE 0.9% 1,000 ML IV SCH ×2 (03:57→21:20)
[2023-05-16] MEDS: MORPHINE SULFATE 4 MG/ML SYRINGE IV PRN ×4 (05:18→21:41)
[2023-05-16] MEDS: DEXAMETHASONE SOD PHOSPHATE 4 MG/ML 1 ML VIAL IVP SCH ×3 (05:18→18:06)
[2023-05-16] MEDS: PANTOPRAZOLE 40 MG TABLET PO SCH ×2 (05:39→16:58)
[2023-05-16] MEDS ORDERED: LOSARTAN 50 MG TAB PO SCH (09:00)
[2023-05-16] MEDS ORDERED: ATORVASTATIN 40 MG TAB PO SCH (09:00)
[2023-05-16] MEDS ORDERED: ENOXAPARIN 40 MG/0.4 ML SYRINGE SQ SCH (09:00)
[2023-05-16] MEDS ORDERED: METOPROLOL SUCCINATE (ER) 25 MG TAB.ER.24H PO SCH (09:00)
[2023-05-16] MEDS: ISOSORBIDE MONONITRATE ER 30 MG TAB.ER.24H PO SCH (10:42)
[2023-05-16] MEDS: DOCUSATE 100 MG CAP PO SCH ×2 (10:42→21:20)
[2023-05-16] MEDS ORDERED: SCOPOLAMINE 1 MG/72 HR PATCH TRANSDERM STA (12:07)
[2023-05-16] MEDS: levETIRAcetam 500 MG TAB PO SCH ×2 (12:10→21:20)
[2023-05-17] MEDS: DEXAMETHASONE SOD PHOSPHATE 4 MG/ML 1 ML VIAL IVP SCH ×3 (00:03→12:33)
[2023-05-17] MEDS: SODIUM CHLORIDE 0.9% 1,000 ML IV SCH (00:07)
[2023-05-17] MEDS: MORPHINE SULFATE 4 MG/ML SYRINGE IV PRN ×3 (05:06→14:00)
[2023-05-17 08:03] VITALS: BP 185/91; PULSE 89; RESP 18; TEMP 97.9
[2023-05-17] MEDS: PANTOPRAZOLE 40 MG TABLET PO SCH (09:44)
[2023-05-17] MEDS: levETIRAcetam 500 MG TAB PO SCH (09:44)
[2023-05-17] MEDS: ISOSORBIDE MONONITRATE ER 30 MG TAB.ER.24H PO SCH (09:45)
[2023-05-17] MEDS: DOCUSATE 100 MG CAP PO SCH (09:59)
--- NOTE | 2023-05-17 21:12 | P.HPIM ---
History of Present Illness H&P Date: 05/15/23 HISTORY OF PRESENT ILLNESS: This is a 68-year-old female one of my patient with a previous medical history significant for hypertension and hypertensive cardio vascular disease, hyperlipidemia, history of gastroesophageal reflux disease, CAD post PCI, history of pyloric stenosis status post gastrojejunostomy with lysis of adhesion, history of melanoma status post resection, history of glioblastoma multiforme stage IV in the right parietal area status post craniotomy with the gross resection of the tumor on 07/23/2020 with adjuvant radiation therapy that was done on 10/14/2020, with chemotherapy in the form of Temodar as well as OPTUNE treatment, patient has been under the care of hematology oncology at [facility] with Dr. El she ended up having another craniotomy on November 2022 because of recurrence of her tumor, despite taking chemotherapy and the patient was started on a smaller dose of Temodar and has been in and out of the hospital because of left-sided weakness and increased brain edema, she has been on significant amount of dexamethasone recently was on Decadron 4 mg orally twice every day, she was seen in my office about 3 weeks ago, after she was hospitalized at [facility] for significant paresis of the left upper and lower extremities, due to brain edema, patient became quite lethargic not able to do anything on her own, her daughter and her contacted me and I asked them to take her to the ER for possible inpatient admission with hospice consult as the patient is not able to do any more treatment at this point in time, family seems to be realistic to the idea that she is ready for hospice consult therefore she will be admitted to the floor and we'll consult [facility] hospice. REVIEW OF SYSTEMS: Constitutional: No documented fever, no chills, no night sweats. positive for weight change. positive for weakness, positive for fatigue and lethargy. No daytime sleepiness. EENT: No headache. No blurred vision or double vision, no loss of vision. No loss of Hearing, no ringing in the ears, no dizziness. No nasal drainage or congestion. No epistaxis. No sore throat. Lungs: No shortness of breath, no cough, no sputum production. No wheezing. Reports dyspnea with activity. Cardiovascular: No chest pain, no lower extremity edema. No palpitations. No paroxysmal nocturnal dyspnea. No orthopnea. No lightheadedness or dizziness. No syncopal episodes. Abdominal: Reports abdominal pain. No nausea, vomiting. No diarrhea. No constipation. No bloody or tarry stools reports loss of appetite. Genitourinary: No dysuria, increased frequency, urgency. No urinary retention. Musculoskeletal: No myalgias. positive for muscle weakness, positive for gait dysfunction, no frequent falls. No back pain. No neck pain. Integumentary: No wounds, no lesions. No rash or pruritus. No unusual bruising. No change in hair or nails. Neurologic: No aphasia. No facial droop. No change in mentation. No head injury. No headache. No paralysis. No paresthesia. Psychiatric: No depression. No anxiety. No mood swings. Endocrine: No abnormal blood sugars. No weight change. PAST MEDICAL HISTORY: Coronary artery disease status post PCI of the RCA Hypertension and hypertensive cardiovascular disease. Hyperlipidemia. Migraine headaches. GERD with esophagitis. Melanoma of the neck status post resection. Glioblastoma multiforme stage IV status post craniotomy 2 with chemo radiation therapy Left-sided weakness. Seizure disorder. PAST SURGICAL HISTORY: Pyloric stenosis with gastrojejunostomy and truncal vagotomy. Cynthia-en-Y surgery with gastrojejunostomy due to gastric outlet obstruction. EGD and colonoscopy Melanoma resection from the left neck. Craniotomy 07/23/2020 and November 2022. Hysterectomy Tonsillectomy Laparoscopic cholecystectomy Left heart catheterization with PCI SOCIAL HISTORY: Patient is a history of smoking, she has no history of drinking, no drug use or abuse. Patient lives with her . FAMILY HISTORY: Father at age [address] and had a history of CABG, mother at age of 70 from lung cancer, patient had 4 brothers one with lung cancer one from [place] at the age of 61, one has a pacemaker and the fourth one is fine, patient has one sister who is alive and well, patient has one son with lupus and one daughter with melanoma as well as adrenal insufficiency. PHYSICAL EXAMINATION: General: 68-year-old female laying down in bed in no distress, HEENT: Head is atraumatic, normocephalic, pupils were equal round reactive to light and recommendation, extraocular muscle movement were intact, sclera nonicteric, conjunctivae were pale, mucous membranes of the mouth are somewhat dry. Neck: Supple, no JVP, normal carotid upstroke bilaterally, no lymphadenopathy. Chest: Decreased breath sounds at the bases, few rhonchi, no expiratory wheezes, no chest wall tenderness, no intercostal retractions. Heart: First heart sound is normal, second heart sounds normal there is PAO 2/6 located at the left sternal border. Abdomen: Soft, nontender, nondistended, positive bowel sounds. Extremities: There is no edema no calf tenderness DP +2 bilaterally. Neurologic examination: Patient is awake responding barely, left-sided hemiplegia. ASSESSMENT AND PLAN: 1. Recurrent glioblastoma multiform he stage IV post craniotomy 2 post chemoradiation therapy currently on Temodar without success. Start the patient on Decadron 4 mg IV push every 6 hours, patient is not able to swallow any medication at this time,we will continue to monitor the patient very closely consult hospice patient is planning to go home with hospice likely [facility]. 2. Hypertension and hypertensive cardiovascular disease. Start the patient on clonidine patch 0.1 mg once every week, start Vasotec 1.25 mg IV push every 6 hours as needed for systolic blood pressure greater than or equal to 160 or diastolic blood pressure greater than or equal to 90. 3. Hyperlipidemia. Discontinue atorvastatin. 4. CAD post-PCI of the RCA. Discontinue atorvastatin, discontinue aspirin. 5. GERD with esophagitis. Continue Protonix 40 mg IV push every 24 hours. 6. Migraine headaches. Continue morphine for better gram-negative push every 4 hours as needed. 7. History of seizure disorder. Keep the patient off Keppra for now. 8. DVT prophylaxis. Start the patient on Lovenox 40 mg subcutaneously every 24 hours . 9. GI prophylaxis. Continue PPI. 10. DO NOT RESUSCITATE. 11. Inpatient. 12. Consult hospice Past Medical History Past Medical History: Cancer, GERD/Reflux, GI Bleed, Hypertension Additional Past Medical History / Comment(s): PUD, upper GI bleed, anemia, pyloric strictures with surgeries, melanoma stage I-mole on L neck with removal, hemorrhoids, 2017 had stress echo which suggestive of prior CT-had PCI with stent, chronic migraines, small cyst on liver, occasional bilateral tinnitis, recent L thigh muscle bruise-started on baclofen. TIA 2021 History of Any Multi-Drug Resistant Organisms: None Reported Past Surgical History: Bowel Resection, Cholecystectomy, Heart Catheterization With Stent, Hysterectomy, Tonsillectomy Additional Past Surgical History / Comment(s): Pyloric stricture with gastrojejunostomy/truncal vagotomy, Cynthia-en-y/gastrojejunostomy with lysis of adhesions d/t gastric outlet obstruction, EGDs, colonoscopies, melanoma removed from skin L neck. Past Anesthesia/Blood Transfusion Reactions: Postoperative Nausea & Vomiting (PONV) Additional Past Anesthesia/Blood Transfusion Reaction / Comment(s): Pt has received blood in past twice without reaction. Date of Last Stent Placement:: 07/27/17 Past Psychological History: No Psychological Hx Reported Smoking Status: Never smoker Past Alcohol Use History: None Reported Past Drug Use History: None Reported - Past Family History Mother Family Medical History: Cancer Additional Family Medical History / Comment(s): lung Daughter(s) Family Medical History: Cancer Additional Family Medical History / Comment(s): melanoma Father Family Medical History: Coronary Artery Disease (CAD), Diabetes Mellitus Additional Family Medical History / Comment(s): Father at 75 yrs post CABG sepsis. Brother(s) Family Medical History: Coronary Artery Disease (CAD) Medications and Allergies Home Medications Medication Instructions Recorded Confirmed Type Butalb/Asprin/Caff 50-325-40Mg 1 - 2 tab PO TID PRN 04/26/16 05/14/23 History [Fiorinal 50-325-40 MG] Atorvastatin [Lipitor] 40 mg PO DAILY #90 tab 07/28/17 05/14/23 Rx Aspirin EC [Ecotrin Low Dose] 81 mg PO HS 08/08/18 05/14/23 History Omeprazole [PriLOSEC] 40 mg PO BID 07/21/20 05/14/23 History Docusate [Colace] 100 mg PO BID 02/20/22 05/14/23 History Metoclopramide [Reglan] 10 mg PO Q8H PRN 02/20/22 05/14/23 History Potassium Chloride ER [K-Dur 10] 10 meq PO BID 02/20/22 05/14/23 History ondansetron HCL [Zofran] 8 mg PO Q8H PRN 02/20/22 05/14/23 History Losartan Potassium 100 mg PO DAILY 05/10/22 05/14/23 History Isosorbide Mononitrate ER [Imdur] 30 mg PO DAILY 07/26/22 05/14/23 History Avastin(Unknown Dose) 1 dose IV Q14D 05/14/23 05/14/23 History Ketoconazole 2% Shampoo [Nizoral] 1 applic TOPICAL Q7D 05/14/23 05/14/23 History LORazepam [Ativan] 1 mg PO Q12H PRN 05/14/23 05/14/23 History Metoprolol Succinate (ER) [Toprol 25 mg PO DAILY 05/14/23 05/14/23 History XL] Mirtazapine 7.5 mg PO HS PRN 05/14/23 05/14/23 History Nitroglycerin Sl Tabs [Nitrostat] 0.4 mg SL Q5M PRN 05/14/23 05/14/23 History Verapamil Sr [Isoptin Sr] 240 mg PO DAILY PRN 05/14/23 05/14/23 History busPIRone HCL [Buspar] 7.5 mg PO BID 05/14/23 05/14/23 History dexAMETHasone [Decadron] 4 mg PO Q12H 05/14/23 05/14/23 History levETIRAcetam [Keppra] 1,000 mg PO BID 05/14/23 05/14/23 History metFORMIN HCL [Glucophage] 500 mg PO DAILY 05/14/23 05/14/23 History traMADol HCL 50 mg PO Q6H PRN 05/14/23 05/14/23 History Temozolomide [Temodar] 20 mg PO DIRECTED 05/15/23 05/15/23 History Temozolomide [Temodar] 250 mg PO DIRECTED 05/15/23 05/15/23 History Allergies Allergy/AdvReac Type Severity Reaction Status Date / Time hydromorphone [From Dilaudid] AdvReac Hallucinati Verified 05/14/23 21:35 ons Physical Exam Vitals: Vital Signs Temp Pulse Pulse Resp BP BP Pulse Ox 05/15/23 08:00 98.8 F 107 H 18 147/70 91 L 05/15/23 07:59 115 H 16 167/98 94 L 05/15/23 06:40 106 H 21 161/88 93 L 05/15/23 05:50 111 H 20 168/90 93 L 05/15/23 05:00 108 H 18 189/93 91 L 05/15/23 04:50 113 H 21 189/93 93 L 05/15/23 04:40 104 H 21 173/95 93 L 05/15/23 04:20 111 H 22 176/108 93 L 05/15/23 02:50 95 18 187/94 92 L 05/15/23 02:20 96 19 174/96 92 L 05/15/23 00:44 97 18 159/96 93 L 05/14/23 21:54 98.5 F 96 20 189/94 94 L 05/14/23 18:42 105 H 20 207/99 95 05/14/23 17:05 98.2 F 92 18 187/95 95 Intake and Output 05/14/23 05/15/23 05/15/23 22:59 06:59 14:59 Other: Weight 86.183 kg Results CBC & Chem 7: 05/14/23 18:04 05/14/23 18:04 Labs: Abnormal Lab Results - Last 24 Hours (Table) 05/14/23 05/14/23 05/14/23 Range/Units 18:04 18:04 18:04 Plt Count 92 L (150-450) k/uL APTT 21.9 L (22.0-30.0) sec Sodium 126 L (137-145) mmol/L Chloride 93 L (98-107) mmol/L Creatinine 0.37 L (0.52-1.04) mg/dL Glucose 110 H (74-99) mg/dL AST 109 H (14-36) U/L ALT 117 H (4-34) U/L Alkaline Phosphatase 169 H (38-126) U/L Total Protein 6.2 L (6.3-8.2) g/dL Albumin 3.4 L (3.5-5.0) g/dL Urine Protein (Negative) Urine Ketones (Negative) Urine Blood (Negative) Ur Leukocyte Esterase (Negative) Urine RBC (0-5) /hpf Urine WBC (0-5) /hpf Urine Bacteria (None) /hpf Urine Mucus (None) /hpf 05/14/23 Range/Units 21:54 Plt Count (150-450) k/uL APTT (22.0-30.0) sec Sodium (137-145) mmol/L Chloride (98-107) mmol/L Creatinine (0.52-1.04) mg/dL Glucose (74-99) mg/dL AST (14-36) U/L ALT (4-34) U/L Alkaline Phosphatase (38-126) U/L Total Protein (6.3-8.2) g/dL Albumin (3.5-5.0) g/dL Urine Protein 2+ H (Negative) Urine Ketones 1+ H (Negative) Urine Blood Small H (Negative) Ur Leukocyte Esterase Moderate H (Negative) Urine RBC 20 H (0-5) /hpf Urine WBC 36 H (0-5) /hpf Urine Bacteria Rare H (None) /hpf Urine Mucus Rare H (None) /hpf
--- NOTE | 2023-05-17 21:14 | P.PN ---
Subjective Progress Note Date: 05/16/23 HISTORY OF PRESENT ILLNESS: This is a 68-year-old female one of my patient with a previous medical history significant for hypertension and hypertensive cardio vascular disease, hyperlipidemia, history of gastroesophageal reflux disease, CAD post PCI, history of pyloric stenosis status post gastrojejunostomy with lysis of adhesion, history of melanoma status post resection, history of glioblastoma multiforme stage IV in the right parietal area status post craniotomy with the gross resection of the tumor on 07/23/2020 with adjuvant radiation therapy that was done on 10/14/2020, with chemotherapy in the form of Temodar as well as OPTUNE treatment, patient has been under the care of hematology oncology at [facility] with Dr. El she ended up having another craniotomy on November 2022 because of recurrence of her tumor, despite taking chemotherapy and the patient was started on a smaller dose of Temodar and has been in and out of the hospital because of left-sided weakness and increased brain edema, she has been on significant amount of dexamethasone recently was on Decadron 4 mg orally twice every day, she was seen in my office about 3 weeks ago, after she was hospitalized at [facility] for significant paresis of the left upper and lower extremities, due to brain edema, patient became quite lethargic not able to do anything on her own, her daughter and her contacted me and I asked them to take her to the ER for possible inpatient admi ssion with hospice consult as the patient is not able to do any more treatment at this point in time, family seems to be realistic to the idea that she is ready for hospice consult therefore she will be admitted to the floor and we'll consult [facility] hospice. 05/16: Patient is laying down in bed she is more awake today, after she did receive Decadron 4 mg IV push every 6 hours, we will continue with that, we'll consult hospice, the plan is to transfer the patient home with hospice tomorrow morning, family were at the bedside, although questions were answered, at this stage the patient is ready to be in hospice, since her treatment has failed despite to craniotomy as well as chemoradiation therapy. REVIEW OF SYSTEMS: Constitutional: No documented fever, no chills, no night sweats. positive for weight change. positive for weakness, positive for fatigue and lethargy. No daytime sleepiness. EENT: No headache. No blurred vision or double vision, no loss of vision. No loss of Hearing, no ringing in the ears, no dizziness. No nasal drainage or congestion. No epistaxis. No sore throat. Lungs: No shortness of breath, no cough, no sputum production. No wheezing. Reports dyspnea with activity. Cardiovascular: No chest pain, no lower extremity edema. No palpitations. No paroxysmal nocturnal dyspnea. No orthopnea. No lightheadedness or dizziness. No syncopal episodes. Abdominal: Reports abdominal pain. No nausea, vomiting. No diarrhea. No constipation. No bloody or tarry stools reports loss of appetite. Genitourinary: No dysuria, increased frequency, urgency. No urinary retention. Musculoskeletal: No myalgias. positive for muscle weakness, positive for gait d ysfunction, no frequent falls. No back pain. No neck pain. Integumentary: No wounds, no lesions. No rash or pruritus. No unusual bruising. No change in hair or nails. Neurologic: No aphasia. No facial droop. No change in mentation. No head injury. No headache. No paralysis. No paresthesia. Psychiatric: No depression. No anxiety. No mood swings. Endocrine: No abnormal blood sugars. No weight change. PHYSICAL EXAMINATION: General: 68-year-old female laying down in bed in no distress, HEENT: Head is atraumatic, normocephalic, pupils were equal round reactive to light and recommendation, extraocular muscle movement were intact, sclera nonicteric, conjunctivae were pale, mucous membranes of the mouth are somewhat dry. Neck: Supple, no JVP, normal carotid upstroke bilaterally, no lymphadenopathy. Chest: Decreased breath sounds at the bases, few rhonchi, no expiratory wheezes, no chest wall tenderness, no intercostal retractions. Heart: First heart sound is normal, second heart sounds normal there is PAO 2/6 located at the left sternal border. Abdomen: Soft, nontender, nondistended, positive bowel sounds. Extremities: There is no edema no calf tenderness DP +2 bilaterally. Neurologic examination: Patient is awake responding barely, left-sided hemiplegia. ASSESSMENT AND PLAN: 1. Recurrent glioblastoma multiform he stage IV post craniotomy 2 post chemoradiation therapy currently on Temodar without success. Start the patient on Decadron 4 mg IV push every 6 hours, patient is not able to swallow any medication at this time,we will continue to monitor the patient very closely consult hospice patient is planning to go home with hospice likely [facility]. 2. Hypertension and hypertensive cardiovascular disease. Start the patient on clonidine patch 0.1 mg once every week, start Vasotec 1.25 mg IV push every 6 hours as needed for systolic blood pressure greater than or equal to 160 or diastolic blood pressure greater than or equal to 90. 3. Hyperlipidemia. Discontinue atorvastatin. 4. CAD post-PCI of the RCA. Discontinue atorvastatin, discontinue aspirin. 5. GERD with esophagitis. Continue Protonix 40 mg IV push every 24 hours. 6. Migraine headaches. Continue morphine for better gram-negative push every 4 hours as needed. 7. History of seizure disorder. Keep the patient off Keppra for now. 8. DVT prophylaxis. Start the patient on Lovenox 40 mg subcutaneously every 24 hours . 9. GI prophylaxis. Continue PPI. 10. DO NOT RESUSCITATE. 11. Transfer the patient home with hospice tomorrow morning. Objective - Vital Signs Vital signs: Vital Signs Temp 97.9 F 05/17/23 07:15 Pulse 89 05/17/23 07:15 Resp 18 05/17/23 07:15 BP 185/91 05/17/23 07:15 Pulse Ox 96 05/17/23 09:59 FiO2 Intake & Output 05/17/23 05/17/23 05/18/23 06:59 18:59 06:59 Output Total 300 Balance -300 Output: Urine 300 Other: Voiding Method Indwelling Catheter - Labs CBC & Chem 7: 05/14/23 18:04 05/14/23 18:04
--- NOTE | 2023-05-17 21:16 | P.DS ---
Providers Date of admission: 05/14/23 23:24 Expected date of discharge: 05/17/23 Attending physician: Valeriano Khan Primary care physician: Valeriano Khan [facility] Course: HISTORY OF PRESENT ILLNESS: This is a 68-year-old female one of my patient with a previous medical history significant for hypertension and hypertensive cardio vascular disease, hyperlipidemia, history of gastroesophageal reflux disease, CAD post PCI, history of pyloric stenosis status post gastrojejunostomy with lysis of adhesion, history of melanoma status post resection, history of glioblastoma multiforme stage IV in the right parietal area status post craniotomy with the gross resection of the tumor on 07/23/2020 with adjuvant radiation therapy that was done on 10/14/2020, with chemotherapy in the form of Temodar as well as OPTUNE treatment, patient has been under the care of hematology oncology at [facility] with Dr. El she ended up having another craniotomy on November 2022 because of recurrence of her tumor, despite taking chemotherapy and the patient was started on a smaller dose of Temodar and has been in and out of the hospital because of left-sided weakness and increased brain edema, she has been on significant amount of dexamethasone recently was on Decadron 4 mg orally twice every day, she was seen in my office about 3 weeks ago, after she was hospitalized at [facility] for significant paresis of the left upper and lower extremities, due to brain edema, patient became quite lethargic not able to do anything on her own, her daughter and her contacted me and I asked them to take her to the ER for possible inpatient admission with hospice consult as the patient is not able to do any more treatment at this point in time, family seems to be realistic to the idea that she is ready for hospice consult therefore she will be admitted to the floor and we'll consult [facility]. 05/16: Patient is laying down in bed she is more awake today, after she did receive Decadron 4 mg IV push every 6 hours, we will continue with that, we'll consult hospice, the plan is to transfer the patient home with hospice tomorrow morning, family were at the bedside, although questions were answered, at this stage the patient is ready to be in hospice, since her treatment has failed despite to craniotomy as well as chemoradiation therapy. Discharge diagnoses: 1. Recurrent glioblastoma multiform he stage IV post craniotomy 2 post chemoradiation therapy currently on Temodar without success. 2. Hypertension and hypertensive cardiovascular disease. 3. Hyperlipidemia. 4. CAD post-PCI of the RCA. 5. GERD with esophagitis. 6. Migraine headaches. 7. History of seizure disorder. Patient Condition at Discharge: Serious Plan - Discharge Summary New Discharge Prescriptions: No Action Butalb/Asprin/Caff 50-325-40Mg [Fiorinal 50-325-40 MG] 1 - 2 tab PO TID PRN PRN Reason: Migraine Headache Atorvastatin [Lipitor] 40 mg PO DAILY #90 tab Aspirin EC [Ecotrin Low Dose] 81 mg PO HS Omeprazole [PriLOSEC] 40 mg PO BID Docusate [Colace] 100 mg PO BID ondansetron HCL [Zofran] 8 mg PO Q8H PRN PRN Reason: Nausea busPIRone HCL [Buspar] 7.5 mg PO BID levETIRAcetam [Keppra] 1,000 mg PO BID Verapamil Sr [Isoptin Sr] 240 mg PO DAILY PRN PRN Reason: high bp Avastin(Unknown Dose) 1 dose IV Q14D Temozolomide [Temodar] 250 mg PO DIRECTED Metoclopramide [Reglan] 10 mg PO Q8H PRN PRN Reason: Nausea Potassium Chloride ER [K-Dur 10] 10 meq PO BID Losartan Potassium 100 mg PO DAILY Isosorbide Mononitrate ER [Imdur] 30 mg PO DAILY dexAMETHasone [Decadron] 4 mg PO Q12H Ketoconazole 2% Shampoo [Nizoral] 1 applic TOPICAL Q7D LORazepam [Ativan] 1 mg PO Q12H PRN PRN Reason: Anxiety Mirtazapine 7.5 mg PO HS PRN PRN Reason: Insomnia traMADol HCL 50 mg PO Q6H PRN PRN Reason: Pain metFORMIN HCL [Glucophage] 500 mg PO DAILY Metoprolol Succinate (ER) [Toprol XL] 25 mg PO DAILY Nitroglycerin Sl Tabs [Nitrostat] 0.4 mg SL Q5M PRN PRN Reason: Chest Pain Temozolomide [Temodar] 20 mg PO DIRECTED Discharge Medication List Butalb/Asprin/Caff 50-325-40Mg [Fiorinal 50-325-40 MG] 1 - 2 tab PO TID PRN 04/26/16 [History] Atorvastatin [Lipitor] 40 mg PO DAILY #90 tab 07/28/17 [Rx] Aspirin EC [Ecotrin Low Dose] 81 mg PO HS 08/08/18 [History] Omeprazole [PriLOSEC] 40 mg PO BID 07/21/20 [History] Docusate [Colace] 100 mg PO BID 02/20/22 [History] Metoclopramide [Reglan] 10 mg PO Q8H PRN 02/20/22 [History] Potassium Chloride ER [K-Dur 10] 10 meq PO BID 02/20/22 [History] ondansetron HCL [Zofran] 8 mg PO Q8H PRN 02/20/22 [History] Losartan Potassium 100 mg PO DAILY 05/10/22 [History] Isosorbide Mononitrate ER [Imdur] 30 mg PO DAILY 07/26/22 [History] Avastin(Unknown Dose) 1 dose IV Q14D 05/14/23 [History] Ketoconazole 2% Shampoo [Nizoral] 1 applic TOPICAL Q7D 05/14/23 [History] LORazepam [Ativan] 1 mg PO Q12H PRN 05/14/23 [History] Metoprolol Succinate (ER) [Toprol XL] 25 mg PO DAILY 05/14/23 [History] Mirtazapine 7.5 mg PO HS PRN 05/14/23 [History] Nitroglycerin Sl Tabs [Nitrostat] 0.4 mg SL Q5M PRN 05/14/23 [History] Verapamil Sr [Isoptin Sr] 240 mg PO DAILY PRN 05/14/23 [History] busPIRone HCL [Buspar] 7.5 mg PO BID 05/14/23 [History] dexAMETHasone [Decadron] 4 mg PO Q12H 05/14/23 [History] levETIRAcetam [Keppra] 1,000 mg PO BID 05/14/23 [History] metFORMIN HCL [Glucophage] 500 mg PO DAILY 05/14/23 [History] traMADol HCL 50 mg PO Q6H PRN 05/14/23 [History] Temozolomide [Temodar] 20 mg PO DIRECTED 05/15/23 [History] Temozolomide [Temodar] 250 mg PO DIRECTED 05/15/23 [History] Follow up Appointment(s)/Referral(s): Valeriano Khan MD [Primary Care Provider] - 1-2 days Discharge Disposition: HOME WITH HOME HEALTH SERVICES
== END 2023-05-17 14:20 | disposition hospice, home (50) | DRG 55 ==
LOC: EC 16:59 → 4SSUR 23:24
PROVIDERS: ADMIT Internal Medicine; ATTEND Internal Medicine
DX: C71.9 Malignant neoplasm of brain, unspecified (principal); E78.5 Hyperlipidemia, unspecified; I25.10 Atherosclerotic heart disease of native coronary artery without angina pectoris; I11.9 Hypertensive heart disease without heart failure; K21.00 Gastro-esophageal reflux disease with esophagitis, without bleeding; G40.909 Epilepsy, unspecified, not intractable, without status epilepticus; G43.909 Migraine, unspecified, not intractable, without status migrainosus; Z66 Do not resuscitate; Z98.61 Coronary angioplasty status; Z87.891 Personal history of nicotine dependence; Z86.73 Personal history of transient ischemic attack (TIA), and cerebral infarction without residual deficits; Z79.899 Other long term (current) drug therapy; Z79.84 Long term (current) use of oral hypoglycemic drugs; Z51.5 Encounter for palliative care; Z85.820 Personal history of malignant melanoma of skin; Z92.3 Personal history of irradiation; Z92.21 Personal history of antineoplastic chemotherapy; Z88.6 Allergy status to analgesic agent; Z88.5 Allergy status to narcotic agent
CPT/HCPCS: 36415; 51702; 51798; 70450; 71045; 80053; 81001; 84484; 85025; 85610; 85730; 93005; 94760; 96361; 96374; 96375; 99285